=== PATIENT | female | born 1950 | race Hispanic/Latino ===

== ENCOUNTER 2017-08-13 15:57 | Inpatient (IN) | payer MEDICAID, SELFPAY ==
[2017-08-13] MEDS ORDERED: hydrALAZINE 20 MG/ML VIAL ONE (16:54)
[2017-08-13 17:54] LABS: #Eosinphils 0.2 thou/uL (0.0-0.7); #Lymphocytes 2.3 thou/uL (1.20-3.40); #Monocytes 0.4 thou/uL (0.11-0.59); #Neutrophils 2.7 thou/uL (1.40-6.50); %Basophils 0.9 % (0.0-1.0); %Eosinophils 2.8 % (0.0-10.0); %Lymphocytes 40.4 % (21.0-51.0); %Monocytes 6.9 % (0.0-10.0); Hemoglobin 10.2 g/dL (12.0-16.0); Mean Corpuscular HGB CONC 34.5 g/dL (32.0-36.0); Mean Corpuscular Hemoglobin 31.7 pg (27.0-31.0); Mean Corpuscular Volume 91.9 fl (81.0-99.0); Mean Platelet Volume 6.5 fL (7.4-10.4); Platelet Count 235 thou/uL (130-400); RBC Distribution Width 13.7 % (11.5-14.5); Red Blood Cell (RBC) Count 3.21 mill/uL (4.20-5.40); White Blood Cell (WBC) Count 5.6 thou/uL (4.8-10.8)
[2017-08-13] MEDS ORDERED: Ondansetron ODT 4 MG TAB ONE (18:15)
[2017-08-13 18:19] LABS: Troponin I 0.015 ng/mL (< 0.028)
[2017-08-13 18:20] LABS: ALT (SGPT) 7 U/L (8-55); AST (SGOT) 14 U/L (5-34); Albumin 3.6 g/dL (3.4-4.8); Alkaline Phosphatase 80 U/L (40-150); Anion Gap 16 mmol/L (10-20); BUN (Urea Nitrogen) 50 mg/dL (9.8-20.1); Bilirubin, Total 0.3 mg/dL (0.2-1.2); CK (CPK) 60 U/L (29-168); Calc. Creatinine Clearance 0 mL/min (70-130); Calcium 8.9 mg/dL (7.8-10.44); Carbon Dioxide 13 mmol/L (23-31); Chloride 115 mmol/L (98-107); Estimated GFR-MDRD 9; Globulin 3.1 g/dL (2.4-3.5); Glucose 119 mg/dL (80-115); Potassium 4.5 mmol/L (3.5-5.1); Protein, Total 6.7 g/dL (6.0-8.3); Sodium 139 mmol/L (136-145)
[2017-08-13] MEDS ORDERED: Ondansetron HCl/PF 4 MG/2 ML Vial IVP PRN ×2 (19:37→20:00)
[2017-08-13] MEDS ORDERED: Acetaminophen 325 MG TAB PO PRN ×2 (19:37→20:00)
[2017-08-13] MEDS ORDERED: Sodium Chloride 0.9% 1,000 ML IV SCH ×2 (19:37→20:00)
[2017-08-13] MEDS ORDERED: Ondansetron ODT 4 MG TAB SL PRN (19:37)
[2017-08-13] MEDS ORDERED: Dextrose 50% Abboject 50 ML SYRINGE SLOW IVP PRN (20:00)
[2017-08-13] MEDS ORDERED: Guaifenesin DM 100-10/5 ML UDCUP PO PRN (20:00)
[2017-08-13] MEDS ORDERED: Dextrose 5% in Water 1,000 ML IV PRN (20:00)
[2017-08-13] MEDS ORDERED: HumaLOG 300 UNITS/3 ML VIAL SC PRN (20:00)
[2017-08-13 21:40] LABS: Iron 68 ug/dL (50-170); Iron Binding Capacity, Total 194 mcg/dL (265-497)
[2017-08-13] MEDS: Labetalol 100 MG TAB PO SCH (21:51)
[2017-08-13] MEDS: hydrALAZINE 25 MG TAB PO SCH (21:53)
[2017-08-13] MEDS: Docusate 100 MG CAP PO SCH (21:53)
[2017-08-13] MEDS: Famotidine 20 MG TAB PO SCH (21:54)
[2017-08-13] MEDS: Heparin 5,000 UNITS/ML VIAL SC SCH (21:54)
[2017-08-13] MEDS: Sodium Bicarbonate 150 MEQ in Dextrose 5% in Water 1,000 ML IV SCH (21:56)
[2017-08-13 22:06] LABS: Troponin I 0.028 ng/mL (< 0.028)
[2017-08-13 22:14] VITALS: BMI 25.9
[2017-08-13 23:54] LABS: Troponin I 0.023 ng/mL (< 0.028)
--- NOTE | 2017-08-14 01:00 | HP ---
REASON FOR ADMISSION: Acute kidney injury, metabolic acidosis, nausea, vomiting , dizziness. HISTORY OF PRESENT ILLNESS: The patient gives history of feeling dizzy from . She started vomiting from Sunday. The patient has loss of appetite and has not been eating or drinking much since then. She has had mild epigastric pain due to retching episodes. No complaints of diarrhea. She had a normal bowel movement this morning. The patient has felt feverish and has had chills, but no urinary frequency or urgency. No complaints of cough or expectoration. No history of palpitations, PND or orthopnea. No prior history of kidney issues as far she knows. PAST MEDICAL AND SURGICAL HISTORY: Diabetes mellitus type 2, hypertension. No prior surgical history. CURRENT MEDICATIONS: Takes metformin 1000 mg once a day and unknown hypertension medication once a day. She has gotten both of these medications from [place]. ALLERGIES: ASPIRIN, PENICILLIN. PERSONAL HISTORY: Does not abuse alcohol or drugs. No history of smoking. FAMILY HISTORY: She does not know much about her biological mom. She was raised by her step mom. Father at the age of 64 years, was a heavy smoker and had COPD. REVIEW OF SYSTEMS: The following complete review of systems was negative, unless otherwise mentioned in the HPI or below: Constitutional: Weight loss or gain, ability to conduct usual activities. Skin: Rash, itching. Eyes: Double vision, pain. ENT/Mouth: Nose bleeding, neck stiffness, pain, tenderness. Cardiovascular: Palpitations, dyspnea on exertion, orthopnea. Respiratory: Shortness of breath, wheezing, cough, hemoptysis, fever or night sweats. Gastrointestinal: Poor appetite, abdominal pain, heartburn, nausea, vomiting, constipation, or diarrhea. Genitourinary: Urgency, frequency, dysuria, nocturia. Musculoskeletal: Pain, swelling. Neurologic/Psychiatric: Anxiety, depression. Allergy/Immunologic: Skin rash, bleeding tendency. PHYSICAL EXAMINATION: GENERAL: The patient is a 67-year-old female who is currently not in any acute distress. VITAL SIGNS: On arrival, blood pressure was 203/86, pulse 74 per minute, respiratory rate 18 per minute, temperature 98 degrees Fahrenheit, and saturating 99% on room air. NECK: Supple, no elevated JVD. HEENT: Eyes: Extraocular muscles intact. Pupils reacting to light. Oral cavity: Mucous membranes are dry. No exudates or congestion. CARDIOVASCULAR SYSTEM: S1, S2 heard. Regular rhythm. RESPIRATORY SYSTEM: Air entry 1+ bilateral. No rales or rhonchi. ABDOMEN: Soft, bowel sounds heard. No tenderness, rigidity, or guarding. EXTREMITIES: No peripheral edema or calf tenderness. VASCULAR SYSTEM: Peripheral pulses 2+ bilateral, no ischemic ulcerations or gangrene. CENTRAL NERVOUS SYSTEM: No gross focal deficits seen. The patient is alert, awake, and oriented well. PSYCHIATRIC SYSTEM: The patient's mood is euthymic. No hallucinations or delusions. LABORATORY AND X-RAY FINDINGS: White count of 5.6, H and H 10 and 29, platelet count 235, MCV is 91 with 49% neutrophils. Serum bicarbonate is 13, BUN 50, creatinine 4.7, glucose 119. Liver enzymes are within normal limits. First set of cardiac enzymes are negative. BNP is 271. Albumin is 3.8, lipase is 44. UA shows more than 300 mg per deciliter of proteins. There is small leukoesterase, 11-20 wbc's, and 2+ bacteria. CT of the abdomen and pelvis done shows no definite acute abnormalities seen on the CAT scan without IV contrast. There was no definite hydronephrosis with no renal or ureteral calculus noted. EKG done showed normal sinus rhythm at 72 beats per minute. There is poor R-wave progression. CLINICAL IMPRESSION AND PLAN: The patient will be admitted to telemetry for acute kidney injury, metabolic acidosis, and hypertensive urgency. She will be placed on labetalol 50 mg 3 times daily, hydralazine tid and normal saline at 100 mL per hour for gentle IV hydration. Ultrasound of the kidneys will be obtained. Echo with 2D Doppler for LV function. Iron studies for anemia, likely chronic versus due to kidney disease. I have consulted Dr. Rodriguez for Nephrology. She will be on Accu-Cheks with coverage for now. It is unclear what antihypertensive she is using. The patient's acute kidney injury appears to be likely due to prerenal issues with her nausea, vomiting, loss of appetite, plus the metformin and unknown hypertensive medication might have worsened her acute kidney injury. We will continue to closely monitor her on telemetry. CODE STATUS: FULL. MTDD
[2017-08-14 01:46] LABS: Creatinine, Urine 44.43 mg/dL (47-110)
--- NOTE | 2017-08-14 05:29 | CON ---
DATE OF CONSULTATION: 08/13/2017 CONSULTING PHYSICIAN: Michael Bernal M.D. REQUESTING PHYSICIAN: Dr. Grant. REASON FOR CONSULTATION: Advanced kidney disease. IMPRESSION: 1. Advanced chronic kidney disease stage 5 with possible uremic symptomatologies. 2. Metabolic acidosis in the context of problem #1. 3. Anemia, likely anemia of chronic kidney disease. 4. Hypertension. 5. Diabetes mellitus with possibility of diabetic nephropathy. PLAN: 1. Discontinue current normal saline and switch this patient over to bicarbonate based infusion to g ently rehydrate this patient, keeping an eye on the hemodynamics of this patient to avoid exacerbatin g hypertension. 2. Renally dose all medications per very low GFR. 3. Avoid potentially nephrotoxic agents. 4. Renal ultrasound to evaluate the echotexture of this patient's kidney. 5. Bone mineral metabolism by checking the parathyroid hormone. 6. Spot urine protein and creatinine to evaluate for any potential significant diabetic nephropathy. 7. Further management to be dependent on the clinical course. If this becomes clear that we are dahlia ling with advanced kidney disease with uremic symptomatology dialysis modality becomes the indicated mode of treatment. HISTORY OF PRESENT ILLNESS: A 67-year-old female patient visiting family from [place] who is here wit h persistent nausea and vomiting, poor appetite, presented to the ER from where she was transferred [place] to us here after being noted with advanced kidney disease with a creatinine of above 5. Patient noted to be significantly acidotic. Patient with a known history of diabetes on metformin as well as history of hypertension. As a result of the advanced kidney disease, decision has been taken to inv olve Renal in the management of this case. PAST MEDICAL HISTORY: 1. Significant for diabetes mellitus type 2 for many years. 2. Hypertension. 3. Possible chronic kidney disease. MEDICATIONS: As documented on [employer]. ALLERGIES: No known drug allergy. FAMILY HISTORY: Significant for kidney failure in the brother. REVIEW OF SYSTEMS: As documented in the body of the history. All the other systems reviewed were fo und not to be significantly related to the presenting illness. PHYSICAL EXAMINATION: GENERAL: The patient was found not to be in any obvious distress noted with the following vital sign s. VITAL SIGNS: Afebrile with temperature 96.7, pulse 82, respiratory rate of 16, O2 sat 100% on room a ir with a blood pressure 164/74. HEENT: Unremarkable. Moist oral mucosa. Neck is supple. No conjunctival injection or icterus. CARDIOVASCULAR SYSTEM: First and second heart sounds were heard. RESPIRATORY SYSTEM: Clear to auscultation. DIGESTIVE SYSTEM: Revealed a benign abdomen with positive bowel sounds. EXTREMITIES: No peripheral edema. SKIN: No new gross rash. LYMPHATICS: No peripheral lymphadenopathy. SUMMARY: A 67-year-old female patient with possible advanced chronic kidney disease stage 5 with pos sible uremic symptomatology who presented here with nausea, vomiting, and poor appetite. Thank you for this consultation. We will follow with you.
[2017-08-14 05:54] LABS: #Eosinphils 0.1 thou/uL (0.0-0.7); #Lymphocytes 1.8 thou/uL (1.20-3.40); #Monocytes 0.4 thou/uL (0.11-0.59); %Basophils 0.6 % (0.0-1.0); %Eosinophils 2.7 % (0.0-10.0); %Lymphocytes 33.9 % (21.0-51.0); %Monocytes 7.7 % (0.0-10.0); %Neutrophils 55.2 % (42.0-75.0); Hemoglobin 9.5 g/dL (12.0-16.0); Mean Corpuscular HGB CONC 33.9 g/dL (32.0-36.0); Mean Corpuscular Hemoglobin 31.1 pg (27.0-31.0); Mean Corpuscular Volume 91.8 fl (81.0-99.0); Mean Platelet Volume 6.9 fL (7.4-10.4); Platelet Count 219 thou/uL (130-400); Red Blood Cell (RBC) Count 3.05 mill/uL (4.20-5.40); White Blood Cell (WBC) Count 5.4 thou/uL (4.8-10.8)
[2017-08-14 06:27] LABS: Albumin 3.3 g/dL (3.4-4.8); Anion Gap 14 mmol/L (10-20); BUN (Urea Nitrogen) 51 mg/dL (9.8-20.1); BUN/Creatinine Ratio 10.49; Calc. Creatinine Clearance 10 mL/min (70-130); Calcium 8.7 mg/dL (7.8-10.44); Carbon Dioxide 17 mmol/L (23-31); Chloride 112 mmol/L (98-107); Estimated GFR-MDRD 9; Glucose 128 mg/dL (80-115); Phosphorus 4.4 mg/dL (2.3-4.7); Potassium 4.3 mmol/L (3.5-5.1); Sodium 139 mmol/L (136-145)
[2017-08-14] MEDS: Labetalol 100 MG TAB PO SCH ×2 (08:58→21:15)
[2017-08-14] MEDS: Docusate 100 MG CAP PO SCH ×2 (08:59→21:14)
[2017-08-14] MEDS: Heparin 5,000 UNITS/ML VIAL SC SCH ×2 (08:59→21:17)
[2017-08-14] MEDS: hydrALAZINE 25 MG TAB PO SCH ×3 (08:59→21:14)
[2017-08-14] MEDS ORDERED: Prevnar 13-Val Conj/PF 0.5 ML SYRINGE IM ONE (09:00)
--- NOTE | 2017-08-14 09:07 | ULT ---
BILATERAL RENAL ULTRASOUND: Date: 08/14/17 INDICATION: Acute renal injury. COMPARISON: None. FINDINGS: The right kidney measures 8.3 x 4.0 x 3.5 cm. The left kidney measures 8.4 x 4.6 x 4.7 cm. Right royce l cortical thickness was 1.4 cm. The left renal cortical thickness was 1.3 cm. No hydronephrosis evid ent. No focal renal lesion is evident. The pre-void bladder volume was 106 mL. IMPRESSION: No focal renal lesion or hydronephrosis. POS: ROBBI
--- NOTE | 2017-08-14 10:51 | PDOC.PN ---
- Subjective Encounter Start Date: 08/14/17 Encounter Start Time: 10:56 Subjective: No complaints. -: No acute events overnight. - Objective Resuscitation Status: Resuscitation Status FULL:Full Resuscitation Vital Signs & Weight: Vital Signs (12 hours) Temp Pulse Resp BP Pulse Ox 08/14/17 08:49 98.2 F 91 18 156/70 H 99 08/14/17 05:09 98.5 F 78 17 137/65 99 08/14/17 00:00 98.4 F 83 13 155/70 H 99 Weight Weight 119 lb 4.8 oz I&O: 08/13/17 08/14/17 08/15/17 06:59 06:59 06:59 Intake Total 1010 Output Total 550 Balance 460 Result Diagrams: 08/14/17 05:31 08/14/17 05:32 Phys Exam - Physical Examination Constitutional: NAD HEENT: PERRLA, moist MMs, sclera anicteric, oral pharynx no lesions Neck: no JVD, supple, full ROM Respiratory: no wheezing, no rales, no rhonchi, clear to auscultation bilateral Cardiovascular: RRR, no significant murmur, no rub Gastrointestinal: soft, non-tender, no distention, positive bowel sounds Musculoskeletal: no edema, pulses present Neurological: non-focal, normal sensation Psychiatric: normal affect, A&O x 3 Skin: no rash, normal turgor Dx/Plan (1) Acute on chronic renal failure Code(s): N17.9 - ACUTE KIDNEY FAILURE, UNSPECIFIED; N18.9 - CHRONIC KIDNEY DISEASE, UNSPECIFIED Status: Acute Qualifiers: Acute renal failure type: unspecified Chronic kidney disease stage: stage 4 (severe) Qualified Code(s): N17.9 - Acute kidney failure, unspecified; N18.4 - Chronic kidney disease, stage 4 (severe); N18.4 - Chronic kidney disease , stage 4 (severe); N18.4 - Chronic kidney disease, stage 4 (severe); N18.4 - Chronic kidney disease, stage 4 (severe) Comment: Improved. Nephrology on board. Continue parenteral hydration for now. Monitor creatinine and f/u nephrology recs. (2) Anemia Code(s): D64.9 - ANEMIA, UNSPECIFIED Status: Acute Qualifiers: Anemia type: unspecified type Qualified Code(s): D64.9 - Anemia, unspecified Comment: iron studies with low TIBC but normal ferritin. Will obtain folate and B12 to r/o megaloblastic anemia. (3) Metabolic acidosis Code(s): E87.2 - ACIDOSIS Status: Acute Comment: Improving. (4) DM2 (diabetes mellitus, type 2) Status: Acute Qualifiers: Diabetes mellitus complication status: with kidney complications Diabetes mellitus complication detail: with chronic kidney disease Chronic kidney disease stage: stage 4 (severe) Comment: Obtain HbA1c, continue sliding scale insulin and hold metformin. (5) HTN (hypertension) Code(s): I10 - ESSENTIAL (PRIMARY) HYPERTENSION Status: Acute Qualifiers: Hypertension type: essential hypertension Qualified Code(s): I10 - Essential (primary) hypertension Comment: On PO labetalol. Will start Amlodipine as first line drug and adjust regimen as required. (6) Hypertensive urgency Code(s): I16.0 - HYPERTENSIVE URGENCY Status: Resolved - Plan cont current plan of care, plan discussed w/ family, out of bed/ambulate, DVT proph w/heparin * . Review of Systems - Medications/Allergies Allergies/Adverse Reactions: Allergies Allergy/AdvReac Type Severity Reaction Status Date / Time aspirin Allergy Verified 08/13/17 22:20 Penicillins Allergy Verified 08/13/17 22:20 Medications: Current Medications Acetaminophen (Tylenol) 650 mg PO Q4H PRN PRN Reason: Headache/Fever or Pain Dextrose/Water (Dextrose 50%) 25 gm SLOW IVP PRN PRN PRN Reason: Hypoglycemia Docusate Sodium (Colace) 100 mg PO BID [facility] Last Admin: 08/14/17 08:59 Dose: 100 mg Famotidine (Pepcid) 20 mg PO Q24HR [facility] Last Admin: 08/13/17 21:54 Dose: 20 mg Glucagon (Glucagon) 1 mg IM PRN PRN PRN Reason: Hypoglycemia Guaifenesin/Dextromethorphan (Robitussin Dm) 15 ml PO Q4H PRN PRN Reason: Cough Heparin Sodium (Porcine) (Heparin) 5,000 units SC BID [facility] Last Admin: 08/14/17 08:59 Dose: 5,000 units Hydralazine HCl (Apresoline) 25 mg PO TID [facility] Last Admin: 08/14/17 08:59 Dose: 25 mg Dextrose/Water (D5w) 1,000 mls @ 0 mls/hr IV .Q0M PRN; As Directed PRN Reason: Hypoglycemia Sodium Bicarbonate 150 meq/ (Dextrose/Water) 1,150 mls @ 75 mls/hr IV .[id number] [facility] Last Admin: 08/13/17 21:56 Dose: 1,150 mls Insulin Human Lispro (Humalog) 0 units SC .MODERATE SLIDING SC PRN PRN Reason: Moderate Correctional Scale Labetalol HCl (Normodyne) 100 mg PO BID [facility] Last Admin: 08/14/17 08:58 Dose: 100 mg Ondansetron HCl (Zofran) 4 mg IVP Q6H PRN PRN Reason: Nausea/Vomiting
[2017-08-14] MEDS: Sodium Bicarbonate 150 MEQ in Dextrose 5% in Water 1,000 ML IV SCH (12:55)
--- NOTE | 2017-08-14 14:54 | PRG ---
DATE OF SERVICE: 08/14/2017 SUBJECTIVE: The patient seen and examined. Seems to be improving symptomatically, noted with the fo llowing. PHYSICAL EXAMINATION: VITAL SIGNS: Afebrile with temperature 98.2, pulse 91, respiratory rate of 18, O2 sat 99% with a blo od pressure 156/70. HEENT: Unremarkable with moist oral mucosa. NECK: Supple, no conjunctival injection or icterus. CARDIOVASCULAR SYSTEM: First and second heart sounds were heard. RESPIRATORY SYSTEM: Clear to auscultation. DIGESTIVE SYSTEM: Revealed a benign abdomen with positive bowel sounds. EXTREMITIES: No peripheral edema. SKIN: No new gross rash. LYMPHATICS: No peripheral lymphadenopathy. LABORATORY INVESTIGATIONS: Showed a creatinine of 4.86 with BUN of 51, bicarbonate of 17, PTH of 346 . IMPRESSION: 1. Advanced chronic kidney disease stage 5 with improved uremic symptoms. 2. Metabolic acidosis, improving. 3. Hyperparathyroidism secondary to advanced renal failure. 4. Nephrotic range proteinuria in the context of diabetic nephropathy. PLAN: 1. We will monitor this renal function up until tomorrow and then initiate a 24-hour urine collectio n for a better estimate of the residual renal function in this patient. 2. Discontinue IV fluid and start this patient on oral sodium bicarbonate supplementation. 3. Hemodynamics/blood pressure control. 4. If patient's renal function remains at this level, the patient is already at the point of requiri ng renal replacement therapy and will begin to make a plan and arrangement for dialysis access. 5. Further management will be dependent on the clinical course.
[2017-08-14] MEDS: Famotidine 20 MG TAB PO SCH (21:15)
[2017-08-14] MEDS: Sodium Bicarbonate Tab 325 MG TAB PO SCH (21:15)
[2017-08-15 05:15] LABS: #Eosinphils 0.2 thou/uL (0.0-0.7); #Lymphocytes 1.7 thou/uL (1.20-3.40); #Monocytes 0.4 thou/uL (0.11-0.59); #Neutrophils 3.1 thou/uL (1.40-6.50); %Basophils 0.7 % (0.0-1.0); %Eosinophils 3.3 % (0.0-10.0); %Lymphocytes 31.9 % (21.0-51.0); %Monocytes 7.5 % (0.0-10.0); %Neutrophils 56.6 % (42.0-75.0); Hemoglobin 8.8 g/dL (12.0-16.0); Mean Corpuscular HGB CONC 34.4 g/dL (32.0-36.0); Mean Corpuscular Hemoglobin 31.9 pg (27.0-31.0); Mean Corpuscular Volume 92.7 fl (81.0-99.0); Mean Platelet Volume 7.2 fL (7.4-10.4); Platelet Count 217 thou/uL (130-400); Red Blood Cell (RBC) Count 2.76 mill/uL (4.20-5.40); White Blood Cell (WBC) Count 5.4 thou/uL (4.8-10.8)
[2017-08-15 05:27] LABS: Hemoglobin A1c 5.3 % (4.0-6.0)
[2017-08-15 05:29] LABS: Anion Gap 14 mmol/L (10-20); BUN (Urea Nitrogen) 45 mg/dL (9.8-20.1); Calc. Creatinine Clearance 9 mL/min (70-130); Calcium 8.8 mg/dL (7.8-10.44); Carbon Dioxide 22 mmol/L (23-31); Chloride 108 mmol/L (98-107); Estimated GFR-MDRD 9; Glucose 118 mg/dL (80-115); Potassium 3.9 mmol/L (3.5-5.1); Sodium 140 mmol/L (136-145)
[2017-08-15 06:00] LABS: Folate (Folic Acid) 9.8 ng/mL (7.0-31.4)
[2017-08-15] MEDS: Sodium Bicarbonate Tab 325 MG TAB PO SCH ×2 (08:13→21:06)
[2017-08-15] MEDS: Amlodipine 5 MG TAB PO SCH (08:13)
[2017-08-15] MEDS: Docusate 100 MG CAP PO SCH ×2 (08:13→21:12)
[2017-08-15] MEDS: Heparin 5,000 UNITS/ML VIAL SC SCH ×2 (08:14→21:06)
[2017-08-15] MEDS: hydrALAZINE 25 MG TAB PO SCH ×3 (08:14→21:06)
[2017-08-15] MEDS: Labetalol 100 MG TAB PO SCH ×2 (08:14→21:06)
[2017-08-15] MEDS: Ondansetron ODT 4 MG TAB PO PRN ×2 (09:48→17:16)
--- NOTE | 2017-08-15 13:08 | PDOC.PN ---
- Subjective Encounter Start Date: 08/15/17 Encounter Start Time: 13:11 Subjective: No new complaints today. -: No acute events overnight. - Objective Resuscitation Status: Resuscitation Status FULL:Full Resuscitation MAR Reviewed: Yes Vital Signs & Weight: Vital Signs (12 hours) Temp Pulse Resp BP BP Pulse Ox 08/15/17 08:14 83 08/15/17 08:13 83 135/65 08/15/17 08:00 99 F 83 16 96 08/15/17 07:25 99 F 83 16 121/63 96 08/15/17 04:00 98.3 F 80 20 132/69 97 Weight Weight 119 lb 4.8 oz I&O: 08/14/17 08/15/17 08/16/17 06:59 06:59 06:59 Intake Total 1010 1791 Output Total 550 1020 Balance 460 771 Result Diagrams: 08/15/17 04:44 08/15/17 04:44 Additional Labs: Accuchecks 08/15/17 08/15/17 08/14/17 11:41 05:18 20:26 POC Glucose 210 H 114 H 187 H 08/14/17 08/14/17 08/14/17 17:50 16:18 11:42 POC Glucose 103 69 L 222 H 08/14/17 08/13/17 06:57 21:18 POC Glucose 135 H 248 H Phys Exam - Physical Examination Constitutional: NAD HEENT: PERRLA, moist MMs, sclera anicteric, oral pharynx no lesions Neck: no JVD, supple, full ROM Respiratory: no wheezing, no rales, no rhonchi, clear to auscultation bilateral Cardiovascular: RRR, no significant murmur, no rub Gastrointestinal: soft, non-tender, no distention, positive bowel sounds Musculoskeletal: no edema, pulses present Neurological: non-focal, moves all 4 limbs Psychiatric: normal affect, A&O x 3 Skin: no rash, normal turgor Dx/Plan (1) Acute on chronic renal failure Code(s): N17.9 - ACUTE KIDNEY FAILURE, UNSPECIFIED; N18.9 - CHRONIC KIDNEY DISEASE, UNSPECIFIED Status: Acute Qualifiers: Acute renal failure type: unspecified Chronic kidney disease stage: stage 4 (severe) Qualified Code(s): N17.9 - Acute kidney failure, unspecified; N18.4 - Chronic kidney disease, stage 4 (severe); N18.4 - Chronic kidney disease , stage 4 (severe); N18.4 - Chronic kidney disease, stage 4 (severe); N18.4 - Chronic kidney disease, stage 4 (severe) Comment: Creatinine has plateaued. 24HR urine collection in progress. Nephrology on board. (2) Anemia Code(s): D64.9 - ANEMIA, UNSPECIFIED Status: Acute Qualifiers: Anemia type: unspecified type Qualified Code(s): D64.9 - Anemia, unspecified Comment: B12 low normal. Started on B12 injections. FOBT ordered to r/o LGIB. (3) Metabolic acidosis Code(s): E87.2 - ACIDOSIS Status: Acute Comment: Improving. Started on PO sodium bicarbonate. 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 Will continue sliding scale insulin and hold metformin. (5) HTN (hypertension) Code(s): I10 - ESSENTIAL (PRIMARY) HYPERTENSION Status: Acute Qualifiers: Hypertension type: essential hypertension Qualified Code(s): I10 - Essential (primary) hypertension Comment: On PO labetalol and Amlodipine and adjust regimen as required. (6) Hypertensive urgency Code(s): I16.0 - HYPERTENSIVE URGENCY Status: Resolved - Plan cont current plan of care, plan discussed w/ family, out of bed/ambulate, DVT proph w/heparin * . Review of Systems - Medications/Allergies Allergies/Adverse Reactions: Allergies Allergy/AdvReac Type Severity Reaction Status Date / Time aspirin Allergy Verified 08/13/17 22:20 Penicillins Allergy Verified 08/13/17 22:20 Medications: Current Medications Acetaminophen (Tylenol) 650 mg PO Q4H PRN PRN Reason: Headache/Fever or Pain Amlodipine Besylate (Norvasc) 5 mg PO DAILY [facility] Last Admin: 08/15/17 08:13 Dose: 5 mg Dextrose/Water (Dextrose 50%) 25 gm SLOW IVP PRN PRN PRN Reason: Hypoglycemia Docusate Sodium (Colace) 100 mg PO BID [facility] Last Admin: 08/15/17 08:13 Dose: 100 mg Epoetin Shahbaz (Procrit) 7,500 units SC Q7D [facility] Famotidine (Pepcid) 20 mg PO Q24HR [facility] Last Admin: 08/14/17 21:15 Dose: 20 mg Glucagon (Glucagon) 1 mg IM PRN PRN PRN Reason: Hypoglycemia Guaifenesin/Dextromethorphan (Robitussin Dm) 15 ml PO Q4H PRN PRN Reason: Cough Heparin Sodium (Porcine) (Heparin) 5,000 units SC BID [facility] Last Admin: 08/15/17 08:14 Dose: 5,000 units Hydralazine HCl (Apresoline) 25 mg PO TID [facility] Last Admin: 08/15/17 08:14 Dose: 25 mg Dextrose/Water (D5w) 1,000 mls @ 0 mls/hr IV .Q0M PRN; As Directed PRN Reason: Hypoglycemia Insulin Human Lispro (Humalog) 0 units SC .MODERATE SLIDING SC PRN PRN Reason: Moderate Correctional Scale Last Admin: 08/14/17 13:25 Dose: 4 unit Labetalol HCl (Normodyne) 100 mg PO BID [facility] Last Admin: 08/15/17 08:14 Dose: 100 mg Ondansetron HCl (Zofran) 4 mg IVP Q6H PRN PRN Reason: Nausea/Vomiting Ondansetron HCl (Zofran Odt) 4 mg PO Q6H PRN PRN Reason: Nausea/Vomiting Last Admin: 08/15/17 09:48 Dose: 4 mg Sodium Bicarbonate (Bicarbonate, Sodium) 650 mg PO BID [facility] Last Admin: 08/15/17 08:13 Dose: 650 mg Sodium Chloride (Flush - Normal Saline) 10 ml IVF Q12HR [facility] Sodium Chloride (Flush - Normal Saline) 10 ml IVF PRN PRN PRN Reason: Saline Flush
[2017-08-15] MEDS ORDERED: Cyanocobalamin 1000 MCG/ML VIAL IM SCH (13:15)
[2017-08-15] MEDS: Epoetin (ESRD) 20,000 UNITS/ML SC SCH (14:14)
[2017-08-15] MEDS: Famotidine 20 MG TAB PO SCH (21:06)
--- NOTE | 2017-08-15 21:42 | PRG ---
DATE OF SERVICE: 08/15/2017 SUBJECTIVE: The patient was seen and examined today, noted to be nauseated with vomiting. Noted wit h the following vital signs. OBJECTIVE: VITAL SIGNS: Afebrile with temperature 99, pulse 83, blood pressure 135/65, respiratory rate of 16, O2 sat of 96%. HEENT: Unremarkable with moist oral mucosa. No conjunctival injection or icterus. NECK: Supple. CARDIOVASCULAR SYSTEM: First and heart sounds were heard. RESPIRATORY SYSTEM: Clear to auscultation. DIGESTIVE SYSTEM: Revealed a benign abdomen. EXTREMITIES: No peripheral edema. SKIN: No new gross rash. LYMPHATICS: No peripheral lymphadenopathy. LABORATORY INVESTIGATIONS: Showed a hemoglobin of 8.8. Chemistry showed a creatinine of 4.99, potas sium of 3.9. IMPRESSION: 1. Advanced chronic kidney disease, stage 5 in the context of problem #2 likely diabetic nephropathy with nephrotic range proteinuria. 2. Anemia of chronic kidney disease. 3. Metabolic acidosis, improving. PLAN: 1. The patient is currently undergoing 24-hour urine collection. We will use it to evaluate the deg ree of renal dysfunction in this patient. However, from all indication patient is becoming sym ptomatic in the way of nausea and vomiting. We will begin to seriously address renal replacement the rapy (hemodialysis). We will arrange for dialysis education and patient to make an informed choice i n terms of the modality of treatment to be pushed hemodialysis versus peritoneal dialysis. 2. Further management to be dependent on the clinical course. If the patient persists in this clini ambre condition, we will plan for dialysis within the next 24-48 hours.
[2017-08-16 04:36] LABS: #Eosinphils 0.1 thou/uL (0.0-0.7); #Lymphocytes 2.3 thou/uL (1.20-3.40); #Monocytes 0.5 thou/uL (0.11-0.59); #Neutrophils 2.6 thou/uL (1.40-6.50); %Basophils 0.8 % (0.0-1.0); %Eosinophils 2.5 % (0.0-10.0); %Lymphocytes 41.6 % (21.0-51.0); %Monocytes 8.5 % (0.0-10.0); %Neutrophils 46.6 % (42.0-75.0); Hemoglobin 8.3 g/dL (12.0-16.0); Mean Corpuscular Hemoglobin 31.8 pg (27.0-31.0); Mean Corpuscular Volume 93.3 fl (81.0-99.0); Mean Platelet Volume 6.9 fL (7.4-10.4); Platelet Count 220 thou/uL (130-400); RBC Distribution Width 13.7 % (11.5-14.5); Red Blood Cell (RBC) Count 2.63 mill/uL (4.20-5.40); White Blood Cell (WBC) Count 5.6 thou/uL (4.8-10.8)
[2017-08-16 04:44] LABS: Anion Gap 14 mmol/L (10-20); BUN (Urea Nitrogen) 44 mg/dL (9.8-20.1); Calc. Creatinine Clearance 8 mL/min (70-130); Calcium 8.8 mg/dL (7.8-10.44); Carbon Dioxide 23 mmol/L (23-31); Chloride 107 mmol/L (98-107); Estimated GFR-MDRD 8; Glucose 95 mg/dL (80-115); Potassium 3.9 mmol/L (3.5-5.1); Sodium 140 mmol/L (136-145)
[2017-08-16] MEDS: hydrALAZINE 25 MG TAB PO SCH ×3 (08:06→20:44)
[2017-08-16] MEDS: Sodium Bicarbonate Tab 325 MG TAB PO SCH ×2 (08:06→20:43)
[2017-08-16] MEDS: Docusate 100 MG CAP PO SCH ×2 (08:06→20:45)
[2017-08-16] MEDS: Heparin 5,000 UNITS/ML VIAL SC SCH ×2 (08:07→20:45)
[2017-08-16] MEDS: Labetalol 100 MG TAB PO SCH ×2 (08:07→20:44)
[2017-08-16] MEDS: Amlodipine 5 MG TAB PO SCH (08:07)
[2017-08-16] MEDS: Ondansetron ODT 4 MG TAB PO PRN (08:07)
[2017-08-16 09:50] LABS: Collection Duration 24 hrs
[2017-08-16 09:51] LABS: Urine Total Volume 900 mL (250-2400)
[2017-08-16 10:10] LABS: Body Surface Area 1.44
[2017-08-16 10:13] LABS: Creatinine, Urine 53.37 mg/dL (47-110)
[2017-08-16 10:25] LABS: Protein - 24 Hr 2187 mg/24 hr (Less than 300); Protein, Urine 243 mg/dL (1-14)
--- NOTE | 2017-08-16 16:17 | PDOC.PN ---
- Subjective Encounter Start Date: 08/16/17 Encounter Start Time: 16:21 Subjective: Seen and examined for SOSA on CKD, diabetes mellitus. -: Complains of nausea and occasional dizziness -: No acute events overnight. - Objective Resuscitation Status: Resuscitation Status FULL:Full Resuscitation MAR Reviewed: Yes Vital Signs & Weight: Vital Signs (12 hours) Temp Pulse Resp BP Pulse Ox 08/16/17 08:00 98.5 F 87 16 95 08/16/17 07:24 98.5 F 87 16 134/66 95 Weight Weight 119 lb 4.8 oz I&O: 08/15/17 08/16/17 08/17/17 06:59 06:59 06:59 Intake Total 1791 Output Total 1020 Balance 771 Result Diagrams: 08/16/17 03:53 08/16/17 03:53 Additional Labs: Accuchecks 08/16/17 08/15/17 08/15/17 04:18 21:20 16:32 POC Glucose 97 143 H 129 H Phys Exam - Physical Examination Constitutional: NAD HEENT: PERRLA, moist MMs, sclera anicteric, oral pharynx no lesions Neck: no JVD, supple, full ROM Respiratory: no wheezing, no rales, no rhonchi, clear to auscultation bilateral Cardiovascular: RRR, no significant murmur, no rub Gastrointestinal: soft, non-tender, no distention, positive bowel sounds Musculoskeletal: no edema, pulses present Neurological: non-focal, moves all 4 limbs Psychiatric: normal affect, A&O x 3 Skin: no rash, normal turgor Dx/Plan (1) Acute on chronic renal failure Code(s): N17.9 - ACUTE KIDNEY FAILURE, UNSPECIFIED; N18.9 - CHRONIC KIDNEY DISEASE, UNSPECIFIED Status: Acute Qualifiers: Acute renal failure type: unspecified Chronic kidney disease stage: stage 4 (severe) Qualified Code(s): N17.9 - Acute kidney failure, unspecified; N18.4 - Chronic kidney disease, stage 4 (severe); N18.4 - Chronic kidney disease , stage 4 (severe); N18.4 - Chronic kidney disease, stage 4 (severe); N18.4 - Chronic kidney disease, stage 4 (severe) Comment: Creatinine has plateaued. 24HR urine collection in progress and will be completed today. Nephrology on board. Will likely need to be initiated on HD. (2) Anemia Code(s): D64.9 - ANEMIA, UNSPECIFIED Status: Acute Qualifiers: Anemia type: unspecified type Qualified Code(s): D64.9 - Anemia, unspecified Comment: B12 low normal. Started on B12 supplementation. FOBT ordered to r/o LGIB. (3) DM2 (diabetes mellitus, type 2) Status: Acute Qualifiers: Diabetes mellitus dedicated intermodal truck driver insulin use: without fpc use Diabetes mellitus complication status: with kidney complications Diabetes mellitus complication detail: with chronic kidney disease Chronic kidney disease stage : stage 4 (severe) Qualified Code(s): E11.22 - Type 2 diabetes mellitus with diabetic chronic kidney disease; N18.4 - Chronic kidney disease, stage 4 (severe ); N18.4 - Chronic kidney disease, stage 4 (severe); N18.4 - Chronic kidney disease, stage 4 (severe); N18.4 - Chronic kidney disease, stage 4 (severe) Comment: HbA1c 5.3. Will continue sliding scale insulin and hold metformin. (4) HTN (hypertension) Code(s): I10 - ESSENTIAL (PRIMARY) HYPERTENSION Status: Acute Qualifiers: Hypertension type: essential hypertension Qualified Code(s): I10 - Essential (primary) hypertension Comment: On PO labetalol and Amlodipine and adjust regimen as required. (5) Hypertensive urgency Code(s): I16.0 - HYPERTENSIVE URGENCY Status: Resolved (6) Metabolic acidosis Code(s): E87.2 - ACIDOSIS Status: Resolved Comment: Improving. Started on PO sodium bicarbonate. - Plan cont current plan of care, plan discussed w/ family, out of bed/ambulate, DVT proph w/heparin 24 hour urine collection in progress. Nephrology to evaluate afterwards for possible HD. Review of Systems - Medications/Allergies Allergies/Adverse Reactions: Allergies Allergy/AdvReac Type Severity Reaction Status Date / Time aspirin Allergy Verified 08/13/17 22:20 Penicillins Allergy Verified 08/13/17 22:20 Medications: Current Medications Acetaminophen (Tylenol) 650 mg PO Q4H PRN PRN Reason: Headache/Fever or Pain Amlodipine Besylate (Norvasc) 5 mg PO DAILY [facility] Last Admin: 08/16/17 08:07 Dose: 5 mg Cyanocobalamin (Vitamin B-12) 1,000 mcg IM [id number] [facility] Last Admin: 08/15/17 14:15 Dose: 1,000 mcg Cyanocobalamin (Vitamin B-12) 1,000 mcg PO DAILY [facility] Dextrose/Water (Dextrose 50%) 25 gm SLOW IVP PRN PRN PRN Reason: Hypoglycemia Docusate Sodium (Colace) 100 mg PO BID [facility] Last Admin: 08/16/17 08:06 Dose: 100 mg Epoetin Shahbaz (Procrit) 7,500 units SC Q7D [facility] Last Admin: 08/15/17 14:14 Dose: 7,500 units Famotidine (Pepcid) 20 mg PO Q24HR [facility] Last Admin: 08/15/17 21:06 Dose: 20 mg Glucagon (Glucagon) 1 mg IM PRN PRN PRN Reason: Hypoglycemia Guaifenesin/Dextromethorphan (Robitussin Dm) 15 ml PO Q4H PRN PRN Reason: Cough Heparin Sodium (Porcine) (Heparin) 5,000 units SC BID [facility] Last Admin: 08/16/17 08:07 Dose: 5,000 units Hydralazine HCl (Apresoline) 25 mg PO TID [facility] Last Admin: 08/16/17 08:06 Dose: 25 mg Dextrose/Water (D5w) 1,000 mls @ 0 mls/hr IV .Q0M PRN; As Directed PRN Reason: Hypoglycemia Insulin Human Lispro (Humalog) 0 units SC .MODERATE SLIDING SC PRN PRN Reason: Moderate Correctional Scale Last Admin: 08/14/17 13:25 Dose: 4 unit Labetalol HCl (Normodyne) 100 mg PO BID [facility] Last Admin: 08/16/17 08:07 Dose: 100 mg Ondansetron HCl (Zofran) 4 mg IVP Q6H PRN PRN Reason: Nausea/Vomiting Ondansetron HCl (Zofran Odt) 4 mg PO Q6H PRN PRN Reason: Nausea/Vomiting Last Admin: 08/16/17 08:07 Dose: 4 mg Sodium Bicarbonate (Bicarbonate, Sodium) 650 mg PO BID [facility] Last Admin: 08/16/17 08:06 Dose: 650 mg Sodium Chloride (Flush - Normal Saline) 10 ml IVF Q12HR [facility] Last Admin: 08/16/17 08:07 Dose: 10 ml Sodium Chloride (Flush - Normal Saline) 10 ml IVF PRN PRN PRN Reason: Saline Flush
[2017-08-16] MEDS: Famotidine 20 MG TAB PO SCH (20:43)
[2017-08-17 05:34] LABS: #Basophils 0.1 thou/uL (0.0-0.2); #Eosinphils 0.2 thou/uL (0.0-0.7); #Lymphocytes 2.3 thou/uL (1.20-3.40); #Monocytes 0.6 thou/uL (0.11-0.59); #Neutrophils 2.9 thou/uL (1.40-6.50); %Eosinophils 3.6 % (0.0-10.0); %Lymphocytes 38.1 % (21.0-51.0); %Monocytes 9.3 % (0.0-10.0); %Neutrophils 48.1 % (42.0-75.0); Hemoglobin 8.4 g/dL (12.0-16.0); Mean Corpuscular HGB CONC 33.4 g/dL (32.0-36.0); Mean Corpuscular Hemoglobin 31.1 pg (27.0-31.0); Mean Corpuscular Volume 93.3 fl (81.0-99.0); Mean Platelet Volume 7.3 fL (7.4-10.4); Platelet Count 228 thou/uL (130-400); RBC Distribution Width 13.9 % (11.5-14.5); Red Blood Cell (RBC) Count 2.69 mill/uL (4.20-5.40)
[2017-08-17 05:45] LABS: Anion Gap 11 mmol/L (10-20); BUN (Urea Nitrogen) 44 mg/dL (9.8-20.1); Calc. Creatinine Clearance 8 mL/min (70-130); Calcium 8.7 mg/dL (7.8-10.44); Carbon Dioxide 25 mmol/L (23-31); Chloride 107 mmol/L (98-107); Estimated GFR-MDRD 7; Glucose 104 mg/dL (80-115); Potassium 3.9 mmol/L (3.5-5.1); Sodium 139 mmol/L (136-145)
--- NOTE | 2017-08-17 08:14 | PRG ---
DATE OF SERVICE: 08/13/2017 SUBJECTIVE: The patient was seen and examined and noted to have complaints of nausea and vomiting, o therwise not able to follow any vital signs. PHYSICAL EXAMINATION: VITAL SIGNS: Afebrile, temperature 98.5, pulse 87, respiratory rate 16, blood pressure 130/66. HEENT: Unremarkable. Moist oral mucosa. NECK: Supple. No conjunctival injection or icterus. CARDIOVASCULAR: First and second heart sounds were heard. EXTREMITIES: No peripheral edema. SKIN: No new gross rash. LYMPHATICS: No peripheral lymphadenopathy. LABORATORY INVESTIGATIONS: Significant for creatinine that has gone up to 5.5, otherwise rest unrema rkable. IMPRESSION: 1. Advanced chronic kidney disease stage 5 with possible uremic symptomatology. 2. Hypertension. 3. Anemia of chronic kidney disease. PLAN: 1. Continue erythropoiesis stimulating agent. 2. Renally dose all medications per low GFR. 3. We will be contacting access surgeons for evaluation of the patient's renal function to see if th ere is any possibility of initiating dialysis during this hospitalization.
[2017-08-17] MEDS: Amlodipine 5 MG TAB PO SCH (08:25)
[2017-08-17] MEDS: Sodium Bicarbonate Tab 325 MG TAB PO SCH ×2 (08:25→20:58)
[2017-08-17] MEDS: Docusate 100 MG CAP PO SCH ×2 (08:25→20:57)
[2017-08-17] MEDS: Labetalol 100 MG TAB PO SCH ×2 (08:25→20:58)
[2017-08-17] MEDS: Cyanocobalamin (Vitamin B-12) 1,000 MCG TAB PO SCH (08:25)
[2017-08-17] MEDS: Heparin 5,000 UNITS/ML VIAL SC SCH ×2 (08:26→21:00)
[2017-08-17] MEDS: Multivit, Chewable SF 1 TAB PO SCH (08:26)
[2017-08-17] MEDS: hydrALAZINE 25 MG TAB PO SCH ×3 (08:26→20:57)
--- NOTE | 2017-08-17 11:53 | PDOC.PN ---
- Subjective Encounter Start Date: 08/17/17 Encounter Start Time: 11:40 Subjective: f/u for CKD V with plans for dialysis but not started yet. No new complaint -: or SOB. Ambulated in halls with family. - Objective Resuscitation Status: Resuscitation Status FULL:Full Resuscitation MAR Reviewed: Yes Vital Signs & Weight: Vital Signs (12 hours) Temp Pulse Resp BP BP Pulse Ox 08/17/17 08:26 75 08/17/17 08:25 75 08/17/17 08:00 98.3 F 75 18 96 08/17/17 07:18 98.4 F 75 16 143/55 H 97 08/17/17 04:00 98.5 F 77 16 128/62 97 Weight Weight 119 lb 4.8 oz I&O: 08/16/17 08/17/17 08/18/17 06:59 06:59 06:59 Intake Total 450 240 Balance 450 240 Result Diagrams: 08/17/17 04:39 08/17/17 04:39 Additional Labs: Accuchecks 08/17/17 08/17/17 08/16/17 11:09 05:38 20:07 POC Glucose 167 H 108 142 H 08/16/17 16:57 POC Glucose 134 H Laboratory Tests 08/13/17 08/13/17 08/13/17 17:46 17:46 17:46 Hgb 10.2 L Creatinine 4.78 H Hemoglobin A1c Iron B-Natriuretic Peptide 271.5 H Urine Creatinine U Tot Protein 24h, Calc 08/13/17 08/14/17 08/14/17 21:08 00:47 05:31 Hgb 9.5 L Creatinine Hemoglobin A1c Iron 68 B-Natriuretic Peptide Urine Creatinine 44.43 L U Tot Protein 24h, Calc 08/14/17 08/15/17 08/15/17 05:32 02:40 04:44 Hgb Creatinine 4.86 H 4.99 H Hemoglobin A1c Iron B-Natriuretic Peptide Urine Creatinine U Tot Protein 24h, Calc 21808/15/17 08/15/17 08/15/17 04:44 04:44 04:44 Hgb 8.8 L Creatinine 4.99 H Hemoglobin A1c 5.3 Iron B-Natriuretic Peptide Urine Creatinine U Tot Protein 24h, Calc 08/16/17 08/16/17 03:53 03:53 Hgb 8.3 L Creatinine 5.51 H Hemoglobin A1c Iron B-Natriuretic Peptide Urine Creatinine U Tot Protein 24h, Calc Radiology Reviewed by me: Yes (Bilat Renal Sono - no focal lesion or hydronephrosis) Phys Exam - Physical Examination Constitutional: NAD HEENT: PERRLA, moist MMs, sclera anicteric, oral pharynx no lesions Neck: no nodes, no JVD, supple Respiratory: no wheezing, no rales, no rhonchi, clear to auscultation bilateral S1, S2 Cardiovascular: RRR, no significant murmur, no rub, gallop Gastrointestinal: soft, non-tender, no distention, positive bowel sounds Musculoskeletal: no edema, pulses present Neurological: non-focal, normal sensation Psychiatric: normal affect, A&O x 3 Skin: no rash, normal turgor, cap refill <2 seconds Dx/Plan (1) CKD (chronic kidney disease), stage V Code(s): N18.5 - CHRONIC KIDNEY DISEASE, STAGE 5 Status: Chronic Comment: Planning on PD but no current access placed, CM assisting with coordination for outpt services (2) Anemia in CKD (chronic kidney disease) Code(s): N18.9 - CHRONIC KIDNEY DISEASE, UNSPECIFIED; D63.1 - ANEMIA IN CHRONIC KIDNEY DISEASE Status: Chronic Comment: Continue B12 and Epogen, serial H/H monitoring (3) HTN (hypertension) Code(s): I10 - ESSENTIAL (PRIMARY) HYPERTENSION Status: Chronic Qualifiers: Hypertension type: essential hypertension Qualified Code(s): I10 - Essential (primary) hypertension Comment: On PO labetalol, Norvasc and Hydralazine, serial monitoring (4) Metabolic acidosis Code(s): E87.2 - ACIDOSIS Status: Resolved Comment: Improving. 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
[2017-08-17] MEDS: Famotidine 20 MG TAB PO SCH (20:57)
--- NOTE | 2017-08-17 21:12 | PRG ---
DATE OF SERVICE: 08/17/2017 SUBJECTIVE: The patient was seen and examined. Still feeling nauseous, otherwise noted with the fol lowing vital signs. OBJECTIVE: VITAL SIGNS: Afebrile with temperature 98.3, pulse 75, respiratory rate of 18, O2 sat of 96% with a blood pressure of 143/55. HEENT: Unremarkable. Moist oral mucosa. No conjunctival injection or icterus. NECK: Supple. CARDIOVASCULAR: First and second heart sounds were heard. RESPIRATORY: Clear to auscultation. DIGESTIVE: Revealed a benign abdomen with positive bowel sounds. EXTREMITIES: No peripheral edema. SKIN: No new gross rash. LYMPHATICS: No peripheral lymphadenopathy. LABORATORY DATA: Hemoglobin of 8.4. Chemistry showed a creatinine of 5.9 with BUN of 44 with estima semaj GFR of 7. IMPRESSION: 1. Advanced chronic kidney disease, stage 5/end-stage renal disease with possible uremic symptomatol ogies. 2. Anemia of chronic kidney disease, on erythropoiesis stimulating agent. 3. Diabetic nephropathy. 4. Hypertension. PLAN: 1. After extensive family discussion with this patient including with the outpatient dialysis luis chaudhry, the patient and the family will prefer peritoneal dialysis; however, given the financial statu s of this patient, this modality of treatment might not be possible at this point. The patient is al ready symptomatic with uremic symptoms. Therefore, we will initiate hemodialysis, then down the road , when the proper arrangements and logistics are put in place, the patient can transition to peritone al dialysis. I would therefore consult surgeon to secure access for eventual dialysis initiation. T he patient to start with a tunneled dialysis catheter as fistula also to be secured for long time acc ess. 2. We would continue erythropoiesis stimulating agent to address the anemia of chronic kidney diseas e. 3. Further management will be dependent on the clinical course.
[2017-08-18 05:42] LABS: #Basophils 0.1 thou/uL (0.0-0.2); #Eosinphils 0.2 thou/uL (0.0-0.7); #Lymphocytes 2.3 thou/uL (1.20-3.40); #Monocytes 0.5 thou/uL (0.11-0.59); #Neutrophils 2.8 thou/uL (1.40-6.50); %Basophils 1.4 % (0.0-1.0); %Eosinophils 3.5 % (0.0-10.0); %Lymphocytes 39.4 % (21.0-51.0); %Neutrophils 47.8 % (42.0-75.0); Hemoglobin 8.4 g/dL (12.0-16.0); Mean Corpuscular HGB CONC 33.4 g/dL (32.0-36.0); Mean Corpuscular Hemoglobin 31.4 pg (27.0-31.0); Mean Corpuscular Volume 94.1 fl (81.0-99.0); Mean Platelet Volume 7.1 fL (7.4-10.4); Platelet Count 229 thou/uL (130-400); RBC Distribution Width 13.8 % (11.5-14.5); Red Blood Cell (RBC) Count 2.67 mill/uL (4.20-5.40); White Blood Cell (WBC) Count 5.8 thou/uL (4.8-10.8)
[2017-08-18 05:57] LABS: Anion Gap 14 mmol/L (10-20); BUN (Urea Nitrogen) 39 mg/dL (9.8-20.1); Calc. Creatinine Clearance 8 mL/min (70-130); Calcium 8.7 mg/dL (7.8-10.44); Carbon Dioxide 22 mmol/L (23-31); Chloride 107 mmol/L (98-107); Estimated GFR-MDRD 7; Glucose 101 mg/dL (80-115); Potassium 4.1 mmol/L (3.5-5.1); Sodium 139 mmol/L (136-145)
[2017-08-18] MEDS: Cyanocobalamin (Vitamin B-12) 1,000 MCG TAB PO SCH (08:37)
[2017-08-18] MEDS: Labetalol 100 MG TAB PO SCH ×2 (08:37→20:48)
[2017-08-18] MEDS: Multivit, Chewable SF 1 TAB PO SCH (08:37)
[2017-08-18] MEDS: Sodium Bicarbonate Tab 325 MG TAB PO SCH ×2 (08:37→20:47)
[2017-08-18] MEDS: Docusate 100 MG CAP PO SCH ×2 (08:38→20:47)
[2017-08-18] MEDS: hydrALAZINE 25 MG TAB PO SCH ×3 (08:38→20:48)
[2017-08-18] MEDS: Heparin 5,000 UNITS/ML VIAL SC SCH ×2 (08:38→20:53)
[2017-08-18] MEDS: Amlodipine 5 MG TAB PO SCH (08:38)
--- NOTE | 2017-08-18 09:09 | ULT ---
VENOUS DUPLEX SONOGRAM WITH VEIN MAPPING BILATERAL UPPER EXTREMITY: Date: 08/18/17 HISTORY: Renal failure. Need for hemodialysis access. FINDINGS: Good color and spectral Doppler flow are present within the venous structures of each upper extremity . Subclavian and internal jugular veins, axillary veins, and brachial veins are patent. Measurements are as follows: RIGHT UPPER EXTREMITY BRACHIAL ARTERY: 5 mm RADIAL ARTERY: 3 mm ULNAR ARTERY: 2 mm CEPHALIC VEIN Proximal Humerus: 3 mm Mid Humerus: 3 mm Distal Humerus: 4 mm Antecubital Fossa: 3 mm Proximal Forearm: 3 mm Mid Forearm: 3 mm Distal Forearm: 3 mm BASILIC VEIN Proximal Humerus: 3 mm Mid Humerus: 3 mm Distal Humerus: 3 mm Antecubital Fossa: 3 mm Proximal Forearm: 2 mm Mid Forearm: 1 mm Distal Forearm: 2 mm LEFT UPPER EXTREMITY BRACHIAL ARTERY: 4 mm RADIAL ARTERY: 3 mm ULNAR ARTERY: 3 mm CEPHALIC VEIN Proximal Humerus: 1 mm Mid Humerus: 1 mm Distal Humerus: 1 mm Antecubital Fossa: 1 mm Proximal Forearm: 2 mm Mid Forearm: 1 mm Distal Forearm: 3 mm BASILIC VEIN Proximal Humerus: 5 mm Mid Humerus: 4 mm Distal Humerus: 4 mm Antecubital Fossa: 3 mm Proximal Forearm: 4 mm Mid Forearm: 3 mm Distal Forearm: 4 mm IMPRESSION: Patent vascular structures within each upper extremity, with measurements as detailed above. POS: [facility]
--- NOTE | 2017-08-18 14:07 | PDOC.PN ---
- Subjective Encounter Start Date: 08/18/17 Encounter Start Time: 14:04 Subjective: family and pt not sure if they want HD after it has been set to be started -: explained risks of not getting dialysis soon,option provided to discuss -: among family & w nephrology more they feel that pt is making urine and does not require HD or any other dialysis - Objective Resuscitation Status: Resuscitation Status FULL:Full Resuscitation MAR Reviewed: Yes Vital Signs & Weight: Vital Signs (12 hours) Temp Pulse Resp BP Pulse Ox 08/18/17 08:38 74 08/18/17 08:37 74 08/18/17 08:00 98.5 F 74 16 96 08/18/17 07:22 98.5 F 74 16 129/60 96 Weight Weight 119 lb 4.8 oz I&O: 08/17/17 08/18/17 08/19/17 06:59 06:59 06:59 Intake Total 450 640 240 Output Total 600 Balance 450 40 240 Result Diagrams: 08/18/17 04:24 08/18/17 04:24 Additional Labs: Accuchecks 08/18/17 08/18/17 08/17/17 12:04 04:57 19:40 POC Glucose 169 H 107 116 H 08/17/17 16:47 POC Glucose 150 H Laboratory Tests 08/13/17 08/13/17 08/14/17 13:35 17:46 05:32 Creatinine 5.50 H 4.78 H 4.86 H 08/15/17 08/15/17 08/16/17 04:44 04:44 03:53 Creatinine 4.99 H 4.99 H 5.51 H 08/17/17 08/18/17 04:39 04:24 Creatinine 5.90 H 6.01 H Phys Exam - Physical Examination Constitutional: NAD HEENT: PERRLA, moist MMs, sclera anicteric, oral pharynx no lesions Neck: no nodes, no JVD, supple, full ROM Respiratory: no wheezing, no rales, no rhonchi, clear to auscultation bilateral Cardiovascular: RRR, no significant murmur, no rub, gallop Gastrointestinal: soft, non-tender, no distention, positive bowel sounds Musculoskeletal: no edema, pulses present Neurological: non-focal, normal sensation, moves all 4 limbs Psychiatric: normal affect, A&O x 3 Skin: no rash Dx/Plan (1) Acute on chronic renal failure Code(s): N17.9 - ACUTE KIDNEY FAILURE, UNSPECIFIED; N18.9 - CHRONIC KIDNEY DISEASE, UNSPECIFIED Status: Acute Qualifiers: Acute renal failure type: unspecified Chronic kidney disease stage: stage 4 (severe) Qualified Code(s): N17.9 - Acute kidney failure, unspecified; N18.4 - Chronic kidney disease, stage 4 (severe); N18.4 - Chronic kidney disease , stage 4 (severe); N18.4 - Chronic kidney disease, stage 4 (severe); N18.4 - Chronic kidney disease, stage 4 (severe) Comment: Creatinine has plateaued. 24HR urine collection in progress and will be completed today. Nephrology on board. Will likely need to be initiated on HD. 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 Will continue sliding scale insulin and hold metformin. (3) Anemia in CKD (chronic kidney disease) Code(s): N18.9 - CHRONIC KIDNEY DISEASE, UNSPECIFIED; D63.1 - ANEMIA IN CHRONIC KIDNEY DISEASE Status: Chronic Comment: Continue B12 and Epogen, serial H/H monitoring (4) CKD (chronic kidney disease), stage V Code(s): N18.5 - CHRONIC KIDNEY DISEASE, STAGE 5 Status: Chronic Comment: Planning on PD but no current access placed, CM assisting with coordination for outpt services (5) HTN (hypertension) Code(s): I10 - ESSENTIAL (PRIMARY) HYPERTENSION Status: Chronic Qualifiers: Hypertension type: essential hypertension Qualified Code(s): I10 - Essential (primary) hypertension Comment: On PO labetalol, Norvasc and Hydralazine, serial monitoring - Plan plan discussed w/ family pt & family to decide if they want Dialysis or not -: explained that she is nearing ESRD but limited insight -: cont to monitor. -: am labs.home meds as below * . Review of Systems - Review of Systems Constitutional: negative: fever, chills, sweats, weakness, malaise, other Respiratory: negative: Cough, Dry, Shortness of Breath, Hemoptysis, SOB with Excertion, Pleuritic Pain, Sputum, Wheezing Cardiovascular: negative: chest pain, palpitations, orthopnea, paroxysmal nocturnal dyspnea, edema, light headedness, other Gastrointestinal: negative: Nausea, Vomiting, Abdominal Pain, Diarrhea, Constipation, Melena, Hematochezia, Other Genitourinary: negative: Dysuria, Frequency, Incontinence, Hematuria, Retention , Other Musculoskeletal: negative: Neck Pain, Shoulder Pain, Arm Pain, Back Pain, Hand Pain, Leg Pain, Foot Pain, Other Skin: negative: Rash, Lesions, Timo, Bruising, Other Neurological: negative: Weakness, Numbness, Incoordination, Change in Speech, Confusion, Seizures, Other - Medications/Allergies Allergies/Adverse Reactions: Allergies Allergy/AdvReac Type Severity Reaction Status Date / Time aspirin Allergy Verified 08/13/17 22:20 Penicillins Allergy Verified 08/13/17 22:20 Medications: Current Medications Acetaminophen (Tylenol) 650 mg PO Q4H PRN PRN Reason: Headache/Fever or Pain Amlodipine Besylate (Norvasc) 5 mg PO DAILY [facility] Last Admin: 08/18/17 08:38 Dose: 5 mg Cyanocobalamin (Vitamin B-12) 1,000 mcg IM [id number] [facility] Last Admin: 08/15/17 14:15 Dose: 1,000 mcg Cyanocobalamin (Vitamin B-12) 1,000 mcg PO DAILY [facility] Last Admin: 08/18/17 08:37 Dose: 1,000 mcg Dextrose/Water (Dextrose 50%) 25 gm SLOW IVP PRN PRN PRN Reason: Hypoglycemia Docusate Sodium (Colace) 100 mg PO BID [facility] Last Admin: 08/18/17 08:38 Dose: 100 mg Epoetin Shahbaz (Procrit) 7,500 units SC Q7D [facility] Last Admin: 08/15/17 14:14 Dose: 7,500 units Famotidine (Pepcid) 20 mg PO Q24HR [facility] Last Admin: 08/17/17 20:57 Dose: 20 mg Glucagon (Glucagon) 1 mg IM PRN PRN PRN Reason: Hypoglycemia Guaifenesin/Dextromethorphan (Robitussin Dm) 15 ml PO Q4H PRN PRN Reason: Cough Heparin Sodium (Porcine) (Heparin) 5,000 units SC BID [facility] Last Admin: 08/18/17 08:38 Dose: 5,000 units Hydralazine HCl (Apresoline) 25 mg PO TID [facility] Last Admin: 08/18/17 08:38 Dose: 25 mg Dextrose/Water (D5w) 1,000 mls @ 0 mls/hr IV .Q0M PRN; As Directed PRN Reason: Hypoglycemia Levofloxacin 500 mg/ Device 100 mls @ 100 mls/hr IVPB ONCALL-OR [facility] Insulin Human Lispro (Humalog) 0 units SC .MODERATE SLIDING SC PRN PRN Reason: Moderate Correctional Scale Last Admin: 08/14/17 13:25 Dose: 4 unit Labetalol HCl (Normodyne) 100 mg PO BID [facility] Last Admin: 08/18/17 08:37 Dose: 100 mg Multivitamins (Multivit, Chewable Sf) 1 tab PO DAILY [facility] Last Admin: 08/18/17 08:37 Dose: 1 tab Ondansetron HCl (Zofran) 4 mg IVP Q6H PRN PRN Reason: Nausea/Vomiting Ondansetron HCl (Zofran Odt) 4 mg PO Q6H PRN PRN Reason: Nausea/Vomiting Last Admin: 08/16/17 08:07 Dose: 4 mg Sodium Bicarbonate (Bicarbonate, Sodium) 650 mg PO BID [facility] Last Admin: 08/18/17 08:37 Dose: 650 mg Sodium Chloride (Flush - Normal Saline) 10 ml IVF Q12HR [facility] Last Admin: 08/18/17 08:43 Dose: 10 ml Sodium Chloride (Flush - Normal Saline) 10 ml IVF PRN PRN PRN Reason: Saline Flush
[2017-08-18] MEDS: Famotidine 20 MG TAB PO SCH (20:47)
--- NOTE | 2017-08-18 21:07 | HP ---
HISTORY OF PRESENT ILLNESS: A 67-year-old Ugandan speaking only female, whose relatives are present and one of which speaks Jamaican and translates for me. The patient has been admitted to the hospital Hospitalist on 08/13/2017. The patient has been seen by Dr. Rodriguez. I have been asked to see h er regarding establishment of dialysis access. She is right-handed. She has an IV in her right hand . She has had ultrasound vein mapping suggested superiority of veins right arm for dialysis access. The patient has diabetic and hypertensive nephropathy. As I am talking to her, the family has been unaware of the details of dialysis access. I have explained to them dialysis access both temporary h emodialysis catheter has a bridging access to primary fistula in her right arm and discussed with the m peritoneal dialysis. The patient is an illegal citizen and goes back and forth between [place] and the [place]. She does not have any financial coverage. They have many questions regarding the finances of dialysis. I have explained to them that there are no programs for non-[place] citizens for dialysis access and it would be a wyatt robbins. I have explained to them that their best financial op tion would be to return to [place] for long-term dialysis access. They have questions regarding cost of home peritoneal dialysis and outpatient hemodialysis. I have answered to them the best of my abil ity, but I have asked them to speak to the case fitter regarding the details. PAST MEDICAL HISTORY: Diabetes mellitus type 2 and hypertension. PAST SURGICAL HISTORY: Noncontributory. MEDICATIONS: Metformin 1000 mg once a day, unknown hypertension medication she get this from [place]. ALLERGIES: ASPIRIN causes a rash and PENICILLIN. The patient states that she does occasionally take ibuprofen and Tylenol without problems at home. TOBACCO: None. ALCOHOL: None. REVIEW OF SYSTEMS: Ten point noncontributory. PHYSICAL EXAMINATION: VITAL SIGNS: Height 4 feet 9 inches, 119 pounds, 25 BMI, temperature 98.5, pulse 74, respiratory rat e 16, oxygen saturation 96, and blood igsutsmc127/60. LUNGS: Clear to auscultation. CARDIAC: Regular rate and rhythm without murmur or gallop. ABDOMEN: Soft, nontender, no masses. EXTREMITIES: Unremarkable. Palpable radial pulses bilaterally. Good antecubital vein right. IV ri ght hand. LABORATORY DATA: White count 5.8, hemoglobin 8.4. Sodium 139, potassium 4.1, BUN 39, creatinine 6, GFR 7. Hemoglobin A1c is 5.3. ASSESSMENT AND PLAN: 1. End-stage renal disease, we would recommend dialysis access. We will plan placement of hemodialy sis catheter and a right arm primary fistula. She understands she will need to excise her right arm. She should avoid IV access or blood draws above her wrist. She should follow up in my office in 2- 3 weeks postoperatively. I have explained to her long-term dialysis access, but as she is not a [place] citizen, case fitter will need to talk to her about her options, which I think are probably few loca lly as I doubt they will be able to afford outpatient hemodialysis. They have asked about peritoneal dialysis and field handyman dialysis access can talk to the family about that. 2. Diabetes mellitus. 3. Hypertension.
--- NOTE | 2017-08-19 01:48 | PRG ---
DATE OF SERVICE: 08/18/2017 SUBJECTIVE: Patient was seen and examined with many family members. Extensive amount of time spent to clarify and explain to the patient hemodialysis and the need for renal replacement therapy. At th e end of our discussion, family and patient expressed understanding. Otherwise, patient noted with t he following vital signs. PHYSICAL EXAMINATION: VITAL SIGNS: Afebrile with temperature 98.5, pulse 74, respiratory rate of 16, O2 sat 96% with blood pressure 129/60. HEENT EXAMINATION: Unremarkable with moist oral mucosa. NECK: Supple, no conjunctival injection or icterus. CARDIOVASCULAR SYSTEM: First and second heart sounds were heard. RESPIRATORY SYSTEM: Clear to auscultation. DIGESTIVE SYSTEM: Revealed a benign abdomen with positive bowel sounds. EXTREMITIES: No peripheral edema. SKIN EXAMINATION: No new gross rash. LYMPHATICS: No peripheral lymphadenopathy. LABORATORY INVESTIGATION: Showed hemoglobin of 8.4. Chemistry showed a creatinine of 6.01 with BUN of 39, 24-hour urine collection revealed a creatinine clearance to be around 8. IMPRESSION: 1. End-stage renal disease with some uremic symptoms. 2. Anemia of chronic kidney disease. 3. Secondary hyperparathyroidism. After the above-mentioned discussion, patient now willing to proceed with securing hemodialysis acces s, in this case a tunneled dialysis catheter and fistula. PLAN: 1. The discussion around peritoneal dialysis will be placed on hold until around February. Thi s will require established insurance/financial plan for continuing renal replacement therapy. All qu estions were answered. Patient and family expressed understanding. 2. We will continue with erythropoiesis stimulating agent. Of note, this patient is a Jehovah's Wit ness and does not accept blood transfusion. Therefore, we will stay focused on maintaining the hemog lobin on this patient with erythropoiesis-stimulating agent.
[2017-08-19 05:38] LABS: #Eosinphils 0.2 thou/uL (0.0-0.7); #Lymphocytes 2.1 thou/uL (1.20-3.40); #Monocytes 0.5 thou/uL (0.11-0.59); %Basophils 0.8 % (0.0-1.0); %Eosinophils 3.6 % (0.0-10.0); %Lymphocytes 35.2 % (21.0-51.0); %Monocytes 8.3 % (0.0-10.0); Hemoglobin 8.4 g/dL (12.0-16.0); Mean Corpuscular HGB CONC 32.8 g/dL (32.0-36.0); Mean Corpuscular Volume 94.5 fl (81.0-99.0); Mean Platelet Volume 6.7 fL (7.4-10.4); Platelet Count 243 thou/uL (130-400); Red Blood Cell (RBC) Count 2.72 mill/uL (4.20-5.40); White Blood Cell (WBC) Count 5.8 thou/uL (4.8-10.8)
[2017-08-19 05:53] LABS: Anion Gap 12 mmol/L (10-20); BUN (Urea Nitrogen) 41 mg/dL (9.8-20.1); Calc. Creatinine Clearance 8 mL/min (70-130); Calcium 8.6 mg/dL (7.8-10.44); Carbon Dioxide 23 mmol/L (23-31); Chloride 107 mmol/L (98-107); Estimated GFR-MDRD 7; Glucose 109 mg/dL (80-115); Potassium 4.1 mmol/L (3.5-5.1); Sodium 138 mmol/L (136-145)
[2017-08-19] MEDS: Sodium Bicarbonate Tab 325 MG TAB PO SCH ×2 (09:05→20:29)
[2017-08-19] MEDS: Labetalol 100 MG TAB PO SCH ×2 (09:06→20:28)
[2017-08-19] MEDS: hydrALAZINE 25 MG TAB PO SCH ×3 (09:06→20:29)
[2017-08-19] MEDS: Docusate 100 MG CAP PO SCH ×2 (09:06→20:28)
[2017-08-19] MEDS: Amlodipine 5 MG TAB PO SCH (09:06)
[2017-08-19] MEDS: Cyanocobalamin (Vitamin B-12) 1,000 MCG TAB PO SCH (09:06)
[2017-08-19] MEDS: Multivit, Chewable SF 1 TAB PO SCH (09:06)
[2017-08-19] MEDS: Heparin 5,000 UNITS/ML VIAL SC SCH ×2 (09:07→20:29)
--- NOTE | 2017-08-19 15:00 | PDOC.PN ---
- Subjective Encounter Start Date: 08/19/17 Encounter Start Time: 14:59 Subjective: no new complaints. agreeable to HD -: discussed with pt and son at bedside -: no AP/nausea/vomiting/fever/SOB/CP - Objective Resuscitation Status: Resuscitation Status FULL:Full Resuscitation MAR Reviewed: Yes Vital Signs & Weight: Vital Signs (12 hours) Temp Pulse Resp BP Pulse Ox 08/19/17 14:56 74 08/19/17 09:06 74 08/19/17 08:00 98.0 F 74 16 97 08/19/17 07:16 98.4 F 74 16 135/64 96 Weight Weight 119 lb 4.8 oz I&O: 08/18/17 08/19/17 08/20/17 06:59 06:59 06:59 Intake Total 640 640 Output Total 600 Balance 40 640 Result Diagrams: 08/19/17 05:02 08/19/17 05:02 Additional Labs: Accuchecks 08/19/17 08/19/17 08/18/17 10:56 04:01 16:37 POC Glucose 205 H 110 182 H Phys Exam - Physical Examination Constitutional: NAD HEENT: PERRLA, moist MMs, sclera anicteric, oral pharynx no lesions Neck: no nodes, no JVD, supple, full ROM Respiratory: no wheezing, no rales, no rhonchi, clear to auscultation bilateral Cardiovascular: RRR, no significant murmur, no rub Gastrointestinal: soft, non-tender, no distention, positive bowel sounds Musculoskeletal: no edema, pulses present Neurological: non-focal, normal sensation, moves all 4 limbs Psychiatric: normal affect, A&O x 3 Skin: no rash Dx/Plan (1) Acute on chronic renal failure Code(s): N17.9 - ACUTE KIDNEY FAILURE, UNSPECIFIED; N18.9 - CHRONIC KIDNEY DISEASE, UNSPECIFIED Status: Acute Qualifiers: Acute renal failure type: unspecified Chronic kidney disease stage: stage 4 (severe) Qualified Code(s): N17.9 - Acute kidney failure, unspecified; N18.4 - Chronic kidney disease, stage 4 (severe); N18.4 - Chronic kidney disease , stage 4 (severe); N18.4 - Chronic kidney disease, stage 4 (severe); N18.4 - Chronic kidney disease, stage 4 (severe) Comment: Creatinine has plateaued. 24HR urine collection in progress and will be completed today. Nephrology on board. Will likely need to be initiated on HD. (2) DM2 (diabetes mellitus, type 2) Status: Acute Qualifiers: Diabetes mellitus custodial insulin use: without intermediate project manager use Diabetes mellitus complication status: with kidney complications Diabetes mellitus complication detail: with chronic kidney disease Chronic kidney disease stage : stage 4 (severe) Qualified Code(s): E11.22 - Type 2 diabetes mellitus with diabetic chronic kidney disease; N18.4 - Chronic kidney disease, stage 4 (severe ); N18.4 - Chronic kidney disease, stage 4 (severe); N18.4 - Chronic kidney disease, stage 4 (severe); N18.4 - Chronic kidney disease, stage 4 (severe) Comment: HbA1c 5.3. Will continue sliding scale insulin and hold metformin. (3) Anemia in CKD (chronic kidney disease) Code(s): N18.9 - CHRONIC KIDNEY DISEASE, UNSPECIFIED; D63.1 - ANEMIA IN CHRONIC KIDNEY DISEASE Status: Chronic Comment: Continue B12 and Epogen, serial H/H monitoring (4) CKD (chronic kidney disease), stage V Code(s): N18.5 - CHRONIC KIDNEY DISEASE, STAGE 5 Status: Chronic Comment: Planning on PD but no current access placed, CM assisting with coordination for outpt services (5) HTN (hypertension) Code(s): I10 - ESSENTIAL (PRIMARY) HYPERTENSION Status: Chronic Qualifiers: Hypertension type: essential hypertension Qualified Code(s): I10 - Essential (primary) hypertension Comment: On PO labetalol, Norvasc and Hydralazine, serial monitoring - Plan plan discussed w/ family, PT/OT, out of bed/ambulate HD catheter to be placed tomorrow w initiation of HD -: cont to monitor renal function.nephrology following -: Set up OP HD w help of CM -: HS stable. cont to monitor H/H as pt can't accept blood -: cont epocrit.am labs * . Review of Systems - Review of Systems Constitutional: negative: fever, chills, sweats, weakness, malaise, other Respiratory: negative: Cough, Dry, Shortness of Breath, Hemoptysis, SOB with Excertion, Pleuritic Pain, Sputum, Wheezing Cardiovascular: negative: chest pain, palpitations, orthopnea, paroxysmal nocturnal dyspnea, edema, light headedness, other Gastrointestinal: negative: Nausea, Vomiting, Abdominal Pain, Diarrhea, Constipation, Melena, Hematochezia, Other Genitourinary: negative: Dysuria, Frequency, Incontinence, Hematuria, Retention , Other Musculoskeletal: negative: Neck Pain, Shoulder Pain, Arm Pain, Back Pain, Hand Pain, Leg Pain, Foot Pain, Other Skin: negative: Rash, Lesions, Timo, Bruising, Other Neurological: negative: Weakness, Numbness, Incoordination, Change in Speech, Confusion, Seizures, Other - Medications/Allergies Allergies/Adverse Reactions: Allergies Allergy/AdvReac Type Severity Reaction Status Date / Time aspirin Allergy Verified 08/13/17 22:20 Penicillins Allergy Verified 08/13/17 22:20 Medications: Current Medications Acetaminophen (Tylenol) 650 mg PO Q4H PRN PRN Reason: Headache/Fever or Pain Amlodipine Besylate (Norvasc) 5 mg PO DAILY [facility] Last Admin: 08/19/17 09:06 Dose: 5 mg Cyanocobalamin (Vitamin B-12) 1,000 mcg IM [id number] [facility] Last Admin: 08/15/17 14:15 Dose: 1,000 mcg Cyanocobalamin (Vitamin B-12) 1,000 mcg PO DAILY [facility] Last Admin: 08/19/17 09:06 Dose: 1,000 mcg Dextrose/Water (Dextrose 50%) 25 gm SLOW IVP PRN PRN PRN Reason: Hypoglycemia Docusate Sodium (Colace) 100 mg PO BID [facility] Last Admin: 08/19/17 09:06 Dose: 100 mg Epoetin Shahbaz (Procrit) 7,500 units SC Q7D [facility] Last Admin: 08/15/17 14:14 Dose: 7,500 units Famotidine (Pepcid) 20 mg PO Q24HR [facility] Last Admin: 08/18/17 20:47 Dose: 20 mg Glucagon (Glucagon) 1 mg IM PRN PRN PRN Reason: Hypoglycemia Guaifenesin/Dextromethorphan (Robitussin Dm) 15 ml PO Q4H PRN PRN Reason: Cough Heparin Sodium (Porcine) (Heparin) 5,000 units SC BID [facility] Last Admin: 08/19/17 09:07 Dose: 5,000 units Hydralazine HCl (Apresoline) 25 mg PO TID [facility] Last Admin: 08/19/17 14:56 Dose: 25 mg Dextrose/Water (D5w) 1,000 mls @ 0 mls/hr IV .Q0M PRN; As Directed PRN Reason: Hypoglycemia Levofloxacin 500 mg/ Device 100 mls @ 100 mls/hr IVPB ONCALL-OR WES Insulin Human Lispro (Humalog) 0 units SC .MODERATE SLIDING SC PRN PRN Reason: Moderate Correctional Scale Last Admin: 08/14/17 13:25 Dose: 4 unit Labetalol HCl (Normodyne) 100 mg PO BID [facility] Last Admin: 08/19/17 09:06 Dose: 100 mg Multivitamins (Multivit, Chewable Sf) 1 tab PO DAILY [facility] Last Admin: 08/19/17 09:06 Dose: 1 tab Ondansetron HCl (Zofran) 4 mg IVP Q6H PRN PRN Reason: Nausea/Vomiting Ondansetron HCl (Zofran Odt) 4 mg PO Q6H PRN PRN Reason: Nausea/Vomiting Last Admin: 08/16/17 08:07 Dose: 4 mg Sodium Bicarbonate (Bicarbonate, Sodium) 650 mg PO BID [facility] Last Admin: 08/19/17 09:05 Dose: 650 mg Sodium Chloride (Flush - Normal Saline) 10 ml IVF Q12HR [facility] Last Admin: 08/19/17 09:06 Dose: 10 ml Sodium Chloride (Flush - Normal Saline) 10 ml IVF PRN PRN PRN Reason: Saline Flush
--- NOTE | 2017-08-19 19:31 | PRG ---
DATE OF SERVICE: 08/19/2017 SUBJECTIVE: The patient was seen and examined today with no new complaint noted with the following. PHYSICAL EXAMINATION: VITAL SIGNS: Afebrile with temperature 98, pulse 74, respiratory 16, O2 sat 97%. HEENT: Unremarkable with moist oral mucosa. NECK: Supple, no conjunctival injection or icterus. CARDIOVASCULAR SYSTEM: First and second heart sounds were heard. RESPIRATORY SYSTEM: Clear to auscultation. DIGESTIVE SYSTEM: Revealed a benign abdomen. EXTREMITIES: No peripheral edema. SKIN: No new gross rash. LYMPHATICS: No peripheral lymphadenopathy. IMPRESSION: 1. End-stage renal disease. 2. Hypertension. 3. Diabetic nephropathy. PLAN: 1. The patient likely to undergo a tunneled dialysis catheter placement with a fistula placement tiesha orrow. 2. Further management to be dependent on the clinical course. Status post hemodialysis catheter burke cement. The patient to be initiated on hemodialysis.
[2017-08-19] MEDS: Famotidine 20 MG TAB PO SCH (20:32)
[2017-08-20 05:43] LABS: Anion Gap 13 mmol/L (10-20); BUN (Urea Nitrogen) 47 mg/dL (9.8-20.1); Calc. Creatinine Clearance 7 mL/min (70-130); Calcium 8.5 mg/dL (7.8-10.44); Carbon Dioxide 22 mmol/L (23-31); Chloride 108 mmol/L (98-107); Estimated GFR-MDRD 6; Glucose 110 mg/dL (80-115); Potassium 4.2 mmol/L (3.5-5.1); Sodium 139 mmol/L (136-145)
[2017-08-20 05:54] LABS: Band 1 % (5-11); Eosinophils 1 % (0-10); Hemoglobin 8.5 g/dL (12.0-16.0); Lymphocytes 33 % (21-51); MDiff Complete? YES; Mean Corpuscular HGB CONC 32.4 g/dL (32.0-36.0); Mean Corpuscular Hemoglobin 30.8 pg (27.0-31.0); Mean Corpuscular Volume 95.2 fl (81.0-99.0); Mean Platelet Volume 6.9 fL (7.4-10.4); Monocytes 6 % (0-10); Neutrophil 57 % (42-75); PLT Morphology Comment Appears Adequate; Platelet Count 246 thou/uL (130-400); RBC Distribution Width 14.7 % (11.5-14.5); Red Blood Cell (RBC) Count 2.76 mill/uL (4.20-5.40); White Blood Cell (WBC) Count 6.1 thou/uL (4.8-10.8)
[2017-08-20] MEDS: Labetalol 100 MG TAB PO SCH ×2 (06:07→20:10)
[2017-08-20] MEDS: Amlodipine 5 MG TAB PO SCH (09:06)
[2017-08-20] MEDS: Cyanocobalamin (Vitamin B-12) 1,000 MCG TAB PO SCH (09:06)
[2017-08-20] MEDS: Docusate 100 MG CAP PO SCH ×2 (09:07→20:10)
[2017-08-20] MEDS: Heparin 5,000 UNITS/ML VIAL SC SCH ×2 (09:07→20:13)
[2017-08-20] MEDS: Multivit, Chewable SF 1 TAB PO SCH (09:16)
[2017-08-20] MEDS: hydrALAZINE 25 MG TAB PO SCH ×3 (09:16→20:10)
[2017-08-20] MEDS: Sodium Bicarbonate Tab 325 MG TAB PO SCH ×2 (09:16→20:10)
[2017-08-20] MEDS ORDERED: Levofloxacin 500 mg/D5W 100 ml Premix Bag ONE (10:42)
[2017-08-20] MEDS ORDERED: Lidocaine 2% 10 ML INJ ONE (11:52)
[2017-08-20] MEDS ORDERED: Heparin 5,000 UNITS/ML VIAL ONE (11:52)
[2017-08-20] MEDS ORDERED: Sodium Chloride 0.9% 30 ML ONE (11:52)
[2017-08-20] MEDS ORDERED: Bupivacaine HCl 0.5%/Epinephrine 1:200,000/PF 30 ml Vial ONE (11:52)
[2017-08-20] MEDS ORDERED: Protamine Sulfate 50 MG/5 ML VIAL ONE (11:52)
[2017-08-20] MEDS ORDERED: Heparin 10,000 UNITS/1 ML VIAL ONE (11:52)
[2017-08-20] MEDS ORDERED: Vecuronium 10 MG VIAL ONE (11:52)
[2017-08-20] MEDS ORDERED: Heparin 10,000 UNITS/ 10 ML VIAL ONE (11:54)
[2017-08-20] MEDS ORDERED: PROPOFOL 200 MG/20 ML VIAL ONE (11:54)
[2017-08-20] MEDS ORDERED: Lidocaine 1% PF 5 ML VIAL ONE (11:54)
[2017-08-20] MEDS ORDERED: Midazolam HCl 2 mg/2 ml Vial ONE (11:56)
[2017-08-20] MEDS ORDERED: Fentanyl 100 MCG/2 ML VIAL ONE ×2 (11:56→13:33)
[2017-08-20 12:05] LABS: HBSAB Concentration 0.75 mIU/mL; HBSAg Index 0.18 S/CO (0-0.99); Hep B Core Total Ab Non-Reactive (NonReactive); Hep B Core Total Index 0.09 S/CO (0-0.79); Hep B Surf AB Non-Reactive (NonReactive); Hep B Surf Ag Non-Reactive S/CO (NonReactive)
[2017-08-20 12:06] LABS: Hep C IgG Ab Non-Reactive (NonReactive)
[2017-08-20] MEDS ORDERED: Acetaminophen 500 MG TAB PO PRN (14:04)
[2017-08-20] MEDS ORDERED: traMADol HCl 50 MG TAB PO PRN ×2 (14:04)
--- NOTE | 2017-08-20 14:53 | OP ---
DATE OF PROCEDURE: 08/20/2017 PREOPERATIVE DIAGNOSES: End-stage renal disease, illegal resident unit, no financial backing. POSTOPERATIVE DIAGNOES: End-stage renal disease, illegal resident unit, no financial backing. PROCEDURES PERFORMED: Right IJ cuffed tunnel dialysis catheter, ultrasound fluoroscopy used. Right arm primary fistula, antecubital vein to the proximal radial artery, outflow primary cephalic vein up per arm for anatomic considerations with communication to basilic vein preserved. SURGEON: Dr. Az Diaz. ANESTHESIA: General LMA. Local 0.5% Marcaine with epinephrine 30 mL mixed with 2% Xylocaine, 10 mL. Note, exploration of the right wrist performed and the vein was too small for a primary Eugene fistul a. DESCRIPTION OF PROCEDURE: The patient was taken to the operating room where under general LMA anesth esia, chest, neck and right upper extremity was prepared with ChloraPrep, draped in routine fashion. Local anesthetic infiltrated into the skin and subcutaneous tissue about the operative site. Using ultrasound guidance, the right internal jugular vein was cannulated with trocar catheter. J-wire thr eaded. Trocar catheter removed. Skin incised and enlarged sharply. Stab incision made over the rig ht chest. Using the tunneling device, precurved angiodynamics cuffed tunnel hemodialysis catheter tu nneled between two incisions, placing the fabric cuff beneath the skin exit site and the catheter sec ured with 2 interrupted sutures of 3-0 nylon. Biopatch and sterile dressing applied. Smaller and me dium sized dilators placed over the J-wire and the internal jugular vein removed. Dilator and pull-a way sheath placed over the J-wire into the superior vena cava and dilator and J-wire removed. Cathet er placed with pull-away sheath and pull-away sheath removed. Fluoroscopically, catheter noted to be in good position as the platysma approximated with 4-0 Monocryl, skin with subdermal 4-0 Monocryl an d DermaGlue applied. Each port aspirated blood and flushed with heparinized saline solution 1000 uni ts heparin per mL indicated volume of the port. Attention was then turned to the right upper extremity where the incision was made at the right wrist longitudinally and the cephalic vein to the right wrist was too small for Eugene fistula and this wa s closed by approximately subcutaneous tissues with 3-0 Monocryl, skin with subdermal 4-0 Monocryl. Incision was made in the proximal volar forearm longitudinally, carried down skin and subcutaneous ti ssue and the perforating branch antecubital vein dissected free. Antecubital vein was of superior qu ality and it was dissected free. Stump ligated on the hand side with 3-0 silk and transected. Branc hes divided between 4-0 silk ties and clips. It was spatulated and cephalic vein forearm spatulated and interrogated with coronary dilators, passing coronary dilators from a 2 mm to a 3.5 mm coronary d ilator unobstructed out the cephalic vein outflow upper arm. It was flushed with heparinized saline solution and an atraumatic bulldog clamp applied. The patient was given 6000 units heparin intraveno usly by Anesthesia. Brachial, radial and ulnar artery dissected free, clamped with vascular clamp an d longitudinal arteriotomy made sharply in the proximal radial artery elongated with Jain scissors. Vein accordingly spatulated for an end vein to side proximal radial artery anastomosis created with continuous suture of 6-0 Prolene for 2 cm anastomosis. Vascular clamps were released and there was g ood flow in the fistula interrogated by Doppler outflow. Good hemostasis noted. The patient was giv en 25 mg of protamine intravenous by Anesthesia. Subcutaneous tissues approximated with 3-0 Monocryl , skin with subdermal 4-0 Monocryl and DermaGlue applied.
--- NOTE | 2017-08-20 15:05 | RAD ---
CHEST ONE VIEW: History: Central line placement. Comparison: None. FINDINGS: Right IJ central venous catheter is in place. The tip is at the mid inferior SVC. No focal airspace c onsolidation, pneumothorax, or effusion. Mild interstitial prominence in the lung bases. IMPRESSION: Uncomplicated placement right IJ central venous catheter. POS: [facility]PC
[2017-08-20] MEDS ORDERED: hydrALAZINE 20 MG/ML VIAL SLOW IVP PRN (15:25)
--- NOTE | 2017-08-20 15:29 | PDOC.PN ---
- Subjective Encounter Start Date: 08/20/17 Encounter Start Time: 15:27 Subjective: s/p HD catheter placement and R arm fistula - Objective Resuscitation Status: Resuscitation Status FULL:Full Resuscitation MAR Reviewed: Yes Vital Signs & Weight: Vital Signs (12 hours) Temp Pulse Resp BP BP Pulse Ox 08/20/17 09:20 98.1 F 71 18 170/68 H 94 L 08/20/17 09:16 75 08/20/17 09:06 75 08/20/17 08:00 98.6 F 75 16 98 08/20/17 07:27 98.6 F 75 16 149/66 H 98 08/20/17 06:07 74 147/67 H 08/20/17 04:31 98.4 F 74 20 147/67 H 96 Weight Weight 119 lb 4.8 oz I&O: 08/19/17 08/20/17 08/21/17 06:59 06:59 06:59 Intake Total 640 240 50 Balance 640 240 50 Result Diagrams: 08/20/17 04:33 08/20/17 04:33 Additional Labs: Accuchecks 08/20/17 08/19/17 08/19/17 04:34 21:03 15:37 POC Glucose 114 H 156 H 129 H 08/18/17 20:39 POC Glucose 182 H Phys Exam - Physical Examination Constitutional: NAD HEENT: PERRLA, moist MMs, sclera anicteric, oral pharynx no lesions Neck: no nodes, no JVD, supple, full ROM Respiratory: no wheezing, no rales, no rhonchi, clear to auscultation bilateral Cardiovascular: RRR, no significant murmur Gastrointestinal: soft, non-tender, no distention, positive bowel sounds Musculoskeletal: no edema, pulses present r arm fistula and R subclavian site clean Neurological: non-focal, normal sensation, moves all 4 limbs Psychiatric: normal affect, A&O x 3 Skin: no rash Dx/Plan (1) Acute on chronic renal failure Code(s): N17.9 - ACUTE KIDNEY FAILURE, UNSPECIFIED; N18.9 - CHRONIC KIDNEY DISEASE, UNSPECIFIED Status: Acute Qualifiers: Acute renal failure type: unspecified Chronic kidney disease stage: stage 4 (severe) Qualified Code(s): N17.9 - Acute kidney failure, unspecified; N18.4 - Chronic kidney disease, stage 4 (severe); N18.4 - Chronic kidney disease , stage 4 (severe); N18.4 - Chronic kidney disease, stage 4 (severe); N18.4 - Chronic kidney disease, stage 4 (severe) Comment: Creatinine has plateaued. 24HR urine collection in progress and will be completed today. Nephrology on board. Will likely need to be initiated on HD. (2) DM2 (diabetes mellitus, type 2) Status: Acute Qualifiers: Diabetes mellitus long term care pharmacist insulin use: without long term care pharmacist use Diabetes mellitus complication status: with kidney complications Diabetes mellitus complication detail: with chronic kidney disease Chronic kidney disease stage : stage 4 (severe) Qualified Code(s): E11.22 - Type 2 diabetes mellitus with diabetic chronic kidney disease; N18.4 - Chronic kidney disease, stage 4 (severe ); N18.4 - Chronic kidney disease, stage 4 (severe); N18.4 - Chronic kidney disease, stage 4 (severe); N18.4 - Chronic kidney disease, stage 4 (severe) Comment: HbA1c 5.3. Will continue sliding scale insulin and hold metformin. (3) Anemia in CKD (chronic kidney disease) Code(s): N18.9 - CHRONIC KIDNEY DISEASE, UNSPECIFIED; D63.1 - ANEMIA IN CHRONIC KIDNEY DISEASE Status: Chronic Comment: Continue B12 and Epogen, serial H/H monitoring (4) CKD (chronic kidney disease), stage V Code(s): N18.5 - CHRONIC KIDNEY DISEASE, STAGE 5 Status: Chronic Comment: Planning on PD but no current access placed, CM assisting with coordination for outpt services (5) HTN (hypertension) Code(s): I10 - ESSENTIAL (PRIMARY) HYPERTENSION Status: Chronic Qualifiers: Hypertension type: essential hypertension Qualified Code(s): I10 - Essential (primary) hypertension Comment: On PO labetalol, Norvasc and Hydralazine, serial monitoring - Plan DVT proph w/SCDs Bp very high. give prn hydralazine -: HD initiation per alejandra hartley today -: [facility] * . Review of Systems - Review of Systems Constitutional: chills, weakness, malaise Respiratory: negative: Cough, Dry, Shortness of Breath, Hemoptysis, SOB with Excertion, Pleuritic Pain, Sputum, Wheezing Cardiovascular: negative: chest pain, palpitations, orthopnea, paroxysmal nocturnal dyspnea, edema, light headedness, other Gastrointestinal: negative: Nausea, Vomiting, Abdominal Pain, Diarrhea, Constipation, Melena, Hematochezia, Other Genitourinary: negative: Dysuria, Frequency, Incontinence, Hematuria, Retention , Other Musculoskeletal: Arm Pain. negative: Neck Pain, Shoulder Pain, Back Pain, Hand Pain, Leg Pain, Foot Pain, Other Neurological: negative: Weakness, Numbness, Incoordination, Change in Speech, Confusion, Seizures, Other - Medications/Allergies Allergies/Adverse Reactions: Allergies Allergy/AdvReac Type Severity Reaction Status Date / Time aspirin Allergy Verified 08/13/17 22:20 Penicillins Allergy Verified 08/13/17 22:20 Medications: Current Medications Acetaminophen (Tylenol) 650 mg PO Q4H PRN PRN Reason: Headache/Fever or Pain Acetaminophen (Tylenol) 1,000 mg PO Q6H PRN PRN Reason: Mild Pain (1-3) Hydrocodone Bitart/Acetaminophen ([place] 5/325) 1 tab PO Q4H PRN PRN Reason: moderate pain Amlodipine Besylate (Norvasc) 5 mg PO DAILY REPLACED BY [facility] Last Admin: 08/20/17 09:06 Dose: Not Given Cyanocobalamin (Vitamin B-12) 1,000 mcg IM [id number] REPLACED BY [facility] Last Admin: 08/15/17 14:15 Dose: 1,000 mcg Cyanocobalamin (Vitamin B-12) 1,000 mcg PO DAILY REPLACED BY [facility] Last Admin: 08/20/17 09:06 Dose: Not Given Dextrose/Water (Dextrose 50%) 25 gm SLOW IVP PRN PRN PRN Reason: Hypoglycemia Docusate Sodium (Colace) 100 mg PO BID REPLACED BY [facility] Last Admin: 08/20/17 09:07 Dose: Not Given Epoetin Shahbaz (Procrit) 7,500 units SC Q7D REPLACED BY [facility] Last Admin: 08/15/17 14:14 Dose: 7,500 units Famotidine (Pepcid) 20 mg PO Q24HR REPLACED BY [facility] Last Admin: 08/19/17 20:32 Dose: 20 mg Glucagon (Glucagon) 1 mg IM PRN PRN PRN Reason: Hypoglycemia Guaifenesin/Dextromethorphan (Robitussin Dm) 15 ml PO Q4H PRN PRN Reason: Cough Heparin Sodium (Porcine) (Heparin) 5,000 units SC BID REPLACED BY [facility] Last Admin: 08/20/17 09:07 Dose: Not Given Hydralazine HCl (Apresoline) 25 mg PO TID REPLACED BY [facility] Last Admin: 08/20/17 09:16 Dose: Not Given Hydralazine HCl (Apresoline) 10 mg SLOW IVP Q4H PRN PRN Reason: SBP>170 Dextrose/Water (D5w) 1,000 mls @ 0 mls/hr IV .Q0M PRN; As Directed PRN Reason: Hypoglycemia Levofloxacin 500 mg/ Device 100 mls @ 100 mls/hr IVPB ONCALL-OR REPLACED BY [facility] Insulin Human Lispro (Humalog) 0 units SC .MODERATE SLIDING SC PRN PRN Reason: Moderate Correctional Scale Last Admin: 08/14/17 13:25 Dose: 4 unit Labetalol HCl (Normodyne) 100 mg PO BID REPLACED BY [facility] Last Admin: 08/20/17 06:07 Dose: 100 mg Multivitamins (Multivit, Chewable Sf) 1 tab PO DAILY REPLACED BY [facility] Last Admin: 08/20/17 09:16 Dose: Not Given Ondansetron HCl (Zofran) 4 mg IVP Q6H PRN PRN Reason: Nausea/Vomiting Ondansetron HCl (Zofran Odt) 4 mg PO Q6H PRN PRN Reason: Nausea/Vomiting Last Admin: 08/16/17 08:07 Dose: 4 mg Sodium Bicarbonate (Bicarbonate, Sodium) 650 mg PO BID REPLACED BY [facility] Last Admin: 08/20/17 09:16 Dose: Not Given Sodium Chloride (Flush - Normal Saline) 10 ml IVF Q12HR REPLACED BY [facility] Last Admin: 08/20/17 09:16 Dose: Not Given Sodium Chloride (Flush - Normal Saline) 10 ml IVF PRN PRN PRN Reason: Saline Flush Tramadol HCl (Ultram) 50 mg PO Q6H PRN PRN Reason: Moderate Pain (4-6) Tramadol HCl (Ultram) 100 mg PO Q6H PRN PRN Reason: Severe Pain (7-10)
[2017-08-20] MEDS: HYDROcodone/Acetaminophen 5/325 mg Tablet PO PRN (16:08)
[2017-08-20] MEDS: Famotidine 20 MG TAB PO SCH (20:10)
--- NOTE | 2017-08-20 23:47 | PRG ---
DATE OF SERVICE: 08/20/2017 SUBJECTIVE: Patient is seen and examined today, status post dialysis access placement noted with the following vital signs. PHYSICAL EXAMINATION: VITAL SIGNS: Afebrile, temperature 97.9, pulse 86, respiratory rate of 18, O2 sat 96%, blood pressur e 146/62. HEENT: Unremarkable except right tunneled dialysis catheter placed. CARDIOVASCULAR SYSTEM: First and second heart sounds were heard. RESPIRATORY SYSTEM: Clear to auscultation. DIGESTIVE SYSTEM: Revealed a benign abdomen with positive bowel sounds. EXTREMITIES: No peripheral edema. SKIN: No new gross rash. LYMPHATICS: No peripheral lymphadenopathy. IMPRESSION: 1. End-stage renal disease, hemodialysis dependent, who will be initiated on dialysis today. 2. Diabetes mellitus. 3. Hypertension. PLAN: 1. Patient to be started on the first session of dialysis today and will increase gradually by vivian aquino. 2. Further management to be dependent on the clinical course including the disposition planning. 3. Condition of patient at the time of dictation is stable.
[2017-08-21 05:20] LABS: #Eosinphils 0.1 thou/uL (0.0-0.7); #Lymphocytes 1.5 thou/uL (1.20-3.40); #Monocytes 0.5 thou/uL (0.11-0.59); #Neutrophils 4.4 thou/uL (1.40-6.50); %Basophils 0.7 % (0.0-1.0); %Lymphocytes 23.1 % (21.0-51.0); %Monocytes 7.1 % (0.0-10.0); %Neutrophils 67.1 % (42.0-75.0); Hemoglobin 8.7 g/dL (12.0-16.0); Mean Corpuscular Hemoglobin 31.8 pg (27.0-31.0); Mean Corpuscular Volume 96.2 fl (81.0-99.0); Mean Platelet Volume 7.3 fL (7.4-10.4); Platelet Count 235 thou/uL (130-400); RBC Distribution Width 14.6 % (11.5-14.5); Red Blood Cell (RBC) Count 2.74 mill/uL (4.20-5.40); White Blood Cell (WBC) Count 6.6 thou/uL (4.8-10.8)
[2017-08-21 05:30] LABS: Anion Gap 11 mmol/L (10-20); BUN (Urea Nitrogen) 29 mg/dL (9.8-20.1); Calc. Creatinine Clearance 10 mL/min (70-130); Calcium 8.6 mg/dL (7.8-10.44); Carbon Dioxide 25 mmol/L (23-31); Chloride 107 mmol/L (98-107); Estimated GFR-MDRD 10; Glucose 96 mg/dL (80-115); Potassium 4.5 mmol/L (3.5-5.1); Sodium 138 mmol/L (136-145)
[2017-08-21] MEDS: Heparin 5,000 UNITS/ML VIAL SC SCH ×2 (09:00→20:07)
--- NOTE | 2017-08-21 09:00 | PRG ---
DATE OF SERVICE: 08/21/2017 Ms. Carolina Salazar is doing well. She is undergoing hemodialysis this morning using her catheter. R ight arm was explored at the wrist and vein inadequate for a [place] fistula, but an excellent vein wa s noted in the proximal forearm to provide an excellent upper arm cephalic vein fistula. She should exercise her right arm on a daily basis, both excising her hand and arm. Activity as tolerated. No lifting restrictions right arm. Surgical wound is clean and dry, right forearm. She can shower and bathe, washing these wounds with soap and water in the right arm as indicated. She has a good thrill and bruit in her fistula. ASSESSMENT AND PLAN: A good AV fistula right arm, awaiting maturation. Continue dialysis using her dialysis catheter for now. Follow up in my office in 3-4 weeks. Exercise the right arm. I will see her as needed this hospitalization. Please call if necessary.
[2017-08-21] MEDS: Labetalol 100 MG TAB PO SCH ×2 (11:47→20:09)
[2017-08-21] MEDS: Amlodipine 5 MG TAB PO SCH (11:47)
[2017-08-21] MEDS: Sodium Bicarbonate Tab 325 MG TAB PO SCH ×2 (11:47→20:07)
[2017-08-21] MEDS: Docusate 100 MG CAP PO SCH ×2 (11:47→20:07)
[2017-08-21] MEDS: Multivit, Chewable SF 1 TAB PO SCH (11:47)
[2017-08-21] MEDS: Cyanocobalamin (Vitamin B-12) 1,000 MCG TAB PO SCH (11:47)
[2017-08-21] MEDS: hydrALAZINE 25 MG TAB PO SCH ×3 (11:47→20:07)
[2017-08-21] MEDS: HYDROcodone/Acetaminophen 5/325 mg Tablet PO PRN (13:59)
--- NOTE | 2017-08-21 15:07 | PDOC.PN ---
- Subjective Encounter Start Date: 08/21/17 Encounter Start Time: 15:07 Subjective: no new complaints.no overnight events -: care discussed w family -: labs reviewed - Objective Resuscitation Status: Resuscitation Status FULL:Full Resuscitation MAR Reviewed: Yes Vital Signs & Weight: Vital Signs (12 hours) Temp Pulse Resp BP Pulse Ox 08/21/17 11:15 98.3 F 81 20 115/61 95 08/21/17 10:50 98.3 F 81 20 113/64 96 08/21/17 06:48 98.6 F 81 18 143/64 H 97 08/21/17 04:00 98.6 F 81 18 143/64 H 97 Weight Weight 119 lb 4.8 oz I&O: 08/20/17 08/21/17 08/22/17 06:59 06:59 06:59 Intake Total 240 530 Balance 240 530 Result Diagrams: 08/21/17 04:20 08/21/17 04:20 Additional Labs: Accuchecks 08/21/17 08/21/17 08/20/17 11:19 04:13 19:35 POC Glucose 161 H 105 206 H 08/20/17 15:55 POC Glucose 125 H Phys Exam - Physical Examination Constitutional: NAD HEENT: PERRLA, moist MMs, sclera anicteric, oral pharynx no lesions Neck: no nodes, no JVD, supple, full ROM Respiratory: no wheezing, no rales, no rhonchi, clear to auscultation bilateral Cardiovascular: RRR, no significant murmur, no rub, gallop Gastrointestinal: soft, non-tender, no distention, positive bowel sounds Musculoskeletal: no edema, pulses present +R arm fistula w thrill Neurological: non-focal, normal sensation, moves all 4 limbs Psychiatric: normal affect, A&O x 3 Skin: no rash Dx/Plan (1) Acute on chronic renal failure Code(s): N17.9 - ACUTE KIDNEY FAILURE, UNSPECIFIED; N18.9 - CHRONIC KIDNEY DISEASE, UNSPECIFIED Status: Acute Qualifiers: Acute renal failure type: unspecified Chronic kidney disease stage: stage 4 (severe) Qualified Code(s): N17.9 - Acute kidney failure, unspecified; N18.4 - Chronic kidney disease, stage 4 (severe); N18.4 - Chronic kidney disease , stage 4 (severe); N18.4 - Chronic kidney disease, stage 4 (severe); N18.4 - Chronic kidney disease, stage 4 (severe) Comment: Creatinine has plateaued. 24HR urine collection in progress and will be completed today. Nephrology on board. Will likely need to be initiated on HD. (2) DM2 (diabetes mellitus, type 2) Status: Acute Qualifiers: Diabetes mellitus correction insulin use: without terminal carman use Diabetes mellitus complication status: with kidney complications Diabetes mellitus complication detail: with chronic kidney disease Chronic kidney disease stage : stage 4 (severe) Qualified Code(s): E11.22 - Type 2 diabetes mellitus with diabetic chronic kidney disease; N18.4 - Chronic kidney disease, stage 4 (severe ); N18.4 - Chronic kidney disease, stage 4 (severe); N18.4 - Chronic kidney disease, stage 4 (severe); N18.4 - Chronic kidney disease, stage 4 (severe) Comment: HbA1c 5.3. Will continue sliding scale insulin and hold metformin. (3) Anemia in CKD (chronic kidney disease) Code(s): N18.9 - CHRONIC KIDNEY DISEASE, UNSPECIFIED; D63.1 - ANEMIA IN CHRONIC KIDNEY DISEASE Status: Chronic Comment: Continue B12 and Epogen, serial H/H monitoring (4) CKD (chronic kidney disease), stage V Code(s): N18.5 - CHRONIC KIDNEY DISEASE, STAGE 5 Status: Chronic Comment: Planning on PD but no current access placed, CM assisting with coordination for outpt services (5) HTN (hypertension) Code(s): I10 - ESSENTIAL (PRIMARY) HYPERTENSION Status: Chronic Qualifiers: Hypertension type: essential hypertension Qualified Code(s): I10 - Essential (primary) hypertension Comment: On PO labetalol, Norvasc and Hydralazine, serial monitoring - Plan initiated HD.discussed w nephrology -: monitor daily labs. -: pt uninsured.OP HD can not be set up at this time -: alejandra PERAZA in am stable * . Review of Systems - Review of Systems Constitutional: weakness, malaise. negative: fever, chills, sweats, other Respiratory: negative: Cough, Dry, Shortness of Breath, Hemoptysis, SOB with Excertion, Pleuritic Pain, Sputum, Wheezing Cardiovascular: negative: chest pain, palpitations, orthopnea, paroxysmal nocturnal dyspnea, edema, light headedness, other Gastrointestinal: negative: Nausea, Vomiting, Abdominal Pain, Diarrhea, Constipation, Melena, Hematochezia, Other Genitourinary: negative: Dysuria, Frequency, Incontinence, Hematuria, Retention , Other Musculoskeletal: negative: Neck Pain, Shoulder Pain, Arm Pain, Back Pain, Hand Pain, Leg Pain, Foot Pain, Other Skin: negative: Rash, Lesions, Timo, Bruising, Other Neurological: negative: Weakness, Numbness, Incoordination, Change in Speech, Confusion, Seizures, Other - Medications/Allergies Allergies/Adverse Reactions: Allergies Allergy/AdvReac Type Severity Reaction Status Date / Time aspirin Allergy Verified 08/13/17 22:20 Penicillins Allergy Verified 08/13/17 22:20 Medications: Current Medications Acetaminophen (Tylenol) 1,000 mg PO Q6H PRN PRN Reason: Mild Pain (1-3) Hydrocodone Bitart/Acetaminophen ([place] 5/325) 1 tab PO Q4H PRN PRN Reason: Moderate Pain (4-6) Last Admin: 08/21/17 13:59 Dose: 1 tab Amlodipine Besylate (Norvasc) 5 mg PO DAILY [facility] Last Admin: 08/21/17 11:47 Dose: Not Given Cyanocobalamin (Vitamin B-12) 1,000 mcg IM [id number] [facility] Last Admin: 08/15/17 14:15 Dose: 1,000 mcg Cyanocobalamin (Vitamin B-12) 1,000 mcg PO DAILY [facility] Last Admin: 08/21/17 11:47 Dose: Not Given Dextrose/Water (Dextrose 50%) 25 gm SLOW IVP PRN PRN PRN Reason: Hypoglycemia Docusate Sodium (Colace) 100 mg PO BID [facility] Last Admin: 08/21/17 11:47 Dose: 100 mg Epoetin Shahbaz (Procrit) 7,500 units SC Q7D [facility] Last Admin: 08/15/17 14:14 Dose: 7,500 units Famotidine (Pepcid) 20 mg PO Q24HR [facility] Last Admin: 08/20/17 20:10 Dose: 20 mg Glucagon (Glucagon) 1 mg IM PRN PRN PRN Reason: Hypoglycemia Guaifenesin/Dextromethorphan (Robitussin Dm) 15 ml PO Q4H PRN PRN Reason: Cough Heparin Sodium (Porcine) (Heparin) 5,000 units SC BID [facility] Last Admin: 08/21/17 09:00 Dose: Not Given Hydralazine HCl (Apresoline) 25 mg PO TID [facility] Last Admin: 08/21/17 11:47 Dose: Not Given Hydralazine HCl (Apresoline) 10 mg SLOW IVP Q4H PRN PRN Reason: SBP>170 Dextrose/Water (D5w) 1,000 mls @ 0 mls/hr IV .Q0M PRN; As Directed PRN Reason: Hypoglycemia Insulin Human Lispro (Humalog) 0 units SC .MODERATE SLIDING SC PRN PRN Reason: Moderate Correctional Scale Last Admin: 08/14/17 13:25 Dose: 4 unit Labetalol HCl (Normodyne) 100 mg PO BID [facility] Last Admin: 08/21/17 11:47 Dose: Not Given Multivitamins (Multivit, Chewable Sf) 1 tab PO DAILY [facility] Last Admin: 08/21/17 11:47 Dose: 1 tab Ondansetron HCl (Zofran) 4 mg IVP Q6H PRN PRN Reason: Nausea/Vomiting Ondansetron HCl (Zofran Odt) 4 mg PO Q6H PRN PRN Reason: Nausea/Vomiting Last Admin: 08/16/17 08:07 Dose: 4 mg Sodium Bicarbonate (Bicarbonate, Sodium) 650 mg PO BID [facility] Last Admin: 08/21/17 11:47 Dose: 650 mg Sodium Chloride (Flush - Normal Saline) 10 ml IVF Q12HR [facility] Last Admin: 08/21/17 09:00 Dose: Not Given Sodium Chloride (Flush - Normal Saline) 10 ml IVF PRN PRN PRN Reason: Saline Flush Tramadol HCl (Ultram) 50 mg PO Q6H PRN PRN Reason: Moderate Pain (4-6) Tramadol HCl (Ultram) 100 mg PO Q6H PRN PRN Reason: Severe Pain (7-10)
--- NOTE | 2017-08-21 17:51 | PRG ---
DATE OF SERVICE: 08/21/2017 SUBJECTIVE: The patient seen and examined at dialysis. Seems to be doing much better. Noted with t he following: PHYSICAL EXAMINATION: VITAL SIGNS: Afebrile, temperature 97.9, pulse 81, respiratory rate of 18, O2 sat 95%, and blood pre ssure 128/66. HEENT: Unremarkable. Moist oral mucosa. NECK: Supple, no conjunctival injection or icterus. CARDIOVASCULAR SYSTEM: First and second heart sounds were heard. RESPIRATORY SYSTEM: Clear to auscultation. DIGESTIVE SYSTEM: Revealed a benign abdomen with positive bowel sounds. EXTREMITIES: No peripheral edema. SKIN: No new gross rash. LYMPHATICS: No peripheral lymphadenopathy. IMPRESSION: 1. End-stage renal disease, hemodialysis dependent. 2. Hypertension. 3. Diabetes mellitus. PLAN: 1. The patient is currently undergoing a day #2 of hemodialysis. We will plan on doing one more ses lara of dialysis tomorrow after which patient will be good for discharge. 2. Very close outpatient Nephrology followup with me. 3. Further management will be dependent on the clinical course.
[2017-08-21] MEDS: Famotidine 20 MG TAB PO SCH (20:07)
[2017-08-22] MEDS ORDERED: Amlodipine 5 MG TAB PO SCH ×2 (08:33→09:00)
[2017-08-22] MEDS ORDERED: Lisinopril 2.5 MG TAB PO SCH ×2 (09:00)
[2017-08-22] MEDS: Heparin 5,000 UNITS/ML VIAL SC SCH (10:51)
[2017-08-22] MEDS: Cyanocobalamin (Vitamin B-12) 1,000 MCG TAB PO SCH (12:58)
[2017-08-22] MEDS: hydrALAZINE 25 MG TAB PO SCH ×3 (12:59→18:31)
[2017-08-22] MEDS: Labetalol 100 MG TAB PO SCH (13:52)
[2017-08-22] MEDS: Sodium Bicarbonate Tab 325 MG TAB PO SCH (13:55)
[2017-08-22] MEDS: Multivit, Chewable SF 1 TAB PO SCH (13:55)
[2017-08-22] MEDS: Docusate 100 MG CAP PO SCH (13:56)
[2017-08-22] MEDS: Epoetin (ESRD) 20,000 UNITS/ML SC SCH (13:56)
[2017-08-22] MEDS: HYDROcodone/Acetaminophen 5/325 mg Tablet PO PRN (14:00)
--- NOTE | 2017-08-22 14:02 | PDOC.PN ---
- Subjective Encounter Start Date: 08/22/17 Encounter Start Time: 14:01 Subjective: seen in HD.reports that she feels well -: denies any chest pain/SOB/leg swelling/discomfort - Objective Resuscitation Status: Resuscitation Status FULL:Full Resuscitation MAR Reviewed: Yes Vital Signs & Weight: Vital Signs (12 hours) Temp Pulse Resp BP Pulse Ox 08/22/17 13:52 84 08/22/17 13:42 98.1 F 84 16 115/65 97 08/22/17 12:59 84 08/22/17 07:57 98.7 F 84 16 95 08/22/17 07:29 98.7 F 84 16 159/62 H 97 Weight Weight 119 lb 4.8 oz I&O: 08/21/17 08/22/17 08/23/17 06:59 06:59 06:59 Intake Total 530 720 Output Total 2100 Balance 530 -1380 Result Diagrams: 08/21/17 04:20 08/21/17 04:20 Additional Labs: Accuchecks 08/22/17 08/21/17 08/21/17 03:24 20:26 15:56 POC Glucose 117 H 176 H 155 H Phys Exam - Physical Examination Constitutional: NAD HEENT: PERRLA, moist MMs, sclera anicteric, oral pharynx no lesions Neck: no nodes, no JVD, supple, full ROM Respiratory: no wheezing, no rales, no rhonchi, clear to auscultation bilateral Cardiovascular: RRR, no significant murmur, no rub Gastrointestinal: soft, non-tender, no distention, positive bowel sounds Musculoskeletal: no edema, pulses present Neurological: non-focal, normal sensation, moves all 4 limbs Psychiatric: normal affect, A&O x 3 Skin: no rash Dx/Plan (1) Acute on chronic renal failure Code(s): N17.9 - ACUTE KIDNEY FAILURE, UNSPECIFIED; N18.9 - CHRONIC KIDNEY DISEASE, UNSPECIFIED Status: Acute Qualifiers: Acute renal failure type: unspecified Chronic kidney disease stage: stage 4 (severe) Qualified Code(s): N17.9 - Acute kidney failure, unspecified; N18.4 - Chronic kidney disease, stage 4 (severe); N18.4 - Chronic kidney disease , stage 4 (severe); N18.4 - Chronic kidney disease, stage 4 (severe); N18.4 - Chronic kidney disease, stage 4 (severe) Comment: Creatinine has plateaued. 24HR urine collection in progress and will be completed today. Nephrology on board. Will likely need to be initiated on HD. (2) DM2 (diabetes mellitus, type 2) Status: Acute Qualifiers: Diabetes mellitus mcfp insulin use: without intermediate project manager use Diabetes mellitus complication status: with kidney complications Diabetes mellitus complication detail: with chronic kidney disease Chronic kidney disease stage : stage 4 (severe) Qualified Code(s): E11.22 - Type 2 diabetes mellitus with diabetic chronic kidney disease; N18.4 - Chronic kidney disease, stage 4 (severe ); N18.4 - Chronic kidney disease, stage 4 (severe); N18.4 - Chronic kidney disease, stage 4 (severe); N18.4 - Chronic kidney disease, stage 4 (severe) Comment: HbA1c 5.3. Will continue sliding scale insulin and hold metformin. (3) Anemia in CKD (chronic kidney disease) Code(s): N18.9 - CHRONIC KIDNEY DISEASE, UNSPECIFIED; D63.1 - ANEMIA IN CHRONIC KIDNEY DISEASE Status: Chronic Comment: Continue B12 and Epogen, serial H/H monitoring (4) CKD (chronic kidney disease), stage V Code(s): N18.5 - CHRONIC KIDNEY DISEASE, STAGE 5 Status: Chronic Comment: Planning on PD but no current access placed, CM assisting with coordination for outpt services (5) HTN (hypertension) Code(s): I10 - ESSENTIAL (PRIMARY) HYPERTENSION Status: Chronic Qualifiers: Hypertension type: essential hypertension Qualified Code(s): I10 - Essential (primary) hypertension Comment: On PO labetalol, Norvasc and Hydralazine, serial monitoring - Plan plan discussed w/ family, DVT proph w/SCDs Hd once again today then as per nephrology outpt. -: pt uninsured & OP HD can not be set up for now. -: discussed w family that she should call Nephrology/or come to ER in few day -: if she does not feel well as it may be symptom of uremia -: HD stable and ready for Dc after HD today,if Ok w nephrology * .BP better but still a little high. * will add REFUGIO-I in light of CKD.will provide prescriptions Review of Systems - Review of Systems Constitutional: negative: fever, chills, sweats, weakness, malaise, other Respiratory: negative: Cough, Dry, Shortness of Breath, Hemoptysis, SOB with Excertion, Pleuritic Pain, Sputum, Wheezing Cardiovascular: negative: chest pain, palpitations, orthopnea, paroxysmal nocturnal dyspnea, edema, light headedness, other Gastrointestinal: negative: Nausea, Vomiting, Abdominal Pain, Diarrhea, Constipation, Melena, Hematochezia, Other Genitourinary: negative: Dysuria, Frequency, Incontinence, Hematuria, Retention , Other Musculoskeletal: negative: Neck Pain, Shoulder Pain, Arm Pain, Back Pain, Hand Pain, Leg Pain, Foot Pain, Other Skin: negative: Rash, Lesions, Timo, Bruising, Other Neurological: negative: Weakness, Numbness, Incoordination, Change in Speech, Confusion, Seizures, Other - Medications/Allergies Allergies/Adverse Reactions: Allergies Allergy/AdvReac Type Severity Reaction Status Date / Time aspirin Allergy Verified 08/13/17 22:20 Penicillins Allergy Verified 08/13/17 22:20 Medications: Current Medications Acetaminophen (Tylenol) 1,000 mg PO Q6H PRN PRN Reason: Mild Pain (1-3) Hydrocodone Bitart/Acetaminophen (Adams 5/325) 1 tab PO Q4H PRN PRN Reason: Moderate Pain (4-6) Last Admin: 08/21/17 13:59 Dose: 1 tab Amlodipine Besylate (Norvasc) 5 mg PO DAILY [facility] Last Admin: 08/22/17 13:52 Dose: Not Given Cyanocobalamin (Vitamin B-12) 1,000 mcg IM [id number] [facility] Last Admin: 08/15/17 14:15 Dose: 1,000 mcg Cyanocobalamin (Vitamin B-12) 1,000 mcg PO DAILY [facility] Last Admin: 08/22/17 12:58 Dose: Not Given Dextrose/Water (Dextrose 50%) 25 gm SLOW IVP PRN PRN PRN Reason: Hypoglycemia Docusate Sodium (Colace) 100 mg PO BID [facility] Last Admin: 08/22/17 13:56 Dose: 100 mg Epoetin Shahbaz (Procrit) 7,500 units SC Q7D [facility] Last Admin: 08/22/17 13:56 Dose: 7,500 units Famotidine (Pepcid) 20 mg PO Q24HR [facility] Last Admin: 08/21/17 20:07 Dose: 20 mg Glucagon (Glucagon) 1 mg IM PRN PRN PRN Reason: Hypoglycemia Guaifenesin/Dextromethorphan (Robitussin Dm) 15 ml PO Q4H PRN PRN Reason: Cough Heparin Sodium (Porcine) (Heparin) 5,000 units SC BID [facility] Last Admin: 08/22/17 10:51 Dose: Not Given Hydralazine HCl (Apresoline) 25 mg PO TID [facility] Last Admin: 08/22/17 12:59 Dose: Not Given Hydralazine HCl (Apresoline) 10 mg SLOW IVP Q4H PRN PRN Reason: SBP>170 Dextrose/Water (D5w) 1,000 mls @ 0 mls/hr IV .Q0M PRN; As Directed PRN Reason: Hypoglycemia Insulin Human Lispro (Humalog) 0 units SC .MODERATE SLIDING SC PRN PRN Reason: Moderate Correctional Scale Last Admin: 08/14/17 13:25 Dose: 4 unit Labetalol HCl (Normodyne) 100 mg PO BID [facility] Last Admin: 08/22/17 13:52 Dose: Not Given Lisinopril (Zestril) 5 mg PO DAILY [facility] Last Admin: 08/22/17 13:52 Dose: Not Given Multivitamins (Multivit, Chewable Sf) 1 tab PO DAILY [facility] Last Admin: 08/22/17 13:55 Dose: 1 tab Ondansetron HCl (Zofran) 4 mg IVP Q6H PRN PRN Reason: Nausea/Vomiting Ondansetron HCl (Zofran Odt) 4 mg PO Q6H PRN PRN Reason: Nausea/Vomiting Last Admin: 08/16/17 08:07 Dose: 4 mg Sodium Bicarbonate (Bicarbonate, Sodium) 650 mg PO BID [facility] Last Admin: 08/22/17 13:55 Dose: 650 mg Sodium Chloride (Flush - Normal Saline) 10 ml IVF Q12HR [facility] Last Admin: 08/22/17 13:57 Dose: 10 ml Sodium Chloride (Flush - Normal Saline) 10 ml IVF PRN PRN PRN Reason: Saline Flush Tramadol HCl (Ultram) 50 mg PO Q6H PRN PRN Reason: Moderate Pain (4-6) Tramadol HCl (Ultram) 100 mg PO Q6H PRN PRN Reason: Severe Pain (7-10)
[2017-08-22 16:25] VITALS: BP 115/58; TEMP 97.7
--- NOTE | 2017-08-22 19:46 | PRG ---
DATE OF SERVICE: 08/22/2017 SUBJECTIVE: The patient was seen and examined. Noted with the following vital signs. PHYSICAL EXAMINATION: VITAL SIGNS: Afebrile with temperature 97.7, pulse 80, respiratory rate of 16, O2 saturation of 97% with blood pressure 159/78. HEENT: Unremarkable with moist oral mucosa. No conjunctival injection or icterus. NECK: Supple CARDIOVASCULAR SYSTEM: First and second heart sounds were heard. RESPIRATORY SYSTEM: Clear to auscultation. DIGESTIVE SYSTEM: Revealed a benign abdomen with positive bowel sounds. EXTREMITIES: No peripheral edema. IMPRESSION: 1. End-stage renal disease, on hemodialysis. 2. Hypertension. 3. Diabetes mellitus. PLAN: 1. The patient did undergo dialysis today and to be able to be discharged home today status post markus lysis. 2. Outpatient Nephrology followup strongly recommended. I have already discussed extensively with t he family and plan on outpatient followup has been communicated with the patient and the family. 3. Further management to be dependent on the clinical course.
--- NOTE | 2017-08-23 12:48 | DIS ---
DATE OF ADMISSION: 08/13/2017 DATE OF DISCHARGE: 08/22/2017 CONDITION AT THE TIME OF DISCHARGE: Stable and improved. PRIMARY CARE PHYSICIAN: [facility]. The patient does not have any and is instructed to fol low up and make an appointment as a new patient. DISCHARGE DIAGNOSES: 1. Acute on chronic kidney disease. 2. Diabetes mellitus type 2. 3. Uncontrolled hypertension. 4. Hypertension. 5. Chronic kidney disease, anemia. The patient is a [employer] and cannot accept any transfu lara. INHOUSE CONSULTATIONS: 1. Nephrology, Dr. Bernal. 2. General Surgery, Dr. Diaz. PROCEDURES DONE IN THE HOSPITAL: 1. Renal ultrasound, which shows no focal lesions or hydronephrosis. 2. Fluoroscopy for placement of the right IJ central venous catheter. 3. Placement of the right IJ venous catheter for hemodialysis. 4. Initiation of hemodialysis. DISCHARGE MEDICATIONS: Glucophage 850 mg in the morning, hydralazine 25 mg t.i.d., lisinopril 5 mg d aily, amlodipine 5 mg daily. HISTORY OF PRESENTING ILLNESS: Ms. Salazar is a 67-year-old female with past medical histo ry of diabetes, hypertension, currently not on any specific medication, who presented to the emergenc y room with complaints of nausea, vomiting, dizziness, and mild epigastric pain. She was severely hy pertensive on presentation with a blood pressure of 203/86. Her blood work showed evidence of protei siobhan, bacteriuria. A CT scan of the abdomen and pelvis was done, which did not show any acute abnor malities without IV contrast. She was found to have elevated creatinine of 4.7 and BUN of 50. She w as admitted to telemetry unit for metabolic acidosis, acute kidney injury, and hypertensive urgency. She was started on labetalol IV, hydralazine as well as gentle IV hydration and Nephrology was consu lted. Renal ultrasound was ordered. Please see admission history and physical for further detail. HOSPITAL COURSE: Dr. Rodriguez saw the patient from Nephrology team and after a sort of workup incl uding a 24-hour urine collection, it was recommended that she starts hemodialysis as she seems to hav e developed end-stage renal disease. The patient and their family were quite unsure about this, but eventually they did make up their mind and gave consent for hemodialysis. She was uninsured, so this was a difficulty. The plan was to get the hemodialysis catheter inserted and start the dialysis in the hospital, which was done. She got a total of 3 sessions of hemodialysis with significant improve ment in her renal function. Dr. Rodriguez will follow this patient as an outpatient and if there is any possibility that her ins urance would become active later in the year: They will either consider starting her on peritoneal d ialysis versus continuation of hemodialysis. Otherwise, the patient remained hemodynamically stable throughout her hospitalization. Dr. Diaz sa w the patient for placement of the hemodialysis catheter and she tolerated the procedure very well. She was seen and examined prior to discharge. Please see hospitalist progress note from that date fo r further details. Total time spent in the discharge 31 minutes.
== END 2017-08-22 18:42 | disposition home or self-care (01) | DRG 683 ==
LOC: ERS 15:57 → 2NO 19:14 → T4-A 08-14 18:47
PROVIDERS: ADMIT Internal Medicine; ATTEND Internal Medicine
PROC: 5A1D70Z Performance of Urinary Filtration, Intermittent, Less than 6 Hours Per Day (ICD-10-PCS; principal; 2017-08-20)
PROC: 02H633Z Insertion of Infusion Device into Right Atrium, Percutaneous Approach (ICD-10-PCS; 2017-08-20)
DX: N17.9 Acute kidney failure, unspecified (principal); E87.2 Acidosis; I12.0 Hypertensive chronic kidney disease with stage 5 chronic kidney disease or end stage renal disease; Z88.6 Allergy status to analgesic agent; Z88.0 Allergy status to penicillin; I16.0 Hypertensive urgency; E11.22 Type 2 diabetes mellitus with diabetic chronic kidney disease; Z79.84 Long term (current) use of oral hypoglycemic drugs; D63.1 Anemia in chronic kidney disease; N25.81 Secondary hyperparathyroidism of renal origin; E11.21 Type 2 diabetes mellitus with diabetic nephropathy; N18.6 End stage renal disease
CPT/HCPCS: 36415; 36416; 71045; 76770; 80048; 80069; 82553; 82570; 82575; 82607; 82728; 82746; 83036; 83540; 83550; 83880; 83970; 84156; 84484; 85025; 86704; 86706; 86803; 87340; 90471; 90670; 90935; 93005; 93970; 96374; A4216; C1752; C1769; G0009; G0257; G0365; J0360; J0670; J1644; J1956; J2001; J2250; J2704; J2720; J3010; J3420; J7070; Q0162; Q4081

== ENCOUNTER 2017-08-30 12:33 | Inpatient (IN) | payer MEDICAID ==
[~2017-08-30 12:33] MED LIST: Heparin 1,000 UNITS/ML VIAL ONE
[2017-08-30] MEDS ORDERED: Dextrose 50% Abboject 50 ML SYRINGE SLOW IVP PRN (14:36)
[2017-08-30] MEDS ORDERED: Dextrose 5% in Water 1,000 ML IV PRN (14:36)
[2017-08-30] MEDS ORDERED: HumaLOG 300 UNITS/3 ML VIAL SC PRN (14:36)
[2017-08-30] MEDS ORDERED: Ondansetron ODT 4 MG TAB PO PRN (14:36)
[2017-08-30] MEDS ORDERED: Ondansetron HCl/PF 4 MG/2 ML Vial IVP PRN (14:36)
[2017-08-30] MEDS ORDERED: Prevnar 13-Val Conj/PF 0.5 ML SYRINGE IM ONE (15:00)
[2017-08-30] MEDS: hydrALAZINE 25 MG TAB PO SCH ×2 (15:01→20:52)
--- NOTE | 2017-08-30 23:03 | HP ---
CHIEF COMPLAINT: Nausea, vomiting, poor appetite. HISTORY OF PRESENT ILLNESS: A 67-year-old female patient recently initiated on hemodialysis, who unf ortunately cannot secure outpatient dialysis facility. The patient does have history of diabetes and hypertension, presented at the clinic with the above-mentioned complaint. Laboratory investigation revealed hyperkalemia, profound azotemia with metabolic acidosis. The patient clearly in uremic stat e. Therefore, decision was taken to admit this patient for renal replacement therapy. The patient h as not really been eating very well at all. PAST MEDICAL HISTORY: As documented in the body of the history above. MEDICATIONS: Reviewed and as documented on el?. ALLERGIES: ASPIRIN and PENICILLIN. FAMILY HISTORY: Not significantly related to the presenting illness. SOCIAL HISTORY: Denies alcohol, tobacco, or illicit drug use. REVIEW OF SYSTEMS: As documented in the body of the history. All the other systems were reviewed an d found not to be significantly related to the presenting complaint. PHYSICAL EXAMINATION: GENERAL: The patient was found to be ill-looking, noted with the following vital signs. VITAL SIGNS: Afebrile with temperature 97.8, pulse 86, respiratory rate of 18, blood pressure 174/73 . HEENT: Unremarkable. Moist oral mucosa. NECK: Supple. No conjunctival injection or icterus. CARDIOVASCULAR SYSTEM: First and second heart sounds were heard. RESPIRATORY SYSTEM: Clear to auscultation. DIGESTIVE SYSTEM: Revealed a benign abdomen with positive bowel sounds. EXTREMITIES: No peripheral edema. SKIN: No new gross rash. LYMPHATICS: No peripheral lymphadenopathy. IMPRESSION: 1. End-stage renal disease with uremic symptoms. 2. Hyperkalemia. 3. Metabolic acidosis. 4. Diabetes mellitus type 2. 5. Hypertension. PLAN: 1. Admit the patient. 2. Renal replacement therapy. We will start gradually today and wean off tomorrow. 3. Discontinue metformin in this patient and have this patient stay on glipizide. 4. Further management to be dependent on the clinical course. CODE STATUS: FULL.
[2017-08-31 06:28] LABS: Albumin 3.8 g/dL (3.4-4.8); Anion Gap 17 mmol/L (10-20); BUN (Urea Nitrogen) 44 mg/dL (9.8-20.1); BUN/Creatinine Ratio 6.33; Calc. Creatinine Clearance 6 mL/min (70-130); Calcium 8.9 mg/dL (7.8-10.44); Carbon Dioxide 23 mmol/L (23-31); Chloride 99 mmol/L (98-107); Estimated GFR-MDRD 6; Phosphorus 6.8 mg/dL (2.3-4.7); Potassium 4.8 mmol/L (3.5-5.1); Sodium 134 mmol/L (136-145)
[2017-08-31 06:42] LABS: Glucose 44 mg/dL (80-115)
[2017-08-31 07:55] VITALS: TEMP 98.2
[2017-08-31] MEDS ORDERED: Amlodipine 5 MG TAB PO SCH (09:00)
[2017-08-31] MEDS ORDERED: Enoxaparin Sodium 30 MG/0.3 ML SYRINGE SC SCH (09:00)
[2017-08-31] MEDS ORDERED: Lisinopril 5 MG TAB PO SCH (09:00)
[2017-08-31] MEDS: hydrALAZINE 25 MG TAB PO SCH ×2 (15:06→15:09)
[2017-08-31 17:06] VITALS: BP 107/51
[2017-08-31] MEDS ORDERED: Acetaminophen 325 MG TAB PO SCH (17:15)
--- NOTE | 2017-09-01 03:54 | DIS ---
The patient was seen and examined, feeling very well, very eager to go home. The patient is a 67-year-old female patient who was admitted with uremic symptoms. feeling wel l, very eager to go home. PHYSICAL EXAMINATION: Patient on examination today noted with the following vital signs: VITAL SIGNS: temperature 98.2, pulse 85, respiratory rate 20, blood pressure 107/51. HEENT: Unremarkable. The rest of the system examination unremarkable. DISCHARGE MEDICATIONS: The patient to be discharged home today on the following medications: Tyleno l 650 p.r.n., Norvasc 5 mg p.o. daily, glipizide 2.5 mg p.o. daily, hydralazine 25 mg p.o. t.i.d., li sinopril 2.5 mg p.o. daily. DISCHARGE INSTRUCTIONS: 1. Patient to stay compliant with medication. 2. Patient to represent here in case of any relapse or deterioration in clinical condition. Total time spent including jevl-by-mmoy encounter, totaled 31 minutes.
== END 2017-08-31 18:37 | disposition home or self-care (01) | DRG 682 ==
LOC: 3SE 12:33
PROVIDERS: ADMIT Internal Medicine Nephrology; ATTEND Internal Medicine Nephrology
DX: I12.0 Hypertensive chronic kidney disease with stage 5 chronic kidney disease or end stage renal disease (principal); N18.6 End stage renal disease; E87.2 Acidosis; E11.22 Type 2 diabetes mellitus with diabetic chronic kidney disease; E87.5 Hyperkalemia; Z99.2 Dependence on renal dialysis; Z79.84 Long term (current) use of oral hypoglycemic drugs
CPT/HCPCS: 36415; 36416; 80069; J1644

== ENCOUNTER 2017-09-14 14:03 | Inpatient (IN) | payer SELFPAY ==
[2017-09-14 14:33] VITALS: BMI 25.0
[2017-09-14 15:07] LABS: Hemoglobin 9.4 g/dL (12.0-16.0); White Blood Cell (WBC) Count 4.7 thou/uL (4.8-10.8)
[2017-09-14 15:08] LABS: #Eosinphils 0.2 thou/uL (0.0-0.7); #Lymphocytes 1.1 thou/uL (1.20-3.40); #Monocytes 0.3 thou/uL (0.11-0.59); %Eosinophils 3.9 % (0.0-10.0); %Lymphocytes 23.7 % (21.0-51.0); %Monocytes 6.9 % (0.0-10.0); %Neutrophils 64.5 % (42.0-75.0); Mean Corpuscular HGB CONC 32.9 g/dL (32.0-36.0); Mean Corpuscular Hemoglobin 31.4 pg (27.0-31.0); Mean Corpuscular Volume 95.4 fl (81.0-99.0); Mean Platelet Volume 6.3 fL (7.4-10.4); Platelet Count 201 thou/uL (130-400)
[2017-09-14 15:26] LABS: Albumin 3.6 g/dL (3.4-4.8); Anion Gap 16 mmol/L (10-20); BUN (Urea Nitrogen) 70 mg/dL (9.8-20.1); BUN/Creatinine Ratio 9.59; Calc. Creatinine Clearance 7 mL/min (70-130); Carbon Dioxide 16 mmol/L (23-31); Chloride 111 mmol/L (98-107); Estimated GFR-MDRD 6; Glucose 178 mg/dL (80-115); Phosphorus 4.7 mg/dL (2.3-4.7); Potassium 5.8 mmol/L (3.5-5.1); Sodium 137 mmol/L (136-145)
[2017-09-14] MEDS ORDERED: Insulin Regular 300 UNITS/3 ML VIAL SC PRN (15:32)
[2017-09-14] MEDS ORDERED: Acetaminophen 325 MG TAB PO PRN (15:32)
[2017-09-14] MEDS ORDERED: Dextrose 50% Abboject 50 ML SYRINGE SLOW IVP PRN (15:32)
[2017-09-14] MEDS ORDERED: Ondansetron HCl/PF 4 MG/2 ML Vial IVP PRN (15:32)
[2017-09-14] MEDS ORDERED: Ondansetron ODT 4 MG TAB PO PRN (15:32)
[2017-09-14] MEDS ORDERED: Dextrose 5% in Water 1,000 ML IV PRN (15:32)
[2017-09-14] MEDS ORDERED: Zolpidem Tartrate 5 MG TAB PO PRN (15:32)
--- NOTE | 2017-09-14 19:52 | HP ---
CHIEF COMPLAINT: Nausea, facial swelling and some shortness of breath. HISTORY OF PRESENT ILLNESS: History is that of a 67-year-old female patient with end-stage renal dis ease, unfortunately cannot secure any outpatient dialysis facility due to lack of funding, who presen semaj with shortness of breath, facial puffiness and some nausea, poor appetite. The patient evaluatio n did reveal obvious symptoms of uremia. The patient has not been dialyzed more than 10 days, probab ly up to 2 weeks now. As a result of this, decision has been taken to admit this patient for further evaluation and potential management. PAST MEDICAL HISTORY: Significant for; 1. Recent diagnosis of end-stage renal disease on hemodialysis. 2. Hypertension. 3. Diabetes mellitus. MEDICATIONS: Reviewed and as documented on [employer]. ALLERGIES: ASPIRIN AND PENICILLIN. FAMILY HISTORY: Not significantly related to the presenting illness. SOCIAL HISTORY: Denies alcohol, tobacco or illicit drug use. REVIEW OF SYSTEMS: As documented in the body of the history. All the other systems were reviewed an d were found not to be significantly related to the presenting illness. LABORATORY INVESTIGATION: Showed a hemoglobin of 9.4 with a white count of 4.7. Chemistry showed po tassium 5.8, bicarbonate of 16, BUN of 70 with a creatinine of 7.3, glucose of 178. IMPRESSION: 1. End-stage renal disease. 2. Hyperkalemia. 3. Metabolic acidosis. 4. Hypertension. PLAN: 1. The patient to be dialyzed today for a short period of time and then dialyze again tomorrow. 2. Renally dose all medications and avoid potentially nephrotoxic agents. 3. Further management to be dependent on the clinical course. 4. If patient does well status post dialysis tomorrow, the patient will be good for discharge.
[2017-09-14] MEDS ORDERED: Famotidine 20 MG TAB PO SCH (21:00)
[2017-09-15 00:45] LABS: HBSAB Concentration 0.49 mIU/mL; HBSAg Index 0.27 S/CO (0-0.99); Hep B Surf AB Non-Reactive (NonReactive); Hep B Surf Ag Non-Reactive S/CO (NonReactive)
[2017-09-15] MEDS: hydrALAZINE 25 MG TAB PO SCH ×3 (00:49→15:00)
[2017-09-15 00:53] VITALS: TEMP 98
[2017-09-15] MEDS ORDERED: Amlodipine 5 MG TAB PO SCH (09:00)
[2017-09-15] MEDS ORDERED: Lisinopril 2.5 MG TAB PO SCH (09:00)
[2017-09-15] MEDS ORDERED: Epoetin (ESRD) 10,000 UNITS/ML VIAL SC SCH (09:00)
[2017-09-15] MEDS ORDERED: Heparin 1,000 UNITS/ML VIAL ONE (11:11)
[2017-09-15 15:01] VITALS: BP 152/69
--- NOTE | 2017-09-15 19:52 | DIS ---
For details of the history and physical, refer to my notes yesterday. SUMMARY: A 67-year-old female patient who could not get dialysis as an outpatient, presented here wi th uremic symptoms and shortness of breath. The patient was admitted yesterday and did undergo initi al session of dialysis yesterday and subsequently continue with a full dialysis today. The patient i s status post dialysis, has maintained sustained clinical improvement and is very good for discharge. PHYSICAL EXAMINATION: GENERAL: On examination, the patient was found not to be in any obvious distress, hemodynamically st able with the following vital signs. VITAL SIGNS: Afebrile with temperature 98, pulse 80, respiratory rate of 16, blood pressure 152/69. HEENT: Unremarkable. Moist oral mucosa. No conjunctival injection or icterus. NECK: Supple. CARDIOVASCULAR SYSTEM: First and second heart sounds were heard. RESPIRATORY SYSTEM: Unremarkable. IMPRESSION: 1. End-stage renal disease, hemodialysis dependent. 2. Hypertension. 3. Type 2 diabetes. 4. Metabolic acidosis. DISCHARGE INSTRUCTIONS: 1. The patient to follow up with a technician anatomic pathology as an outpatient. 2. The patient to stay compliant with medications.
== END 2017-09-15 16:09 | disposition home or self-care (01) | DRG 699 ==
LOC: 2SW 14:03 → OBSVTOIN 14:03
PROVIDERS: ADMIT Internal Medicine Nephrology; ATTEND Internal Medicine Nephrology
PROC: 5A1D70Z Performance of Urinary Filtration, Intermittent, Less than 6 Hours Per Day (ICD-10-PCS; principal; 2017-09-14)
PROC: 5A1D70Z Performance of Urinary Filtration, Intermittent, Less than 6 Hours Per Day (ICD-10-PCS; 2017-09-15)
DX: E11.22 Type 2 diabetes mellitus with diabetic chronic kidney disease (principal); I12.0 Hypertensive chronic kidney disease with stage 5 chronic kidney disease or end stage renal disease; E87.2 Acidosis; N18.6 End stage renal disease; Z99.2 Dependence on renal dialysis; E87.5 Hyperkalemia; Z88.0 Allergy status to penicillin; Z88.6 Allergy status to analgesic agent; Z79.84 Long term (current) use of oral hypoglycemic drugs; Z79.899 Other long term (current) drug therapy; Z91.15 Patient's noncompliance with renal dialysis
CPT/HCPCS: 36415; 36416; 80069; 85025; 86706; 87340; 90935; G0257; J1644; Q4081

== ENCOUNTER 2017-09-28 17:21 | Emergency (ER) | payer SELFPAY ==
[2017-09-28 18:20] LABS: #Basophils 0.1 thou/uL (0.0-0.2); #Eosinphils 0.2 thou/uL (0.0-0.7); #Lymphocytes 1.2 thou/uL (1.20-3.40); #Monocytes 0.4 thou/uL (0.11-0.59); #Neutrophils 3.3 thou/uL (1.40-6.50); %Basophils 1.3 % (0.0-1.0); %Eosinophils 3.3 % (0.0-10.0); %Lymphocytes 24.5 % (21.0-51.0); %Monocytes 6.8 % (0.0-10.0); %Neutrophils 64.1 % (42.0-75.0); Hemoglobin 8.3 g/dL (12.0-16.0); Mean Corpuscular HGB CONC 33.9 g/dL (32.0-36.0); Mean Corpuscular Hemoglobin 31.7 pg (27.0-31.0); Mean Corpuscular Volume 93.6 fl (81.0-99.0); Mean Platelet Volume 6.2 fL (7.4-10.4); Platelet Count 243 thou/uL (130-400); Red Blood Cell (RBC) Count 2.61 mill/uL (4.20-5.40); White Blood Cell (WBC) Count 5.1 thou/uL (4.8-10.8)
[2017-09-28 18:25] LABS: ALT (SGPT) 9 U/L (8-55); AST (SGOT) 13 U/L (5-34); Alkaline Phosphatase 69 U/L (40-150); Anion Gap 16 mmol/L (10-20); BUN (Urea Nitrogen) 79 mg/dL (9.8-20.1); Bilirubin, Total 0.5 mg/dL (0.2-1.2); CK (CPK) 54 U/L (29-168); Calc. Creatinine Clearance 0 mL/min (70-130); Calcium 9.1 mg/dL (7.8-10.44); Carbon Dioxide 15 mmol/L (23-31); Chloride 111 mmol/L (98-107); Estimated GFR-MDRD 7; Globulin 3.5 g/dL (2.4-3.5); Glucose 145 mg/dL (80-115); Potassium 4.9 mmol/L (3.5-5.1); Protein, Total 7.5 g/dL (6.0-8.3); Sodium 137 mmol/L (136-145)
[2017-09-28 18:30] LABS: CKMB 0.9 ng/mL (0-6.6)
--- NOTE | 2017-09-28 18:39 | RAD ---
PORTABLE UPRIGHT FRONTAL CHEST RADIOGRAPH 09/28/17 COMPARISON: 08/20/17 HISTORY: Dyspnea. FINDINGS: A right sided dialysis catheter present, in stable position. No pneumothorax, pleural fluid, focal co nsolidation or alveolar edema. Heart and mediastinal contours are unremarkable. IMPRESSION: No acute findings. POS: [facility]
[2017-09-28 22:46] LABS: HBSAg Index 0.21 S/CO (0-0.99); Hep B Surf Ag Non-Reactive S/CO (NonReactive)
[2017-09-28] MEDS ORDERED: Norepinephrine 8 MG/0.9% NS 0 ML ONE (23:55)
--- NOTE | 2017-09-29 08:10 | HP ---
HISTORY OF PRESENT ILLNESS: This is a 67-year-old female patient with end-stage renal disease who un fortunately cannot get outpatient dialysis placement, was sent in by the primary care physician era lopez presented to her office with uremic symptoms of nausea and vomiting and unable to eat very well. P atient on presentation to the ER was noted with a BUN of 79 and a creatinine above 6. Decision was t aken to have the patient dialyze and will be sent out status post hemodialysis with ultrafiltration a s tolerated by hemodynamics, otherwise the patient denies any other complaints. Past medical history still remains the same. For the details of this past medical history, family history and social history, please refer to my r ecent history and physical on this patient about 2 weeks ago. REVIEW OF SYSTEMS: As documented in the body of the history. All the other systems were reviewed an d found not to be significantly related to presenting illness. PHYSICAL EXAMINATION: GENERAL: The patient was found not to be in any obvious respiratory distress, but ill-looking, other chavez hemodynamically stable, afebrile. HEENT: Unremarkable. CARDIOVASCULAR SYSTEM: First and second heart sounds were heard. RESPIRATORY SYSTEM: Clear to auscultation. DIGESTIVE SYSTEM: Revealed a benign abdomen. EXTREMITIES: Showed very minimal peripheral edema. IMPRESSION: 1. End-stage renal disease on hemodialysis, last dialyzed about 2 weeks ago. 2. Diabetes mellitus. 3. Hypertension. PLAN: 1. The patient to be dialyzed from the emergency room and then be discharged. 2. Ultrafiltration will be as tolerated by hemodynamics. 3. Further management to be dependent on the clinical course.
== END 2017-09-29 00:40 | disposition home or self-care (01) ==
LOC: ERS 17:21
DX: I12.0 Hypertensive chronic kidney disease with stage 5 chronic kidney disease or end stage renal disease (principal); E11.22 Type 2 diabetes mellitus with diabetic chronic kidney disease; N18.6 End stage renal disease; Z99.2 Dependence on renal dialysis
CPT/HCPCS: 71045; 80053; 82550; 82553; 83880; 84484; 85025; 87340; 90935; 93005; G0257

== ENCOUNTER 2017-10-12 12:19 | Emergency (ER) | payer SELFPAY ==
[2017-10-12 13:51] LABS: #Eosinphils 0.2 thou/uL (0.0-0.7); #Lymphocytes 1.3 thou/uL (1.20-3.40); #Monocytes 0.4 thou/uL (0.11-0.59); #Neutrophils 2.8 thou/uL (1.40-6.50); %Basophils 0.4 % (0.0-1.0); %Eosinophils 3.5 % (0.0-10.0); %Lymphocytes 28.3 % (21.0-51.0); %Monocytes 7.6 % (0.0-10.0); %Neutrophils 60.1 % (42.0-75.0); Hemoglobin 8.2 g/dL (12.0-16.0); Mean Corpuscular HGB CONC 32.7 g/dL (32.0-36.0); Mean Corpuscular Hemoglobin 30.2 pg (27.0-31.0); Mean Corpuscular Volume 92.6 fL (78.0-98.0); Mean Platelet Volume 6.3 fL (7.4-10.4); Platelet Count 214 thou/uL (130-400); RBC Distribution Width 13.1 % (11.5-14.5); Red Blood Cell (RBC) Count 2.71 mill/uL (4.20-5.40); White Blood Cell (WBC) Count 4.7 thou/uL (4.8-10.8)
[2017-10-12 14:04] LABS: ALT (SGPT) Less than 7 U/L (8-55); AST (SGOT) 12 U/L (5-34); Albumin 3.7 g/dL (3.4-4.8); Alkaline Phosphatase 75 U/L (40-150); Anion Gap 15 mmol/L (10-20); BUN (Urea Nitrogen) 72 mg/dL (9.8-20.1); Bilirubin, Total 0.4 mg/dL (0.2-1.2); Calc. Creatinine Clearance 0 mL/min (70-130); Calcium 9.1 mg/dL (7.8-10.44); Carbon Dioxide 12 mmol/L (23-31); Chloride 115 mmol/L (98-107); Estimated GFR-MDRD 6; Globulin 3.3 g/dL (2.4-3.5); Glucose 98 mg/dL (80-115); Potassium 5.1 mmol/L (3.5-5.1); Sodium 137 mmol/L (136-145)
[2017-10-12] MEDS ORDERED: Epoetin (ESRD) 10,000 UNITS/ML VIAL IVP SCH (15:45)
--- NOTE | 2017-10-14 01:16 | CON ---
DATE OF CONSULTATION: 10/13/2017 CONSULTING PHYSICIAN: Michael Bernal MD REQUESTING PHYSICIAN: ER physician. REASON FOR CONSULTATION: Need for maintenance hemodialysis. IMPRESSION: 1. End-stage renal disease, hemodialysis dependent, unfortunately patient does not have any will hav ing a consistent hemodialysis as an outpatient. 2. Uremia in the context of problem #1 above. PLAN: The patient to be dialyzed and subsequently the patient is feeling good. She will be able to be discharged, status post hemodialysis with ultrafiltration as tolerated by hemodynamics. HISTORY OF PRESENT ILLNESS: A 67-year-old female patient with end-stage renal disease, hemodialysis dependent, who unfortunately cannot secure any outpatient dialysis treatment because of insurance iss ues was earlier on by the primary care physician of this patient with a complaint of nausea, vomiting , and not eating very well with facial puffiness. The patient presented to the ER and was noted with the above complaints and clinical evaluation did reveal worsening metabolic acidosis. As a result o f this, decision has been taken to involve Renal in the management of this case. PAST MEDICAL HISTORY: Significant for; 1. End-stage renal disease, hemodialysis dependent. 2. Diabetes mellitus. 3. Hypertension. MEDICATIONS: Reviewed as documented on [employer]. ALLERGIES: ASPIRIN and PENICILLIN. FAMILY HISTORY: Not significantly related to the presenting illness. SOCIAL HISTORY: Denies alcohol, tobacco, or illicit drug use. PHYSICAL EXAMINATION: GENERAL: The patient was found to be ill looking, but hemodynamically stable. HEENT: Unremarkable. CARDIOVASCULAR SYSTEM: First and second heart sounds were heard. RESPIRATORY SYSTEM: Clear to auscultation. DIGESTIVE SYSTEM: Revealed a benign abdomen. EXTREMITIES: Showed some peripheral edema. SKIN: No new gross rash. LYMPHATICS: No peripheral lymphadenopathy. SUMMARY: A 67-year-old female patient with end-stage renal disease, hemodialysis dependent, who pres ented here with uremic symptoms. Thank you for this consultation. We will follow with you.
== END 2017-10-12 21:41 | disposition home or self-care (01) ==
LOC: ERS 12:19
DX: I12.0 Hypertensive chronic kidney disease with stage 5 chronic kidney disease or end stage renal disease (principal); E11.22 Type 2 diabetes mellitus with diabetic chronic kidney disease; N18.6 End stage renal disease; Z79.899 Other long term (current) drug therapy
CPT/HCPCS: 36415; 80053; 85025; 99283; Q4081

== ENCOUNTER 2017-11-07 14:43 | Emergency (ER) | payer SELFPAY ==
[2017-11-07 15:44] LABS: #Basophils 0.1 thou/uL (0.0-0.2); #Eosinphils 0.2 thou/uL (0.0-0.7); #Lymphocytes 1.5 thou/uL (1.20-3.40); #Monocytes 0.5 thou/uL (0.11-0.59); #Neutrophils 2.9 thou/uL (1.40-6.50); %Basophils 1.4 % (0.0-1.0); %Eosinophils 3.2 % (0.0-10.0); %Lymphocytes 29.6 % (21.0-51.0); %Monocytes 9.1 % (0.0-10.0); %Neutrophils 56.7 % (42.0-75.0); Hemoglobin 8.8 g/dL (12.0-16.0); Mean Corpuscular HGB CONC 33.5 g/dL (32.0-36.0); Mean Corpuscular Hemoglobin 29.8 pg (27.0-31.0); Mean Corpuscular Volume 89.1 fL (78.0-98.0); Mean Platelet Volume 6.5 fL (7.4-10.4); Platelet Count 216 thou/uL (130-400); RBC Distribution Width 14.2 % (11.5-14.5); Red Blood Cell (RBC) Count 2.93 mill/uL (4.20-5.40); White Blood Cell (WBC) Count 5.1 thou/uL (4.8-10.8)
[2017-11-07 16:05] LABS: ALT (SGPT) 7 U/L (8-55); AST (SGOT) 14 U/L (5-34); Alkaline Phosphatase 75 U/L (40-150); Anion Gap 16 mmol/L (10-20); BUN (Urea Nitrogen) 71 mg/dL (9.8-20.1); Bilirubin, Total 0.5 mg/dL (0.2-1.2); Calc. Creatinine Clearance 0 mL/min (70-130); Calcium 9.1 mg/dL (7.8-10.44); Carbon Dioxide 13 mmol/L (23-31); Chloride 111 mmol/L (98-107); Estimated GFR-MDRD 7; Globulin 3.3 g/dL (2.4-3.5); Glucose 91 mg/dL (80-115); Potassium 4.9 mmol/L (3.5-5.1); Protein, Total 7.3 g/dL (6.0-8.3); Sodium 135 mmol/L (136-145)
== END 2017-11-07 20:33 | disposition home or self-care (01) ==
LOC: ERS 14:43
DX: I12.0 Hypertensive chronic kidney disease with stage 5 chronic kidney disease or end stage renal disease (principal); E11.22 Type 2 diabetes mellitus with diabetic chronic kidney disease; N18.6 End stage renal disease; Z77.22 Contact with and (suspected) exposure to environmental tobacco smoke (acute) (chronic); Z79.899 Other long term (current) drug therapy
CPT/HCPCS: 36415; 80053; 85025; 99284

== ENCOUNTER 2017-11-21 14:40 | Observation (INO) | payer MEDICAID, SELFPAY ==
[2017-11-21] MEDS ORDERED: Ondansetron ODT 4 MG TAB ONE (16:11)
[2017-11-21 16:17] LABS: #Eosinphils 0.1 thou/uL (0.0-0.7); #Lymphocytes 1.4 thou/uL (1.20-3.40); #Monocytes 0.3 thou/uL (0.11-0.59); #Neutrophils 2.9 thou/uL (1.40-6.50); %Lymphocytes 28.7 % (21.0-51.0); %Monocytes 6.2 % (0.0-10.0); Hemoglobin 8.4 g/dL (12.0-16.0); Mean Corpuscular HGB CONC 33.1 g/dL (32.0-36.0); Mean Corpuscular Hemoglobin 29.5 pg (27.0-31.0); Mean Corpuscular Volume 89.2 fL (78.0-98.0); Mean Platelet Volume 7.1 fL (7.4-10.4); Platelet Count 175 thou/uL (130-400); RBC Distribution Width 15.5 % (11.5-14.5); Red Blood Cell (RBC) Count 2.84 mill/uL (4.20-5.40); White Blood Cell (WBC) Count 4.7 thou/uL (4.8-10.8)
[2017-11-21 16:44] LABS: ALT (SGPT) 9 U/L (8-55); AST (SGOT) 14 U/L (5-34); Albumin 3.9 g/dL (3.4-4.8); Alkaline Phosphatase 61 U/L (40-150); Anion Gap 15 mmol/L (10-20); BUN (Urea Nitrogen) 62 mg/dL (9.8-20.1); Bilirubin, Total 0.6 mg/dL (0.2-1.2); Calc. Creatinine Clearance 0 mL/min (70-130); Carbon Dioxide 13 mmol/L (23-31); Chloride 115 mmol/L (98-107); Estimated GFR-MDRD 6; Glucose 88 mg/dL (80-115); Potassium 5.2 mmol/L (3.5-5.1); Protein, Total 6.9 g/dL (6.0-8.3); Sodium 138 mmol/L (136-145)
[2017-11-21] MEDS ORDERED: Calcium Carbonate 500 MG ChewTAB PO PRN (19:05)
[2017-11-21] MEDS ORDERED: Ondansetron ODT 4 MG TAB PO PRN (19:05)
[2017-11-21] MEDS ORDERED: Ondansetron HCl/PF 4 MG/2 ML Vial IVP PRN (19:05)
[2017-11-21] MEDS ORDERED: Famotidine 20 MG TAB PO SCH (21:00)
[2017-11-21 22:24] LABS: HBSAg Index 0.24 S/CO (0-0.99); Hep B Surf AB Non-Reactive (NonReactive); Hep B Surf Ag Non-Reactive S/CO (NonReactive)
[2017-11-21] MEDS ORDERED: Epoetin (ESRD) 20,000 UNITS/ML IVP SCH (23:00)
--- NOTE | 2017-11-22 00:09 | HP ---
CHIEF COMPLAINT: Nausea, vomiting, and abdominal discomfort. HISTORY OF PRESENT ILLNESS: This is a 67-year-old female patient with end-stage renal disease, who h ad dialysis about 2 weeks ago. The patient has not been able to keep anything down; having persisten t nausea, vomiting, and abdominal discomfort for which the patient contacted her primary care chiquis isaacs and was directed to come to the ER. The patient noted to be azotemic on presentation to the ER wi th mildly elevated potassium. Having not dialyzed for the past 2 weeks, this raised the possibility of uremic symptomatology including uremic gastritis. As a result, decision has been taken to admit t his patient to be able to effect clearance. PAST MEDICAL HISTORY: Significant for end-stage renal disease, hemodialysis dependent; diabetes milton itus; hypertension; anemia of chronic kidney disease. MEDICATIONS: Reviewed and as documented on [facility]. ALLERGIES: ASPIRIN and PENICILLIN. FAMILY HISTORY: Not significantly related to presenting illness. SOCIAL HISTORY: Denies alcohol, tobacco, or illicit drug use. REVIEW OF SYSTEMS: As documented in the body of the history. All the other systems were reviewed an d found not to be significantly related to the presenting illness. PHYSICAL EXAMINATION: GENERAL: The patient was found to be ill-looking, hemodynamically stable. HEENT: Unremarkable. CARDIOVASCULAR SYSTEM: First and second heart sounds were heard. RESPIRATORY SYSTEM: Clear to auscultation. DIGESTIVE SYSTEM: Revealed a benign abdomen with positive bowel sounds. EXTREMITIES: No peripheral edema. SKIN: No new gross rash. LYMPHATICS: No peripheral lymphadenopathy. IMPRESSION: 1. End-stage renal disease, hemodialysis dependent. 2. Uremia with uremic gastritis. 3. Diabetes mellitus. PLAN: 1. Admit the patient to medical. 2. We will start hemodialysis, but we will start with a lower prescription today to avoid dysequilib rium syndrome. 3. Further management will be dependent on the clinical course. If the patient's symptoms improve, will likely be discharged within the next 24 hours. CODE STATUS: FULL.
[2017-11-22] MEDS: hydrALAZINE 25 MG TAB PO SCH ×3 (00:38→16:11)
[2017-11-22] MEDS: Sodium Bicarbonate Tab 325 MG TAB PO SCH ×2 (00:39→10:15)
[2017-11-22 01:13] VITALS: BMI 25.7
[2017-11-22] MEDS ORDERED: Lisinopril 5 MG TAB PO SCH (09:00)
[2017-11-22] MEDS ORDERED: Amlodipine 5 MG TAB PO SCH (09:00)
[2017-11-22 16:33] VITALS: BP 144/61; TEMP 98.2
--- NOTE | 2017-11-23 08:41 | DIS ---
For details of the history and physical, please refer to dictations on record. In summary, a 67-year-old female patient with end-stage renal disease who unfortunately could not get dialysis because of lack of insurance on a regular basis and as outpatient presented here with nause a, vomiting with abdominal discomfort, all in keeping with uremic symptomatologies. Patient was admi tted, did undergo hemodialysis. Patient having maintained sustained clinical improvement, is very ea jacquelyn to go home and noted with the stable vital signs today. PHYSICAL EXAMINATION: On examination, patient was noted with the following vital signs afebrile, tem perature 98.2, pulse 86, respiratory rate of 15, O2 sat 94% with a blood pressure 144/61. The rest o f the physical examination are pretty much unremarkable. Patient to be discharged home today on the following medications: Lisinopril 2.5 mg p.o. daily, amlo dipine 5 mg p.o. daily, hydralazine 25 mg p.o. b.i.d. DISCHARGE INSTRUCTIONS: 1. Patient to continue to follow up with the primary care physician. 2. .
== END 2017-11-22 17:08 | disposition home or self-care (01) ==
LOC: ERS 14:40 → 2SW 23:27
PROVIDERS: ADMIT Internal Medicine Nephrology; ATTEND Internal Medicine Nephrology
DX: I12.0 Hypertensive chronic kidney disease with stage 5 chronic kidney disease or end stage renal disease (principal); E11.22 Type 2 diabetes mellitus with diabetic chronic kidney disease; N18.6 End stage renal disease; D63.1 Anemia in chronic kidney disease; K29.60 Other gastritis without bleeding; Z88.0 Allergy status to penicillin; Z88.8 Allergy status to other drugs, medicaments and biological substances; Z99.2 Dependence on renal dialysis; Z79.899 Other long term (current) drug therapy
CPT/HCPCS: 36415; 80053; 83970; 85025; 86706; 87340; 90935; 93005; G0257; G0378; Q0162; Q4081

== ENCOUNTER 2017-12-10 18:07 | Inpatient (IN) | payer MEDICAID, SELFPAY ==
[2017-12-10 19:36] LABS: #Eosinphils 0.2 thou/uL (0.0-0.7); #Lymphocytes 1.4 thou/uL (1.20-3.40); #Monocytes 0.3 thou/uL (0.11-0.59); %Lymphocytes 35.6 % (21.0-51.0); %Monocytes 7.8 % (0.0-10.0); %Neutrophils 51.6 % (42.0-75.0); Hemoglobin 7.1 g/dL (12.0-16.0); Mean Corpuscular HGB CONC 33.8 g/dL (32.0-36.0); Mean Corpuscular Hemoglobin 29.6 pg (27.0-31.0); Mean Corpuscular Volume 87.4 fL (78.0-98.0); Mean Platelet Volume 6.8 fL (7.4-10.4); Platelet Count 177 thou/uL (130-400); RBC Distribution Width 16.2 % (11.5-14.5); Red Blood Cell (RBC) Count 2.42 mill/uL (4.20-5.40); White Blood Cell (WBC) Count 3.8 thou/uL (4.8-10.8)
[2017-12-10] MEDS ORDERED: Epoetin (ESRD) 20,000 UNITS/ML IVP SCH (20:00)
[2017-12-10 20:47] LABS: Albumin 3.7 g/dL (3.4-4.8); Anion Gap 14 mmol/L (10-20); BUN (Urea Nitrogen) 48 mg/dL (9.8-20.1); BUN/Creatinine Ratio 10.13; Calc. Creatinine Clearance 0 mL/min (70-130); Calcium 8.7 mg/dL (7.8-10.44); Carbon Dioxide 19 mmol/L (23-31); Chloride 111 mmol/L (98-107); Estimated GFR-MDRD 9; Glucose 102 mg/dL (80-115); Phosphorus 3.3 mg/dL (2.3-4.7); Potassium 4.6 mmol/L (3.5-5.1); Sodium 139 mmol/L (136-145)
[2017-12-10] MEDS ORDERED: hydrALAZINE 25 MG TAB PO SCH (22:30)
--- NOTE | 2017-12-11 04:52 | HP ---
CHIEF COMPLAINT: Nausea, vomiting, and body swelling. HISTORY OF PRESENT ILLNESS: This is a 67-year-old female patient with end-stage renal disease who un fortunately cannot get dialysis on a frequent basis as an outpatient because of financial status [facility]. The patient was last dialyzed about 2 weeks or so ago and has been experiencing nausea, vomiting , poor appetite, and generalized swelling, raising the possibility of uremia. The patient was then s ent to an outpatient lab to undergo laboratory investigation and results revealed severe hyperkalemia , potassium greater than 6 and very acidotic with a bicarbonate of 12. Decision was then taken to ad zelalem this patient for uremia and hyperkalemia. PAST MEDICAL HISTORY: Significant for end-stage renal disease, hemodialysis dependent, hypertension, diabetes mellitus. MEDICATIONS: Reviewed and as documented on [employer]. ALLERGIES: ASPIRIN and PENICILLIN. FAMILY HISTORY: None significantly related to presenting illness. SOCIAL HISTORY: Denies alcohol, tobacco or illicit drug use. PHYSICAL EXAMINATION: GENERAL: The patient was found not to be in any obvious distress, noted with following vital signs. VITAL SIGNS: Afebrile with temperature 98.9, pulse 84, respiratory rate 16, O2 sat 98% with a blood pressure 146/61. HEENT: Unremarkable except for facial puffiness. CARDIOVASCULAR SYSTEM: First and second heart sounds were heard. RESPIRATORY SYSTEM: Clear to auscultation. DIGESTIVE SYSTEM: Revealed a benign abdomen with positive bowel sounds. EXTREMITIES: Shows some peripheral edema. NEUROLOGIC: Alert, oriented. No lateralizing signs. LYMPHATICS: No peripheral lymphadenopathy. IMPRESSION: 1. End-stage renal disease. 2. Uremia. 3. Severe hyperkalemia. 4. Metabolic acidosis. PLAN: 1. The patient to be dialyzed regularly in the fact this patient has not dialyzed for some time. We will do a short dialysis today with a low blood flow and then tomorrow undergo full-blown dial ysis. 2. Low potassium diet with diabetic diet. 3. Due to the fact that this patient is experiencing hyperkalemia, we will go ahead and discontinue lisinopril. 4. Renally dose all medications. 5. Further management to be dependent on the clinical course being able to be discharged after dialysis tomorrow. CODE STATUS: FULL.
[2017-12-11 05:30] LABS: Albumin 3.6 g/dL (3.4-4.8); Anion Gap 16 mmol/L (10-20); BUN (Urea Nitrogen) 36 mg/dL (9.8-20.1); BUN/Creatinine Ratio 8.22; Calc. Creatinine Clearance 0 mL/min (70-130); Calcium 8.7 mg/dL (7.8-10.44); Carbon Dioxide 21 mmol/L (23-31); Chloride 108 mmol/L (98-107); Estimated GFR-MDRD 10; Glucose 83 mg/dL (80-115); Phosphorus 3.9 mg/dL (2.3-4.7); Potassium 4.7 mmol/L (3.5-5.1); Sodium 140 mmol/L (136-145)
[2017-12-11] MEDS ORDERED: Ondansetron ODT 4 MG TAB PO PRN (07:08)
[2017-12-11] MEDS: hydrALAZINE 25 MG TAB PO SCH ×2 (07:33→17:01)
[2017-12-11] MEDS ORDERED: Heparin 10,000 UNITS/ 10 ML VIAL ONE (08:00)
[2017-12-11] MEDS ORDERED: Amlodipine 5 MG TAB PO SCH (09:00)
[2017-12-11] MEDS ORDERED: Lisinopril 2.5 MG TAB PO SCH (09:00)
[2017-12-11] MEDS ORDERED: Epoetin (ESRD) 20,000 UNITS/ML SC SCH (15:45)
[2017-12-11 17:00] VITALS: BP 153/60
[2017-12-11 18:14] VITALS: TEMP 98.3
--- NOTE | 2017-12-12 04:12 | DIS ---
For details of the history and physical, please refer to dictations on record. SUMMARY: A 67-year-old female patient with end-stage renal disease who presented with uremic symptom s, hyperkalemia, did undergo 2 sessions of dialysis and is due for discharge today. The patient flako harmon maintained sustained clinical improvement with resolution of symptoms, is deemed fit for discharge with the plan to have the patient receive erythropoiesis stimulating agent prior to being discharged because of anemia. DIAGNOSES DURING THIS HOSPITALIZATION: Include; 1. End-stage renal disease. 2. Uremia. 3. Hyperkalemia. 4. Metabolic acidosis. 5. Diabetes mellitus type 2. DISCHARGE INSTRUCTIONS: 1. Patient is to follow up with the primary care physician. 2. Patient is to discontinue lisinopril. 3. The patient is to represent with deterioration of similar symptoms. DISCHARGE MEDICATIONS: Include the following, Zofran 4 mg p.r.n., amlodipine 5 mg p.o. daily, hydral azine 25 mg p.o. t.i.d. The total time spent including [id number] encounter was 31 minutes.
== END 2017-12-11 17:45 | disposition home or self-care (01) | DRG 682 ==
LOC: T4-A 18:07
PROVIDERS: ADMIT Internal Medicine Nephrology; ATTEND Internal Medicine Nephrology
PROC: 5A1D70Z Performance of Urinary Filtration, Intermittent, Less than 6 Hours Per Day (ICD-10-PCS; principal; 2017-12-10)
PROC: 5A1D70Z Performance of Urinary Filtration, Intermittent, Less than 6 Hours Per Day (ICD-10-PCS; 2017-12-11)
DX: I12.0 Hypertensive chronic kidney disease with stage 5 chronic kidney disease or end stage renal disease (principal); N18.6 End stage renal disease; E87.2 Acidosis; Z91.15 Patient's noncompliance with renal dialysis; E87.5 Hyperkalemia; E11.22 Type 2 diabetes mellitus with diabetic chronic kidney disease; Z99.2 Dependence on renal dialysis; Z88.0 Allergy status to penicillin
CPT/HCPCS: 36415; 36416; 80069; 85025; 90935; G0257; J1644; Q0162; Q4081

== ENCOUNTER 2018-01-04 16:23 | Inpatient (IN) | payer SELFPAY ==
[2018-01-04 17:53] LABS: HBSAg Index 0.36 S/CO (0-0.99); Hep B Surf Ag Non-Reactive S/CO (NonReactive)
[2018-01-04] MEDS ORDERED: Dextrose 5% in Water 1,000 ML IV PRN (18:33)
[2018-01-04] MEDS ORDERED: Dextrose 50% Abboject 50 ML SYRINGE SLOW IVP PRN (18:33)
[2018-01-04] MEDS ORDERED: Acetaminophen 325 MG TAB PO PRN (18:33)
[2018-01-04] MEDS ORDERED: HumaLOG 300 UNITS/3 ML VIAL SC PRN (18:33)
[2018-01-04] MEDS ORDERED: Ondansetron ODT 4 MG TAB PO PRN (18:35)
[2018-01-04 18:42] VITALS: BMI 22.6
[2018-01-04] MEDS: Sodium Bicarbonate Tab 325 MG TAB PO SCH (19:40)
[2018-01-04] MEDS ORDERED: Famotidine 20 MG TAB PO SCH ×2 (21:00)
[2018-01-05 04:31] LABS: #Eosinphils 0.1 thou/uL (0.0-0.7); #Lymphocytes 1.2 thou/uL (1.20-3.40); #Monocytes 0.4 thou/uL (0.11-0.59); #Neutrophils 2.6 thou/uL (1.40-6.50); %Basophils 0.6 % (0.0-1.0); %Eosinophils 2.8 % (0.0-10.0); %Monocytes 8.9 % (0.0-10.0); %Neutrophils 59.7 % (42.0-75.0); Hemoglobin 7.4 g/dL (12.0-16.0); Mean Corpuscular HGB CONC 32.8 g/dL (32.0-36.0); Mean Corpuscular Hemoglobin 28.3 pg (27.0-31.0); Mean Corpuscular Volume 86.2 fL (78.0-98.0); Mean Platelet Volume 7.9 fL (7.4-10.4); Platelet Count 173 thou/uL (130-400); RBC Distribution Width 16.6 % (11.5-14.5); Red Blood Cell (RBC) Count 2.61 mill/uL (4.20-5.40); White Blood Cell (WBC) Count 4.4 thou/uL (4.8-10.8)
[2018-01-05] MEDS: Sodium Bicarbonate Tab 325 MG TAB PO SCH (08:43)
[2018-01-05] MEDS ORDERED: Prevnar 13-Val Conj/PF 0.5 ML SYRINGE IM ONE (09:00)
[2018-01-05] MEDS ORDERED: Amlodipine 5 MG TAB PO SCH (09:00)
[2018-01-05] MEDS ORDERED: Epoetin (ESRD) 10,000 UNITS/ML VIAL IVP SCH (10:30)
[2018-01-05] MEDS ORDERED: Sodium Ferric Gluconate 250 MG in Sodium Chloride 0.9% 250 ML 250 ML IVPB SCH (11:00)
[2018-01-05 11:43] VITALS: BP 137/58; TEMP 98.9
== END 2018-01-05 14:51 | disposition home or self-care (01) | DRG 682 ==
LOC: 2SW 16:23 → OBSVTOIN 16:23
PROVIDERS: ADMIT Internal Medicine Nephrology; ATTEND Internal Medicine Nephrology
PROC: 5A1D70Z Performance of Urinary Filtration, Intermittent, Less than 6 Hours Per Day (ICD-10-PCS; principal; 2018-01-04)
PROC: 5A1D70Z Performance of Urinary Filtration, Intermittent, Less than 6 Hours Per Day (ICD-10-PCS; 2018-01-05)
DX: I12.0 Hypertensive chronic kidney disease with stage 5 chronic kidney disease or end stage renal disease (principal); N18.6 End stage renal disease; E11.22 Type 2 diabetes mellitus with diabetic chronic kidney disease; Z99.2 Dependence on renal dialysis; Z91.15 Patient's noncompliance with renal dialysis; Z59.9 Problem related to housing and economic circumstances, unspecified; Z88.6 Allergy status to analgesic agent; Z88.0 Allergy status to penicillin; E11.65 Type 2 diabetes mellitus with hyperglycemia; E87.70 Fluid overload, unspecified
CPT/HCPCS: 36415; 36416; 85025; 87340; 90935; A4216; G0257; J2916; J7050; Q4081

== ENCOUNTER 2018-01-20 19:49 | Emergency (ER) | payer MEDICAID, SELFPAY ==
[2018-01-20 20:32] LABS: #Eosinphils 0.1 thou/uL (0.0-0.7); #Lymphocytes 1.2 thou/uL (1.20-3.40); #Monocytes 0.3 thou/uL (0.11-0.59); %Basophils 0.9 % (0.0-1.0); %Eosinophils 1.4 % (0.0-10.0); %Lymphocytes 20.9 % (21.0-51.0); %Monocytes 5.8 % (0.0-10.0); Hemoglobin 8.5 g/dL (12.0-16.0); Mean Corpuscular HGB CONC 32.5 g/dL (32.0-36.0); Mean Corpuscular Hemoglobin 28.4 pg (27.0-31.0); Mean Corpuscular Volume 87.5 fL (78.0-98.0); Mean Platelet Volume 8.4 fL (7.4-10.4); Platelet Count 194 thou/uL (130-400); RBC Distribution Width 17.4 % (11.5-14.5); Red Blood Cell (RBC) Count 2.99 mill/uL (4.20-5.40); White Blood Cell (WBC) Count 5.6 thou/uL (4.8-10.8)
[2018-01-20 20:51] LABS: ALT (SGPT) 11 U/L (8-55); AST (SGOT) 16 U/L (5-34); Albumin 3.9 g/dL (3.4-4.8); Alkaline Phosphatase 72 U/L (40-150); Anion Gap 18 mmol/L (10-20); BUN (Urea Nitrogen) 79 mg/dL (9.8-20.1); Bilirubin, Total 0.7 mg/dL (0.2-1.2); CK (CPK) 126 U/L (29-168); Calc. Creatinine Clearance 0 mL/min (70-130); Calcium 8.6 mg/dL (7.8-10.44); Carbon Dioxide 15 mmol/L (23-31); Chloride 108 mmol/L (98-107); Estimated GFR-MDRD 4; Globulin 3.6 g/dL (2.4-3.5); Glucose 159 mg/dL (80-115); Potassium 4.3 mmol/L (3.5-5.1); Protein, Total 7.5 g/dL (6.0-8.3); Sodium 137 mmol/L (136-145)
[2018-01-20 20:55] LABS: CKMB 4.4 ng/mL (0-6.6); Troponin I 0.022 ng/mL (< 0.028)
--- NOTE | 2018-01-20 20:57 | RAD ---
FRONTAL RADIOGRAPH CHEST: 01/20/2018 HISTORY: Short of breath. COMPARISON: 09/28/2017 FINDINGS: The cardiac silhouette is prominent, a stable finding. There is pulmonary vascular congestion. Ther e is atherosclerotic calcification of the aortic arch. No pneumothorax is seen. There is a new focal opacity in the right lung base with partial obscuration of the right hemidiaphra gm, laterally, and blunting of the right costophrenic angle. There is also new, mild, hazy density i n the left base. IMPRESSION: New bibasilar opacity, right greater than left. Findings are most consistent with pulmonary edema. Infectious pneumonitis cannot be excluded. Recommend follow-up imaging following treatment to docume nt resolution. POS: [facility]
== END 2018-01-21 04:22 | disposition home or self-care (01) ==
LOC: ERS 19:49
DX: I12.0 Hypertensive chronic kidney disease with stage 5 chronic kidney disease or end stage renal disease (principal); N18.6 End stage renal disease; E11.22 Type 2 diabetes mellitus with diabetic chronic kidney disease; Z99.2 Dependence on renal dialysis; Z79.899 Other long term (current) drug therapy
CPT/HCPCS: 71045; 80053; 82553; 83880; 84484; 85025; 90935; 93005; G0257

== ENCOUNTER 2018-01-28 23:38 | Observation (INO) | payer MEDICAID, SELFPAY ==
[2018-01-29 00:14] LABS: #Basophils 0.1 thou/uL (0.0-0.2); #Eosinphils 0.2 thou/uL (0.0-0.7); #Lymphocytes 1.4 thou/uL (1.20-3.40); #Monocytes 0.4 thou/uL (0.11-0.59); #Neutrophils 5.3 thou/uL (1.40-6.50); %Basophils 0.8 % (0.0-1.0); %Eosinophils 2.2 % (0.0-10.0); %Lymphocytes 19.4 % (21.0-51.0); %Monocytes 5.3 % (0.0-10.0); %Neutrophils 72.4 % (42.0-75.0); Hemoglobin 8.2 g/dL (12.0-16.0); Mean Corpuscular HGB CONC 32.7 g/dL (32.0-36.0); Mean Corpuscular Volume 88.5 fL (78.0-98.0); Mean Platelet Volume 8.1 fL (7.4-10.4); Platelet Count 223 thou/uL (130-400); RBC Distribution Width 18.3 % (11.5-14.5); Red Blood Cell (RBC) Count 2.81 mill/uL (4.20-5.40); White Blood Cell (WBC) Count 7.3 thou/uL (4.8-10.8)
[2018-01-29] MEDS ORDERED: Nitroglycerin 2% Ointment 1 INCH/1 GM Packet ONE (00:18)
[2018-01-29 00:33] LABS: ALT (SGPT) 10 U/L (8-55); AST (SGOT) 20 U/L (5-34); Albumin 3.7 g/dL (3.4-4.8); Alkaline Phosphatase 73 U/L (40-150); Anion Gap 20 mmol/L (10-20); BUN (Urea Nitrogen) 76 mg/dL (9.8-20.1); Bilirubin, Total 0.7 mg/dL (0.2-1.2); Calc. Creatinine Clearance 0 mL/min (70-130); Calcium 8.6 mg/dL (7.8-10.44); Carbon Dioxide 15 mmol/L (23-31); Chloride 107 mmol/L (98-107); Estimated GFR-MDRD 4; Globulin 3.4 g/dL (2.4-3.5); Glucose 158 mg/dL (80-115); Potassium 5.2 mmol/L (3.5-5.1); Protein, Total 7.1 g/dL (6.0-8.3); Sodium 137 mmol/L (136-145)
[2018-01-29 00:38] LABS: CKMB 2.4 ng/mL (0-6.6); Troponin I 0.022 ng/mL (< 0.028)
[2018-01-29] MEDS ORDERED: Ondansetron HCl/PF 4 MG/2 ML Vial ONE (01:19)
[2018-01-29] MEDS ORDERED: Ondansetron HCl/PF 4 MG/2 ML Vial IVP PRN (02:41)
[2018-01-29] MEDS ORDERED: Ondansetron ODT 4 MG TAB SL PRN (02:41)
[2018-01-29] MEDS ORDERED: Acetaminophen 325 MG TAB PO PRN (02:41)
[2018-01-29 02:43] VITALS: BMI 25.2
[2018-01-29] MEDS ORDERED: Ondansetron ODT 4 MG TAB PO PRN ×2 (03:11→03:14)
[2018-01-29 04:03] LABS: #Eosinphils 0.1 thou/uL (0.0-0.7); #Lymphocytes 0.9 thou/uL (1.20-3.40); #Monocytes 0.4 thou/uL (0.11-0.59); #Neutrophils 5.7 thou/uL (1.40-6.50); %Basophils 0.7 % (0.0-1.0); %Eosinophils 1.2 % (0.0-10.0); %Lymphocytes 12.8 % (21.0-51.0); %Monocytes 5.3 % (0.0-10.0); Hemoglobin 7.7 g/dL (12.0-16.0); Mean Corpuscular HGB CONC 32.4 g/dL (32.0-36.0); Mean Corpuscular Hemoglobin 28.8 pg (27.0-31.0); Mean Corpuscular Volume 88.8 fL (78.0-98.0); Mean Platelet Volume 8.2 fL (7.4-10.4); Platelet Count 201 thou/uL (130-400); Red Blood Cell (RBC) Count 2.67 mill/uL (4.20-5.40); White Blood Cell (WBC) Count 7.1 thou/uL (4.8-10.8)
[2018-01-29 04:16] LABS: Anion Gap 19 mmol/L (10-20); BUN (Urea Nitrogen) 77 mg/dL (9.8-20.1); Calc. Creatinine Clearance 6 mL/min (70-130); Calcium 8.5 mg/dL (7.8-10.44); Carbon Dioxide 15 mmol/L (23-31); Chloride 110 mmol/L (98-107); Estimated GFR-MDRD 4; Glucose 130 mg/dL (80-115); Potassium 5.1 mmol/L (3.5-5.1); Sodium 139 mmol/L (136-145)
[2018-01-29 04:21] LABS: Troponin I 0.023 ng/mL (< 0.028)
--- NOTE | 2018-01-29 06:36 | HP ---
PRIMARY CARE PHYSICIAN: Dr. Georgina Chambers TIME OF EVALUATION: 1:00 a.m. CODE STATUS: FULL CODE. CHIEF COMPLAINT: Chest pain. HISTORY OF PRESENT ILLNESS: This is a 67-year-old female patient with past medical history of end-st age renal disease with occasional hemodialysis, diabetes type 2, hypertension, hyperlipidemia, who ca me to the hospital after having chest pain that was in the middle of her chest, reported as 5/6, desc ribed as pressure-like, with no clear triggers, no alleviating factors, no specific radiation. REVIEW OF SYSTEMS: CONSTITUTIONAL: No fever or chills or generalized weakness. RESPIRATORY: No cough, sputum production or shortness of breath. CARDIOVASCULAR: The patient reported chest pain and palpitation. GASTROINTESTINAL: No nausea, no vomiting, diarrhea or abdominal pain. ELECTRICIAN FRONT: No dizziness, headaches. GENITOURINARY: No burning with urination. EXTREMITIES: No leg swelling. All other systems were reviewed and negative except for the findings mentioned above in the past medi amber history. PAST MEDICAL HISTORY: As mentioned in the HPI. PAST SURGICAL HISTORY: Dialysis shunt in the right arm. PSYCHIATRIC HISTORY: No previous psych history. SOCIAL HISTORY: No alcohol use, no drug use. No smoking history. FAMILY HISTORY: Father had an GA. ALLERGIES: ASPIRIN and PENICILLIN reported. MEDICATIONS: Hydralazine, amlodipine, sodium bicarbonate, ____, ferrous sulfate. PHYSICAL EXAMINATION: VITAL SIGNS: Blood pressure 185/73 with a heart rate 91, respiratory rate was 19, temperature 98.1, pain was 5/10, oxygen saturation is 95 on room air. GENERAL APPEARANCE: The patient is alert, oriented, in no acute distress. HEENT: Eyes; normal conjunctivae. Moist oral mucosa. Anicteric. NECK: No JVD. RESPIRATORY: Bilateral air entry. No rales, no wheezing. Symmetric expansion. CARDIOVASCULAR: Normal rate, regular rhythm. No murmurs, no gallop. Bilateral leg edema. ABDOMEN: Soft, normal bowel sounds. MUSCULOSKELETAL: Baseline range of motion and strength. No tenderness. SKIN: Warm and intact. No pallor, no rash, no redness. Peripheral pulses are present. ____ seems to be intact. NEUROLOGIC: No evidence of any new focal weakness. Baseline speech. Cranial nerves seem to be inta ct. PSYCHIATRIC: The patient is in good mood, no anxiety, oriented. Optimal judgment. EKG was reviewed. The patient has a normal sinus rhythm with a rate of 98 with no ectopics. No isch emic changes and this EKG was discussed with performing physician from ER. Chest x-ray was reviewed by myself. The patient has cardiomegaly, increased bilateral pulmonary wilton ings. Costophrenic angles have some haziness. Osteoporosis, also, no specific bone fracture was see n. LABORATORY DATA: Reviewed. The patient has white count 7.1, hemoglobin 7.7 and previous admission h emoglobin was 8.2, MCV 88, platelet count 201. Chemistry: Sodium 139, potassium 5.1, chloride 110, carbon dioxide was 15, anion gap 19, BUN 77, creatinine 8.8, GFR 4, glucose 130, calcium 9.5, total b ilirubin 0.7. LFTs were negative. Troponin was negative. Beta natriuretic peptide 2383. ASSESSMENT AND PLAN: The patient will be placed in the hospital with following medical problems: 1. Chest pain, rule out acute coronary syndrome. Patient will need to go for a stress test, EKG was normal. Troponin was normal. The patient has a high risk for coronary artery disease. 2. End-stage renal disease on hemodialysis. The patient will need Nephrology consult as inpatient f or hemodialysis. She follows with Dr. Rodriguez. 3. Uncontrolled hypertension. Systolic blood pressure 185 on presentation, reconcile home meds, pat ient will need hemodialysis for fluid removal. 4. Reportedly, the patient has diabetes type 2. The patient was not on any medication. We will mon itor her blood sugar, will adjust treatment as needed. 5. Hyperlipidemia. We will reconcile home medications, low cholesterol diet is advised.
[2018-01-29 07:27] LABS: Troponin I 0.026 ng/mL (< 0.028)
[2018-01-29] MEDS ORDERED: Ferrous Sulfate 325 MG TAB PO SCH (08:00)
--- NOTE | 2018-01-29 08:18 | RAD ---
CHEST 1 VIEW: HISTORY: Shortness of breath. COMPARISON: Radiograph 01/30/2018. FINDINGS: Heart size is enlarged. Mild pulmonary edema. Small effusions. No pneumothorax. No acute osseous abnormality. IMPRESSION: Cardiomegaly, effusions, and moderate pulmonary edema, worse from the 02/09/2018 exam. POS: ALEJANDRA
[2018-01-29] MEDS ORDERED: Sodium Bicarbonate Tab 325 MG TAB PO SCH (09:00)
[2018-01-29] MEDS ORDERED: Amlodipine 5 MG TAB PO SCH (09:00)
[2018-01-29] MEDS ORDERED: Enoxaparin Sodium 30 MG/0.3 ML SYRINGE SC SCH (09:00)
[2018-01-29] MEDS ORDERED: ADENOSINE 60 MG/20 ML VIAL ONE (11:25)
[2018-01-29] MEDS: hydrALAZINE 25 MG TAB PO SCH ×2 (12:27→15:08)
--- NOTE | 2018-01-29 13:15 | NM ---
NUCLEAR MEDICINE CARDIAC STRESS WITH EF AND WALL MOTION: HISTORY: Chest pain. TECHNIQUE: The patient was administered 9.8 mCi of Technetium 99m sestamibi for rest imaging and 32.50 mCi of Te chnetium 99m sestamibi for stress imaging. Cardiac gating is performed. FINDINGS: Essentially homogeneous distribution of the radiotracer in the left ventricle. No reversibility. No fixed defect. TID is 0.94. End-diastolic volume is 99 mL. End-systolic volume is 31 mL. CARDIAC GATING: Normal wall motion and normal wall thickening. 68% ejection fraction. IMPRESSION: 1. No reversibility or fixed defect. 2. 68% ejection fraction. POS: [facility]
[2018-01-29 13:48] LABS: HBSAB Concentration 1.28 mIU/mL; HBSAg Index 0.21 S/CO (0-0.99); Hep B Surf AB Non-Reactive (NonReactive); Hep B Surf Ag Non-Reactive S/CO (NonReactive)
[2018-01-29] MEDS ORDERED: Epoetin (ESRD) 20,000 UNITS/ML IVP SCH (15:00)
[2018-01-29 17:36] VITALS: BP 147/67; TEMP 98.1
--- NOTE | 2018-01-30 00:36 | DIS ---
DATE OF ADMISSION: 01/29/2018 DATE OF DISCHARGE: 01/29/2018 DISCHARGE DIAGNOSES: 1. Chest pain likely musculoskeletal. 2. End-stage renal disease with hemodialysis. 3. Hypertension, labile. CONSULTATIONS: Dr. Michael Bernal with nephrology service. PERTINENT LABORATORY DATA AND X-RAY FINDINGS: Potassium ranged between 5.1 to 5.2, creatinine ranged between 8.87 to 8.89, estimated GFR 4. LFTs within normal limits. Troponin I negative x3. BNP 238 3 previously noted 2407 on 01/20/2018. Hemoglobin ranged between 7.7 to 8.2. Hepatitis B panel nega tive on 01/29/2018. Portable chest x-ray dated 01/28/2018 showed moderate pulmonary edema. Cardioli te stress test dated 01/29/2018 showed no evidence for reversible or fixed ischemia with calculated e jection fraction of 68%. HOSPITAL COURSE: Patient was initially placed in observation status after presenting with chest pain in the context of known end-stage renal disease with hemodialysis and likely volume overload. Patie nt underwent serial troponin I, which was negative x3 proceeding to Cardiolite stress testing showing no evidence for reversible or fixed ischemia with calculated ejection fraction of 68%. Patient rece ived hemodialysis during her hospital course with overall excellent clinical effect and stabilization of blood pressure and respiratory status. Patient overall remained clinically stable with telemetry monitoring showing sinus mechanism without evidence of acute arrhythmia or dysrhythmia. I have disc ussed followup instruction with the patient and disposition after discharge. Patient overall clinic ally stable and ready for discharge on 01/29/2018. DISCHARGE MEDICATIONS: 1. Ferrous sulfate 325 mg p.o. daily. 2. Zofran 4 mg p.o. q.4 to 6 hours p.r.n. 3. Sodium bicarbonate 650 mg p.o. b.i.d. 4. Norvasc 5 mg 1 tablet p.o. daily. 5. Hydralazine 25 mg p.o. t.i.d. FOLLOWUP: Patient to follow up with Dr. Georgina Chambers within 7 days of discharge. The patient jessica l follow up with Dr. Michael Bernal with hemodialysis 3 times per week. CONDITION ON DISCHARGE: Stable. ACTIVITY: Ad-tai. DIET: Renal. CODE STATUS: FULL. DISPOSITION: Home on 01/29/2018.
--- NOTE | 2018-01-30 02:15 | CON ---
DATE OF CONSULTATION: 01/29/2018 CONSULTING PHYSICIAN: Michael Bernal M.D. REQUESTING PHYSICIAN: Lloyd Tamez D.O. REASON FOR CONSULTATION: Need for hemodialysis. IMPRESSION: 1. End-stage renal disease, hemodialysis dependent, unfortunately cannot get any outpatient dialysis treatment schedule. 2. Chest pain, query cause. 3. Hypertension. PLAN: The patient to be dialyzed today and the patient still remains here by tomorrow. We will dial yze her further. HISTORY OF PRESENT ILLNESS: History is that of 67-year-old female patient with end-stage renal disea se, hemodialysis dependent, who unfortunately does not get scheduled regular with outpatient hemodial ysis, who presented with chest pain, shortness of breath and the need for necessitating consult ation. PAST MEDICAL HISTORY: Significant for end-stage renal disease, hemodialysis dependent; hypertension; secondary hyperparathyroidism; anemia; chronic kidney disease. MEDICATIONS: Reviewed and as documented on [employer]. SOCIAL HISTORY: No alcohol, no tobacco, no illicit drug use. FAMILY HISTORY: None significantly related to presenting illness. ALLERGIES: ASPIRIN AND PENICILLIN. REVIEW OF SYSTEMS: As documented in the body of the history. All other systems were reviewed and fo und not to be significantly related to the presenting illness. PHYSICAL EXAMINATION: GENERAL: The patient was found not to be in some physical or respiratory distress and noted with the following vital signs. VITAL SIGNS: Afebrile with temperature 98, pulse 94, respiratory rate 16, O2 sat of 93%, and blood p ressure 193/84. HEENT: Unremarkable with moist oral mucosa. Neck was supple. No conjunctival injection or icterus. CARDIOVASCULAR SYSTEM: First and second heart sounds were heard. RESPIRATORY SYSTEM: Clear to auscultation. DIGESTIVE SYSTEM: Revealed a benign abdomen with positive bowel sounds. EXTREMITIES: No peripheral edema. SKIN: No new gross rash. LYMPHATICS: No peripheral lymphadenopathy. SUMMARY: A 67-year-old female patient with end-stage renal disease, hemodialysis dependent, who pres ented here with chest pain. Thank you for this consultation. We will follow with you.
== END 2018-01-29 18:06 | disposition home or self-care (01) ==
LOC: ERS 23:38 → 2SW 01-29 01:30
PROVIDERS: ADMIT Hospitalist; ATTEND Hospitalist
DX: R07.89 Other chest pain (principal); I12.0 Hypertensive chronic kidney disease with stage 5 chronic kidney disease or end stage renal disease; E11.22 Type 2 diabetes mellitus with diabetic chronic kidney disease; N18.6 End stage renal disease; D63.1 Anemia in chronic kidney disease; N25.81 Secondary hyperparathyroidism of renal origin; E78.5 Hyperlipidemia, unspecified; Z79.899 Other long term (current) drug therapy; Z88.0 Allergy status to penicillin; Z88.8 Allergy status to other drugs, medicaments and biological substances; Z99.2 Dependence on renal dialysis
CPT/HCPCS: 36415; 71045; 78452; 80053; 82553; 83880; 84484; 85025; 86706; 87340; 90935; 93005; 93017; 96372; 96374; 96375; A9500; G0257; G0378; J0153; J1650; J2270; J2405; Q4081

== ENCOUNTER 2018-02-10 17:09 | Inpatient (IN) | payer MEDICAID, SELFPAY ==
[2018-02-10 18:05] LABS: #Eosinphils 0.2 thou/uL (0.0-0.7); #Lymphocytes 1.1 thou/uL (1.20-3.40); #Monocytes 0.4 thou/uL (0.11-0.59); #Neutrophils 3.8 thou/uL (1.40-6.50); %Basophils 0.9 % (0.0-1.0); %Eosinophils 2.9 % (0.0-10.0); %Lymphocytes 20.2 % (21.0-51.0); %Neutrophils 68.1 % (42.0-75.0); Hemoglobin 7.6 g/dL (12.0-16.0); Mean Corpuscular HGB CONC 32.8 g/dL (32.0-36.0); Mean Corpuscular Hemoglobin 29.4 pg (27.0-31.0); Mean Corpuscular Volume 89.5 fL (78.0-98.0); Mean Platelet Volume 8.1 fL (7.4-10.4); Platelet Count 187 thou/uL (130-400); RBC Distribution Width 17.7 % (11.5-14.5); Red Blood Cell (RBC) Count 2.59 mill/uL (4.20-5.40); White Blood Cell (WBC) Count 5.6 thou/uL (4.8-10.8)
--- NOTE | 2018-02-10 18:22 | RAD ---
CHEST ONE VIEW: History: Dyspnea. Comparison: 01-29-18 FINDINGS: Cardiac silhouette is magnified and enlarged. Pulmonary vasculature remains engorged. Mediastinum is midline with aortic calcification. Blunting of each costophrenic angle. No lobar consolidation or sancho dence of pneumothorax. IMPRESSION: Cardiomegaly with mild pulmonary vascular congestion and small amount of bilateral pleural fluid. POS: [facility]
[2018-02-10 18:29] LABS: CKMB 2.6 ng/mL (0-6.6); Troponin I 0.021 ng/mL (< 0.028)
[2018-02-10 18:34] LABS: ALT (SGPT) 10 U/L (8-55); Albumin 3.6 g/dL (3.4-4.8); Alkaline Phosphatase 78 U/L (40-150); BUN (Urea Nitrogen) 88 mg/dL (9.8-20.1); Bilirubin, Total 0.5 mg/dL (0.2-1.2); Calc. Creatinine Clearance 0 mL/min (70-130); Carbon Dioxide 14 mmol/L (23-31); Chloride 105 mmol/L (98-107); Estimated GFR-MDRD 3; Glucose 165 mg/dL (80-115); Sodium 134 mmol/L (136-145)
[2018-02-10 18:43] LABS: AST (SGOT) 16 U/L (5-34); Globulin 3.3 g/dL (2.4-3.5); Potassium 4.9 mmol/L (3.5-5.1); Protein, Total 6.9 g/dL (6.0-8.3)
[2018-02-10 18:44] LABS: Anion Gap 20 mmol/L (10-20)
[2018-02-10] MEDS ORDERED: Acetaminophen 325 MG TAB PO PRN (21:37)
[2018-02-10] MEDS ORDERED: Ondansetron PF 4 MG/2 ML Vial IVP PRN (21:37)
[2018-02-10] MEDS ORDERED: Ondansetron ODT 4 MG TAB SL PRN (21:37)
[2018-02-10 22:26] VITALS: BMI 25.7
--- NOTE | 2018-02-11 06:01 | HP ---
CHIEF COMPLAINT: Shortness of breath, chest pain. HISTORY OF PRESENT ILLNESS: The patient is a 67-year-old female who has a history of end-stage renal disease requiring intermittent hemodialysis. The patient is followed by Dr. Bernal and patient pr esented via the emergency department reporting lower extremity edema, shortness of breath, and orthop mony. The patient seemed to be better when upright, but has some chest discomfort and shortness of br eath when she is supine. Her last dialysis was a couple of weeks ago and her symptoms have been grad ually coming on since that time. Chest pain is typically around the 3/10 and feels more pressure-lik e and is completely positional with the supine position. REVIEW OF SYSTEMS: Ten system review negative except for those things mentioned in the history of pr esent illness. PAST MEDICAL HISTORY: Notable for end-stage renal disease requiring hemodialysis. She has a history of diabetes mellitus type 2, hypertension, and hyperlipidemia. Of note, the patient had a stress te st done on 01/29/2018 which revealed no reversible ischemia or fixed defect with an EF of 68%. PAST SURGICAL HISTORY: Dialysis shunt right upper extremity. SOCIAL HISTORY: Nonsmoker, nondrinker, nondrug user. The patient is Protestant and does not want any blood products. She is FULL CODE and her surrogate decision maker would be her daughter, Mikki webb or her granddaughter. FAMILY HISTORY: Notable for coronary artery disease and then OR in her father. ALLERGIES: PENICILLIN AND ASPIRIN. CURRENT MEDICATIONS: Norvasc 5 mg p.o. q. day, ferrous sulfate 325 p.o. q. day, sodium bicarbonate 6 50 mg p.o. b.i.d., Zofran 8 mg p.o. q.8 hours p.r.n., hydralazine 25 mg p.o. t.i.d. PHYSICAL EXAMINATION: VITAL SIGNS: Temperature 98.3, pulse 86, respirations 18, O2 saturation 98% on room air, blood press ure 150/68. GENERAL APPEARANCE: Age appropriate female. She is in no distress. She is awake, alert, oriented, pleasant, and cooperative. HEENT: PERRL. No OP lesions. NECK: Supple and symmetric without lymphadenopathy, JVD, or carotid bruits. HEART: There is a 2/6 murmur at the left upper and lower sternal borders with a regular rhythm. LUNGS: Have bibasilar rales, left greater than right with fair air exchange. ABDOMEN: Soft, nondistended. There is minimal tenderness to palpation in the right abdomen with no masses, no organomegaly, no guarding, no rebound. EXTREMITIES: Reveal 2+ pitting edema in the lower extremities to the mid calf. IMAGING: EKG shows sinus rhythm with no significant ST changes. Chest x-ray shows cardiomegaly with pulmonary vascular congestion and a small amount of bilateral pleural effusion. IMPRESSION AND PLAN: 1. End-stage renal disease with volume overload. We will consult Nephrology and have the patient se t up for dialysis. 2. Chest pain appears to be secondary to volume overload. It does not appear to be necessary to con tinue to work her up, but she just had the negative stress test 2 weeks ago and she is only experienc ing positional pain with the volume overload. EKG was unremarkable. 3. Hypertension. Continue with the patient's usual home medication regimen.
[2018-02-11] MEDS: Sodium Bicarbonate Tab 325 MG TAB PO SCH ×2 (09:00→21:10)
[2018-02-11] MEDS: Furosemide 40 MG TAB PO SCH ×2 (09:00→13:01)
[2018-02-11] MEDS ORDERED: Epoetin (ESRD) 10,000 UNITS/ML VIAL IVP SCH (09:00)
[2018-02-11] MEDS: hydrALAZINE 25 MG TAB PO SCH ×3 (09:00→21:10)
[2018-02-11] MEDS: Ferrous Sulfate 325 MG TAB PO SCH (13:00)
[2018-02-11] MEDS: Amlodipine 5 MG TAB PO SCH (13:01)
[2018-02-11] MEDS ORDERED: Dextrose 5% in Water 1,000 ML IV PRN (16:11)
[2018-02-11] MEDS ORDERED: Insulin Regular 300 UNITS/3 ML VIAL SC PRN ×2 (16:11→16:12)
[2018-02-11] MEDS ORDERED: HumaLOG 300 UNITS/3 ML VIAL SC PRN ×2 (16:11→16:12)
[2018-02-11] MEDS ORDERED: Dextrose 50% Abboject 50 ML SYRINGE IVP PRN (16:11)
[2018-02-11] MEDS: Acetaminophen 325 MG TAB PO PRN ×2 (16:15→20:07)
[2018-02-12 09:19] VITALS: BP 173/99; TEMP 98.6
[2018-02-12] MEDS: Ferrous Sulfate 325 MG TAB PO SCH (14:56)
[2018-02-12] MEDS: Sodium Bicarbonate Tab 325 MG TAB PO SCH (14:56)
[2018-02-12] MEDS: Amlodipine 5 MG TAB PO SCH (14:57)
[2018-02-12] MEDS: Furosemide 40 MG TAB PO SCH ×2 (14:57)
[2018-02-12] MEDS: hydrALAZINE 25 MG TAB PO SCH ×2 (14:57)
--- NOTE | 2018-02-13 04:44 | CON ---
DATE OF CONSULTATION: 02/12/2018 CONSULTING PHYSICIAN: Dr. Michael Bernal. REQUESTING PHYSICIAN: Dr. Molina Arreola. REASON FOR CONSULTATION: The need for maintenance hemodialysis. IMPRESSION: 1. End-stage renal disease on hemodialysis unfortunately, does not have any outpatient dialysis faci lity. 2. Hypervolemia in the context of problem #1. PLAN: Patient to be dialyzed with ultrafiltration as tolerated by hemodynamics if patient stays more than 24 hours was to be dialyzed prior to being discharged. HISTORY OF PRESENT ILLNESS: A 67-year-old female patient with end-stage renal disease, hemodialysis dependent, who unfortunately does getting a regular outpatient schedule dialysis due to shortne ss status. Patient presented here with shortness of breath or chest pain, for which patient was note d to be pulmonary congested. As a result of these findings, decision has been taken to involve Renal in the management of this case. PAST MEDICAL HISTORY: 1. Significant for end-stage renal disease, hemodialysis dependent. 2. Diabetes mellitus, type 2. 3. Hypertension. 4. Hyperparathyroidism. MEDICATIONS: Reviewed and as documented on [employer]. ALLERGIES: ASPIRIN and PENICILLIN. FAMILY HISTORY: Not significantly related to presenting illness. SOCIAL HISTORY: Denies alcohol, tobacco, or illicit drug use. REVIEW OF SYSTEMS: As documented in the body of the history. All the other systems were reviewed an d found not to be significantly related to presenting illness. PHYSICAL EXAMINATION: GENERAL: Patient is found to be in some physical distress noted with the following vital signs. VITAL SIGNS: Afebrile. Temperature 97.8, pulse 84, respiration rate of 20, O2 saturation 97%, blood pressure 167/71. HEENT: Unremarkable. Moist oral mucosa. NECK: Supple, No conjunctival injection or icterus. CARDIOVASCULAR SYSTEM: First and second heart sounds were heard. RESPIRATORY SYSTEM: Clear to auscultation. DIGESTIVE SYSTEM: Revealed a benign abdomen with positive bowel sounds. EXTREMITIES: Shows some peripheral edema. SKIN: No new gross rash. LYMPHATICS: No peripheral lymphadenopathy. SUMMARY: In summary, this 67-year-old female patient who presented here with chest discomfort and sh ortness of breath who was noted to be congested pulmonary chavez. Thank you for this consultation. We will follow with you.
--- NOTE | 2018-02-16 23:07 | EKG ---
Test Reason : Blood Pressure : / mmHG Vent. Rate : 086 BPM Atrial Rate : 086 BPM P-R Int : 172 ms QRS Dur : 076 ms QT Int : 380 ms P-R-T Axes : 062 010 058 degrees QTc Int : 454 ms Normal sinus rhythm Normal ECG Confirmed by KIMBERLEY CHARLES ([id number]), newspaper copy editor ZACH PAINTING ([id number]) on 02/16/2018 11:06:58 PM Referred By: Confirmed By:KIMBERLEY CHARLES
== END 2018-02-12 15:55 | disposition home or self-care (01) | DRG 640 ==
LOC: ERS 17:09 → ONC 19:40
PROVIDERS: ADMIT Internal Medicine; ATTEND Internal Medicine
PROC: 5A1D70Z Performance of Urinary Filtration, Intermittent, Less than 6 Hours Per Day (ICD-10-PCS; principal; 2018-02-11)
PROC: 5A1D70Z Performance of Urinary Filtration, Intermittent, Less than 6 Hours Per Day (ICD-10-PCS; 2018-02-12)
DX: E87.70 Fluid overload, unspecified (principal); N18.6 End stage renal disease; I12.0 Hypertensive chronic kidney disease with stage 5 chronic kidney disease or end stage renal disease; E11.22 Type 2 diabetes mellitus with diabetic chronic kidney disease; Z99.2 Dependence on renal dialysis; Z79.4 Long term (current) use of insulin; E78.5 Hyperlipidemia, unspecified; E21.3 Hyperparathyroidism, unspecified; D63.1 Anemia in chronic kidney disease
CPT/HCPCS: 36416; 71045; 80053; 82553; 83880; 84484; 85025; 90935; 93005; G0257; Q4081

== ENCOUNTER 2018-02-27 16:39 | Inpatient (IN) | payer MEDICAID, SELFPAY ==
[~2018-02-27 16:39] MED LIST changes: -Heparin 1,000 UNITS/ML VIAL ONE; +Heparin 10,000 UNITS/ 10 ML VIAL ONE
[2018-02-27] MEDS ORDERED: Ondansetron PF 4 MG/2 ML Vial IVP PRN (17:03)
[2018-02-27] MEDS ORDERED: Dextrose 5% in Water 1,000 ML IV PRN (17:03)
[2018-02-27] MEDS ORDERED: Acetaminophen 325 MG TAB PO PRN (17:03)
[2018-02-27] MEDS ORDERED: Insulin Regular 300 UNITS/3 ML VIAL SC PRN (17:03)
[2018-02-27] MEDS ORDERED: HumaLOG 300 UNITS/3 ML VIAL SC PRN (17:03)
[2018-02-27] MEDS ORDERED: Dextrose 50% Abboject 50 ML SYRINGE SLOW IVP PRN (17:03)
[2018-02-27] MEDS ORDERED: Ondansetron ODT 4 MG TAB PO PRN ×2 (17:03→17:39)
[2018-02-27 17:53] LABS: #Eosinphils 0.2 thou/uL (0.0-0.7); #Monocytes 0.3 thou/uL (0.11-0.59); %Basophils 0.1 % (0.0-1.0); %Eosinophils 2.9 % (0.0-10.0); %Lymphocytes 18.5 % (21.0-51.0); %Monocytes 4.8 % (0.0-10.0); %Neutrophils 73.7 % (42.0-75.0); Hemoglobin 7.5 g/dL (12.0-16.0); Mean Corpuscular HGB CONC 32.6 g/dL (32.0-36.0); Mean Corpuscular Volume 91.8 fL (78.0-98.0); Mean Platelet Volume 8.9 fL (7.4-10.4); Platelet Count 187 thou/uL (130-400); RBC Distribution Width 16.9 % (11.5-14.5); Red Blood Cell (RBC) Count 2.52 mill/uL (4.20-5.40); White Blood Cell (WBC) Count 5.4 thou/uL (4.8-10.8)
[2018-02-27 18:19] LABS: Albumin 3.4 g/dL (3.4-4.8); Anion Gap 24 mmol/L (10-20); BUN (Urea Nitrogen) 90 mg/dL (9.8-20.1); BUN/Creatinine Ratio 7.09; Calc. Creatinine Clearance 4 mL/min (70-130); Calcium 7.7 mg/dL (7.8-10.44); Carbon Dioxide 15 mmol/L (23-31); Chloride 103 mmol/L (98-107); Estimated GFR-MDRD 3; Glucose 152 mg/dL (80-115); Phosphorus 8.1 mg/dL (2.3-4.7); Potassium 6.2 mmol/L (3.5-5.1); Sodium 136 mmol/L (136-145)
[2018-02-27] MEDS ORDERED: Epoetin (NON-ESRD) 10,000 UNITS/ML VIAL IVP SCH (19:15)
--- NOTE | 2018-02-27 23:44 | HP ---
CHIEF COMPLAINT: Shortness of breath and fluid overload. HISTORY OF PRESENT ILLNESS: This is a 67-year-old female patient with end-stage renal disease who un fortunately does not have any outpatient dialysis facility for regular dialysis. The patient present ed today with shortness of breath and obvious fluid overload. The patient also described some chest congestion and chest tightness. As a result of this, the patient is now being admitted and patient h as a last dialyzed about 2 weeks ago raising the specter of possible uremia and fluid overload. PAST MEDICAL HISTORY: Significant for end-stage renal disease, hemodialysis dependent, hypertension, diabetes mellitus, secondary hyperparathyroidism. MEDICATIONS: Reviewed and as documented on [employer]. ALLERGIES: ASPIRIN and PENICILLIN. FAMILY HISTORY: None significantly related to presenting illness. SOCIAL HISTORY: Denies alcohol, tobacco or illicit drug use. REVIEW OF SYSTEMS: As documented in the body of the history. All the other systems were reviewed an d found not to be significantly related to presenting illness. PHYSICAL EXAMINATION: GENERAL: The patient was found to be in some respiratory distress, obviously fluid overloaded. VITAL SIGNS: Blood pressure of , O2 sat of 94%, respiratory rate 18, pulse 70, afebrile. HEENT: Remarkable for periorbital edema. CARDIOVASCULAR SYSTEM: First and second heart sounds were heard. RESPIRATORY SYSTEM: Clear to auscultation. DIGESTIVE SYSTEM: Revealed a benign abdomen, positive bowel sounds. EXTREMITIES: Showed 2-3+ bilateral lower extremity edema. SKIN: No new gross rash. LYMPHATICS: No peripheral lymphadenopathy. IMPRESSION: 1. End-stage renal disease, hemodialysis dependent. 2. Hypervolemia. 3. Uremia. 4. Diabetes mellitus type 2. PLAN: 1. The patient to be dialyzed today with ultrafiltration as tolerated by hemodynamics. 2. Resume home medications. 3. Renally dose all medications. 4. Further management to be dependent on the clinical course. CODE STATUS: FULL.
[2018-02-27] MEDS: Sodium Bicarbonate Tab 325 MG TAB PO SCH (23:49)
[2018-02-27] MEDS: Famotidine 20 MG TAB PO SCH (23:50)
[2018-02-27] MEDS: hydrALAZINE 25 MG TAB PO SCH (23:50)
[2018-02-28 06:34] LABS: Anion Gap 13 mmol/L (10-20); BUN (Urea Nitrogen) 33 mg/dL (9.8-20.1); Calc. Creatinine Clearance 8 mL/min (70-130); Calcium 8.1 mg/dL (7.8-10.44); Carbon Dioxide 29 mmol/L (23-31); Chloride 102 mmol/L (98-107); Estimated GFR-MDRD 7; Glucose 81 mg/dL (80-115); Sodium 140 mmol/L (136-145)
[2018-02-28 06:58] LABS: Hep B Core Total Ab Non-Reactive (NonReactive); Hep B Core Total Index 0.21 S/CO (0-0.79)
[2018-02-28 07:14] LABS: Hep B Surf Ag Non-Reactive S/CO (NonReactive)
[2018-02-28 07:15] LABS: Hep B Surf AB Non-Reactive (NonReactive)
[2018-02-28 07:16] LABS: Hep C IgG Ab Non-Reactive (NonReactive); Hep C Index 0.28 S/CO (0-0.79)
[2018-02-28] MEDS ORDERED: Ferrous Sulfate 325 MG TAB PO SCH (08:00)
[2018-02-28] MEDS: hydrALAZINE 25 MG TAB PO SCH ×2 (08:10→15:32)
[2018-02-28] MEDS: Furosemide 40 MG TAB PO SCH ×2 (08:10→15:32)
[2018-02-28] MEDS: Famotidine 20 MG TAB PO SCH (08:10)
[2018-02-28] MEDS: Sodium Bicarbonate Tab 325 MG TAB PO SCH (08:10)
[2018-02-28] MEDS ORDERED: Amlodipine 5 MG TAB PO SCH (09:00)
[2018-02-28 14:55] VITALS: BMI 25.6
[2018-02-28 15:02] VITALS: BP 125/55; TEMP 98.6
[2018-02-28] MEDS ORDERED: Epoetin (NON-ESRD) 10,000 UNITS/ML VIAL IVP SCH (18:00)
== END 2018-02-28 18:17 | disposition home or self-care (01) | DRG 640 ==
LOC: ONC 16:39
PROVIDERS: ADMIT Internal Medicine Nephrology; ATTEND Internal Medicine Nephrology
PROC: 5A1D70Z Performance of Urinary Filtration, Intermittent, Less than 6 Hours Per Day (ICD-10-PCS; principal; 2018-02-27)
PROC: 5A1D70Z Performance of Urinary Filtration, Intermittent, Less than 6 Hours Per Day (ICD-10-PCS; 2018-02-28)
DX: E87.70 Fluid overload, unspecified (principal); N18.6 End stage renal disease; I12.0 Hypertensive chronic kidney disease with stage 5 chronic kidney disease or end stage renal disease; N25.81 Secondary hyperparathyroidism of renal origin; E11.22 Type 2 diabetes mellitus with diabetic chronic kidney disease; Z99.2 Dependence on renal dialysis
CPT/HCPCS: 36415; 36416; 80048; 80069; 83970; 85025; 86704; 86706; 86803; 87340; 90935; G0257; J0885; J1644

== ENCOUNTER 2018-03-13 09:19 | Inpatient (IN) | payer MEDICAID, SELFPAY ==
[2018-03-13 10:29] VITALS: BMI 25.6
[2018-03-13 11:59] LABS: #Eosinphils 0.1 thou/uL (0.0-0.7); #Lymphocytes 0.8 thou/uL (1.20-3.40); #Monocytes 0.4 thou/uL (0.11-0.59); #Neutrophils 3.2 thou/uL (1.40-6.50); %Basophils 0.6 % (0.0-1.0); %Eosinophils 2.5 % (0.0-10.0); %Lymphocytes 18.1 % (21.0-51.0); %Monocytes 8.3 % (0.0-10.0); %Neutrophils 70.5 % (42.0-75.0); Hemoglobin 8.2 g/dL (12.0-16.0); Mean Corpuscular HGB CONC 33.4 g/dL (32.0-36.0); Mean Corpuscular Volume 89.9 fL (78.0-98.0); Mean Platelet Volume 8.1 fL (7.4-10.4); Platelet Count 203 thou/uL (130-400); RBC Distribution Width 16.7 % (11.5-14.5); Red Blood Cell (RBC) Count 2.72 mill/uL (4.20-5.40); White Blood Cell (WBC) Count 4.5 thou/uL (4.8-10.8)
[2018-03-13] MEDS ORDERED: Calcium Carbonate 500 MG ChewTAB PO PRN (12:19)
[2018-03-13] MEDS ORDERED: Dextrose 5% in Water 1,000 ML IV PRN (12:19)
[2018-03-13] MEDS ORDERED: Zolpidem Tartrate 5 MG TAB PO PRN (12:19)
[2018-03-13] MEDS ORDERED: HumaLOG 300 UNITS/3 ML VIAL SC PRN (12:19)
[2018-03-13] MEDS ORDERED: Dextrose 50% Abboject 50 ML SYRINGE SLOW IVP PRN (12:19)
[2018-03-13] MEDS ORDERED: Ondansetron ODT 4 MG TAB PO PRN (12:19)
[2018-03-13] MEDS ORDERED: Ondansetron PF 4 MG/2 ML Vial IVP PRN (12:19)
[2018-03-13] MEDS ORDERED: Acetaminophen 325 MG TAB PO PRN (12:19)
[2018-03-13 12:27] LABS: Albumin 3.4 g/dL (3.4-4.8); Anion Gap 24 mmol/L (10-20); BUN (Urea Nitrogen) 112 mg/dL (9.8-20.1); BUN/Creatinine Ratio 8.33; Calc. Creatinine Clearance 4 mL/min (70-130); Calcium 6.7 mg/dL (7.8-10.44); Carbon Dioxide 15 mmol/L (23-31); Chloride 100 mmol/L (98-107); Estimated GFR-MDRD 3; Glucose 113 mg/dL (80-115); Phosphorus 8.9 mg/dL (2.3-4.7); Potassium 4.6 mmol/L (3.5-5.1); Sodium 134 mmol/L (136-145)
[2018-03-13] MEDS ORDERED: Iron Sucrose Complex 200 MG in Sodium Chloride 0.9% 250 ML 250 ML IVPB SCH (12:30)
[2018-03-13] MEDS ORDERED: Iron, Sodium Ferric Gluconate 250 MG in Sodium Chloride 0.9% 100 ML IVPB SCH (13:15)
[2018-03-13] MEDS ORDERED: Epoetin (ESRD) 20,000 UNITS/ML SC SCH ×2 (14:00→18:30)
[2018-03-13 14:23] LABS: Bilirubin Negative (Negative); Blood, Urine Small (Negative); Clarity CLEAR (Clear); Glucose, Urine (Dipstick) 250 mg/dL (Negative); Leukocyte Negative (Negative); Nitrite Negative (Negative); Protein, Urine (Dipstick) > or equal to 300 mg/dL (Neg-Trace); Specific Gravity, Urine 1.019 (1.002-1.036); Urobilinogen 0.2 mg/dL (0.2-1.0)
[2018-03-13 14:25] LABS: Bacteria/HPF None Seen HPF (None Seen); Hyaline Casts/LPF 0-3 HYALINE CAST LPF (0-3 Hyaline); Pathc Cast-AUWi Flag 0.14 (0-2.49)
[2018-03-13 14:57] LABS: Transitional Epithelial 0-3 HPF (0-3)
[2018-03-13] MEDS: Calcium Acetate 667 MG CAP PO SCH (18:04)
[2018-03-13] MEDS: Furosemide 40 MG TAB PO SCH (18:04)
--- NOTE | 2018-03-14 04:18 | HP ---
CHIEF COMPLAINT: Nausea, vomiting, and need for dialysis. HISTORY OF PRESENT ILLNESS: A 67-year-old female patient with end-stage renal disease, hemodialysis-dependent, who unfortunately could not get dialysis as an outpatient, presented with nausea, vomiting, has not dialyzed for the past 2 weeks. The patient also complained of shortness of breath and some chest tightness. Laboratory at admission revealed evidence of profound azotemia. Decision was made again to admit this patient for renal replacement therapy. PAST MEDICAL HISTORY: Significant for end-stage renal disease, hypertension, diabetes, secondary hyperparathyroidism, hypocalcemia. MEDICATIONS: Reviewed and as documented on Medicaid. ALLERGIES: TO ASPIRIN AND PENICILLIN. FAMILY HISTORY: Not significant related to present illness. SOCIAL HISTORY: Denies alcohol, tobacco, or illicit drug use. REVIEW OF SYSTEMS: As documented in the body of the history. All the other systems were reviewed and found not to be significantly related to present illness. PHYSICAL EXAMINATION: GENERAL: The patient was found to be in some respiratory distress, not able to be following. VITAL SIGNS: Afebrile, temperature 97.4; pulse 85; respiratory rate of 20; O2 saturation of 95% with blood pressure of 162/67. HEENT: Unremarkable. CARDIOVASCULAR SYSTEM: First and second sounds were heard. RESPIRATORY SYSTEM: Lungs are clear to auscultation. DIGESTIVE SYSTEM: Benign abdomen. EXTREMITIES: Showed bilateral lower extremity edema. SKIN: No new bruise or rash. LYMPHATICS: No peripheral lymphadenopathy. LABORATORY INVESTIGATIONS: Show significant proteinuria. Chemistry shows BUN of 112, creatinine 13.44, calcium 6.7, phosphorous of 8.9. CBC showed hemoglobin of 8.2. IMPRESSION: 1. End-stage renal disease with profound azotemia. 2. Uremia. 3. Hypocalcemia and hyperphosphatemia. 4. Anemia of chronic kidney disease. 5. Diabetes mellitus. PLAN: 1. Discontinue Sensipar given hypocalcemia. 2. Continue phosphorus binders and vitamin D. 3. Renal replacement therapy. 4. Shock treatments to avoid disequilibrium syndrome. 5. Further management will be dependent on the clinical course. 6. Code status is full. Job ID: [id number]
[2018-03-14 07:23] VITALS: BP 172/65; TEMP 97.9
[2018-03-14] MEDS ORDERED: Amlodipine 5 MG TAB PO SCH (09:00)
[2018-03-14] MEDS ORDERED: Calcitriol 0.25 MCG CAP PO SCH (09:00)
[2018-03-14] MEDS: Calcium Acetate 667 MG CAP PO SCH ×3 (09:43→17:22)
[2018-03-14] MEDS: Furosemide 40 MG TAB PO SCH ×2 (13:06→16:28)
[2018-03-14] MEDS ORDERED: hydrALAZINE 25 MG TAB PO SCH (21:00)
[2018-03-14] MEDS ORDERED: Sodium Bicarbonate Tab 325 MG TAB PO SCH (21:00)
--- NOTE | 2018-03-18 15:23 | DIS ---
DATE OF ADMISSION: 03/13/2018 DATE OF DISCHARGE: 03/14/2018 Please review past records. In summary, this is a 67-year-old female patient with end-stage renal disease, who presented with uremia and did undergo 2 sessions of dialysis and now is feeling much better before discharge and noted with the following vital signs. PHYSICAL EXAMINATION: VITAL SIGNS: Afebrile. Blood pressure 160/69, respiratory rate 16, O2 saturation 93%, pulse 72. HEENT: Unremarkable. Moist oral mucosa. NECK: Supple. No conjunctival injection or icterus. CARDIOVASCULAR: First and second heart sounds. Rest of the examination unremarkable. The patient will be discharged home today and to continue with current medications except the patient's Sensipar has to be discontinued given the patient is hypocalcemia, otherwise the patient to continue on current medications. Total time spent including face to face encounter 31 minutes. Job ID: [id number]
== END 2018-03-14 20:03 | disposition home or self-care (01) | DRG 682 ==
LOC: T4-B 10:04
PROVIDERS: ADMIT Internal Medicine Nephrology; ATTEND Internal Medicine Nephrology
PROC: 5A1D70Z Performance of Urinary Filtration, Intermittent, Less than 6 Hours Per Day (ICD-10-PCS; principal; 2018-03-13)
PROC: 5A1D70Z Performance of Urinary Filtration, Intermittent, Less than 6 Hours Per Day (ICD-10-PCS; 2018-03-13)
DX: I12.0 Hypertensive chronic kidney disease with stage 5 chronic kidney disease or end stage renal disease (principal); N18.6 End stage renal disease; N25.81 Secondary hyperparathyroidism of renal origin; E11.22 Type 2 diabetes mellitus with diabetic chronic kidney disease; Z99.2 Dependence on renal dialysis; Z91.15 Patient's noncompliance with renal dialysis; R79.89 Other specified abnormal findings of blood chemistry; Z88.6 Allergy status to analgesic agent; Z88.0 Allergy status to penicillin; D63.1 Anemia in chronic kidney disease; E83.39 Other disorders of phosphorus metabolism; T50.3X6A Underdosing of electrolytic, caloric and water-balance agents, initial encounter
CPT/HCPCS: 36415; 36416; 80069; 81001; 85025; 87086; 90471; 90662; 90935; G0008; G0257; J2916; J7050; Q4081

== ENCOUNTER 2018-03-26 09:41 | Inpatient (IN) | payer MEDICAID, SELFPAY ==
[2018-03-26 13:10] VITALS: BMI 24.1
[2018-03-26 14:26] LABS: #Basophils 0.1 thou/uL (0.0-0.2); #Eosinphils 0.1 thou/uL (0.0-0.7); #Lymphocytes 1.1 thou/uL (1.20-3.40); #Monocytes 0.4 thou/uL (0.11-0.59); #Neutrophils 3.2 thou/uL (1.40-6.50); %Basophils 1.4 % (0.0-1.0); %Eosinophils 2.5 % (0.0-10.0); %Lymphocytes 22.2 % (21.0-51.0); %Monocytes 7.4 % (0.0-10.0); %Neutrophils 66.5 % (42.0-75.0); Hemoglobin 8.9 g/dL (12.0-16.0); Mean Corpuscular HGB CONC 34.1 g/dL (32.0-36.0); Mean Corpuscular Hemoglobin 30.3 pg (27.0-31.0); Mean Platelet Volume 8.1 fL (7.4-10.4); Platelet Count 155 thou/uL (130-400); Red Blood Cell (RBC) Count 2.92 mill/uL (4.20-5.40); White Blood Cell (WBC) Count 4.8 thou/uL (4.8-10.8)
[2018-03-26] MEDS ORDERED: Ondansetron ODT 4 MG TAB PO PRN (14:35)
[2018-03-26] MEDS ORDERED: Calcium Acetate 667 MG CAP PO SCH (15:00)
[2018-03-26 15:08] LABS: Albumin 3.5 g/dL (3.4-4.8); Anion Gap 25 mmol/L (10-20); Calc. Creatinine Clearance 3 mL/min (70-130); Calcium 8.5 mg/dL (7.8-10.44); Carbon Dioxide 17 mmol/L (23-31); Chloride 98 mmol/L (98-107); Estimated GFR-MDRD 3; Glucose 101 mg/dL (80-115); Phosphorus 7.7 mg/dL (2.3-4.7); Potassium 4.8 mmol/L (3.5-5.1); Sodium 135 mmol/L (136-145)
[2018-03-26 15:20] LABS: BUN (Urea Nitrogen) 119 mg/dL (9.8-20.1); BUN/Creatinine Ratio 8.31
[2018-03-26 15:30] LABS: Hep B Core Total Ab Non-Reactive (NonReactive); Hep B Core Total Index 0.08 S/CO (0-0.79)
[2018-03-26 15:32] LABS: HBSAB Concentration 0.39 mIU/mL; HBSAg Index 0.17 S/CO (0-0.99); Hep B Surf AB Non-Reactive (NonReactive); Hep B Surf Ag Non-Reactive S/CO (NonReactive)
[2018-03-26 15:33] LABS: Hep C IgG Ab Non-Reactive (NonReactive); Hep C Index 0.29 S/CO (0-0.79)
[2018-03-26] MEDS: hydrALAZINE 25 MG TAB PO SCH ×2 (17:37→20:17)
[2018-03-26] MEDS: Calcium Acetate 667 MG CAP PO SCH (18:15)
[2018-03-26] MEDS: Sodium Bicarbonate Tab 325 MG TAB PO SCH (20:17)
[2018-03-26] MEDS ORDERED: Acetaminophen 325 MG TAB PO PRN (22:34)
--- NOTE | 2018-03-27 02:41 | HP ---
CHIEF COMPLAINT: Shortness of breath and weakness. HISTORY OF PRESENT ILLNESS: This is a 67-year-old female patient with end-stage renal disease, who unfortunately could not get dialysis on a regular basis as an outpatient. The patient presented with shortness of breath, leg swelling, and poor appetite. The patient was evaluated and noted to have profound azotemia. Decision has now been taken to admit this patient for renal replacement therapy. PAST MEDICAL HISTORY: Significant for end-stage renal disease, hemodialysis dependent; diabetes type 2, hypertension, secondary hyperparathyroidism. MEDICATION: Reviewed and as documented on [employer]. ALLERGIES: ASPIRIN AND PENICILLIN. FAMILY HISTORY: Nonsignificant related to present illness. SOCIAL HISTORY: No alcohol, no tobacco, or no illicit drug use. REVIEW OF SYSTEMS: As documented in the body of the history. All other systems were reviewed and found not to be significantly related to present illness. PHYSICAL EXAMINATION: GENERAL: On examination, the patient was found to be ill looking. VITAL SIGNS: Noted with the following vital signs; afebrile, temperature 97.8, pulse 80, respiratory rate of 18, O2 saturation of 96% with blood pressure of 177/73. HEENT EXAMINATION: Unremarkable. Moist oral mucosa. No conjunctival injection or icterus. NECK: Supple. CARDIOVASCULAR SYSTEM: First and second sounds were heard. RESPIRATORY SYSTEM: Clear to auscultation. DIGESTIVE SYSTEM: Revealed a benign abdomen with positive bowel sounds. EXTREMITIES: No peripheral edema. SKIN EXAMINATION: No new gross rash. LYMPHATICS: No peripheral lymphadenopathy. IMPRESSION: 1. End-stage renal disease, on hemodialysis. 2. Profound azotemia/uremia. 3. Diabetes mellitus. 4. Hypertension. PLAN: 1. The patient to be dialyzed today with low blood flow and to avoid disequilibrium syndrome. Tomorrow, the patient is to receive a full dialysis and afterwards if the patient is feeling good, likely to be discharged, status post dialysis tomorrow. 2. Continue the patient's home medication. 3. Further management to be dependent on the clinical course. 4. Code status is full. Job ID: [id number]
[2018-03-27] MEDS ORDERED: Ferrous Sulfate 325 MG TAB PO SCH (08:00)
[2018-03-27] MEDS: Calcium Acetate 667 MG CAP PO SCH ×3 (08:11→17:21)
[2018-03-27] MEDS: hydrALAZINE 25 MG TAB PO SCH ×2 (08:12→15:02)
[2018-03-27] MEDS: Sodium Bicarbonate Tab 325 MG TAB PO SCH (08:12)
[2018-03-27] MEDS ORDERED: Calcitriol 0.25 MCG CAP PO SCH (09:00)
[2018-03-27] MEDS ORDERED: Amlodipine 5 MG TAB PO SCH (09:00)
[2018-03-27] MEDS ORDERED: Furosemide 40 MG TAB PO SCH (14:00)
[2018-03-27 14:51] VITALS: BP 144/61; TEMP 98.1
--- NOTE | 2018-03-28 04:58 | DIS ---
DATE OF ADMISSION: 03/26/2018 DATE OF DISCHARGE: 03/27/2018 For details of history and physical, refer to my note. SUMMARY: A 67-year-old female patient with end-stage renal disease, who presented with uremic symptoms of fluid overload. The patient did undergo 2 sessions of dialysis and found to be stable for discharge today with the following vital signs. PHYSICAL EXAMINATION: VITAL SIGNS: Afebrile. Temperature 98.1, pulse 83, blood pressure 144/61, respiratory rate of 18, and O2 saturation 98%. HEENT EXAMINATION: Unremarkable. CARDIOVASCULAR SYSTEM: First and second heart sounds were heard. RESPIRATORY SYSTEM: Unremarkable. PLAN: The patient to be discharged home today to continue with current home medications. TIME SPENT: Total time spent including [id number] encounter 31 minutes. Job ID: [id number]
[2018-03-28] MEDS ORDERED: Heparin 10,000 UNITS/ 10 ML VIAL ONE (14:35)
== END 2018-03-27 18:49 | disposition home or self-care (01) | DRG 640 ==
LOC: T4-B 11:57
PROVIDERS: ADMIT Internal Medicine Nephrology; ATTEND Internal Medicine Nephrology
PROC: 5A1D70Z Performance of Urinary Filtration, Intermittent, Less than 6 Hours Per Day (ICD-10-PCS; principal; 2018-03-26)
PROC: 5A1D70Z Performance of Urinary Filtration, Intermittent, Less than 6 Hours Per Day (ICD-10-PCS; 2018-03-27)
DX: E87.70 Fluid overload, unspecified (principal); N18.6 End stage renal disease; I12.0 Hypertensive chronic kidney disease with stage 5 chronic kidney disease or end stage renal disease; N25.81 Secondary hyperparathyroidism of renal origin; E11.22 Type 2 diabetes mellitus with diabetic chronic kidney disease; Z99.2 Dependence on renal dialysis; Z79.899 Other long term (current) drug therapy
CPT/HCPCS: 36415; 36416; 86704; 86706; 86803; 87040; 87340; J1644

== ENCOUNTER 2018-04-10 12:18 | Observation (INO) | payer MEDICAID, SELFPAY ==
[2018-04-10 13:34] LABS: #Basophils 0.1 thou/uL (0.0-0.2); #Lymphocytes 0.9 thou/uL (1.20-3.40); #Monocytes 0.3 thou/uL (0.11-0.59); #Neutrophils 4.9 thou/uL (1.40-6.50); %Basophils 1.2 % (0.0-1.0); %Eosinophils 0.8 % (0.0-10.0); %Lymphocytes 14.7 % (21.0-51.0); %Neutrophils 78.3 % (42.0-75.0); Mean Corpuscular HGB CONC 34.2 g/dL (32.0-36.0); Mean Corpuscular Hemoglobin 30.4 pg (27.0-31.0); Mean Corpuscular Volume 88.8 fL (78.0-98.0); Mean Platelet Volume 8.1 fL (7.4-10.4); Platelet Count 173 thou/uL (130-400); RBC Distribution Width 14.9 % (11.5-14.5); Red Blood Cell (RBC) Count 2.96 mill/uL (4.20-5.40); White Blood Cell (WBC) Count 6.3 thou/uL (4.8-10.8)
[2018-04-10 13:56] LABS: ALT (SGPT) Less than 7 U/L (8-55); AST (SGOT) 13 U/L (5-34); Albumin 3.8 g/dL (3.4-4.8); Alkaline Phosphatase 69 U/L (40-150); Anion Gap 28 mmol/L (10-20); Bilirubin, Total 0.6 mg/dL (0.2-1.2); CK (CPK) 125 U/L (29-168); Calc. Creatinine Clearance 0 mL/min (70-130); Calcium 8.5 mg/dL (7.8-10.44); Carbon Dioxide 14 mmol/L (23-31); Chloride 98 mmol/L (98-107); Estimated GFR-MDRD 2; Globulin 3.9 g/dL (2.4-3.5); Glucose 95 mg/dL (80-115); Potassium 5.4 mmol/L (3.5-5.1); Protein, Total 7.7 g/dL (6.0-8.3); Sodium 135 mmol/L (136-145)
[2018-04-10 14:00] LABS: CKMB 2.6 ng/mL (0-6.6)
[2018-04-10 14:06] LABS: BUN (Urea Nitrogen) 124 mg/dL (9.8-20.1)
--- NOTE | 2018-04-10 14:18 | RAD ---
CHEST ONE VIEW: HISTORY: Pain. COMPARISON: 02/10/2018 FINDINGS: Atherosclerosis of the aorta. Upper normal cardiac silhouette. Pulmonary vessels and hilum are norm al. Costophrenic angles are clear. Chronic changes in the lung parenchyma without consolidation or mass. No pneumothorax or osseous abnormalities. IMPRESSION: Cardiomegaly. POS: [facility]
[2018-04-10 18:29] LABS: CKMB 2.7 ng/mL (0-6.6)
[2018-04-10] MEDS ORDERED: Ondansetron ODT 4 MG TAB PO PRN (19:58)
[2018-04-10] MEDS ORDERED: Ondansetron PF 4 MG/2 ML Vial IVP PRN (19:58)
[2018-04-10] MEDS ORDERED: Acetaminophen 325 MG TAB PO PRN (19:58)
[2018-04-10] MEDS ORDERED: Zolpidem Tartrate 5 MG TAB PO PRN (19:58)
[2018-04-10] MEDS ORDERED: Epoetin (ESRD) 10,000 UNITS/ML VIAL SC SCH (21:00)
[2018-04-10 21:18] VITALS: BMI 22.6
--- NOTE | 2018-04-11 01:41 | HP ---
CHIEF COMPLAINT: Chest pain and shortness of breath. HISTORY OF PRESENT ILLNESS: This is a 67-year-old female patient with end-stage renal disease, who unfortunately does not have any scheduled outpatient dialysis treatment. The patient was last dialyzed about 2 weeks ago. Presented to the ER with shortness of breath, chest discomfort, nausea, and the clinical evaluation revealed some potassium elevation and profound azotemia. Decision was taken to admit this patient for renal replacement therapy. PAST MEDICAL HISTORY: Significant for, 1. End-stage renal disease, hemodialysis dependent. 2. Diabetes. 3. Hypertension. 4. Secondary hyperparathyroidism. 5. Anemia of chronic kidney disease. MEDICATIONS: Reviewed and as documented on [employer]. ALLERGIES: 1. ASPIRIN. 2. PENICILLIN. FAMILY HISTORY: Not significant related to present illness. SOCIAL HISTORY: No alcohol. No tobacco. No illicit drug use. REVIEW OF SYSTEMS: As documented in the body of the history. All other systems were reviewed and found not to be significantly related to the presenting illness. PHYSICAL EXAMINATION: GENERAL: On examination, the patient was found to be ill-looking. VITAL SIGNS: Noted with the following vital signs; afebrile, respiratory rate of 18, O2 saturation of 96% with a blood pressure of 185/72, respiratory rate 18. HEENT EXAMINATION: Unremarkable. CARDIOVASCULAR SYSTEM: First and second heart sounds were heard. RESPIRATORY SYSTEM: Clear to auscultation. DIGESTIVE SYSTEM: Revealed a benign abdomen. Positive bowel sounds. EXTREMITIES: Show some peripheral edema. SKIN EXAMINATION: No new gross rash. LYMPHATICS: No peripheral lymphadenopathy. IMPRESSION: 1. End-stage renal disease, hemodialysis dependent. 2. Hypervolemia. 3. Hypertension. 4. Chest discomfort, likely in the context of pulmonary congestion. PLAN: 1. The patient to undergo 2 hours of dialysis tonight and eventually get a full dialysis tomorrow. 2. Resume home medications. 3. Erythropoiesis-stimulating agent to be ordered. 4. If the patient continues to maintain sustained clinical improvement, maybe able to discharge status post dialysis tomorrow. 5. The code status is full. Job ID: [id number]
[2018-04-11 15:42] VITALS: BP 142/79; TEMP 98.9
[2018-04-11] MEDS ORDERED: Lidocaine 2% Viscous Solution 20 ML, Aluminum & Magnesium Hydroxide 30 ML, Donnatal Eli... SSW SCH (18:15)
--- NOTE | 2018-04-12 05:14 | DIS ---
DATE OF ADMISSION: 04/10/2018 DATE OF DISCHARGE: 04/11/2018 For details of the history and physical, refer to dictations and records. SUMMARY: A 67-year-old female patient with end-stage renal disease, who presented due to chest discomfort and shortness of breath. The patient was dialyzed 2 weeks in a row and is now feeling much better. PLAN: The patient to be discharged home to continue with current medications. In addition, also the patient to be on Lasix. TIME SPENT: Total time spent including [id number] encounter 30 minutes. Job ID: [id number]
== END 2018-04-11 19:52 | disposition home or self-care (01) ==
LOC: ERS 12:18 → 2SW 17:03 → ERS 18:32
PROVIDERS: ADMIT Internal Medicine Nephrology; ATTEND Internal Medicine Nephrology
DX: I12.0 Hypertensive chronic kidney disease with stage 5 chronic kidney disease or end stage renal disease (principal); E11.22 Type 2 diabetes mellitus with diabetic chronic kidney disease; N18.6 End stage renal disease; R07.89 Other chest pain; D63.1 Anemia in chronic kidney disease; N25.81 Secondary hyperparathyroidism of renal origin; E87.70 Fluid overload, unspecified; Z79.899 Other long term (current) drug therapy; Z88.0 Allergy status to penicillin; Z88.8 Allergy status to other drugs, medicaments and biological substances; Z99.2 Dependence on renal dialysis
CPT/HCPCS: 36415; 71045; 80053; 82550; 82553; 83880; 84484; 85025; 90935; 93005; 96372; G0257; G0378; Q4081

== ENCOUNTER 2018-04-23 15:22 | Observation (INO) | payer MEDICAID, SELFPAY ==
[2018-04-23 16:16] LABS: #Basophils 0.1 thou/uL (0.0-0.2); #Lymphocytes 0.8 thou/uL (1.20-3.40); #Monocytes 0.3 thou/uL (0.11-0.59); #Neutrophils 4.7 thou/uL (1.40-6.50); %Basophils 0.9 % (0.0-1.0); %Eosinophils 0.8 % (0.0-10.0); %Lymphocytes 14.2 % (21.0-51.0); %Monocytes 5.1 % (0.0-10.0); %Neutrophils 79.1 % (42.0-75.0); Hemoglobin 9.4 g/dL (12.0-16.0); Mean Corpuscular Hemoglobin 30.2 pg (27.0-31.0); Mean Corpuscular Volume 88.8 fL (78.0-98.0); Mean Platelet Volume 7.9 fL (7.4-10.4); Platelet Count 192 thou/uL (130-400); RBC Distribution Width 15.1 % (11.5-14.5); White Blood Cell (WBC) Count 5.9 thou/uL (4.8-10.8)
[2018-04-23 16:43] LABS: ALT (SGPT) 9 U/L (8-55); AST (SGOT) 15 U/L (5-34); Albumin 4.1 g/dL (3.4-4.8); Alkaline Phosphatase 87 U/L (40-150); Anion Gap 31 mmol/L (10-20); Bilirubin, Total 0.8 mg/dL (0.2-1.2); CK (CPK) 154 U/L (29-168); Calc. Creatinine Clearance 0 mL/min (70-130); Calcium 8.3 mg/dL (7.8-10.44); Carbon Dioxide 12 mmol/L (23-31); Chloride 93 mmol/L (98-107); Estimated GFR-MDRD 2; Globulin 3.9 g/dL (2.4-3.5); Glucose 96 mg/dL (80-115); Lipase 202 U/L (8-78); Potassium 5.5 mmol/L (3.5-5.1); Sodium 130 mmol/L (136-145)
[2018-04-23 16:56] LABS: BUN (Urea Nitrogen) 143 mg/dL (9.8-20.1)
[2018-04-23 16:57] LABS: CKMB 3.8 ng/mL (0-6.6)
--- NOTE | 2018-04-23 17:16 | RAD ---
SINGLE VIEW OF THE CHEST: COMPARISON: 04/10/2018. HISTORY: Fall at home with hematoma in the right head. Chest pain. FINDINGS: A single view of the chest shows an enlarged but stable cardiomediastinal silhouette with atheroscler otic calcifications in the aorta. There is no evidence of consolidation, mass, or pleural effusion. Degenerative changes are seen in the spine. IMPRESSION: No evidence of acute cardiopulmonary disease. POS: [facility]
--- NOTE | 2018-04-23 17:18 | CT ---
CT OF HEAD NONCONTRAST: INDICATION: Syncope. FINDINGS: There is no evidence of acute intracranial hemorrhage, mass effect, midline shift, or ventriculomegal y. The imaged paranasal sinuses are clear. There is evidence of mild chronic ischemic disease withi n the cerebral white matter. IMPRESSION: No acute intracranial hemorrhage or mass effect. POS: [facility]
[2018-04-23] MEDS ORDERED: Insulin Regular 300 UNITS/3 ML VIAL ONE (18:05)
[2018-04-23] MEDS ORDERED: Dextrose 50% Abboject 50 ML SYRINGE ONE (18:05)
[2018-04-23] MEDS ORDERED: Albuterol Sulfate 2.5 mg/3 ml Neb ONE (18:11)
--- NOTE | 2018-04-23 19:30 | RAD ---
RIGHT FOREARM RADIOGRAPHS TWO VIEWS 04/23/18 PROVIDED CLINICAL HISTORY: Right forearm pain status post injury. FINDINGS: Vascular calcifications are seen. Metallic densities are seen in the region of the antecubital fossa which are presumable postoperative in nature. There is no evidence for fracture or other acute osseou s abnormality. If there is persistent clinical concern, conservative management and followup imaging are advised. IMPRESSION: As above. POS: [facility]
[2018-04-23 19:32] LABS: Troponin I 0.057 ng/mL (< 0.028)
[2018-04-23] MEDS: Famotidine 20 MG TAB PO SCH (22:15)
[2018-04-23 22:28] LABS: Anion Gap 26 mmol/L (10-20); Calc. Creatinine Clearance 3 mL/min (70-130); Calcium 8.2 mg/dL (7.8-10.44); Carbon Dioxide 13 mmol/L (23-31); Chloride 97 mmol/L (98-107); Estimated GFR-MDRD 2; Glucose 129 mg/dL (80-115); Potassium 4.8 mmol/L (3.5-5.1); Sodium 131 mmol/L (136-145)
[2018-04-23 22:32] LABS: Troponin I 0.053 ng/mL (< 0.028)
[2018-04-23 22:39] LABS: BUN (Urea Nitrogen) 146 mg/dL (9.8-20.1)
[2018-04-24] MEDS ORDERED: Epoetin (NON-ESRD) 10,000 UNITS/ML VIAL IVP SCH (00:30)
--- NOTE | 2018-04-24 01:18 | HP ---
HISTORY OF PRESENT ILLNESS: The patient reported to the emergency room today for chest pain and falling into the bathtub while attempting to sit down and urinate. Reports that she has had chest pain for the last 3 days. Reports some nausea. Reports subjective fever at night. Upon further questioning, daughter reports that the patient has felt hot, taking off covers. Any time they take her temperature; however, it has always been within normal limits. The patient has end-stage renal disease, does not have any insurance and gets dialysis about every 2 weeks. Currently, database management system specialist is Dr. Rodriguez. Reports that she hit her forehead in the shower when she fell. CT of the head performed in the ER is negative for any acute process, also has some swelling and ecchymosis. X-ray of right forearm is also negative for any acute findings. Does have an AV fistula in the right upper extremity with a bruit and thrill. Labs in the ER show lipase of 202, CK 154. Sodium 130, potassium 5.5, gap is 31, BUN is 143, creatinine 16.73. Troponins in the indeterminate range of 0.065. ER physician spoke to Dr. Rodriguez and said to admit her and he would order dialysis for the patient. Dr. Joseph, ER physician, ordered albuterol neb treatment, D50, and some insulin for the hyperkalemia. The patient will be admitted to the observation unit for dialysis and further management. The patient was admitted for similar complaints in March; was admitted on 02/08/2018 and date of discharge was 04/11/2017. At that point, she needed dialysis and Dr. Rodriguez ordered that for her. The patient also had a [employer] nuclear stress test in January, which was negative with an EF of 68%. PAST MEDICAL HISTORY: Significant for end-stage renal disease, hemodialysis dependent, diabetes, hypertension, secondary hyperparathyroidism, anemia of chronic kidney disease. ALLERGIES: 1. ASPIRIN. 2. PENICILLIN. FAMILY HISTORY: Not significant related to present illness. SOCIAL HISTORY: No alcohol. No tobacco. No illicit drug use. Lives at home with her family. REVIEW OF SYSTEMS: Positive for chest discomfort and nausea. Otherwise, all systems are reviewed and thought to be significant relating to present illness and was present in the HPI. PHYSICAL EXAMINATION: VITAL SIGNS: Blood pressure 167/67, pulse is 80, respirations 16, temp 97.8, pO2 is 100% on room air. CONSTITUTIONAL: Hypertensive, in no pain distress. Oriented to person, place, and time. HEENT: Head is atraumatic and normocephalic. Eyes; eyelids are normal to inspection. Pupils are equally round and reactive to light. ENT; mouth exam is normal. Mucous membranes are moist. NECK: Normal range of motion. Trachea is midline. RESPIRATORY: Chest expansion is equal. Breath sounds are clear. CARDIOVASCULAR: Heart rate is normal rate and rhythm. Heart sounds are normal. ABDOMEN: Nontender. Bowel sounds are present. BACK: Normal inspection. Normal range of motion. No CVA tenderness. EXTREMITIES: Upper extremity; swelling and ecchymosis to right forearm. No bony tenderness. Normal range of motion. Radial pulses are equal bilaterally. AV fistula to the right upper extremity with bruit and thrill. Lower extremities, findings on inspection range of motion is normal. No edema is noted. NEUROLOGIC: Speech is normal. No focal motor or sensory deficits. SKIN: There is a small hematoma to right forehead, otherwise normal dry and normal in color. PERTINENT LABS: Lipase 202, CK 154. Sodium 130, potassium 5.5, chloride 93, carbon dioxide 12, gap is 31, BUN is 143, creatinine is 16.73, estimated GFR is 2, glucose 96. Liver enzymes are unremarkable. Troponin 0.065 in the indeterminate range. CK-MB is 3.8. White blood cell count is 5.9, hemoglobin 9.4, hematocrit is 27.6, platelet count is 192. ASSESSMENT AND PLAN: 1. End-stage renal disease. We will consult with Dr. Rodriguez about hemodialysis. 2. Chest pain. We will trend troponins. The patient had a stress test earlier this year, which showed a normal stress test with an EF of 68%. 3. Diabetes. We will trend and cover with sliding scale. 4. Hypertension. We will continue home medication and add p.r.n. medication as needed. 5. Anemia. We will trend laboratory results. Hospital course will be dependent on clinical findings. Job ID: [id number]
--- NOTE | 2018-04-24 02:32 | CON ---
DATE OF CONSULTATION: 04/23/2018 CONSULTING PHYSICIAN: Michael Bernal MD REQUESTING PHYSICIAN: ER physician. REASON FOR CONSULTATION: Need for maintenance dialysis. IMPRESSION: 1. End-stage renal disease, hemodialysis dependent. 2. Uremia with profound azotemia. 3. Syncope. 4. Myoclonic jerks related to problem #2. 5. Hyperkalemia. PLAN: 1. The patient is to undergo a short hemodialysis tonight and continue with a full dialysis tomorrow. 2. Physical therapy to evaluate the patient's gait with history of falls. 3. Further management to be dependent on the clinical course. HISTORY OF PRESENT ILLNESS: A 68-year-old female patient with end-stage renal disease, who unfortunately does not get regular dialysis as an outpatient, who presented here status post fall with some chest discomfort. The patient noted with profound azotemia with BUN of 143. The patient according to the granddaughter seems to be having some jerks, which clinical examination is that of myoclonic jerks. The patient has now been admitted and the need for maintenance hemodialysis necessitated this Renal consultation. PAST MEDICAL HISTORY: Significant for: 1. End-stage renal disease. 2. Diabetes mellitus. 3. Hypertension. 4. Secondary hyperparathyroidism. MEDICATIONS: Reviewed and as documented on [employer]. ALLERGIES: TO ASPIRIN AND PENICILLIN. FAMILY HISTORY: No family history of kidney disease. SOCIAL HISTORY: Denies alcohol, tobacco, or illicit drug use. REVIEW OF SYSTEMS: As documented in the body of the history. All the other systems were reviewed and found not to be significantly related to present illness. PHYSICAL EXAMINATION: GENERAL: The patient was found not to be in any respiratory distress. VITAL SIGNS: Afebrile with blood pressure of 160/60. HEENT: Unremarkable. CARDIOVASCULAR: First and second heart sounds were heard. RESPIRATORY: Clear to auscultation anteriorly. DIGESTIVE: Revealed a benign abdomen. Positive bowel sounds. EXTREMITIES: No peripheral edema. SKIN: No new gross rash. LYMPHATICS: No peripheral lymphadenopathy. LABORATORY INVESTIGATION: Significant for potassium of 5.5, bicarbonate of 12, BUN of 143 with creatinine of 16.73, sodium 130. CBC showed hemoglobin of 9.4. SUMMARY: A 68-year-old female patient with end-stage renal disease, who presented here with status post syncope noted to be profoundly azotemic. Thank you for this consultation. We will follow with you. Job ID: [id number]
[2018-04-24] MEDS: Acetaminophen 325 MG TAB PO PRN ×2 (03:31→12:48)
[2018-04-24 10:35] LABS: #Eosinphils 0.1 thou/uL (0.0-0.7); #Lymphocytes 0.9 thou/uL (1.20-3.40); #Monocytes 0.3 thou/uL (0.11-0.59); #Neutrophils 2.2 thou/uL (1.40-6.50); %Basophils 1.2 % (0.0-1.0); %Eosinophils 1.7 % (0.0-10.0); %Monocytes 8.8 % (0.0-10.0); %Neutrophils 63.3 % (42.0-75.0); Hemoglobin 7.8 g/dL (12.0-16.0); Mean Corpuscular HGB CONC 33.8 g/dL (32.0-36.0); Mean Corpuscular Hemoglobin 29.8 pg (27.0-31.0); Mean Corpuscular Volume 88.2 fL (78.0-98.0); Mean Platelet Volume 7.8 fL (7.4-10.4); Platelet Count 157 thou/uL (130-400); RBC Distribution Width 15.1 % (11.5-14.5); White Blood Cell (WBC) Count 3.5 thou/uL (4.8-10.8)
[2018-04-24 10:55] LABS: Anion Gap 15 mmol/L (10-20); BUN (Urea Nitrogen) 59 mg/dL (9.8-20.1); Calc. Creatinine Clearance 5 mL/min (70-130); Calcium 8.2 mg/dL (7.8-10.44); Carbon Dioxide 25 mmol/L (23-31); Chloride 98 mmol/L (98-107); Estimated GFR-MDRD 4; Glucose 122 mg/dL (80-115); Potassium 4.2 mmol/L (3.5-5.1); Sodium 134 mmol/L (136-145)
[2018-04-24 15:20] VITALS: BMI 22.7
--- NOTE | 2018-04-24 15:26 | PDOC.EVN ---
Event Note - Event Note Event Note: discussed with Bianca MCCORMACK.
--- NOTE | 2018-04-24 17:50 | PDOC.PN ---
- Subjective Encounter Start Date: 04/24/18 Encounter Start Time: 17:49 Patient lying in bed, reports feeling better today, she tolerated dialysis last night and will plan to go again today. She denies chest pain, shortness of breath. - Objective MAR Reviewed: Yes Vital Signs & Weight: Vital Signs (12 hours) Temp Pulse Pulse Pulse Resp BP BP 04/24/18 11:31 98.5 F 71 16 04/24/18 10:55 75 77 171/72 H 170/68 H 04/24/18 07:38 98.1 F 72 20 BP Pulse Ox 04/24/18 11:31 167/70 H 98 04/24/18 10:55 04/24/18 07:38 171/72 H 98 Weight Admit Weight 112 lb 9.6 oz Weight 112 lb 9.6 oz I&O: 04/23/18 04/24/18 04/25/18 06:59 06:59 06:59 Intake Total 280 Output Total 100 Balance 180 Result Diagrams: 04/24/18 10:12 04/24/18 10:12 Additional Labs: Accuchecks 04/24/18 04/24/18 04/24/18 11:35 07:42 06:31 POC Glucose 127 H 98 126 H 04/24/18 04/23/18 04/23/18 05:27 21:48 19:12 POC Glucose 66 L 138 H 126 H Radiology Reviewed by me: Yes Phys Exam - Physical Examination Constitutional: NAD HEENT: PERRLA, moist MMs, oral pharynx no lesions Neck: no nodes, no JVD, supple Respiratory: no wheezing, no rhonchi, clear to auscultation bilateral Cardiovascular: RRR, no significant murmur, no rub Gastrointestinal: soft, non-tender, positive bowel sounds Musculoskeletal: pulses present Edema in upper extremity, fistula noted in right upper extremity with bruit and thrill noted Neurological: non-focal, normal sensation, moves all 4 limbs Lymphatic: no nodes Psychiatric: normal affect, A&O x 3 Skin: no rash, normal turgor, cap refill <2 seconds Dx/Plan (1) ESRD (end stage renal disease) on dialysis Code(s): N18.6 - END STAGE RENAL DISEASE; Z99.2 - DEPENDENCE ON RENAL DIALYSIS Status: Acute (2) DM2 (diabetes mellitus, type 2) Status: Acute Qualifiers: Diabetes mellitus retirement insulin use: without retirement use Diabetes mellitus complication status: with kidney complications Diabetes mellitus complication detail: with chronic kidney disease Chronic kidney disease stage : stage 4 (severe) Qualified Code(s): E11.22 - Type 2 diabetes mellitus with diabetic chronic kidney disease; N18.4 - Chronic kidney disease, stage 4 (severe ); N18.4 - Chronic kidney disease, stage 4 (severe); N18.4 - Chronic kidney disease, stage 4 (severe); N18.4 - Chronic kidney disease, stage 4 (severe) (3) Anemia in CKD (chronic kidney disease) Code(s): N18.9 - CHRONIC KIDNEY DISEASE, UNSPECIFIED; D63.1 - ANEMIA IN CHRONIC KIDNEY DISEASE Status: Chronic (4) HTN (hypertension) Code(s): I10 - ESSENTIAL (PRIMARY) HYPERTENSION Status: Chronic Qualifiers: Hypertension type: essential hypertension Qualified Code(s): I10 - Essential (primary) hypertension - Plan cont current plan of care * Continue dialysis per nephrology * Continue other medical management * Patient likely discharged once stable from nephrology standpoint. * She receives dialysis every 2 weeks, will benefit from more frequent runs * Monitor BP, vitals closely, monitor H&H and transfuse as needed for hgb <7.0
--- NOTE | 2018-04-24 19:56 | PRG ---
DATE OF SERVICE: 04/24/2018 SUBJECTIVE: The patient is seen and examined with complaint of headache on dialysis. Noted with the following vital signs. OBJECTIVE: VITAL SIGNS: Afebrile, temperature 98.5, pulse 71, respiratory rate of 16, O2 saturation 98% with blood pressure 167/70. HEENT: Unremarkable. CARDIOVASCULAR SYSTEM: First and second heart sounds were heard. RESPIRATORY SYSTEM: Clear to auscultation. DIGESTIVE SYSTEM: Revealed a benign abdomen. EXTREMITIES: No peripheral edema. SKIN: No new gross rash. LYMPHATICS: No peripheral lymphadenopathy. IMPRESSION: 1. End-stage renal disease, on hemodialysis. 2. Headache, query cause. 3. Type 2 diabetes. 4. Hypertension. 5. Uremia, responding to dialysis. PLAN: 1. If the patient does not get discharged today, we will likely dialyze this patient almost tomorrow given the presenting complaint of uremia in this patient. 2. Further management to be dependent on the clinical course. Job ID: [id number]
[2018-04-24] MEDS: Famotidine 20 MG TAB PO SCH (20:54)
[2018-04-24] MEDS ORDERED: Furosemide 40 MG TAB PO SCH (21:00)
[2018-04-25 06:06] LABS: #Basophils 0.1 thou/uL (0.0-0.2); #Eosinphils 0.1 thou/uL (0.0-0.7); #Lymphocytes 1.1 thou/uL (1.20-3.40); #Monocytes 0.4 thou/uL (0.11-0.59); #Neutrophils 2.1 thou/uL (1.40-6.50); %Basophils 1.8 % (0.0-1.0); %Eosinophils 1.6 % (0.0-10.0); %Lymphocytes 30.1 % (21.0-51.0); %Monocytes 10.6 % (0.0-10.0); %Neutrophils 55.9 % (42.0-75.0); Hemoglobin 9.3 g/dL (12.0-16.0); Mean Corpuscular HGB CONC 31.2 g/dL (32.0-36.0); Mean Corpuscular Hemoglobin 29.1 pg (27.0-31.0); Mean Corpuscular Volume 93.2 fL (78.0-98.0); Platelet Count 172 thou/uL (130-400); White Blood Cell (WBC) Count 3.7 thou/uL (4.8-10.8)
[2018-04-25 07:10] LABS: Anion Gap 17 mmol/L (10-20); BUN (Urea Nitrogen) 16 mg/dL (9.8-20.1); Calc. Creatinine Clearance 10 mL/min (70-130); Calcium 8.5 mg/dL (7.8-10.44); Carbon Dioxide 23 mmol/L (23-31); Chloride 99 mmol/L (98-107); Estimated GFR-MDRD 11; Glucose 82 mg/dL (80-115); Potassium 3.8 mmol/L (3.5-5.1); Sodium 135 mmol/L (136-145)
[2018-04-25] MEDS ORDERED: Calcitriol 0.25 MCG CAP PO SCH (09:00)
[2018-04-25] MEDS ORDERED: Amlodipine 5 MG TAB PO SCH ×2 (09:00→15:45)
[2018-04-25] MEDS: Furosemide 40 MG TAB PO SCH ×2 (11:50→15:18)
[2018-04-25 15:57] VITALS: TEMP 97.9
[2018-04-25 16:30] VITALS: BP 134/81
[2018-04-26] MEDS ORDERED: Amlodipine 10 MG TAB PO SCH (09:00)
--- NOTE | 2018-04-27 18:47 | EKG ---
Test Reason : Blood Pressure : / mmHG Vent. Rate : 080 BPM Atrial Rate : 080 BPM P-R Int : 180 ms QRS Dur : 078 ms QT Int : 392 ms P-R-T Axes : 055 001 068 degrees QTc Int : 452 ms Normal sinus rhythm Normal ECG Confirmed by NITZA HERRERA DO ([id number]), book or script editor ZACH PAINTING ([id number]) on 04/27/2018 6:47:07 PM Referred By: Confirmed By:NITZA HERRERA DO
== END 2018-04-25 18:27 | disposition home or self-care (01) ==
LOC: ERS 15:22 → ERHOLD 17:03 → 2SW 21:25
PROVIDERS: ADMIT Emergency Medicine; ATTEND Emergency Medicine
DX: R07.89 Other chest pain (principal); R55 Syncope and collapse; I12.0 Hypertensive chronic kidney disease with stage 5 chronic kidney disease or end stage renal disease; E11.22 Type 2 diabetes mellitus with diabetic chronic kidney disease; N18.6 End stage renal disease; D63.1 Anemia in chronic kidney disease; N25.81 Secondary hyperparathyroidism of renal origin; E87.5 Hyperkalemia; Z88.0 Allergy status to penicillin; Z88.8 Allergy status to other drugs, medicaments and biological substances; Z99.2 Dependence on renal dialysis; W18.2XXA Fall in (into) shower or empty bathtub, initial encounter
CPT/HCPCS: 36415; 36416; 70450; 71045; 80048; 80053; 82550; 82553; 83690; 84484; 85025; 90935; 93005; 94640; 96374; 96375; G0257; G0378; J0885; J1815; J7611

== ENCOUNTER 2018-05-08 13:20 | Observation (INO) | payer MEDICAID, SELFPAY ==
[2018-05-08 15:13] LABS: #Eosinphils 0.1 thou/uL (0.0-0.7); #Monocytes 0.4 thou/uL (0.11-0.59); #Neutrophils 3.4 thou/uL (1.40-6.50); %Basophils 0.9 % (0.0-1.0); %Lymphocytes 20.7 % (21.0-51.0); %Monocytes 8.5 % (0.0-10.0); %Neutrophils 68.9 % (42.0-75.0); Hemoglobin 8.5 g/dL (12.0-16.0); Mean Corpuscular HGB CONC 33.4 g/dL (32.0-36.0); Mean Corpuscular Volume 89.8 fL (78.0-98.0); Mean Platelet Volume 8.4 fL (7.4-10.4); Platelet Count 169 thou/uL (130-400); RBC Distribution Width 15.1 % (11.5-14.5); Red Blood Cell (RBC) Count 2.85 mill/uL (4.20-5.40); White Blood Cell (WBC) Count 4.9 thou/uL (4.8-10.8)
[2018-05-08 15:31] LABS: Albumin 3.9 g/dL (3.4-4.8); Anion Gap 27 mmol/L (10-20); Calc. Creatinine Clearance 0 mL/min (70-130); Calcium 8.9 mg/dL (7.8-10.44); Carbon Dioxide 15 mmol/L (23-31); Chloride 96 mmol/L (98-107); Estimated GFR-MDRD 2; Glucose 87 mg/dL (80-115); Phosphorus 7.5 mg/dL (2.3-4.7); Sodium 131 mmol/L (136-145)
[2018-05-08 15:42] LABS: BUN (Urea Nitrogen) 151 mg/dL (9.8-20.1); BUN/Creatinine Ratio 8.89
[2018-05-08 15:43] LABS: Potassium 6.8 mmol/L (3.5-5.1)
[2018-05-08 15:54] LABS: HBSAB Concentration 2.37 mIU/mL; HBSAg Index 0.35 S/CO (0-0.99); Hep B Core Total Ab Non-Reactive (NonReactive); Hep B Core Total Index 0.26 S/CO (0-0.79); Hep B Surf AB Non-Reactive (NonReactive); Hep B Surf Ag Non-Reactive S/CO (NonReactive); Hep C IgG Ab Non-Reactive (NonReactive); Hep C Index 0.25 S/CO (0-0.79)
[2018-05-08] MEDS ORDERED: Acetaminophen 325 MG TAB PO PRN (16:01)
[2018-05-08] MEDS ORDERED: Calcium Carbonate 500 MG ChewTAB PO PRN (16:01)
[2018-05-08] MEDS ORDERED: Ondansetron ODT 4 MG TAB PO PRN (16:01)
[2018-05-08] MEDS ORDERED: Ondansetron PF 4 MG/2 ML Vial IVP PRN (16:01)
[2018-05-08] MEDS ORDERED: Zolpidem Tartrate 5 MG TAB PO PRN (16:01)
[2018-05-08] MEDS ORDERED: Iron Sucrose Complex 200 MG in Sodium Chloride 0.9% 250 ML 250 ML IVPB SCH (16:15)
[2018-05-08] MEDS ORDERED: Calcium Acetate 667 MG CAP PO SCH (17:00)
[2018-05-08] MEDS ORDERED: Iron, Sodium Ferric Gluconate 250 MG in Sodium Chloride 0.9% 100 ML IVPB SCH (21:30)
[2018-05-08] MEDS: Famotidine 20 MG TAB PO SCH ×2 (21:41→21:48)
--- NOTE | 2018-05-09 01:37 | HP ---
CHIEF COMPLAINT: Nausea, vomiting, back pain, and some subjective feeling of shortness of breath. HISTORY OF PRESENT ILLNESS: A 68-year-old female patient who is in the process of being transitioned to outpatient dialysis facility, but unfortunately has not secured that yet. The patient was last dialyzed about 2 weeks ago, presented complaining of nausea, vomiting, and not feeling well at all. Laboratory investigations revealed severe hyperkalemia and profound azotemia. The patient clinically is uremic, probably need for admission and for renal replacement therapy. PAST MEDICAL HISTORY: Significant for end-stage renal disease, diabetes, hypertension, secondary hyperparathyroidism. MEDICATIONS: Reviewed and as documented on [employer]. ALLERGIES: ASPIRIN AND PENICILLINS. FAMILY HISTORY: No family history of kidney disease. SOCIAL HISTORY: Denies alcohol, tobacco, or illicit drug use. The patient is a Jehovah Witness and does not receive blood transfusion. REVIEW OF SYSTEMS: As documented in the body of history. All other systems were reviewed and found not to be significantly related to presenting illness. PHYSICAL EXAMINATION: GENERAL: The patient was found not to be in any physical distress, ill-looking, hemodynamically stable. VITAL SIGNS: Blood pressure 178/72, respiratory rate of 18, O2 saturation of 92%. HEENT: Unremarkable except facial puffiness. CARDIOVASCULAR SYSTEM: First and second heart sounds were heard. RESPIRATORY SYSTEM: Clear to auscultation. DIGESTIVE SYSTEM: Revealed a benign abdomen with positive bowel sounds. EXTREMITIES: No peripheral edema. SKIN: No new gross rash. LYMPHATICS: No peripheral lymphadenopathy. SUMMARY: A 68-year-old female patient with end-stage renal disease hemodialysis dependent, who presented here uremic. IMPRESSION: 1. End-stage renal disease with uremic symptoms. 2. Severe hyperkalemia. 3. Secondary hyperparathyroidism. 4. Anemia of chronic kidney disease. PLAN: 1. The patient to be dialyzed today, but will receive a short dialysis to avoid precipitating disequilibrium syndrome. Tomorrow, the patient will receive a full dialysis and afterwards, the patient likely to be discharged if feeling okay. 2. Erythropoiesis stimulating agent to be administered. 3. Iron infusion. 4. Further management to be dependent on the clinical course. Code status is full. Job ID: [id number]
[2018-05-09 07:49] LABS: Albumin 3.5 g/dL (3.4-4.8); Anion Gap 20 mmol/L (10-20); BUN (Urea Nitrogen) 75 mg/dL (9.8-20.1); BUN/Creatinine Ratio 7.27; Calc. Creatinine Clearance 0 mL/min (70-130); Calcium 8.7 mg/dL (7.8-10.44); Carbon Dioxide 21 mmol/L (23-31); Chloride 99 mmol/L (98-107); Estimated GFR-MDRD 4; Glucose 80 mg/dL (80-115); Phosphorus 5.4 mg/dL (2.3-4.7); Potassium 5.2 mmol/L (3.5-5.1); Sodium 135 mmol/L (136-145)
[2018-05-09] MEDS ORDERED: Amlodipine 10 MG TAB PO SCH (09:00)
[2018-05-09] MEDS ORDERED: Calcitriol 0.25 MCG CAP PO SCH (09:00)
[2018-05-09] MEDS ORDERED: Epoetin (ESRD) 20,000 UNITS/ML IVP SCH (09:00)
[2018-05-09] MEDS ORDERED: Heparin 10,000 UNITS/ 10 ML VIAL ONE (12:00)
[2018-05-09 16:11] VITALS: BP 160/72; TEMP 98.2
--- NOTE | 2018-05-10 01:02 | DIS ---
DATE OF ADMISSION: 05/08/2018 DATE OF DISCHARGE: 05/09/2018 For details of the history and physical, please refer to dictations and records. SUMMARY: This is a 68-year-old female patient, who unfortunately does not have any outpatient dialysis facility due to insurance status. The patient presented here uremic and did undergo 2 sessions of dialysis with marked improvement in the clinical condition of this patient. The patient is now due for discharge and will discharge to continue with home medications. TIME SPENT: Total time spent including [id number] encounter with this patient is 31 minutes. Job ID: [id number]
== END 2018-05-09 18:00 | disposition home or self-care (01) ==
LOC: ERS 13:20 → 3SE 20:28
PROVIDERS: ADMIT Internal Medicine Nephrology; ATTEND Internal Medicine Nephrology
DX: I12.0 Hypertensive chronic kidney disease with stage 5 chronic kidney disease or end stage renal disease (principal); E11.22 Type 2 diabetes mellitus with diabetic chronic kidney disease; N18.6 End stage renal disease; N25.81 Secondary hyperparathyroidism of renal origin; D63.1 Anemia in chronic kidney disease; E87.5 Hyperkalemia; Z88.0 Allergy status to penicillin; Z88.8 Allergy status to other drugs, medicaments and biological substances; Z79.899 Other long term (current) drug therapy; Z99.2 Dependence on renal dialysis
CPT/HCPCS: 36415; 80069; 85025; 86704; 86706; 86803; 87340; 90935; 96365; 96366; G0257; G0378; J1644; J2916; J7050; Q4081

== ENCOUNTER 2018-05-22 16:39 | Inpatient (IN) | payer MEDICAID, SELFPAY ==
[2018-05-22] MEDS ORDERED: Epoetin (NON-ESRD) 10,000 UNITS/ML VIAL IVP SCH (17:30)
[2018-05-22 17:35] LABS: #Eosinphils 0.1 thou/uL (0.0-0.7); #Monocytes 0.5 thou/uL (0.11-0.59); %Basophils 0.8 % (0.0-1.0); %Eosinophils 1.7 % (0.0-10.0); %Lymphocytes 18.2 % (21.0-51.0); %Monocytes 9.1 % (0.0-10.0); %Neutrophils 70.2 % (42.0-75.0); Hemoglobin 8.5 g/dL (12.0-16.0); Mean Corpuscular HGB CONC 33.4 g/dL (32.0-36.0); Mean Corpuscular Hemoglobin 29.4 pg (27.0-31.0); Mean Corpuscular Volume 87.9 fL (78.0-98.0); Mean Platelet Volume 8.2 fL (7.4-10.4); Platelet Count 190 thou/uL (130-400); RBC Distribution Width 14.8 % (11.5-14.5); White Blood Cell (WBC) Count 5.7 thou/uL (4.8-10.8)
[2018-05-22 17:55] LABS: Albumin 3.9 g/dL (3.4-4.8); Anion Gap 27 mmol/L (10-20); Calc. Creatinine Clearance 0 mL/min (70-130); Calcium 8.9 mg/dL (7.8-10.44); Carbon Dioxide 16 mmol/L (23-31); Chloride 89 mmol/L (98-107); Estimated GFR-MDRD 2; Glucose 104 mg/dL (80-115); Phosphorus 7.4 mg/dL (2.3-4.7); Potassium 5.3 mmol/L (3.5-5.1); Sodium 127 mmol/L (136-145)
[2018-05-22 18:06] LABS: BUN (Urea Nitrogen) 117 mg/dL (9.8-20.1); BUN/Creatinine Ratio 6.91
[2018-05-22] MEDS ORDERED: Acetaminophen 325 MG TAB PO PRN (18:37)
[2018-05-22] MEDS ORDERED: Ondansetron PF 4 MG/2 ML Vial IVP PRN (18:37)
[2018-05-22] MEDS ORDERED: Guaifenesin DM 100-10/5 ML UDCUP PO PRN (18:37)
[2018-05-22] MEDS ORDERED: Ondansetron ODT 4 MG TAB PO PRN (18:37)
[2018-05-22] MEDS ORDERED: Zolpidem Tartrate 5 MG TAB PO PRN (18:37)
[2018-05-22] MEDS ORDERED: Famotidine 20 MG TAB PO SCH (21:00)
--- NOTE | 2018-05-22 21:07 | HP ---
CHIEF COMPLAINT: Nausea, vomiting, and not feeling very well. HISTORY OF PRESENT ILLNESS: This is a 68-year-old female patient with end-stage renal disease, who unfortunately could not secure outpatient dialysis facility for a scheduled hemodialysis. The patient started complaining of nausea, vomiting, poor appetite, unable to do anything, generalized malaise, and laboratory investigation revealed elevated potassium, metabolic acidosis, and profound azotemia. Decision has been taken to admit this patient to undergo hemodialysis. PAST MEDICAL HISTORY: Significant for end-stage renal disease, hemodialysis dependent; hypertension, diabetes with diabetic nephropathy, secondary hyperparathyroidism with hyperphosphatemia. MEDICATIONS: Reviewed and as documented on [employer]. ALLERGIES: TO ASPIRIN AND PENICILLIN. FAMILY HISTORY: Not significantly related to presenting illness. SOCIAL HISTORY: No alcohol, no tobacco, no illicit drug use. The patient is a Jehovah Witness, so does not accept blood. REVIEW OF SYSTEMS: As documented in the body of the history. All other systems were reviewed and found not to be significantly related to presenting illness. PHYSICAL EXAMINATION: GENERAL: The patient was found to be ill looking, but hemodynamically stable. HEENT: Unremarkable. CARDIOVASCULAR SYSTEM: First and second sounds were heard. RESPIRATORY SYSTEM: Clear to auscultation. DIGESTIVE SYSTEM: Revealed a benign abdomen with positive bowel sounds. EXTREMITIES: Showed some peripheral edema. SKIN: No new gross rash. LYMPHATICS: No peripheral lymphadenopathy. SUMMARY: A 68-year-old female patient who presented here with profound azotemia. PLAN: 1. Plan will be to dialyze this patient for 2-1/2 hours tonight to avoid disequilibrium syndrome and tomorrow, do a regular full dialysis. After dialysis, if the patient is feeling good, the patient likely to be able to be discharge. 2. Erythropoiesis stimulating agent to be administered. 3. Iron infusion. 4. Further management to be dependent on the clinical course. The code status is full. Job ID: [id number]
[2018-05-22 21:26] VITALS: BMI 22.0
[2018-05-23] MEDS ORDERED: Epoetin (ESRD) 10,000 UNITS/ML VIAL IVP SCH (07:30)
[2018-05-23] MEDS ORDERED: Iron, Sodium Ferric Gluconate 250 MG in Sodium Chloride 0.9% 100 ML IVPB SCH (08:00)
[2018-05-23] MEDS ORDERED: Iron Sucrose Complex 200 MG in Sodium Chloride 0.9% 250 ML 250 ML IVPB SCH (08:00)
[2018-05-23] MEDS: Calcium Acetate 667 MG CAP PO SCH ×3 (08:13→17:05)
[2018-05-23] MEDS ORDERED: Calcitriol 0.25 MCG CAP PO SCH (09:00)
[2018-05-23] MEDS ORDERED: Amlodipine 10 MG TAB PO SCH (09:00)
[2018-05-23 11:55] VITALS: TEMP 98.1
[2018-05-23 19:47] VITALS: BP 151/54
--- NOTE | 2018-05-24 04:16 | DIS ---
DATE OF ADMISSION: 05/22/2018 DATE OF DISCHARGE: 05/23/2018 For details of the history and physical, please refer to the patient's record. SUMMARY: This is a 68-year-old female patient with end-stage renal disease, hemodialysis dependent, who unfortunately cannot get dialysis as an outpatient, who presented here uremic, hypokalemic, necessitating the need for hemodialysis. The patient seems to have tolerated dialysis well and ready for discharge. PHYSICAL EXAMINATION: On examination today, the patient was found not to be in any obvious distress, noted with the following vital signs; afebrile at temperature 98.1 pulse 83, respiratory rate of 16, O2 saturation of 97% with a blood pressure 144/57. The rest of the physical examination unremarkable. The patient to be discharged today to continue with home medications. TIME SPENT: Total time spent including [id number]-cy-[id number] encounter 31 minutes. Job ID: [id number]
--- NOTE | 2018-05-27 13:36 | PQF ---
RAJ VICENTE, [facility] [id number] CLINICAL DOCUMENTATION CLARIFICATION FORM: POST DISCHARGE Addendum to original discharge summary date: ____ Late entry note date: __ DATE: 05/27/18 ATTN: Dr. Frazier, Please exercise your independent, professional judgment in responding to the clarification form. Clinical indicators are provided on the bottom of this form for your review Please check appropriate box(s): [ ] Acute Renal Failure (ARF) / Acute Kidney Injury (SOSA) [ ] Acute on Chronic Renal Failure please specify Stage of CKD (see below) [ x ] ESRD [ x ] Other diagnosis ___diabetes type 2 [ ] Unable to determine In addition, please specify: Present on Admission (POA): [ x] Yes [ ] No [ ] Unable to determine National Kidney Foundation Guidelines for CKD Staging Stage I Kidney damage with normal or increased GFR GFR > 90 Stage II Kidney damage with mildly decreased GFR GFR 60-89 Stage III Kidney damage with moderately decreased GFR GFR 30-59 Stage IV Kidney damage with severely decreased GFR GFR 16-29 Stage V Kidney failure GFR<15 ESRD End Stage Renal Disease On dialysis Acute Renal Failure/Acute Kidney Failure defined as: Increases in SCr by (>) 0.3 mg/dl within 48 hours OR- Increases in SCr by (>) 1.5 times baseline, known or presumed to have occurred within the prior 7 days OR- Urine volume < 0.5 ml/kg/hour for 6 hours (KDIGO supplement 2012 for RIFLE/JAIRO criteria) For continuity of documentation, please document condition throughout progress notes and discharge summary. Thank You. CLINICAL INDICATORS - SIGNS / SYMPTOMS / LABS Renal Failure/hyperkalemia--2 written admit order Profound Azotemia--H&P Renal Failure-2/5 written admit order Profound azotemia--H&P Uremic--Discharge Summary Metabolic acidosis--H&P Nausea / Vomiting--H&P BUN-117, Creatinine-16.94--2 Labs RISK FACTORS Could not secure outpatient dialysis facility for scheduled hemodialysis--H&P TREATMENTS: Dialysis---Performed 05/23 Thank you, Kylah Rocha, KRYSTEN 05/27/18 1:34 PM (This form is maintained as a part of the permanent medical record) 2015 [employer] All Rights Reserved Kylah [email or web address] [phone] MTDD
== END 2018-05-23 19:56 | disposition home or self-care (01) | DRG 682 ==
LOC: T4-B 16:39
PROVIDERS: ADMIT Internal Medicine Nephrology; ATTEND Internal Medicine Nephrology
PROC: 5A1D70Z Performance of Urinary Filtration, Intermittent, Less than 6 Hours Per Day (ICD-10-PCS; principal; 2018-05-23)
DX: I12.0 Hypertensive chronic kidney disease with stage 5 chronic kidney disease or end stage renal disease (principal); N18.6 End stage renal disease; E87.2 Acidosis; N25.81 Secondary hyperparathyroidism of renal origin; E11.21 Type 2 diabetes mellitus with diabetic nephropathy; E87.5 Hyperkalemia; E11.22 Type 2 diabetes mellitus with diabetic chronic kidney disease; Z99.2 Dependence on renal dialysis; E83.39 Other disorders of phosphorus metabolism; Z88.6 Allergy status to analgesic agent; Z88.0 Allergy status to penicillin
CPT/HCPCS: 36416; 80069; 83970; 85025; 90935; G0257; J0885; J1756; J2916; J7050

== ENCOUNTER 2018-06-07 10:01 | Observation (INO) | payer MEDICAID ==
[2018-06-07 11:27] VITALS: BMI 22.2
[2018-06-07 12:22] LABS: #Eosinphils 0.1 thou/uL (0.0-0.7); #Lymphocytes 1.1 thou/uL (1.20-3.40); #Monocytes 0.4 thou/uL (0.11-0.59); #Neutrophils 3.2 thou/uL (1.40-6.50); %Basophils 0.9 % (0.0-1.0); %Eosinophils 1.8 % (0.0-10.0); %Lymphocytes 23.4 % (21.0-51.0); %Monocytes 7.9 % (0.0-10.0); %Neutrophils 65.9 % (42.0-75.0); Hemoglobin 9.2 g/dL (12.0-16.0); Mean Corpuscular HGB CONC 32.9 g/dL (32.0-36.0); Mean Corpuscular Hemoglobin 29.8 pg (27.0-31.0); Mean Corpuscular Volume 90.5 fL (78.0-98.0); Mean Platelet Volume 8.2 fL (7.4-10.4); Platelet Count 192 thou/uL (130-400); RBC Distribution Width 15.6 % (11.5-14.5); Red Blood Cell (RBC) Count 3.07 mill/uL (4.20-5.40); White Blood Cell (WBC) Count 4.9 thou/uL (4.8-10.8)
[2018-06-07 12:56] LABS: Albumin 4.1 g/dL (3.4-4.8); Anion Gap 31 mmol/L (10-20); Calc. Creatinine Clearance 2 mL/min (70-130); Calcium 9.5 mg/dL (7.8-10.44); Carbon Dioxide 12 mmol/L (23-31); Chloride 98 mmol/L (98-107); Estimated GFR-MDRD 2; Glucose 78 mg/dL (80-115); Phosphorus 7.7 mg/dL (2.3-4.7); Potassium 5.1 mmol/L (3.5-5.1); Sodium 136 mmol/L (136-145)
[2018-06-07 13:16] LABS: BUN (Urea Nitrogen) 138 mg/dL (9.8-20.1); BUN/Creatinine Ratio 7.15
[2018-06-07 14:51] LABS: HBSAg Index 0.24 S/CO (0-0.99); Hep B Surf Ag Non-Reactive S/CO (NonReactive)
[2018-06-07] MEDS ORDERED: Ondansetron ODT 8 MG TAB PO PRN (15:46)
[2018-06-07] MEDS ORDERED: Dextrose 5% in Water 1,000 ML IV PRN (16:11)
[2018-06-07] MEDS ORDERED: Dextrose 50% Abboject 50 ML SYRINGE IVP PRN (16:11)
[2018-06-07] MEDS ORDERED: Insulin Regular 300 UNITS/3 ML VIAL SC PRN (16:11)
[2018-06-07] MEDS: Calcium Acetate 667 MG CAP PO SCH (17:39)
[2018-06-08] MEDS: Calcium Acetate 667 MG CAP PO SCH ×3 (08:29→16:39)
[2018-06-08] MEDS ORDERED: Calcitriol 0.25 MCG CAP PO SCH (09:00)
[2018-06-08] MEDS ORDERED: Amlodipine 10 MG TAB PO SCH (09:00)
[2018-06-08] MEDS ORDERED: Heparin 1,000 UNITS/ML VIAL ONE (11:11)
[2018-06-08 14:36] VITALS: BP 155/67; TEMP 98.7
[2018-06-08] MEDS ORDERED: Epoetin (ESRD) 10,000 UNITS/ML VIAL SC SCH (16:00)
--- NOTE | 2018-06-09 00:39 | DIS ---
DATE OF ADMISSION: 06/07/2018 DATE OF DISCHARGE: 06/08/2018 For details of the history and physical, refer to dictations and records. SUMMARY: This 68-year-old female patient, with end-stage renal disease, who unfortunately does not have outpatient dialysis facility and presents here with uremic symptoms. The patient did undergo 2 sessions of dialysis, one yesterday dialysis and the patient's the patient discharged home today to continue with current home regimen. Job ID: [id number]
== END 2018-06-08 16:50 | disposition home or self-care (01) ==
LOC: 2SW 11:00
PROVIDERS: ADMIT Internal Medicine Nephrology; ATTEND Internal Medicine Nephrology
DX: I12.0 Hypertensive chronic kidney disease with stage 5 chronic kidney disease or end stage renal disease (principal); E11.22 Type 2 diabetes mellitus with diabetic chronic kidney disease; N18.6 End stage renal disease; E11.21 Type 2 diabetes mellitus with diabetic nephropathy; Z99.2 Dependence on renal dialysis; Z88.0 Allergy status to penicillin; Z88.8 Allergy status to other drugs, medicaments and biological substances; Z79.899 Other long term (current) drug therapy
CPT/HCPCS: 36415; 36416; 80069; 85025; 87340; 90935; 96372; G0257; G0378; J1644; Q4081

== ENCOUNTER 2018-06-25 10:38 | Inpatient (IN) | payer MEDICAID, SELFPAY ==
[2018-06-25 12:51] LABS: #Basophils 0.1 thou/uL (0.0-0.2); #Eosinphils 0.1 thou/uL (0.0-0.7); #Lymphocytes 1.5 thou/uL (1.20-3.40); #Monocytes 0.3 thou/uL (0.11-0.59); #Neutrophils 3.2 thou/uL (1.40-6.50); %Basophils 1.1 % (0.0-1.0); %Eosinophils 1.5 % (0.0-10.0); %Lymphocytes 28.7 % (21.0-51.0); %Monocytes 6.7 % (0.0-10.0); %Neutrophils 62.1 % (42.0-75.0); Hemoglobin 9.4 g/dL (12.0-16.0); Mean Corpuscular HGB CONC 32.1 g/dL (32.0-36.0); Mean Corpuscular Hemoglobin 28.1 pg (27.0-31.0); Mean Corpuscular Volume 87.4 fL (78.0-98.0); Mean Platelet Volume 8.8 fL (7.4-10.4); Platelet Count 158 thou/uL (130-400); RBC Distribution Width 15.8 % (11.5-14.5); Red Blood Cell (RBC) Count 3.33 mill/uL (4.20-5.40); White Blood Cell (WBC) Count 5.1 thou/uL (4.8-10.8)
[2018-06-25 13:17] LABS: ALT (SGPT) 9 U/L (8-55); AST (SGOT) 15 U/L (5-34); Albumin 3.7 g/dL (3.4-4.8); Alkaline Phosphatase 63 U/L (40-150); Anion Gap 30 mmol/L (10-20); Bilirubin, Total 0.9 mg/dL (0.2-1.2); Calc. Creatinine Clearance 0 mL/min (70-130); Carbon Dioxide 11 mmol/L (23-31); Chloride 98 mmol/L (98-107); Estimated GFR-MDRD 2; Globulin 3.2 g/dL (2.4-3.5); Glucose 84 mg/dL (80-115); Lipase 353 U/L (8-78); Potassium 4.9 mmol/L (3.5-5.1); Protein, Total 6.9 g/dL (6.0-8.3); Sodium 134 mmol/L (136-145)
[2018-06-25 13:29] LABS: BUN (Urea Nitrogen) 161 mg/dL (9.8-20.1)
[2018-06-25 13:44] LABS: CKMB 2.5 ng/mL (0-6.6)
[2018-06-25 14:00] LABS: Bilirubin Negative (Negative); Blood, Urine Moderate (Negative); Clarity CLOUDY (Clear); Glucose, Urine (Dipstick) 100 mg/dL (Negative); Leukocyte Negative (Negative); Nitrite Negative (Negative); Protein, Urine (Dipstick) > or equal to 300 mg/dL (Neg-Trace); Urobilinogen 0.2 mg/dL (0.2-1.0)
[2018-06-25 14:02] LABS: Hyaline Casts/LPF 4-6 HYALINE CAST LPF (0-3 Hyaline)
[2018-06-25 14:04] LABS: Yeast-AUWi Flag 49.2 (0-25.0)
[2018-06-25 14:15] LABS: Bacteria/HPF 1+ HPF (None Seen); Renal Epithelial None Seen HPF (0-3); Squamous Epithelial 0-3 HPF (0-3); Transitional Epithelial NONE SEEN HPF (0-3); Yeast-All Forms None Seen HPF (None Seen)
[2018-06-25 14:16] LABS: WBC/HPF 0-3 HPF (0-3)
--- NOTE | 2018-06-25 14:22 | CT ---
ABDOMEN AND PELVIS CT SCAN WITHOUT IV CONTRAST: Date: 06/25/18 HISTORY: Abdominal pain, most severe in the left lower quadrant. FINDINGS: Mild linear stranding in the medial aspect of the right lower lobe, primarily pleural based, having m ore the appearance of chronic change. Scattered subcutaneous fat stranding, evidence for anasarca. No significant pleural effusion. Minimal free intraperitoneal fluid adjacent to the right lobe of the l iver and in the pelvis. Old granuloma calcification within the liver. Otherwise, the liver, gallbladd er, pancreas, spleen, and adrenal glands are unremarkable. Small kidneys bilaterally with some bilate ral renal vascular calcifications without evidence for an overt renal calculus or acute obstructio n. No evidence for large or small bowel obstruction. Chronic changes within the uterus. No convincing CT evidence for acute appendicitis. Minimal anterolisthesis of L5 on S1. IMPRESSION: Evidence for anasarca with minimal free intraperitoneal fluid adjacent to the right lobe of the liver and in the pelvis. Small kidneys bilaterally with prominent renal vascular calcifications. Very mild linear and parenchymal changes in the medial aspect of the right lower lobe, having more of a chroni c appearance. No CT evidence for acute appendicitis. No abscess, adenopathy, significant other fluid collection, or other acute process. POS: [facility]
[2018-06-25] MEDS ORDERED: Acetaminophen 325 MG TAB PO PRN (18:42)
[2018-06-25] MEDS ORDERED: Ondansetron PF 4 MG/2 ML Vial IVP PRN (18:42)
[2018-06-25] MEDS ORDERED: Ondansetron ODT 4 MG TAB PO PRN (18:42)
[2018-06-25] MEDS ORDERED: Sodium Chloride 0.9% 1,000 ML IV SCH (18:45)
[2018-06-25] MEDS: Famotidine 20 MG TAB PO SCH (21:18)
[2018-06-25] MEDS: Heparin 5,000 UNITS/ML VIAL SC SCH (21:19)
--- NOTE | 2018-06-26 02:09 | HP ---
CHIEF COMPLAINT: Nausea, vomiting, and abdominal pain. HISTORY OF PRESENT ILLNESS: This is a 68-year-old female patient who unfortunately could not get any scheduled outpatient dialysis unit because of funding, who presented to the ER today with abdominal discomfort, nausea, vomiting, and generally not feeling very well, and also seems to be twitching. The patient denies any fever. Denies any dysuria. Clinical evaluation significant for profound azotemia. The patient has not been admitted for renal replacement therapy and further management. PAST MEDICAL HISTORY: Significant for end-stage renal disease, diabetes type 2, hypertension, secondary hyperparathyroidism, anemia of chronic kidney disease. MEDICATIONS: Reviewed and as documented on [employer]. ALLERGIES: 1. ASPIRIN. 2. PENICILLINS. FAMILY HISTORY: Not significantly related to presenting illness. SOCIAL HISTORY: No alcohol. No tobacco. No illicit drug use. REVIEW OF SYSTEMS: Highly limited given the clinical condition of this patient, who seems to be having persistent myoclonic jerks. PHYSICAL EXAMINATION: GENERAL: The patient is noted to be having persistent myoclonic jerks with the following vital signs. VITAL SIGNS: Blood pressure 136/78, afebrile, heart rate of 72, respiratory rate of 18, O2 saturation of 96%. HEENT: Unremarkable. Moist oral mucosa. Neck was supple. No conjunctival injection or icterus. CARDIOVASCULAR SYSTEM: First and second heart sounds were heard. RESPIRATORY SYSTEM: Clear to auscultation. DIGESTIVE SYSTEM: Revealed benign abdomen with positive bowel sounds. EXTREMITIES: Minimal peripheral edema. SKIN: No new gross rash. LYMPHATICS: No peripheral lymphadenopathy. LABORATORY INVESTIGATION: Also significant for lipase of creatinine of 21.51, BUN of 161. Hematology showed hemoglobin of 9.4. Urinalysis significant for 1+ bacteria and presence of significant protein. IMPRESSION: 1. End-stage renal disease with profound azotemia. 2. Uremia with uremic myoclonic jerks. 3. Pancreatitis. 4. Severe metabolic acidosis. 5. Anemia of chronic kidney disease. 6. Query urinary tract infection. PLAN: 1. The patient has been admitted to hemodialysis to be started in a very gentle fashion to avoid precipitating disequilibrium syndrome. The patient for now will be on daily dialysis until the patient is much improved clinically. 2. N.p.o. for now because of significant pancreatitis. 3. Further management will be dependent on the clinical course. 4. The code status is full. Job ID: [id number]
[2018-06-26 05:23] LABS: #Eosinphils 0.1 thou/uL (0.0-0.7); #Lymphocytes 1.2 thou/uL (1.20-3.40); #Monocytes 0.3 thou/uL (0.11-0.59); #Neutrophils 2.9 thou/uL (1.40-6.50); %Basophils 0.8 % (0.0-1.0); %Eosinophils 1.5 % (0.0-10.0); %Lymphocytes 26.6 % (21.0-51.0); %Monocytes 7.3 % (0.0-10.0); %Neutrophils 63.8 % (42.0-75.0); Hemoglobin 8.8 g/dL (12.0-16.0); Mean Corpuscular HGB CONC 33.4 g/dL (32.0-36.0); Mean Corpuscular Hemoglobin 29.1 pg (27.0-31.0); Mean Corpuscular Volume 87.3 fL (78.0-98.0); Mean Platelet Volume 8.9 fL (7.4-10.4); Platelet Count 134 thou/uL (130-400); RBC Distribution Width 15.4 % (11.5-14.5); Red Blood Cell (RBC) Count 3.04 mill/uL (4.20-5.40); White Blood Cell (WBC) Count 4.6 thou/uL (4.8-10.8)
[2018-06-26 05:48] LABS: Albumin 3.3 g/dL (3.4-4.8); Anion Gap 21 mmol/L (10-20); BUN (Urea Nitrogen) 79 mg/dL (9.8-20.1); BUN/Creatinine Ratio 6.15; Calc. Creatinine Clearance 3 mL/min (70-130); Carbon Dioxide 19 mmol/L (23-31); Chloride 101 mmol/L (98-107); Estimated GFR-MDRD 3; Glucose 75 mg/dL (80-115); Lipase 266 U/L (8-78); Phosphorus 5.1 mg/dL (2.3-4.7); Potassium 3.8 mmol/L (3.5-5.1); Sodium 137 mmol/L (136-145)
[2018-06-26] MEDS: Calcitriol 0.25 MCG CAP PO SCH (08:31)
[2018-06-26] MEDS: Heparin 5,000 UNITS/ML VIAL SC SCH ×2 (08:31→22:08)
[2018-06-26] MEDS: Amlodipine 10 MG TAB PO SCH ×2 (08:31→13:09)
[2018-06-26] MEDS ORDERED: Epoetin (ESRD) 20,000 UNITS/ML IVP SCH (09:00)
[2018-06-26] MEDS ORDERED: Cipro 250 MG TAB PO SCH (09:00)
[2018-06-26] MEDS ORDERED: Epoetin (ESRD) 20,000 UNITS/ML SC SCH (13:00)
[2018-06-26] MEDS: Cipro 250 MG TAB PO SCH (22:07)
[2018-06-26] MEDS: Famotidine 20 MG TAB PO SCH (22:07)
[2018-06-27] MEDS: Cipro 250 MG TAB PO SCH (05:56)
[2018-06-27 05:57] LABS: Albumin 3.7 g/dL (3.4-4.8); Anion Gap 17 mmol/L (10-20); BUN (Urea Nitrogen) 28 mg/dL (9.8-20.1); Calc. Creatinine Clearance 7 mL/min (70-130); Carbon Dioxide 27 mmol/L (23-31); Chloride 96 mmol/L (98-107); Estimated GFR-MDRD 6; Glucose 83 mg/dL (80-115); Lipase 221 U/L (8-78); Phosphorus 4.1 mg/dL (2.3-4.7); Potassium 3.7 mmol/L (3.5-5.1); Sodium 136 mmol/L (136-145)
[2018-06-27] MEDS: Heparin 5,000 UNITS/ML VIAL SC SCH (11:04)
[2018-06-27] MEDS: Calcitriol 0.25 MCG CAP PO SCH (11:04)
--- NOTE | 2018-06-27 11:37 | PRG ---
DATE OF SERVICE: 06/26/2018 SUBJECTIVE: The patient is seen and examined, seems to be doing much better today on dialysis, noted with the following vital signs. OBJECTIVE: VITAL SIGNS: Afebrile, temperature 98.8, pulse 78, respiratory rate of 20, O2 saturation 98% with a blood pressure 164/74. HEENT: Unremarkable. CARDIOVASCULAR SYSTEM: First and second heart sounds were heard. RESPIRATORY SYSTEM: Clear to auscultation. DIGESTIVE SYSTEM: Revealed a benign abdomen with positive bowel sounds. EXTREMITIES: No peripheral edema. SKIN: No new gross rash. LYMPHATICS: No peripheral lymphadenopathy. IMPRESSION: 1. End-stage renal disease. 2. Severe uremia. 3. Pancreatitis. 4. Diabetes mellitus. PLAN: 1. The patient now to be on clear liquid diet to be advanced gradually. 2. Discontinue IV fluid. 3. One more session of hemodialysis in the next 24 hours. The patient likely to be discharged after that. Job ID: [id number]
[2018-06-27] MEDS: Amlodipine 10 MG TAB PO SCH (14:57)
[2018-06-27 15:45] VITALS: BP 127/60; TEMP 98.3
[2018-06-28] MEDS ORDERED: Epoetin (ESRD) 20,000 UNITS/ML IVP SCH
--- NOTE | 2018-06-28 05:21 | DIS ---
DATE OF ADMISSION: 06/25/2018 DATE OF DISCHARGE: 06/27/2018 Patient was seen and examined, seems to be doing much better. Patient is already having dialysis. From the Renal standpoint, patient seems to be doing much better and will be able to be discharged home today after dialysis. Patient is to continue with current home medications. In addition, patient to be continued on treatment for urinary tract infection. Patient is already on ciprofloxacin and will be discharged home on this medication as patient has significant E. coli urinary tract infection. Total time spent including [id number] encounter with this patient totaled 31 minutes. Job ID: [id number]
--- NOTE | 2018-06-29 12:02 | EKG ---
Test Reason : Blood Pressure : / mmHG Vent. Rate : 078 BPM Atrial Rate : 078 BPM P-R Int : 182 ms QRS Dur : 078 ms QT Int : 402 ms P-R-T Axes : 066 008 045 degrees QTc Int : 458 ms Normal sinus rhythm Normal ECG Confirmed by CRISTIN FOLEY DO ([id number]), technical writer and editor KATARINA MOY ([id number]) on 06/29/2018 12:02:11 PM Referred By: Confirmed By:CRISTIN FOLEY DO
== END 2018-06-27 19:55 | disposition home or self-care (01) | DRG 682 ==
LOC: ERS 10:38 → OBSVTOIN 19:16 → 3SE 19:16 → 2SE 21:34
PROVIDERS: ADMIT Internal Medicine Nephrology; ATTEND Internal Medicine Nephrology
DX: I12.0 Hypertensive chronic kidney disease with stage 5 chronic kidney disease or end stage renal disease (principal); N18.6 End stage renal disease; K85.90 Acute pancreatitis without necrosis or infection, unspecified; N25.81 Secondary hyperparathyroidism of renal origin; E87.2 Acidosis; E11.22 Type 2 diabetes mellitus with diabetic chronic kidney disease; D63.1 Anemia in chronic kidney disease; Z88.0 Allergy status to penicillin; Z88.8 Allergy status to other drugs, medicaments and biological substances
CPT/HCPCS: 36415; 36416; 51701; 74176; 80053; 80069; 81003; 81015; 82553; 83605; 83690; 84484; 85025; 87077; 87086; 87186; 93005; J1644; Q4081

== ENCOUNTER 2018-07-11 10:51 | Inpatient (IN) | payer MEDICAID, SELFPAY ==
[2018-07-11 12:32] VITALS: BMI 21.2
[2018-07-11 15:11] LABS: #Lymphocytes 0.6 thou/uL (1.20-3.40); #Monocytes 0.1 thou/uL (0.11-0.59); #Neutrophils 3.5 thou/uL (1.40-6.50); %Basophils 0.7 % (0.0-1.0); %Eosinophils 0.2 % (0.0-10.0); %Lymphocytes 14.3 % (21.0-51.0); %Monocytes 2.6 % (0.0-10.0); %Neutrophils 82.2 % (42.0-75.0); Hemoglobin 9.1 g/dL (12.0-16.0); Mean Corpuscular HGB CONC 34.6 g/dL (32.0-36.0); Mean Corpuscular Hemoglobin 29.2 pg (27.0-31.0); Mean Corpuscular Volume 84.5 fL (78.0-98.0); Mean Platelet Volume 7.5 fL (7.4-10.4); Platelet Count 207 thou/uL (130-400); RBC Distribution Width 14.8 % (11.5-14.5); Red Blood Cell (RBC) Count 3.09 mill/uL (4.20-5.40); White Blood Cell (WBC) Count 4.2 thou/uL (4.8-10.8)
[2018-07-11 15:23] LABS: Carbon Dioxide 16 mmol/L (23-31); Glucose 68 mg/dL (80-115)
[2018-07-11 15:37] LABS: Albumin 4.1 g/dL (3.4-4.8)
[2018-07-11 15:38] LABS: Chloride 92 mmol/L (98-107); Potassium 3.9 mmol/L (3.5-5.1); Sodium 133 mmol/L (136-145)
[2018-07-11 15:39] LABS: Calcium 9.3 mg/dL (7.8-10.44)
[2018-07-11 15:41] LABS: Anion Gap 26 mmol/L (10-20)
[2018-07-11 15:42] LABS: Phosphorus 4.1 mg/dL (2.3-4.7)
[2018-07-11 15:43] LABS: BUN (Urea Nitrogen) 110 mg/dL (9.8-20.1); BUN/Creatinine Ratio 9.45; Calc. Creatinine Clearance 3 mL/min (70-130); Estimated GFR-MDRD 3
[2018-07-11 15:45] LABS: Iron 117 ug/dL (50-170); Iron Binding Capacity, Total 170 mcg/dL (265-497)
[2018-07-11 15:54] LABS: HBSAg Index 0.29 S/CO (0-0.99); Hep B Surf Ag Non-Reactive S/CO (NonReactive)
[2018-07-11] MEDS ORDERED: Dextrose 5% in Water 1,000 ML IV PRN (18:53)
[2018-07-11] MEDS ORDERED: Acetaminophen 325 MG TAB PO PRN (18:53)
[2018-07-11] MEDS ORDERED: Ondansetron PF 4 MG/2 ML Vial IVP PRN (18:53)
[2018-07-11] MEDS ORDERED: HumaLOG 300 UNITS/3 ML VIAL SC PRN (18:53)
[2018-07-11] MEDS ORDERED: Insulin Regular 300 UNITS/3 ML VIAL SC PRN (18:53)
[2018-07-11] MEDS ORDERED: Dextrose 50% Abboject 50 ML SYRINGE SLOW IVP PRN (18:53)
[2018-07-11] MEDS ORDERED: Ondansetron ODT 4 MG TAB PO PRN (18:53)
[2018-07-11] MEDS ORDERED: Epoetin (ESRD) 10,000 UNITS/ML VIAL SC SCH (20:00)
--- NOTE | 2018-07-12 00:37 | HP ---
CHIEF COMPLAINT: Nausea, vomiting, and twitching. HISTORY OF PRESENT ILLNESS: A 68-year-old unfortunate female patient with end-stage renal disease, who could not secure any outpatient dialysis facility, presented here with twitching, nausea, vomiting. Clinical evaluation reveals profound azotemia and severe metabolic acidosis. The patient is now being admitted for further management in terms of renal replacement therapy. PAST MEDICAL HISTORY: Significant for end-stage renal disease, hypertension, diabetes type 2, hyperparathyroidism. MEDICATIONS: Reviewed and as documented on [email or web address]. FAMILY HISTORY: Not significantly related to presenting illness. SOCIAL HISTORY: Denies alcohol, tobacco, or illicit drug use. The patient is [place] and does not accept any blood products. ALLERGIES: TO PENICILLIN AND ASPIRIN. PHYSICAL EXAMINATION: GENERAL: The patient was found not to be in any obvious respiratory distress, on dialysis noted with the following vital signs. VITAL SIGNS: Afebrile, temperature 97.4 pulse 79, respiratory rate of 18, O2 saturation 100% with blood pressure 155/61. HEENT: Unremarkable. CARDIOVASCULAR: First and second heard sounds were heard. RESPIRATORY: Clear to auscultation. DIGESTIVE: Revealed a benign abdomen with positive bowel sounds. EXTREMITIES: No peripheral edema. IMPRESSION: 1. End-stage renal disease, on hemodialysis. 2. Uremia. 3. Severe metabolic acidosis. 4. Anemia of chronic kidney disease. PLAN: 1. Admit the patient for gentle dialysis and full dialysis tomorrow. 2. Erythropoiesis-stimulating agent. 3. Further management will be dependent on the clinical course. Hopefully, the patient will be able to be discharged status post dialysis tomorrow. The code status is full. Job ID: [id number]
[2018-07-12 06:26] LABS: Anion Gap 20 mmol/L (10-20); BUN (Urea Nitrogen) 85 mg/dL (9.8-20.1); Calc. Creatinine Clearance 3 mL/min (70-130); Calcium 8.6 mg/dL (7.8-10.44); Carbon Dioxide 24 mmol/L (23-31); Chloride 96 mmol/L (98-107); Estimated GFR-MDRD 3; Glucose 95 mg/dL (80-115); Sodium 136 mmol/L (136-145)
[2018-07-12] MEDS ORDERED: Amlodipine 5 MG TAB PO SCH (09:00)
[2018-07-12] MEDS ORDERED: Famotidine 20 MG TAB PO SCH (09:00)
[2018-07-12] MEDS ORDERED: Calcitriol 0.25 MCG CAP PO SCH (09:00)
[2018-07-12] MEDS: Calcium Acetate 667 MG CAP PO SCH ×2 (09:47→12:55)
[2018-07-12 12:50] VITALS: BP 142/54; TEMP 97.9
== END 2018-07-12 16:27 | disposition home or self-care (01) | DRG 640 ==
LOC: T4-B 11:50
PROVIDERS: ADMIT Internal Medicine Nephrology; ATTEND Internal Medicine Nephrology
DX: E87.2 Acidosis (principal); N18.6 End stage renal disease; I12.0 Hypertensive chronic kidney disease with stage 5 chronic kidney disease or end stage renal disease; E11.22 Type 2 diabetes mellitus with diabetic chronic kidney disease; E21.3 Hyperparathyroidism, unspecified; D63.1 Anemia in chronic kidney disease; Z88.0 Allergy status to penicillin; Z88.8 Allergy status to other drugs, medicaments and biological substances; Z99.2 Dependence on renal dialysis
CPT/HCPCS: 36415; 36416; 80048; 80069; 82728; 83540; 83550; 85025; 87340; Q4081

== ENCOUNTER 2018-07-26 12:30 | Observation (INO) | payer MEDICAID, SELFPAY ==
[2018-07-26] MEDS ORDERED: Acetaminophen 325 MG TAB PO PRN (12:46)
[2018-07-26] MEDS ORDERED: Ondansetron ODT 4 MG TAB PO PRN (12:46)
[2018-07-26] MEDS ORDERED: Ondansetron PF 4 MG/2 ML Vial IVP PRN (12:46)
[2018-07-26 13:33] VITALS: BMI 21.9
--- NOTE | 2018-07-26 17:54 | HP ---
CHIEF COMPLAINT: Shortness of breath, fluid overload, nausea, and vomiting. HISTORY OF PRESENT ILLNESS: A 68-year-old female patient with end-stage renal disease, who unfortunately cannot secure an outpatient dialysis facility for continued scheduled treatment, presented here with nausea, vomiting, shortness of breath, and overtly fluid overload. The patient's clinical evaluation reveals significant evidence of azotemia. As a result of these findings, decision was taken to be admit this patient for management. PAST MEDICAL HISTORY: Significant for end-stage renal disease on hemodialysis, hypertension, and secondary hyperparathyroidism. MEDICATIONS: Reviewed as documented on [employer]. ALLERGIES: TO ASPIRIN AND PENICILLIN. FAMILY HISTORY: Not significant related to present illness. PHYSICAL EXAMINATION: GENERAL: The patient was found to be ill looking noted with the following vital signs. VITAL SIGNS: Afebrile, temperature 97.5, pulse 90, respiratory rate of 16, and O2 saturations of 98% with blood pressure 180/78. HEENT: Unremarkable. CARDIOVASCULAR SYSTEM: First and second heart sounds were heard. RESPIRATORY SYSTEM: Clear to auscultation. DIGESTIVE SYSTEM: Revealed a benign abdomen. EXTREMITIES: Show some peripheral edema. SKIN: No new gross rash. IMPRESSION: 1. End-stage renal disease, on hemodialysis. 2. Hypervolemia in the context of not been able to dialyze on regular basis. 3. Severe metabolic acidosis. 4. Diabetes mellitus type 2. PLAN: 1. The patient to undergo dialysis. We will adjust her dialysis today to avoid disequilibrium syndrome, the patient to run only for 2 to 2-1/2 hours with very low blood flow. Tomorrow, the patient to undergo full-blown dialysis and after that, the patient is clinically stable likely to be discharge. 2. Further management will be dependent on the clinical course. Job ID: [id number]
[2018-07-26] MEDS ORDERED: Ondansetron ODT 8 MG TAB PO PRN (18:17)
[2018-07-26 18:40] LABS: #Basophils 0.1 thou/uL (0.0-0.2); #Lymphocytes 0.6 thou/uL (1.20-3.40); #Monocytes 0.3 thou/uL (0.11-0.59); #Neutrophils 2.5 thou/uL (1.40-6.50); %Basophils 1.4 % (0.0-1.0); %Eosinophils 1.1 % (0.0-10.0); %Lymphocytes 17.8 % (21.0-51.0); %Monocytes 7.5 % (0.0-10.0); %Neutrophils 72.2 % (42.0-75.0); Hemoglobin 9.8 g/dL (12.0-16.0); Mean Corpuscular HGB CONC 33.6 g/dL (32.0-36.0); Mean Corpuscular Hemoglobin 29.7 pg (27.0-31.0); Mean Corpuscular Volume 88.4 fL (78.0-98.0); Platelet Count 169 thou/uL (130-400); RBC Distribution Width 15.7 % (11.5-14.5); Red Blood Cell (RBC) Count 3.29 mill/uL (4.20-5.40); White Blood Cell (WBC) Count 3.4 thou/uL (4.8-10.8)
[2018-07-26 19:01] LABS: Albumin 3.9 g/dL (3.4-4.8); Anion Gap 22 mmol/L (10-20); BUN (Urea Nitrogen) 78 mg/dL (9.8-20.1); BUN/Creatinine Ratio 7.22; Calc. Creatinine Clearance 4 mL/min (70-130); Calcium 9.2 mg/dL (7.8-10.44); Carbon Dioxide 23 mmol/L (23-31); Chloride 97 mmol/L (98-107); Estimated GFR-MDRD 4; Glucose 105 mg/dL (80-115); Phosphorus 3.8 mg/dL (2.3-4.7); Potassium 3.7 mmol/L (3.5-5.1); Sodium 138 mmol/L (136-145)
[2018-07-26] MEDS ORDERED: Famotidine 20 MG TAB PO SCH (21:00)
[2018-07-27] MEDS ORDERED: Amlodipine 5 MG TAB PO SCH (09:00)
[2018-07-27] MEDS ORDERED: Calcitriol 0.25 MCG CAP PO SCH (09:00)
[2018-07-27] MEDS: Calcium Acetate 667 MG CAP PO SCH ×3 (15:08→19:17)
[2018-07-27 16:41] VITALS: BP 154/71; TEMP 98.4
--- NOTE | 2018-07-28 02:25 | DIS ---
DATE OF ADMISSION: 07/26/2018 DATE OF DISCHARGE: 07/27/2018 The patient was seen and examined, feeling good, very eager to go home. For details of the history and physical, refer to dictations and records. SUMMARY: A 68-year-old female patient, who unfortunately could not get the scheduled hemodialysis as an outpatient, presented here with uremia, , now feeling much better, very eager to go home. On examination, hemodynamically stable. The patient to be discharged home today, to continue with current home medications. Condition of the patient at this time of dictation was good. Job ID: [id number]
== END 2018-07-27 19:31 | disposition home or self-care (01) ==
LOC: ERS 12:30 → EDSTATUS 12:47 → 2SW 13:01
PROVIDERS: ADMIT Internal Medicine Nephrology
DX: I12.0 Hypertensive chronic kidney disease with stage 5 chronic kidney disease or end stage renal disease (principal); E11.22 Type 2 diabetes mellitus with diabetic chronic kidney disease; N18.6 End stage renal disease; N25.81 Secondary hyperparathyroidism of renal origin; E87.70 Fluid overload, unspecified; E87.2 Acidosis; Z99.2 Dependence on renal dialysis; Z88.0 Allergy status to penicillin; Z88.8 Allergy status to other drugs, medicaments and biological substances; Z79.899 Other long term (current) drug therapy
CPT/HCPCS: 36415; 80069; 85025; 90935; G0257; G0378

== ENCOUNTER 2018-08-07 16:39 | Observation (INO) | payer MEDICAID, SELFPAY ==
[2018-08-07] MEDS ORDERED: Ondansetron ODT 4 MG TAB PO PRN (23:13)
[2018-08-07] MEDS ORDERED: Acetaminophen 325 MG TAB PO PRN (23:13)
[2018-08-08 03:16] VITALS: BMI 22.4
[2018-08-08] MEDS ORDERED: Calcium Acetate 667 MG CAP PO SCH (08:00)
[2018-08-08] MEDS ORDERED: Calcitriol 0.25 MCG CAP PO SCH (09:00)
[2018-08-08] MEDS ORDERED: Amlodipine 5 MG TAB PO SCH (09:00)
[2018-08-08] MEDS ORDERED: Prevnar 13-Val Conj/PF 0.5 ML SYRINGE IM ONE (09:00)
[2018-08-08] MEDS ORDERED: Furosemide 40 MG TAB PO SCH (09:00)
[2018-08-08] MEDS ORDERED: Sodium Bicarbonate Tab 325 MG TAB PO SCH (09:00)
[2018-08-08 09:11] VITALS: BP 170/76; TEMP 98.2
[2018-08-08] MEDS ORDERED: Loperamide HCl 2 MG CAP PO PRN (09:24)
[2018-08-08] MEDS ORDERED: Loperamide HCl 2 MG CAP PO SCH (09:30)
[2018-08-08 09:38] LABS: Hemoglobin 8.3 g/dL (12.0-16.0); Mean Corpuscular HGB CONC 33.2 g/dL (32.0-36.0); Mean Corpuscular Volume 87.3 fL (78.0-98.0); Mean Platelet Volume 7.6 fL (7.4-10.4); Platelet Count 172 thou/uL (130-400); RBC Distribution Width 15.3 % (11.5-14.5); Red Blood Cell (RBC) Count 2.86 mill/uL (4.20-5.40); White Blood Cell (WBC) Count 4.2 thou/uL (4.8-10.8)
[2018-08-08 09:51] LABS: Anion Gap 20 mmol/L (10-20); BUN (Urea Nitrogen) 67 mg/dL (9.8-20.1); Calc. Creatinine Clearance 4 mL/min (70-130); Calcium 8.6 mg/dL (7.8-10.44); Carbon Dioxide 23 mmol/L (23-31); Chloride 97 mmol/L (98-107); Estimated GFR-MDRD 4; Glucose 93 mg/dL (80-115); Potassium 3.9 mmol/L (3.5-5.1); Sodium 136 mmol/L (136-145)
[2018-08-08] MEDS ORDERED: EPOETIN ALFA-EPBX (ESRD) 10,000 UNIT/ML VIAL IVP SCH (10:30)
[2018-08-08 11:58] LABS: Eosinophils 3 % (0-10); Lymphocytes 27 % (21-51); MDiff Complete? YES; Monocytes 4 % (0-10); Neutrophil 65 % (42-75); RBC Morphology Normal
--- NOTE | 2018-08-08 12:04 | HP ---
CHIEF COMPLAINT: Nausea, vomiting, shortness of breath, and chest pain. HISTORY OF PRESENT ILLNESS: A 68-year-old female patient, who unfortunately does not have any scheduled outpatient dialysis because of her financial status, who presented with the above-mentioned complaint with features of uremia noted for renal replacement therapy. PAST MEDICAL HISTORY: Significant for; 1. End-stage renal disease. 2. Hypertension. 3. Diabetes mellitus. 4. Secondary hyperparathyroidism. 5. Anemia of chronic kidney disease. MEDICATIONS: Reviewed as documented on [employer]. ALLERGIES: ASPIRIN AND PENICILLIN. FAMILY HISTORY: Not significantly related to present illness. SOCIAL HISTORY: No alcohol. No tobacco. No illicit drug use. REVIEW OF SYSTEMS: As documented in the body of the history. The other part of the review of system is that of diarrhea. LABORATORY DATA: Laboratory investigation revealed a potassium of 5.5, bicarb of 17, BUN of 132, and creatinine of . PHYSICAL EXAMINATION: HEENT: Unremarkable except facial puffiness. VITAL SIGNS: Revealed a temperature of 98.2, pulse 73, respiratory rate of 16, O2 saturation of 100% with blood pressure of 170/76. CARDIOVASCULAR SYSTEM: First and second heart sounds were heard. RESPIRATORY SYSTEM: Clear to auscultation. DIGESTIVE SYSTEM: Revealed a benign abdomen. EXTREMITIES: No peripheral edema. SKIN: No new gross rash. LYMPHATICS: No peripheral lymphadenopathy. IMPRESSION: 1. End-stage renal disease with uremic symptoms. 2. Metabolic acidosis. 3. Hyperkalemia. 4. Anemia of chronic kidney disease. 5. Secondary hyperparathyroidism. PLAN: 1. Initial dialysis will be short duration to avoid disequilibrium syndrome. The patient to receive a full dialysis and subsequently be discharged if the patient remains clinically stable. 2. Further management will be dependent on the clinical course. Job ID: [id number]
--- NOTE | 2018-08-09 01:38 | DIS ---
DATE OF ADMISSION: 08/07/2018 DATE OF DISCHARGE: 08/08/2018 For details of the history and physical, please refer to dictation and records. SUMMARY: A 68-year-old female patient, who unfortunately could not get a scheduled outpatient dialysis, presented here with uremic symptoms and metabolically acidotic and hyperkalemic. The patient receiving second session of dialysis and will also receive Imodium because of the complaint of diarrhea treatment session and everything, the patient remains clinically stable. We will consider discharging this patient today this patient likely to be discharged home today to continue with current home medications. CONDITION: Condition of the patient at this time of dictation is good. Job ID: [id number]
== END 2018-08-08 15:11 | disposition home or self-care (01) ==
LOC: ONC 16:45
PROVIDERS: ADMIT Internal Medicine Nephrology; ATTEND Internal Medicine Nephrology
DX: I12.0 Hypertensive chronic kidney disease with stage 5 chronic kidney disease or end stage renal disease (principal); E11.22 Type 2 diabetes mellitus with diabetic chronic kidney disease; N18.6 End stage renal disease; D63.1 Anemia in chronic kidney disease; N25.81 Secondary hyperparathyroidism of renal origin; E87.2 Acidosis; E87.5 Hyperkalemia; R19.7 Diarrhea, unspecified; Z79.899 Other long term (current) drug therapy; Z88.0 Allergy status to penicillin; Z88.8 Allergy status to other drugs, medicaments and biological substances; Z99.2 Dependence on renal dialysis
CPT/HCPCS: 36416; 80048; 85007; 85027; 90471; 90670; 90935; 96372; G0009; G0257; G0378; Q0162; Q5105

== ENCOUNTER 2018-08-21 07:38 | Inpatient (IN) | payer SELFPAY ==
[2018-08-21] MEDS ORDERED: EPOETIN ALFA-EPBX (ESRD) 10,000 UNIT/ML VIAL SC SCH (11:00)
[2018-08-21 11:19] LABS: #Lymphocytes 0.5 thou/uL (1.20-3.40); #Monocytes 0.3 thou/uL (0.11-0.59); %Basophils 0.4 % (0.0-1.0); %Eosinophils 0.2 % (0.0-10.0); %Lymphocytes 5.4 % (21.0-51.0); %Monocytes 3.6 % (0.0-10.0); %Neutrophils 90.4 % (42.0-75.0); Hemoglobin 8.3 g/dL (12.0-16.0); Mean Corpuscular HGB CONC 34.2 g/dL (32.0-36.0); Mean Corpuscular Hemoglobin 29.8 pg (27.0-31.0); Mean Corpuscular Volume 87.1 fL (78.0-98.0); Mean Platelet Volume 8.5 fL (7.4-10.4); Platelet Count 156 thou/uL (130-400); Red Blood Cell (RBC) Count 2.77 mill/uL (4.20-5.40); White Blood Cell (WBC) Count 8.9 thou/uL (4.8-10.8)
[2018-08-21 12:45] LABS: Albumin 4.4 g/dL (3.4-4.8); Anion Gap 13 mmol/L (10-20); BUN (Urea Nitrogen) 15 mg/dL (9.8-20.1); BUN/Creatinine Ratio 10.27; Calc. Creatinine Clearance 27 mL/min (70-130); Calcium 9.4 mg/dL (7.8-10.44); Carbon Dioxide 25 mmol/L (23-31); Chloride 105 mmol/L (98-107); Estimated GFR-MDRD 36; Glucose 94 mg/dL (80-115); Potassium 4.5 mmol/L (3.5-5.1); Sodium 138 mmol/L (136-145)
[2018-08-21 13:03] LABS: HBSAg Index 0.29 S/CO (0-0.99); Hep B Surf Ag Non-Reactive S/CO (NonReactive)
[2018-08-21] MEDS ORDERED: Dextrose 50% Abboject 50 ML SYRINGE SLOW IVP PRN (18:13)
[2018-08-21] MEDS ORDERED: Dextrose 5% in Water 1,000 ML IV PRN (18:13)
[2018-08-21] MEDS ORDERED: HumaLOG 300 UNITS/3 ML VIAL SC PRN (18:13)
[2018-08-21 18:24] LABS: ALT (SGPT) Less than 7 U/L (8-55); AST (SGOT) 11 U/L (5-34); Albumin 3.9 g/dL (3.4-4.8); Alkaline Phosphatase 67 U/L (40-150); Anion Gap 23 mmol/L (10-20); BUN (Urea Nitrogen) 78 mg/dL (9.8-20.1); Calc. Creatinine Clearance 4 mL/min (70-130); Calcium 9.2 mg/dL (7.8-10.44); Carbon Dioxide 22 mmol/L (23-31); Chloride 95 mmol/L (98-107); Estimated GFR-MDRD 4; Globulin 3.8 g/dL (2.4-3.5); Glucose 93 mg/dL (80-115); Potassium 3.9 mmol/L (3.5-5.1); Protein, Total 7.7 g/dL (6.0-8.3); Sodium 136 mmol/L (136-145)
[2018-08-21] MEDS ORDERED: Mannitol 12.5 GM/50 ML SLOW IVP SCH (18:30)
--- NOTE | 2018-08-22 00:40 | HP ---
CHIEF COMPLAINT: Nausea, poor appetite, not feeling well all with some chest discomfort. HISTORY OF PRESENT ILLNESS: This is a 68-year-old, unfortunate female patient who does not get regular hemodialysis because of lack of insurance, who presented to my office and seemed uremic and got admitted into the hospital for emergent hemodialysis. The patient did undergo about 2 hours of dialysis today and subsequently transferred to the room. In the room, the patient was noted to be having some myoclonic jerks with some hallucinations, raising the possibility of disequilibrium syndrome. Decision is now being taken to transfer the patient from the room to [facility] for closer monitoring. PAST MEDICAL HISTORY: Significant for end-stage renal disease, diabetes mellitus, hypertension, anemia of chronic kidney disease. MEDICATIONS: Reviewed and as documented on [employer]. ALLERGIES: TO PENICILLIN, ASPIRIN. FAMILY HISTORY: Not significantly related to presenting illness. SOCIAL HISTORY: No alcohol, no tobacco, no illicit drug use. The patient is a Evangelical. Does not accept blood products. REVIEW OF SYSTEMS: As documented in the body of history. All the other systems are not significantly related to presenting illness. PHYSICAL EXAMINATION: GENERAL: The patient is found to be having constant myoclonic jerks noted with following vital signs. The patient seems to be alert and able to answer questions and recognize people around her. VITAL SIGNS: Blood pressure 182/74 with pulse of 98, respiratory rate of 23. HEENT: Unremarkable. CARDIOVASCULAR: First and second heart sounds are heard. RESPIRATORY: Clear to auscultation. DIGESTIVE: Reveals a benign abdomen. EXTREMITIES: No peripheral edema. SKIN: No new gross rash. NEURO: Reveals generalized myoclonic jerks with no lateralizing sign. IMPRESSION: 1. End-stage renal disease with uremic symptoms. 2. Disequilibrium syndrome, likely in the context of severe azotemia status post hemodialysis. 3. Anemia of chronic kidney disease. 4. Diabetes mellitus, type 2. 5. Hyperkalemia. PLAN: 1. The blood work that was drawn on presentation today is obviously non-accurate. The patient is now being transferred to [facility] to closer monitoring. 2. We will give a one-time dose of mannitol to see if it will help with possible potential cerebral edema from disequilibrium syndrome. 3. We will readdress dialysis of tomorrow or likely do a short run of dialysis with a lower blood flow tomorrow to avoid the above mentioned condition. 4. Erythropoiesis stimulating agents, Epogen. 5. Further management will be dependent on the clinical course. Job ID: [id number]
[2018-08-22 05:03] LABS: #Lymphocytes 0.8 thou/uL (1.20-3.40); #Monocytes 0.4 thou/uL (0.11-0.59); #Neutrophils 6.1 thou/uL (1.40-6.50); %Basophils 0.1 % (0.0-1.0); %Eosinophils 0.2 % (0.0-10.0); %Lymphocytes 10.9 % (21.0-51.0); %Monocytes 5.7 % (0.0-10.0); %Neutrophils 83.2 % (42.0-75.0); Hemoglobin 7.7 g/dL (12.0-16.0); Mean Corpuscular HGB CONC 34.1 g/dL (32.0-36.0); Mean Corpuscular Hemoglobin 29.8 pg (27.0-31.0); Mean Corpuscular Volume 87.5 fL (78.0-98.0); Mean Platelet Volume 8.3 fL (7.4-10.4); Platelet Count 155 thou/uL (130-400); RBC Distribution Width 15.7 % (11.5-14.5); Red Blood Cell (RBC) Count 2.58 mill/uL (4.20-5.40); White Blood Cell (WBC) Count 7.3 thou/uL (4.8-10.8)
[2018-08-22 05:25] LABS: Albumin 3.5 g/dL (3.4-4.8); Anion Gap 23 mmol/L (10-20); BUN (Urea Nitrogen) 85 mg/dL (9.8-20.1); BUN/Creatinine Ratio 7.73; Calc. Creatinine Clearance 4 mL/min (70-130); Calcium 8.9 mg/dL (7.8-10.44); Carbon Dioxide 22 mmol/L (23-31); Chloride 95 mmol/L (98-107); Estimated GFR-MDRD 3; Glucose 76 mg/dL (80-115); Phosphorus 6.2 mg/dL (2.3-4.7); Potassium 4.5 mmol/L (3.5-5.1); Sodium 135 mmol/L (136-145)
[2018-08-22 06:46] VITALS: BMI 19.5
[2018-08-22] MEDS ORDERED: Calcitriol 0.25 MCG CAP PO SCH (09:00)
[2018-08-22] MEDS ORDERED: Amlodipine 5 MG TAB PO SCH (09:00)
--- NOTE | 2018-08-22 09:02 | CON ---
DATE OF CONSULTATION: HISTORY OF PRESENT ILLNESS: Yunior Salazar is a 68-year-old _latin _ female from [place], [place], who apparently was admitted after she had a code blue incident about 0750 hours, became confused, agitated. Brought to the MICU, reason for consultation. This morning, her granddaughter is at the bedside. The patient speaks no East Timorese. Crop Or Grain Farmer states she does not smoke. Does not drink. End-stage renal disease. Apparently, has no primary care physician, but became quite confused and agitated. No pain. No shortness of breath. No coughing. PAST MEDICAL HISTORY: Diabetes, hypertension, renal failure. ALLERGIES: PENICILLIN. SURGERIES: axcess_. ALCOHOL: None. TOBACCO: None. REVIEW OF SYSTEMS: Otherwise 10-point negative. HOME MEDICATIONS: Included, 1. Protonix. 2. Lasix 40 b.i.d. 3. Amlodipine 5. 4. Tylenol. PHYSICAL EXAMINATION: GENERAL: Awake, alert, responsive. VITAL SIGNS: Saturations are 96% on room air, pulse 80, blood pressure 130/80. CHEST: No wheezing or crackles. CARDIAC: Normal S1, S2. No gallops. ABDOMEN: No masses. LABORATORY DATA: Creatinine is 10. White count is 7000, H and H 7 and 21. ASSESSMENT: Chronic renal failure, diabetes, anemia, encephalopathy resolved, chronic anemia. PLAN: Disposition as per primary care physician. We will follow while in the MICU. Job ID: [id number] MTDD
[2018-08-22] MEDS: Calcium Acetate 667 MG CAP PO SCH ×3 (09:21→17:47)
[2018-08-22] MEDS ORDERED: Mannitol 12.5 GM/50 ML IV SCH (10:00)
[2018-08-22 14:55] VITALS: BP 151/70
[2018-08-22 19:26] VITALS: TEMP 99
== END 2018-08-22 20:10 | disposition home or self-care (01) | DRG 640 ==
LOC: UNDOADMIN 10:34 → T4-A 10:34 → OBSVTOIN 10:39 → IMCU/EMU 18:24
PROVIDERS: ADMIT Internal Medicine Nephrology; ATTEND Internal Medicine Nephrology
DX: E87.8 Other disorders of electrolyte and fluid balance, not elsewhere classified (principal); N18.6 End stage renal disease; I12.0 Hypertensive chronic kidney disease with stage 5 chronic kidney disease or end stage renal disease; G93.40 Encephalopathy, unspecified; D63.1 Anemia in chronic kidney disease; E11.22 Type 2 diabetes mellitus with diabetic chronic kidney disease; E87.5 Hyperkalemia; Z88.0 Allergy status to penicillin; Z88.8 Allergy status to other drugs, medicaments and biological substances
CPT/HCPCS: 36415; 36416; 80069; 83970; 85025; 87040; 87340; J2150

== ENCOUNTER 2018-09-03 14:49 | Observation (INO) | payer SELFPAY ==
[2018-09-03 16:27] VITALS: BMI 22.8
[2018-09-03] MEDS: Mannitol 12.5 GM/50 ML IV SCH ×2 (18:00→19:36)
[2018-09-03 18:10] LABS: #Lymphocytes 0.8 thou/uL (1.20-3.40); #Monocytes 0.4 thou/uL (0.11-0.59); #Neutrophils 5.4 thou/uL (1.40-6.50); %Basophils 0.4 % (0.0-1.0); %Eosinophils 0.2 % (0.0-10.0); %Lymphocytes 11.7 % (21.0-51.0); %Monocytes 5.3 % (0.0-10.0); %Neutrophils 82.4 % (42.0-75.0); Hemoglobin 6.1 g/dL (12.0-16.0); Mean Corpuscular HGB CONC 34.1 g/dL (32.0-36.0); Mean Corpuscular Hemoglobin 29.3 pg (27.0-31.0); Mean Corpuscular Volume 85.9 fL (78.0-98.0); Mean Platelet Volume 7.6 fL (7.4-10.4); Platelet Count 190 thou/uL (130-400); RBC Distribution Width 15.6 % (11.5-14.5); Red Blood Cell (RBC) Count 2.07 mill/uL (4.20-5.40); White Blood Cell (WBC) Count 6.6 thou/uL (4.8-10.8)
[2018-09-03 18:38] LABS: Albumin 3.7 g/dL (3.4-4.8); Anion Gap 30 mmol/L (10-20); Calc. Creatinine Clearance 2 mL/min (70-130); Calcium 8.4 mg/dL (7.8-10.44); Carbon Dioxide 14 mmol/L (23-31); Chloride 92 mmol/L (98-107); Estimated GFR-MDRD 2; Glucose 134 mg/dL (80-115); Potassium 5.6 mmol/L (3.5-5.1); Sodium 130 mmol/L (136-145)
[2018-09-03 18:56] LABS: BUN (Urea Nitrogen) 170 mg/dL (9.8-20.1); BUN/Creatinine Ratio 8.26
[2018-09-03 19:02] LABS: Phosphorus 9.6 mg/dL (2.3-4.7)
[2018-09-03] MEDS ORDERED: Epoetin (ESRD) 20,000 UNITS/ML IVP SCH (20:00)
[2018-09-03] MEDS ORDERED: IRON SUCROSE COMPLEX 100 MG/5 ML SLOW IVP SCH (20:00)
[2018-09-03] MEDS: Acetaminophen 325 MG TAB PO PRN (21:17)
[2018-09-03] MEDS: EPOETIN ALFA-EPBX (ESRD) 4,000 UNIT/ML VIAL IVP SCH (21:21)
[2018-09-03] MEDS: Iron, Sodium Ferric Gluconate 125 MG in Sodium Chloride 0.9% 100 ML IVPB SCH (21:25)
--- NOTE | 2018-09-04 02:17 | HP ---
CHIEF COMPLAINT: Nausea, vomiting, shortness of breath, and body shaking. HISTORY OF PRESENT ILLNESS: A 68-year-old unfortunate female patient who could not get any secure outpatient dialysis facility due to financial status, who presented with what is obviously myoclonic jerks with evidence of uremia. LABORATORY INVESTIGATION: Did reveal hemoglobin of 6.1. Chemistry showed a potassium of 5.6, sodium of 130, bicarb of 14, and BUN of 107 with a creatinine 20.57, phosphorus of 9.6. PAST MEDICAL HISTORY: Unchanged from the recent hospitalization. For details, please refer to dictation. FAMILY HISTORY: Unchanged from the recent hospitalization. For details, please refer to dictation. SOCIAL HISTORY: Unchanged from the recent hospitalization. For details, please refer to dictation. MEDICATIONS: Reviewed as documented on FP Complete. ALLERGIES: ASPIRIN AND PENICILLIN. REVIEW OF SYSTEMS: As documented in the body of the history. PHYSICAL EXAMINATION: GENERAL: The patient was found to be ill looking. VITAL SIGNS: Noted with the following vital signs; afebrile, temperature 97.8, pulse 80, blood pressure 149/61, respiratory rate of 18, O2 sat 98%. HEENT: Unremarkable. CARDIOVASCULAR SYSTEM: First and second heart sounds were heard. RESPIRATORY SYSTEM: Clear to auscultation. DIGESTIVE: Revealed a benign abdomen. EXTREMITIES: Show some ankle and pedal edema. NEURO: Revealed the patient is having generalized myoclonic jerks. IMPRESSION: 1. End-stage renal disease. 2. Uremia. 3. Anemia of chronic kidney disease. 4. Diabetes mellitus. 5. Metabolic acidosis. 6. Hyperkalemia. PLAN: 1. The patient to be dialyzed today. We will run a very gentle dialysis for only 1-1/2 hours to avoid disequilibrium syndrome. The patient to receive mannitol on-call to dialysis. 2. Iron infusion with erythropoiesis stimulating agents. 3. Further management will be dependent on the clinical course. 4. Code status is full. Job ID: [id number]
--- NOTE | 2018-09-04 07:45 | RAD ---
LEFT SHOULDER THREE VIEWS: HISTORY: Left shoulder pain following a fall. FINDINGS: Arthrosis and degenerative changes, particularly of the left AC joint. No fracture or dislocation. IMPRESSION: Degenerative changes without fracture or dislocation. POS: OFF
[2018-09-04] MEDS: Folic Acid/Vit B Comp W-C PO SCH (07:51)
[2018-09-04] MEDS: Calcitriol 0.25 MCG CAP PO SCH (07:51)
[2018-09-04] MEDS: Amlodipine 5 MG TAB PO SCH (07:51)
[2018-09-04] MEDS: Calcium Carbonate 500 MG ChewTAB PO SCH ×2 (07:51→17:37)
[2018-09-04] MEDS: Acetaminophen 325 MG TAB PO PRN (07:51)
--- NOTE | 2018-09-04 07:57 | RAD ---
RIGHT SHOULDER THREE VIEWS: HISTORY: Right shoulder pain following injury from a fall at home. FINDINGS: Degenerative changes, right AC joint. No acute fracture or dislocation. IMPRESSION: No acute process. No fracture or dislocation. POS: OFF
[2018-09-04] MEDS: Iron, Sodium Ferric Gluconate 125 MG in Sodium Chloride 0.9% 100 ML IVPB SCH (20:20)
--- NOTE | 2018-09-04 20:49 | PRG ---
DATE OF SERVICE: 09/04/2018 SUBJECTIVE: The patient was seen and examined on dialysis, seems to be tolerating dialysis very well, noted with following vital signs. OBJECTIVE: VITAL SIGNS: Afebrile, temperature 99.2, pulse 84, respiratory rate of 16, O2 saturations of 97%, and blood pressure of 160/61. HEENT: Unremarkable. CARDIOVASCULAR SYSTEM: First and second heart sounds were heard. RESPIRATORY SYSTEM: Clear to auscultation. DIGESTIVE SYSTEM: Revealed a benign abdomen. Positive bowel sounds. EXTREMITIES: No peripheral edema. SKIN: No new gross rash. LYMPHATICS: No peripheral lymphadenopathy. IMPRESSION: 1. End-stage renal disease with uremic symptoms. 2. Metabolic acidosis. 3. Hyperkalemia. 4. Anemia, anemia of chronic kidney disease. PLAN: 1. The patient to receive the third session of dialysis tomorrow. After her dialysis, if the patient is feeling okay, likely to be discharged. 2. Continue with iron infusion and erythropoiesis stimulating agent. 3. Further management to be dependent on the clinical course. Job ID: [id number]
[2018-09-05] MEDS: Acetaminophen 325 MG TAB PO PRN (00:12)
[2018-09-05 06:06] LABS: #Basophils 0.1 thou/uL (0.0-0.2); #Monocytes 0.5 thou/uL (0.11-0.59); #Neutrophils 4.8 thou/uL (1.40-6.50); %Eosinophils 0.6 % (0.0-10.0); %Neutrophils 75.4 % (42.0-75.0); Hemoglobin 6.9 g/dL (12.0-16.0); Mean Corpuscular HGB CONC 33.4 g/dL (32.0-36.0); Mean Corpuscular Hemoglobin 29.3 pg (27.0-31.0); Mean Corpuscular Volume 87.9 fL (78.0-98.0); Mean Platelet Volume 7.3 fL (7.4-10.4); Platelet Count 203 thou/uL (130-400); RBC Distribution Width 15.2 % (11.5-14.5); Red Blood Cell (RBC) Count 2.35 mill/uL (4.20-5.40); White Blood Cell (WBC) Count 6.4 thou/uL (4.8-10.8)
[2018-09-05 06:28] LABS: Albumin 3.1 g/dL (3.4-4.8); Anion Gap 17 mmol/L (10-20); BUN (Urea Nitrogen) 58 mg/dL (9.8-20.1); Calc. Creatinine Clearance 5 mL/min (70-130); Calcium 8.8 mg/dL (7.8-10.44); Carbon Dioxide 25 mmol/L (23-31); Chloride 96 mmol/L (98-107); Estimated GFR-MDRD 4; Glucose 81 mg/dL (80-115); Phosphorus 5.1 mg/dL (2.3-4.7); Potassium 3.7 mmol/L (3.5-5.1); Sodium 134 mmol/L (136-145)
[2018-09-05] MEDS: Folic Acid/Vit B Comp W-C PO SCH (09:45)
[2018-09-05] MEDS: Amlodipine 5 MG TAB PO SCH (09:45)
[2018-09-05] MEDS: Calcium Carbonate 500 MG ChewTAB PO SCH ×2 (09:45→18:17)
[2018-09-05] MEDS: Calcitriol 0.25 MCG CAP PO SCH (09:45)
[2018-09-05] MEDS: EPOETIN ALFA-EPBX (ESRD) 4,000 UNIT/ML VIAL IVP SCH (13:22)
--- NOTE | 2018-09-05 19:28 | PRG ---
DATE OF SERVICE: 09/05/2018 SUBJECTIVE: The patient is seen and examined, not feeling very well. OBJECTIVE: VITAL SIGNS: Noted with the following vital signs: Afebrile, temperature 98.6, pulse 79, respiratory rate of 18, O2 saturation of 97%, and blood pressure 158/61. HEENT: Unremarkable. CARDIOVASCULAR SYSTEM: First and second heart sounds were heard. RESPIRATORY SYSTEM: Clear to auscultation. DIGESTIVE SYSTEM: Revealed a benign abdomen with positive bowel sounds. EXTREMITIES: No peripheral edema. SKIN: No new gross rash. LYMPHATICS: No peripheral lymphadenopathy. LABORATORY INVESTIGATIONS: Showed a hemoglobin of 6.9. Chemistry showed BUN of 58 with a creatinine of 9.2 and phosphorus 5.1. IMPRESSION: 1. End-stage renal disease with profound uremic symptoms on presentation. 2. Severe anemia in the context of anemia of chronic kidney disease. PLAN: 1. The patient is Jehovah Witness. She is not a candidate for blood transfusion. We will continue with iron infusion and erythropoiesis stimulating agent. 2. Likely dialyze the patient tomorrow prior to discharge. 3. Further management to be dependent on the clinical course. Job ID: [id number]
[2018-09-05] MEDS: Iron, Sodium Ferric Gluconate 125 MG in Sodium Chloride 0.9% 100 ML IVPB SCH (20:54)
[2018-09-06 07:27] VITALS: BP 152/55; TEMP 98.9
[2018-09-06] MEDS: Calcitriol 0.25 MCG CAP PO SCH (08:27)
[2018-09-06] MEDS: Calcium Carbonate 500 MG ChewTAB PO SCH ×2 (08:27→17:41)
[2018-09-06] MEDS: Amlodipine 5 MG TAB PO SCH (08:27)
[2018-09-06] MEDS: Folic Acid/Vit B Comp W-C PO SCH (08:27)
--- NOTE | 2018-09-07 05:22 | DIS ---
DATE OF ADMISSION: 09/03/2018 DATE OF DISCHARGE: 09/06/2018 For details of the history and physical, refer to my dictation on admission. SUMMARY: A 68-year-old female patient with end-stage renal disease, who presented here as severely uremic. The patient had to stay a little bit longer during this hospitalization in order to spread out the renal replacement therapy and avoid precipitating disequilibrium syndrome. The patient tolerated dialysis protocol during this hospitalization and the patient is now stable to the point of discharge. The patient to be discharged on the current medication with the exception of discontinuation of Renvela as the patient could not tolerate this medication as it makes the patient nauseated. In place of this, the patient has been started on Tums to be taken three times a day with meals. The patient to follow up with me in the clinic status post discharge. Job ID: [id number]
== END 2018-09-06 20:15 | disposition home or self-care (01) ==
LOC: T4-A 15:58
PROVIDERS: ADMIT Internal Medicine Nephrology; ATTEND Internal Medicine Nephrology
DX: I12.0 Hypertensive chronic kidney disease with stage 5 chronic kidney disease or end stage renal disease (principal); E11.22 Type 2 diabetes mellitus with diabetic chronic kidney disease; N18.6 End stage renal disease; D63.1 Anemia in chronic kidney disease; E87.5 Hyperkalemia; E11.10 Type 2 diabetes mellitus with ketoacidosis without coma; M25.512 Pain in left shoulder; M25.511 Pain in right shoulder; Z79.899 Other long term (current) drug therapy; Z88.0 Allergy status to penicillin; Z88.8 Allergy status to other drugs, medicaments and biological substances; Z99.2 Dependence on renal dialysis; W19.XXXA Unspecified fall, initial encounter; Y92.019 Unspecified place in single-family (private) house as the place of occurrence of the external cause
CPT/HCPCS: 36415; 36416; 80069; 85025; 90935; 96365; 96366; 96375; 96376; G0257; G0378; J2150; J2916; J3490; Q5105

== ENCOUNTER 2018-09-16 18:20 | Inpatient (IN) | payer MEDICAID, SELFPAY ==
[2018-09-16] MEDS ORDERED: Acetaminophen 325 MG TAB PO PRN (20:15)
[2018-09-16] MEDS ORDERED: Dextrose 5% in Water 1,000 ML IV PRN (20:15)
[2018-09-16] MEDS ORDERED: Dextrose 50% Abboject 50 ML SYRINGE SLOW IVP PRN (20:15)
[2018-09-16] MEDS ORDERED: Loperamide HCl 2 MG CAP PO PRN ×2 (20:15)
[2018-09-16] MEDS ORDERED: Ondansetron ODT 4 MG TAB PO PRN (20:15)
[2018-09-16] MEDS ORDERED: HYDROcodone/Acetaminophen 5/325 mg Tablet PO PRN (20:15)
[2018-09-16] MEDS ORDERED: Insulin Regular 300 UNITS/3 ML VIAL SC PRN (20:15)
[2018-09-16] MEDS ORDERED: Ondansetron PF 4 MG/2 ML Vial IVP PRN (20:15)
[2018-09-16] MEDS ORDERED: Famotidine 20 MG TAB PO SCH (21:00)
[2018-09-16 22:35] VITALS: BMI 23.7
[2018-09-16 23:42] LABS: HBSAg Index 0.29 S/CO (0-0.99); Hep B Surf Ag Non-Reactive S/CO (NonReactive)
[2018-09-17 05:47] LABS: Bilirubin Negative (Negative); Blood, Urine Small (Negative); Clarity TURBID (Clear); Glucose, Urine (Dipstick) 250 mg/dL (Negative); Leukocyte Moderate (Negative); Nitrite Negative (Negative); Protein, Urine (Dipstick) > or equal to 300 mg/dL (Neg-Trace); Specific Gravity, Urine 1.017 (1.002-1.036); Urobilinogen 0.2 mg/dL (0.2-1.0); pH, Urine 7.5 (5.0-9.0)
[2018-09-17 05:50] LABS: Bacteria/HPF 2+ HPF (None Seen); Hyaline Casts/LPF 4-6 HYALINE CAST LPF (0-3 Hyaline); Pathc Cast-AUWi Flag 1.49 (0-2.49)
[2018-09-17 05:51] LABS: Yeast-AUWi Flag 356.1 (0-25.0)
[2018-09-17 06:02] LABS: Yeast-All Forms None Seen HPF (None Seen)
[2018-09-17 08:22] LABS: Hemoglobin 6.5 g/dL (12.0-16.0); Mean Corpuscular HGB CONC 34.5 g/dL (32.0-36.0); Mean Corpuscular Hemoglobin 30.2 pg (27.0-31.0); Mean Corpuscular Volume 87.4 fL (78.0-98.0); Mean Platelet Volume 7.5 fL (7.4-10.4); Platelet Count 230 thou/uL (130-400); Red Blood Cell (RBC) Count 2.17 mill/uL (4.20-5.40); White Blood Cell (WBC) Count 5.4 thou/uL (4.8-10.8)
[2018-09-17] MEDS: Calcium Acetate 667 MG CAP PO SCH ×3 (08:48→17:55)
[2018-09-17] MEDS ORDERED: Amlodipine 5 MG TAB PO SCH (09:00)
[2018-09-17] MEDS: Furosemide 40 MG TAB PO SCH ×2 (09:00→14:00)
[2018-09-17] MEDS ORDERED: Folic Acid/Vit B Comp W-C PO SCH (09:00)
[2018-09-17] MEDS ORDERED: Sodium Bicarbonate Tab 325 MG TAB PO SCH (09:00)
[2018-09-17] MEDS ORDERED: Calcitriol 0.25 MCG CAP PO SCH (09:00)
[2018-09-17 09:17] LABS: Band 1 % (5-11); Eosinophils 1 % (0-10); Lymphocytes 20 % (21-51); MDiff Complete? YES; Monocytes 10 % (0-10); Neutrophil 67 % (42-75); Platelet Morphology Comment Appears Adequate; Polychromasia SLIGHT = 2-3 cells (100X) (0-2/hpf)
[2018-09-17] MEDS ORDERED: EPOETIN ALFA-EPBX (ESRD) 10,000 UNIT/ML VIAL SC SCH (16:30)
[2018-09-17 18:18] VITALS: BP 164/63; TEMP 98
--- NOTE | 2018-09-22 22:43 | HP ---
CHIEF COMPLAINT: Shortness of breath, nausea, vomiting, and chest discomfort. HISTORY: A 68-year-old female patient who unfortunately does not have anyone get her scheduled outpatient dialysis, who presented with nausea, vomiting, poor appetite, and generally not feeling well with laboratory investigations highly significant of uremia with profound azotemia and severe hyperkalemic and metabolically acidotic. Decision was taken to admit this patient for further treatment, especially renal replacement therapy. PAST MEDICAL HISTORY: Remains unchanged from the previous history documented in the recent note of this patient. FAMILY HISTORY: Remains the same. SOCIAL HISTORY: Remains the same. REVIEW OF SYSTEMS: As documented in the body of the history. All other systems were reviewed and found not to be significantly related to present illness. PHYSICAL EXAMINATION: GENERAL: The patient was found to be ill looking with the following vital signs. VITAL SIGNS: Afebrile, temperature 98.4, pulse 86, respiratory rate of 18, O2 saturation of 96%, blood pressure 155/61. HEENT: Unremarkable. CARDIOVASCULAR: First and second heart sounds were heard. RESPIRATORY: Clear to auscultation. DIGESTIVE: Revealed a benign abdomen. EXTREMITIES: Showed mild peripheral edema. SKIN: No new gross rash. NEUROLOGIC: Revealed the patient is alert. No lateralizing sign with some myoclonic jerks. IMPRESSION: 1. End-stage renal disease, poorly dialyzed. 2. Uremia. 3. Severe hyperkalemia. 4. Metabolic acidosis related to problem #1. PLAN: 1. The patient to be dialyzed gently today and again tomorrow, after which the patient can be discharged if medically stable. 2. Erythropoiesis stimulating agent, on iron infusion. 3. Further management will be dependent on the clinical course. In any case, the patient to be discharged within the next 24 hours if everything remains stable. Job ID: [id number]
== END 2018-09-17 18:14 | disposition home or self-care (01) | DRG 683 ==
LOC: T4-B 20:46
PROVIDERS: ADMIT Internal Medicine Nephrology; ATTEND Internal Medicine Nephrology
PROC: 5A1D70Z Performance of Urinary Filtration, Intermittent, Less than 6 Hours Per Day (ICD-10-PCS; principal; 2018-09-16)
PROC: 5A1D70Z Performance of Urinary Filtration, Intermittent, Less than 6 Hours Per Day (ICD-10-PCS; 2018-09-17)
DX: N18.6 End stage renal disease (principal); E87.2 Acidosis; E87.5 Hyperkalemia
CPT/HCPCS: 36415; 36416; 81001; 85007; 85027; 87340; 90935; G0257; Q5105

== ENCOUNTER 2018-09-23 10:31 | Observation (INO) | payer MEDICAID, SELFPAY ==
--- NOTE | 2018-09-23 11:15 | RAD ---
XR Chest 1 View Portable History: Shortness of breath Comparison: None. Findings: Small effusions. Heart size is enlarged. Mild chronic venous congestion and mild edema. No acute osseous abnormality. Mild vascular calcifications of the aorta. Impression: Cardiomegaly, small effusions, and pulmonary edema.
[2018-09-23 11:45] LABS: #Basophils 0.1 thou/uL (0.0-0.2); #Eosinphils 0.1 thou/uL (0.0-0.7); #Lymphocytes 1.4 thou/uL (1.20-3.40); #Monocytes 0.5 thou/uL (0.11-0.59); #Neutrophils 4.8 thou/uL (1.40-6.50); %Basophils 0.8 % (0.0-1.0); %Eosinophils 1.5 % (0.0-10.0); %Lymphocytes 20.6 % (21.0-51.0); %Monocytes 7.6 % (0.0-10.0); %Neutrophils 69.6 % (42.0-75.0); Hemoglobin 7.1 g/dL (12.0-16.0); Mean Corpuscular Hemoglobin 30.2 pg (27.0-31.0); Mean Platelet Volume 6.6 fL (7.4-10.4); Platelet Count 345 thou/uL (130-400); RBC Distribution Width 18.5 % (11.5-14.5); Red Blood Cell (RBC) Count 2.35 mill/uL (4.20-5.40); White Blood Cell (WBC) Count 6.9 thou/uL (4.8-10.8)
[2018-09-23 12:07] LABS: ALT (SGPT) 8 U/L (8-55); AST (SGOT) 19 U/L (5-34); Albumin 3.8 g/dL (3.4-4.8); Alkaline Phosphatase 69 U/L (40-150); Anion Gap 24 mmol/L (10-20); BUN (Urea Nitrogen) 90 mg/dL (9.8-20.1); Bilirubin, Total 0.7 mg/dL (0.2-1.2); Calc. Creatinine Clearance 0 mL/min (70-130); Calcium 8.5 mg/dL (7.8-10.44); Carbon Dioxide 20 mmol/L (23-31); Chloride 96 mmol/L (98-107); Estimated GFR-MDRD 3; Globulin 3.3 g/dL (2.4-3.5); Glucose 128 mg/dL (80-115); Lipase 161 U/L (8-78); Protein, Total 7.1 g/dL (6.0-8.3); Sodium 135 mmol/L (136-145)
[2018-09-23 12:27] LABS: CKMB 1.4 ng/mL (0-6.6)
[2018-09-23] MEDS ORDERED: Ondansetron ODT 4 MG TAB PO PRN (18:08)
[2018-09-23] MEDS ORDERED: Loperamide HCl 2 MG CAP PO PRN (18:08)
[2018-09-23] MEDS ORDERED: Acetaminophen 325 MG TAB PO PRN (18:08)
[2018-09-23] MEDS ORDERED: Ondansetron PF 4 MG/2 ML Vial IVP PRN (18:08)
[2018-09-23] MEDS: EPOETIN ALFA-EPBX (ESRD) 3,000 UNIT/ML VIAL SC SCH (18:25)
[2018-09-23] MEDS: EPOETIN ALFA-EPBX (ESRD) 2,000 UNIT/ML VIAL SC SCH (18:25)
[2018-09-23] MEDS: Famotidine 20 MG TAB PO SCH (20:29)
[2018-09-23] MEDS: Iron, Sodium Ferric Gluconate 250 MG in Sodium Chloride 0.9% 100 ML IVPB SCH (20:39)
--- NOTE | 2018-09-24 04:13 | HP ---
CHIEF COMPLAINT: Shortness of breath and leg swelling. HISTORY OF PRESENT ILLNESS: The patient is a 68-year-old with end-stage renal disease, who unfortunately does not have any scheduled outpatient dialysis treatment. The patient recently here hospitalized with uremia and now re-presenting again with some shortness of breath and leg swelling. Past medical history, family history, social history remains the same from the previous history. REVIEW OF SYSTEMS: As documented in the body of history. All the other systems were reviewed and found not to be significantly related to presenting illness. EXTREMITIES: Ankle edema. IMPRESSION: 1. End-stage renal disease, on hemodialysis. 2. Anemia. 3. Hypertension. 4. Diabetes mellitus. PLAN: The patient will be admitted for observation overnight. After dialysis tomorrow, the patient likely to be able to be discharged. In any case, we will continue to monitor all other renal supportive measures. Job ID: [id number]
[2018-09-24 08:22] VITALS: TEMP 98.9
[2018-09-24] MEDS ORDERED: Amlodipine 5 MG TAB PO SCH (09:00)
[2018-09-24] MEDS ORDERED: Calcitriol 0.25 MCG CAP PO SCH (09:00)
[2018-09-24] MEDS: Famotidine 20 MG TAB PO SCH (09:34)
[2018-09-24 11:53] VITALS: BMI 21.8
[2018-09-24] MEDS: EPOETIN ALFA-EPBX (ESRD) 3,000 UNIT/ML VIAL SC SCH (13:27)
[2018-09-24] MEDS: EPOETIN ALFA-EPBX (ESRD) 2,000 UNIT/ML VIAL SC SCH (14:11)
[2018-09-24] MEDS: Iron, Sodium Ferric Gluconate 250 MG in Sodium Chloride 0.9% 100 ML IVPB SCH (16:43)
[2018-09-24 16:51] VITALS: BP 183/78
--- NOTE | 2018-09-25 04:19 | DIS ---
DATE OF ADMISSION: 09/23/2018 DATE OF DISCHARGE: 09/24/2018 The patient is seen and examined, status post dialysis, seems to be doing okay, hemodynamically stable. Rest of the physical findings are unremarkable. The patient to be discharged home today after receiving iron infusion to address the anemia of chronic kidney disease and iron deficiency in this patient. From the renal standpoint, the patient is due for discharge. We will discharge this patient to continue with current home medications. Job ID: [id number]
[2018-09-25] MEDS ORDERED: Famotidine 20 MG TAB PO SCH (09:00)
--- NOTE | 2018-09-28 17:02 | EKG ---
Test Reason : Blood Pressure : / mmHG Vent. Rate : 083 BPM Atrial Rate : 083 BPM P-R Int : 174 ms QRS Dur : 072 ms QT Int : 380 ms P-R-T Axes : 065 008 076 degrees QTc Int : 446 ms Normal sinus rhythm Nonspecific ST and T wave abnormality Abnormal ECG Confirmed by MEREDITH CALLAWAY, WALTER ([id number]), commercial production editor KATARINA MOY ([id number]) on 09/28/2018 5:02:40 PM Referred By: Confirmed By:WALTER HARPER MD
== END 2018-09-24 19:33 | disposition home or self-care (01) ==
LOC: ERS 10:31 → 2SW 12:55
PROVIDERS: ADMIT Internal Medicine Nephrology; ATTEND Internal Medicine Nephrology
DX: R06.02 Shortness of breath (principal); M79.89 Other specified soft tissue disorders; I12.0 Hypertensive chronic kidney disease with stage 5 chronic kidney disease or end stage renal disease; E11.22 Type 2 diabetes mellitus with diabetic chronic kidney disease; N18.6 End stage renal disease; D63.1 Anemia in chronic kidney disease; Z99.2 Dependence on renal dialysis; Z79.899 Other long term (current) drug therapy; Z88.0 Allergy status to penicillin; Z88.8 Allergy status to other drugs, medicaments and biological substances
CPT/HCPCS: 36415; 36416; 71045; 80053; 82553; 83690; 83880; 84484; 85025; 90935; 93005; 96365; 96366; 96372; G0257; G0378; J2916; J3490; Q5105

== ENCOUNTER 2018-10-04 14:45 | Observation (INO) | payer MEDICAID, SELFPAY ==
[~2018-10-04 14:45] MED LIST changes: +Heparin 1,000 UNITS/ML VIAL ONE; -Heparin 10,000 UNITS/ 10 ML VIAL ONE
[2018-10-04 15:31] LABS: #Basophils 0.1 thou/uL (0.0-0.2); #Eosinphils 0.3 thou/uL (0.0-0.7); #Lymphocytes 1.2 thou/uL (1.20-3.40); #Monocytes 0.4 thou/uL (0.11-0.59); #Neutrophils 3.3 thou/uL (1.40-6.50); %Basophils 1.1 % (0.0-1.0); %Eosinophils 5.1 % (0.0-10.0); %Lymphocytes 23.4 % (21.0-51.0); %Monocytes 7.8 % (0.0-10.0); %Neutrophils 62.6 % (42.0-75.0); Hemoglobin 7.2 g/dL (12.0-16.0); Mean Corpuscular HGB CONC 32.7 g/dL (32.0-36.0); Mean Corpuscular Hemoglobin 30.4 pg (27.0-31.0); Mean Corpuscular Volume 92.9 fL (78.0-98.0); Mean Platelet Volume 8.5 fL (7.4-10.4); Platelet Count 155 thou/uL (130-400); RBC Distribution Width 20.1 % (11.5-14.5); Red Blood Cell (RBC) Count 2.38 mill/uL (4.20-5.40); White Blood Cell (WBC) Count 5.2 thou/uL (4.8-10.8)
[2018-10-04 15:58] LABS: ALT (SGPT) 10 U/L (8-55); AST (SGOT) 18 U/L (5-34); Albumin 3.9 g/dL (3.4-4.8); Alkaline Phosphatase 61 U/L (40-150); Anion Gap 29 mmol/L (10-20); BUN (Urea Nitrogen) 116 mg/dL (9.8-20.1); Bilirubin, Total 0.9 mg/dL (0.2-1.2); CK (CPK) 99 U/L (29-168); Calc. Creatinine Clearance 0 mL/min (70-130); Calcium 8.3 mg/dL (7.8-10.44); Carbon Dioxide 15 mmol/L (23-31); Chloride 98 mmol/L (98-107); Estimated GFR-MDRD 2; Globulin 3.4 g/dL (2.4-3.5); Glucose 98 mg/dL (80-115); Potassium 5.3 mmol/L (3.5-5.1); Protein, Total 7.3 g/dL (6.0-8.3); Sodium 137 mmol/L (136-145)
[2018-10-04 16:13] LABS: CKMB 2.2 ng/mL (0-6.6)
[2018-10-04] MEDS ORDERED: Ondansetron PF 4 MG/2 ML Vial ONE (17:43)
--- NOTE | 2018-10-04 18:00 | RAD ---
XR Chest 1 View Portable History: Shortness of breath Comparison: Radiograph September 23, 2018 Findings: Moderate pulmonary edema. Large effusions. No pneumothorax. Heart size is enlarged. No acut e osseous abnormality. Impression: Changes of volume overload.
[2018-10-04 19:11] LABS: Troponin I 0.101 ng/mL (< 0.028)
[2018-10-04 20:07] VITALS: BMI 21.8
[2018-10-04 22:00] LABS: Anion Gap 27 mmol/L (10-20); BUN (Urea Nitrogen) 114 mg/dL (9.8-20.1); Calc. Creatinine Clearance 3 mL/min (70-130); Calcium 8.2 mg/dL (7.8-10.44); Carbon Dioxide 17 mmol/L (23-31); Chloride 98 mmol/L (98-107); Estimated GFR-MDRD 2; Glucose 114 mg/dL (80-115); Potassium 5.3 mmol/L (3.5-5.1); Sodium 137 mmol/L (136-145)
[2018-10-04 22:06] LABS: Troponin I 0.066 ng/mL (< 0.028)
[2018-10-04] MEDS ORDERED: EPOETIN ALFA-EPBX (ESRD) 4,000 UNIT/ML VIAL SC SCH (23:00)
[2018-10-04] MEDS ORDERED: Iron Sucrose Complex 200 MG in Sodium Chloride 0.9% 250 ML 250 ML IVPB SCH (23:00)
[2018-10-05] MEDS ORDERED: Acetaminophen 325 MG TAB PO PRN (00:16)
--- NOTE | 2018-10-05 01:41 | HP ---
CHIEF COMPLAINT: Chest pain and shortness of breath. HISTORY OF PRESENT ILLNESS: The patient is a 68-year-old Latvian-speaking only female with past medical history significant for end-stage renal disease with no access to regularly scheduled dialysis, type 2 diabetes mellitus, hypertension, and chronic anemia, who presented to the hospital today with a 2-day history of worsening shortness of breath and some associated chest discomfort. Her granddaughter is at bedside and provides history as well as serves as american sign language interpreter. The patient's last dialysis session was 9 days ago. The patient states that several days ago, she began to feel short of breath. She describes some associated chest pain that she states is sharp and is exacerbated with deep breathing. The patient has no exertional chest discomfort at this time. Workup on arrival in the ER included chemistry which showed a BUN of 116 and potassium of 5.3. Her troponin was 0.084, and her hemoglobin was 7.2. EKG showed sinus rhythm, no dynamic ST or T-wave changes. At the time of my interview, the patient is chest pain free. Dr. Rodriguez has been consulted, and the patient will receive dialysis this evening. REVIEW OF SYSTEMS: Twelve-point review of systems performed and is largely negative. She does report poor appetite over the past day and a half. Otherwise, negative. No nausea or vomiting. No recent sick contacts. No cough, fever, or chills. No blood in her urine or stool. ALLERGIES: ASPIRIN, PENICILLIN G, AND PENICILLINS. HOME MEDICATIONS: 1. Acetaminophen 650 mg p.o. p.r.n. 2. Amlodipine 5 mg p.o. daily. 3. Calcium acetate p.o. t.i.d. 4. Folic acid-vitamin B complex one tablet tablet daily. 5. Sodium bicarb 325 mg tablet one tablet p.o. b.i.d. 6. Calcitriol 0.25 mcg p.o. daily. 7. Lasix 40 mg tablet one tablet p.o. b.i.d. 8. Pantoprazole 40 mg tablet one tablet daily. PAST MEDICAL HISTORY: End-stage renal disease, on dialysis, the patient still produces some urine; type 2 diabetes; hypertension; secondary hyperparathyroidism; anemia of chronic disease. SOCIAL HISTORY: No alcohol, tobacco, or illicit drug use. She lives at home with family. She refuses blood products. FAMILY HISTORY: Noncontributory. PHYSICAL EXAMINATION: VITAL SIGNS: Blood pressure 161/68, pulse 79, respirations 16, O2 saturation is 98% on room air, patient afebrile, 98 degrees. GENERAL: This is a petite woman, resting comfortably in bed, in no acute distress. HEENT: Head is atraumatic and normocephalic. Mucous membranes are moist. NECK: No lymphadenopathy. Trachea is midline. CV: S1 and S2. Regular rate and rhythm. No appreciable murmurs, rubs, or gallops. LUNGS: Regular respiratory rate and pattern. The patient does have decreased breath sounds and bibasilar crackles. ABDOMEN: Positive bowel sounds. Soft, nontender. EXTREMITIES: +2 DP edema bilaterally. NEUROLOGIC: The patient is alert and oriented x3. Nonfocal, cranial nerves 2 through 12 are intact. LABORATORY DATA: RBC 2.38, hemoglobin 7.2, hematocrit 22.1, white blood cell count 5.2, platelets are 155. Sodium 137, potassium 5.3, carbon dioxide 15, anion gap 29, BUN is 116, creatinine 16, glucose 98. Troponin 0.084. ASSESSMENT: 1. Shortness of breath and chest pain secondary to volume overload in the setting of no access to regularly scheduled dialysis sessions. 2. End-stage renal disease, on dialysis, last dialysis session 9 days ago 3. Chronic indeterminate troponin in the setting of end-stage renal disease and volume overload. 4. Anemia of chronic disease, hemoglobin 7.2, which is stable from previous visits. Patient refuses blood products. 5. Hypertension. 6. Type 2 diabetes mellitus. PLAN: The patient's chest pain is atypical, and likely a result of her volume overload as it is plueritic in nature. The plan is for dialysis this evening and another session tomorrow. Per conversation with Dr. Rodriguez, she will likely be able to be discharged home tomorrow after her dialysis session. We will continue her antihypertensive regimen. As mentioned, the patient's hemoglobin is 7.2, and she does refuse any blood products and this has been discussed with the patient at length. She is a full code at this time. Anticipate discharge tomorrow after dialysis. Job ID: [id number] [facility]
[2018-10-05 07:15] LABS: Anion Gap 20 mmol/L (10-20); BUN (Urea Nitrogen) 69 mg/dL (9.8-20.1); Calc. Creatinine Clearance 4 mL/min (70-130); Calcium 7.9 mg/dL (7.8-10.44); Carbon Dioxide 22 mmol/L (23-31); Chloride 100 mmol/L (98-107); Estimated GFR-MDRD 4; Glucose 70 mg/dL (80-115); Potassium 4.5 mmol/L (3.5-5.1); Sodium 137 mmol/L (136-145)
[2018-10-05] MEDS ORDERED: NIFEdipine XL 30 MG TAB PO SCH (09:00)
[2018-10-05] MEDS ORDERED: Amlodipine 5 MG TAB PO SCH (09:00)
[2018-10-05] MEDS ORDERED: Calcitriol 0.25 MCG CAP PO SCH (09:00)
[2018-10-05] MEDS ORDERED: Folic Acid/Vit B Comp W-C PO SCH (09:00)
[2018-10-05] MEDS ORDERED: Sodium Bicarbonate Tab 325 MG TAB PO SCH (09:00)
[2018-10-05] MEDS: Calcium Acetate 667 MG CAP PO SCH ×2 (12:22→16:55)
--- NOTE | 2018-10-05 12:27 | EKG ---
Test Reason : Blood Pressure : / mmHG Vent. Rate : 082 BPM Atrial Rate : 082 BPM P-R Int : 162 ms QRS Dur : 078 ms QT Int : 404 ms P-R-T Axes : 000 -21 162 degrees QTc Int : 472 ms Normal sinus rhythm Nonspecific T wave abnormality Prolonged QT Abnormal ECG Confirmed by ROSA ROSE ([id number]), editorial specialist KATARINA MOY ([id number]) on 10/05/2018 12:26:58 PM Referred By: Confirmed By:ROSA ROSE
[2018-10-05 13:58] LABS: Anion Gap 15 mmol/L (10-20); BUN (Urea Nitrogen) 18 mg/dL (9.8-20.1); Calc. Creatinine Clearance 10 mL/min (70-130); Calcium 8.7 mg/dL (7.8-10.44); Carbon Dioxide 28 mmol/L (23-31); Chloride 97 mmol/L (98-107); Estimated GFR-MDRD 11; Glucose 108 mg/dL (80-115); Potassium 3.6 mmol/L (3.5-5.1); Sodium 136 mmol/L (136-145)
--- NOTE | 2018-10-05 15:20 | PDOC.PN ---
- Subjective Encounter Start Date: 10/05/18 Encounter Start Time: 13:00 Subjective: Patient examined once she returned from dialysis -: Patient has had 2 dialysis treatments in the last 24 hours -: Reports she feels much better, denies c/o - Objective Vital Signs & Weight: Vital Signs (12 hours) Temp Pulse Resp BP BP Pulse Ox 10/05/18 12:25 98.3 F 10/05/18 12:23 73 167/72 H 10/05/18 12:20 98.3 F 75 12 167/72 H 97 10/05/18 07:12 98.6 F 73 12 172/70 H 93 L 10/05/18 04:08 98.9 F 72 16 153/67 H 96 Weight Weight 47.945 kg I&O: 10/04/18 10/05/18 10/06/18 06:59 06:59 06:59 Intake Total 510 Balance 510 Result Diagrams: 10/04/18 15:22 10/05/18 13:23 Phys Exam - Physical Examination HEENT: PERRLA, moist MMs Neck: no nodes Respiratory: clear to auscultation bilateral Cardiovascular: RRR Gastrointestinal: soft, non-tender Musculoskeletal: pulses present Neurological: non-focal, normal sensation Lymphatic: no nodes Skin: normal turgor Dx/Plan (1) Acute on chronic renal failure Code(s): N17.9 - ACUTE KIDNEY FAILURE, UNSPECIFIED; N18.9 - CHRONIC KIDNEY DISEASE, UNSPECIFIED Status: Acute Qualifiers: Comment: Creatinine has plateaued. 24HR urine collection in progress and will be completed today. Nephrology on board. Will likely need to be initiated on HD. (2) Anemia Code(s): D64.9 - ANEMIA, UNSPECIFIED Status: Chronic Qualifiers: Comment: B12 low normal. Started on B12 supplementation. FOBT ordered to r/o LGIB. (3) DM2 (diabetes mellitus, type 2) Status: Chronic Qualifiers: (4) ESRD (end stage renal disease) on dialysis Code(s): N18.6 - END STAGE RENAL DISEASE; Z99.2 - DEPENDENCE ON RENAL DIALYSIS Status: Acute (5) HTN (hypertension) Code(s): I10 - ESSENTIAL (PRIMARY) HYPERTENSION Status: Chronic Qualifiers: - Plan Patient is feeling much better after dialysis -: Labs have improved, kidney function improved -: Patient may go home once Dr. Rodriguez agrees. * .
[2018-10-05 15:36] VITALS: TEMP 99.1
[2018-10-05 17:52] VITALS: BP 149/67
== END 2018-10-05 18:28 | disposition home or self-care (01) ==
LOC: ERS 14:45 → 2SW 18:12
PROVIDERS: ADMIT Internal Medicine; ATTEND Internal Medicine
DX: E87.70 Fluid overload, unspecified (principal); I12.0 Hypertensive chronic kidney disease with stage 5 chronic kidney disease or end stage renal disease; E11.22 Type 2 diabetes mellitus with diabetic chronic kidney disease; N18.6 End stage renal disease; N17.9 Acute kidney failure, unspecified; D63.1 Anemia in chronic kidney disease; Z99.2 Dependence on renal dialysis; Z88.6 Allergy status to analgesic agent; Z88.0 Allergy status to penicillin; Z79.899 Other long term (current) drug therapy
CPT/HCPCS: 36415; 36416; 71045; 80048; 80053; 82550; 82553; 84484; 85025; 86850; 86900; 86901; 93005; 94760; 96365; 96372; 96374; 96376; G0378; J1644; J1756; J2405; J7050; Q5105

== ENCOUNTER 2018-10-13 17:55 | Observation (INO) | payer MEDICAID, SELFPAY ==
[2018-10-13 18:18] LABS: #Basophils 0.1 thou/uL (0.0-0.2); #Eosinphils 0.1 thou/uL (0.0-0.7); #Lymphocytes 0.9 thou/uL (1.20-3.40); #Monocytes 0.3 thou/uL (0.11-0.59); #Neutrophils 5.1 thou/uL (1.40-6.50); %Basophils 0.8 % (0.0-1.0); %Eosinophils 1.6 % (0.0-10.0); %Lymphocytes 13.4 % (21.0-51.0); %Neutrophils 79.2 % (42.0-75.0); Mean Corpuscular HGB CONC 33.3 g/dL (32.0-36.0); Mean Corpuscular Hemoglobin 31.2 pg (27.0-31.0); Mean Corpuscular Volume 93.9 fL (78.0-98.0); Platelet Count 185 thou/uL (130-400); RBC Distribution Width 19.2 % (11.5-14.5); Red Blood Cell (RBC) Count 2.25 mill/uL (4.20-5.40); White Blood Cell (WBC) Count 6.4 thou/uL (4.8-10.8)
--- NOTE | 2018-10-13 18:32 | RAD ---
Exam: Chest one view: HISTORY: Chest pain COMPARISON: 10/04/2018 FINDINGS: Again noted is marked cardiomegaly with bilateral vascular congestion and pleural effusions with an a ppearance certainly worrisome for congestive heart failure. No significant new process. IMPRESSION: Stable findings evidence for congestive heart failure. Atherosclerosis of the aorta.
[2018-10-13 18:49] LABS: ALT (SGPT) 9 U/L (8-55); AST (SGOT) 16 U/L (5-34); Albumin 3.8 g/dL (3.4-4.8); Alkaline Phosphatase 78 U/L (40-150); Anion Gap 28 mmol/L (10-20); BUN (Urea Nitrogen) 91 mg/dL (9.8-20.1); Bilirubin, Total 0.7 mg/dL (0.2-1.2); CK (CPK) 118 U/L (29-168); Calc. Creatinine Clearance 0 mL/min (70-130); Calcium 7.9 mg/dL (7.8-10.44); Carbon Dioxide 17 mmol/L (23-31); Chloride 92 mmol/L (98-107); Estimated GFR-MDRD 3; Globulin 3.4 g/dL (2.4-3.5); Glucose 158 mg/dL (80-115); Potassium 5.9 mmol/L (3.5-5.1); Protein, Total 7.2 g/dL (6.0-8.3); Sodium 131 mmol/L (136-145)
[2018-10-13 19:02] LABS: CKMB 2.2 ng/mL (0-6.6)
[2018-10-13] MEDS ORDERED: Calcium Chloride 1 GM/10 ML Abboject SYRINGE ONE (19:37)
[2018-10-13] MEDS ORDERED: Sodium Bicarb 50 MEQ/50 ML VIAL ONE (19:52)
[2018-10-13] MEDS ORDERED: Iron, Sodium Ferric Gluconate 250 MG in Sodium Chloride 0.9% 100 ML IVPB SCH (22:15)
[2018-10-13 22:24] LABS: Troponin I 0.059 ng/mL (< 0.028)
[2018-10-13] MEDS: EPOETIN ALFA-EPBX (ESRD) 3,000 UNIT/ML VIAL IVP SCH (22:30)
[2018-10-13] MEDS: EPOETIN ALFA-EPBX (ESRD) 2,000 UNIT/ML VIAL IVP SCH (22:30)
[2018-10-14 00:29] VITALS: BMI 21.2
[2018-10-14 01:08] LABS: Troponin I 0.055 ng/mL (< 0.028)
[2018-10-14 06:57] LABS: Anion Gap 21 mmol/L (10-20); BUN (Urea Nitrogen) 52 mg/dL (9.8-20.1); Calc. Creatinine Clearance 5 mL/min (70-130); Calcium 8.4 mg/dL (7.8-10.44); Carbon Dioxide 24 mmol/L (23-31); Chloride 96 mmol/L (98-107); Estimated GFR-MDRD 4; Glucose 68 mg/dL (80-115); Potassium 4.7 mmol/L (3.5-5.1); Sodium 136 mmol/L (136-145)
[2018-10-14] MEDS: EPOETIN ALFA-EPBX (ESRD) 3,000 UNIT/ML VIAL IVP SCH (11:37)
[2018-10-14] MEDS: EPOETIN ALFA-EPBX (ESRD) 2,000 UNIT/ML VIAL IVP SCH (11:37)
--- NOTE | 2018-10-14 11:39 | CON ---
DATE OF CONSULTATION: CONSULTING PHYSICIAN: Michael Bernal MD REQUESTING PHYSICIAN: Hospitalist program. REASON FOR CONSULTATION: Need for maintenance hemodialysis. IMPRESSION: 1. End-stage renal disease, on hemodialysis. 2. Hypertension. 3. Chest discomfort, likely in the context of pulmonary congestion. PLAN: The patient to be dialyzed and the initial dialysis will be for a short period of time to avoid disequilibrium syndrome. Subsequently, the patient can be dialyzed in the next day, and afterwards if the patient is feeling okay, she will be able to be discharged. HISTORY OF PRESENT ILLNESS: History is that of 68-year-old female patient, who unfortunately does not have any scheduled outpatient dialysis treatment due to insurance issues, who presented here with chest discomfort, likely in the context of pulmonary congestion with other symptoms highly suggestive of uremia. As a result of this, decision was taken to involve Renal in the management of this case. PAST MEDICAL HISTORY: Significant for end-stage renal disease, hypertension, diabetes mellitus, secondary hyperparathyroidism, anemia of chronic kidney disease. MEDICATIONS: Reviewed and as documented on Riboxx. ALLERGIES: TO ASPIRIN AND PENICILLIN. FAMILY HISTORY: Not significantly related to present illness. REVIEW OF SYSTEMS: As documented in the body of the history. All other systems were reviewed and found not to be significantly related to present illness. PHYSICAL EXAMINATION: VITAL SIGNS: The patient was found with a blood pressure of 161/68, pulse of 79, respiratory rate of 16, O2 saturations of 98%. HEENT: Unremarkable. CARDIOVASCULAR: First and second sounds were heard. RESPIRATORY: Clear to auscultation. DIGESTIVE: Revealed a benign abdomen with positive bowel sounds. EXTREMITIES: No peripheral edema. SKIN: No new gross rash. LYMPHATICS: No peripheral lymphadenopathy. SUMMARY: This is a 68-year-old female patient with end-stage renal disease, who presented with some chest discomfort. Thank you for this consultation. We will follow with you. Job ID: [id number]
[2018-10-14] MEDS ORDERED: Calcium Acetate 667 MG CAP PO SCH (12:00)
--- NOTE | 2018-10-14 12:24 | CON ---
DATE OF CONSULTATION: REQUESTING PHYSICIAN: Dr. Gilmore. REASON FOR CONSULTATION: The need for maintenance hemodialysis. IMPRESSION: 1. End-stage renal disease, uremic symptoms. 2. Hyperkalemia. 3. Metabolic acidosis related to #1. PLAN: 1. Patient to be dialyzed today, but we will do a very short dialysis to avoid disequilibrium syndrome with a plan to do longer dialysis tomorrow. 2. the patient is feeling better, we can recommend discharge. HISTORY: An 80-year-old unfortunate female patient who cannot secure an outpatient dialysis unit due to unavailability of insurance. Patient disease, presents with uremic symptoms. PAST MEDICAL HISTORY: Significant for end-stage renal disease, on hemodialysis; diabetes mellitus; hypertension. PHYSICAL EXAMINATION: GENERAL: Patient was found to be slightly ill looking. VITAL SIGNS: Pulse 91, respirations 20, O2 saturation 92%, with blood pressure of 162/77. HEENT EXAMINATION: Unremarkable. CARDIOVASCULAR SYSTEM: Positive sounds were heard. RESPIRATORY SYSTEM: Clear to auscultation. DIGESTIVE SYSTEM: Revealed a benign abdomen. EXTREMITIES: No peripheral edema. SKIN EXAMINATION: No new gross rash. LYMPHATICS: No peripheral lymphadenopathy. SUMMARY: This is an 80-year-old female patient with end-stage renal disease, hemodialysis dependent who presented here uremic and hyperkalemic. Thank you for this consultation. We will follow with you. Job ID: [id number]
[2018-10-14] MEDS ORDERED: Amlodipine 5 MG TAB PO SCH (13:45)
[2018-10-14 15:33] VITALS: BP 169/76; TEMP 98.8
--- NOTE | 2018-10-14 15:35 | PRG ---
DATE OF SERVICE: 10/11/2018 SUBJECTIVE: The patient was seen and examined, seems to be doing okay, very eager to go home. Hemodynamically stable. OBJECTIVE: HEENT: Unremarkable. CARDIOVASCULAR SYSTEM: Positive first and second heart sounds were heard. RESPIRATORY SYSTEM: Clear to auscultation. DIGESTIVE SYSTEM: Revealed a benign abdomen with positive bowel sounds. EXTREMITIES: No peripheral edema. SKIN: No new gross rash. LYMPHATICS: No peripheral lymphadenopathy. IMPRESSION: 1. End-stage renal disease, on hemodialysis, this is a second session of dialysis today. 2. Anemia of chronic kidney disease. The patient is a [employer]ism. Does not accept blood transfusion. We will continue with erythropoiesis stimulating agent. 3. Hypertension, improved. PLAN: The patient can be discharged from the renal standpoint. The patient is hemodynamically stable and able to ambulate. Further management to be dependent on the clinical course. Job ID: [id number]
--- NOTE | 2018-10-14 19:29 | SS ---
DATE OF ADMISSION: 10/13/2018 DATE OF DISCHARGE: 10/14/2018 CHIEF COMPLAINT ON ADMISSION: Chest pain and shortness of breath. DISCHARGE DIAGNOSES: 1. Shortness of breath and chest pain secondary to volume overload in the setting of no access to regularly scheduled dialysis sessions. 2. End-stage renal disease, on dialysis, last dialysis session 1 week ago. 3. Uremia, hyperkalemia, and metabolic acidosis secondary to above, resolved. 4. Anemia of chronic disease, hemoglobin 7.0, stable from previous visits, the patient refuses blood products. 5. Chronic indeterminate troponin in the setting of end-stage renal disease and volume overload. 6. Hypertension. 7. Type 2 diabetes mellitus. HOSPITAL COURSE: The patient is a 68-year-old Croatian-speaking only female with past medical history significant for end-stage renal disease with no access to regularly scheduled dialysis, type 2 diabetes mellitus, hypertension, and chronic anemia, who presented to the hospital with a 2 to 3-day history of worsening shortness of breath and some associated chest discomfort. Her granddaughter is at bedside and does provide some of the history as well as serving as an rail car repair carman. The patient's last dialysis session was over a week ago, and her symptoms have been consistent with previous episodes of volume overload. Chest pain is nonexertional and is exacerbated with deep breathing. Workup on arrival included a chest x-ray, which showed findings consistent with volume overload. Lab work significant for a potassium of 5.9, carbon dioxide of 17, and a BUN of 91. Her troponin was indeterminate and is in the same range as it has been on previous visits. The patient's primary audio visual design engineer was consulted from the ER. The patient has undergone emergent dialysis overnight as well as repeat session this morning. Per Dr. Rodriguez, she was given an iron infusion. Repeat lab work revealed resolution of her hyperkalemia and improvement of her BUN from 91 to 52. The patient's presenting symptoms have largely resolved. She denies shortness of breath or chest pain at this time. She denies any nausea or vomiting. PAST MEDICAL HISTORY: As mentioned in the hospital course. REVIEW OF SYSTEMS: A 12-point review of systems negative except as mentioned above. DISCHARGE MEDICATIONS: 1. Amlodipine 5 mg daily. 2. Calcium acetate 667 mg p.o. t.i.d. with meals. 3. Folic acid. 4. Vitamin B complex one tablet daily. 5. Sodium bicarbonate 325 mg tablet, one tablet p.o. b.i.d. 6. Calcitriol 0.25 mcg capsule, one capsule daily. 7. Lasix 40 mg tablet, one tablet p.o. b.i.d. 8. Pantoprazole 40 mg tablet, one tablet daily. DISCHARGE CONDITION: Stable. DISCHARGE DISPOSITION: Home. DISCHARGE INSTRUCTIONS AND FOLLOWUP: The patient will continue fluid restriction as well as her medications as prescribed above. She will return to the hospital with any return of her symptoms. She has been cleared for discharge by Dr. Rodriguez. All questions answered at the bedside. The patient has ambulated without issue today. She will be discharged home in stable condition with instructions to return to the hospital with return of symptoms. Job ID: [id number]
[2018-10-14] MEDS ORDERED: Sodium Bicarbonate Tab 325 MG TAB PO SCH (21:00)
[2018-10-14] MEDS ORDERED: Furosemide 40 MG TAB PO SCH (21:00)
[2018-10-15] MEDS ORDERED: Calcitriol 0.25 MCG CAP PO SCH (09:00)
[2018-10-15] MEDS ORDERED: Folic Acid/Vit B Comp W-C PO SCH (09:00)
[2018-10-15] MEDS ORDERED: Amlodipine 5 MG TAB PO SCH (09:00)
--- NOTE | 2018-10-19 22:50 | EKG ---
Test Reason : Blood Pressure : / mmHG Vent. Rate : 083 BPM Atrial Rate : 083 BPM P-R Int : 170 ms QRS Dur : 076 ms QT Int : 400 ms P-R-T Axes : 050 018 082 degrees QTc Int : 470 ms Normal sinus rhythm Normal ECG Confirmed by ROSA ROSE ([id number]), news videotape editor ZACH PAINTING ([id number]) on 10/19/2018 10:50:17 PM Referred By: Confirmed By:ROSA ROSE
== END 2018-10-14 17:35 | disposition home or self-care (01) ==
LOC: ERS 17:55 → 2SW 21:27
PROVIDERS: ADMIT Family Medicine; ATTEND Family Medicine
DX: E87.70 Fluid overload, unspecified (principal); I12.0 Hypertensive chronic kidney disease with stage 5 chronic kidney disease or end stage renal disease; E11.22 Type 2 diabetes mellitus with diabetic chronic kidney disease; N18.6 End stage renal disease; D63.1 Anemia in chronic kidney disease; E87.5 Hyperkalemia; E87.2 Acidosis; N25.81 Secondary hyperparathyroidism of renal origin; Z99.2 Dependence on renal dialysis; Z88.6 Allergy status to analgesic agent; Z88.0 Allergy status to penicillin; Z79.899 Other long term (current) drug therapy
CPT/HCPCS: 36415; 36416; 71045; 80048; 80053; 82550; 82553; 83690; 84484; 85025; 90935; 93005; 94760; 96365; 96367; 96375; G0257; G0378; J2916; J3490; Q5105

== ENCOUNTER 2018-10-24 00:39 | Inpatient (IN) | payer SELFPAY ==
[2018-10-24 01:19] LABS: #Basophils 0.1 thou/uL (0.0-0.2); #Eosinphils 0.1 thou/uL (0.0-0.7); #Lymphocytes 1.1 thou/uL (1.20-3.40); #Monocytes 0.5 thou/uL (0.11-0.59); #Neutrophils 4.2 thou/uL (1.40-6.50); %Basophils 1.1 % (0.0-1.0); %Lymphocytes 17.8 % (21.0-51.0); %Monocytes 7.6 % (0.0-10.0); %Neutrophils 71.5 % (42.0-75.0); Mean Corpuscular HGB CONC 32.5 g/dL (32.0-36.0); Mean Corpuscular Hemoglobin 30.8 pg (27.0-31.0); Mean Corpuscular Volume 94.8 fL (78.0-98.0); Mean Platelet Volume 8.1 fL (7.4-10.4); Platelet Count 164 thou/uL (130-400); RBC Distribution Width 18.6 % (11.5-14.5); Red Blood Cell (RBC) Count 2.27 mill/uL (4.20-5.40); White Blood Cell (WBC) Count 5.9 thou/uL (4.8-10.8)
[2018-10-24 01:36] LABS: ALT (SGPT) 10 U/L (8-55); AST (SGOT) 17 U/L (5-34); Albumin 3.9 g/dL (3.4-4.8); Alkaline Phosphatase 62 U/L (40-150); Anion Gap 30 mmol/L (10-20); BUN (Urea Nitrogen) 121 mg/dL (9.8-20.1); Bilirubin, Total 0.8 mg/dL (0.2-1.2); CK (CPK) 121 U/L (29-168); Calc. Creatinine Clearance 0 mL/min (70-130); Calcium 8.2 mg/dL (7.8-10.44); Carbon Dioxide 16 mmol/L (23-31); Chloride 93 mmol/L (98-107); Estimated GFR-MDRD 2; Globulin 3.5 g/dL (2.4-3.5); Glucose 102 mg/dL (80-115); Protein, Total 7.4 g/dL (6.0-8.3); Sodium 133 mmol/L (136-145)
[2018-10-24] MEDS ORDERED: Acetaminophen 500 MG TAB ONE (02:26)
[2018-10-24] MEDS ORDERED: Calcium Gluc 4.6 MEQ/10 ML (100 MG/ML) ONE (03:15)
[2018-10-24] MEDS ORDERED: Dextrose 50% Abboject 50 ML SYRINGE ONE (03:15)
[2018-10-24] MEDS ORDERED: Insulin Regular 300 UNITS/3 ML VIAL ONE (03:15)
[2018-10-24] MEDS ORDERED: Albuterol Sulfate 2.5 mg/3 ml Neb ONE (03:28)
[2018-10-24 04:46] LABS: Troponin I 0.072 ng/mL (< 0.028)
[2018-10-24 05:56] VITALS: BMI 21.7
[2018-10-24] MEDS ORDERED: Acetaminophen 325 MG TAB PO PRN ×2 (05:58→11:19)
[2018-10-24] MEDS ORDERED: Ondansetron PF 4 MG/2 ML Vial IVP PRN ×2 (05:58→11:19)
[2018-10-24] MEDS ORDERED: Ondansetron ODT 4 MG TAB SL PRN (05:58)
[2018-10-24 08:02] LABS: Troponin I 0.079 ng/mL (< 0.028)
--- NOTE | 2018-10-24 09:13 | RAD ---
TWO VIEW CHEST: HISTORY: Chest pain. COMPARISON: 10/13/2018. FINDINGS/IMPRESSION: Cardiomegaly with mild vascular engorgement. Bilateral effusions and mild bibasilar atelectasis. Si milar findings were present on 10/13/2018 exam. POS: [facility]
[2018-10-24 10:45] LABS: HBSAg Index 0.23 S/CO (0-0.99); Hep B Surf Ag Non-Reactive S/CO (NonReactive)
[2018-10-24] MEDS ORDERED: Bisacodyl 10 MG SUPP PR PRN (11:19)
[2018-10-24] MEDS ORDERED: Guaifenesin DM 100-10/5 ML UDCUP PO PRN (11:19)
[2018-10-24] MEDS ORDERED: Senokot S 8.6-50 MG TAB PO PRN (11:19)
--- NOTE | 2018-10-24 11:57 | HP ---
REASON FOR ADMISSION: Volume overload, hyperkalemia, metabolic acidosis, noncompliance with hemodialysis. HISTORY OF PRESENTING ILLNESS: The patient gives history of having shortness of breath and could not lay down from last evening. She did not feel good. She is an end-stage renal disease patient and last dialysis was 8 days back. The patient has financial constraints to get regular dialysis. She had some generalized body aches. Currently, she is having some diarrhea due to Kayexalate. No chest pain as such at present. No complaints of fever, cough, or expectoration. PAST MEDICAL AND SURGICAL HISTORY: End-stage renal disease, on hemodialysis, noncompliance due to financial constraints; hypertension; chronic anemia due to renal disease; secondary hyperparathyroidism; and diabetes mellitus, type 2, on diet control. She has had dialysis fistula and access procedures on the right upper extremity. CURRENT MEDICATIONS: 1. Calcium acetate 667 mg p.o. three times daily. 2. Norvasc 5 mg daily. 3. Sodium bicarbonate 650 mg twice daily. 4. Zofran p.r.n. 5. Lasix 40 mg twice daily. 6. Calcitriol 0.25 mcg p.o. daily. 7. Protonix 40 mg daily. PERSONAL HISTORY: Does not abuse alcohol or drugs. No history of smoking. FAMILY HISTORY: She does not know much about her mother. Father at the age of 65 years. He has had history of heart disease. ALLERGIES: ALLERGIC TO ASPIRIN AND PENICILLIN. CODE STATUS: Full. REVIEW OF SYSTEMS: CONSTITUTIONAL: Negative for weight loss or gain, ability to conduct usual activities. SKIN: Negative for rash, itching. EYES: Negative for double vision, pain. ENT/MOUTH: Negative for nose bleeding, neck stiffness, pain, tenderness. CARDIOVASCULAR: Negative for palpitations, dyspnea on exertion, orthopnea. RESPIRATORY: Negative for shortness of breath, wheezing, cough, hemoptysis, fever or night sweats. GASTROINTESTINAL: Negative for poor appetite, abdominal pain, heartburn, nausea , vomiting, constipation, or diarrhea. GENITOURINARY: Negative for urgency, frequency, dysuria, nocturia. MUSCULOSKELETAL: Negative for pain, swelling. NEUROLOGIC/PSYCHIATRIC: Negative for anxiety, depression. ALLERGY/IMMUNOLOGIC: Negative for skin rash, bleeding tendency. PHYSICAL EXAMINATION: GENERAL: The patient is a 68-year-old female, who is currently not in any acute distress. VITAL SIGNS: Blood pressure 150/78, pulse 84 per minute, respiratory rate 16 per minute, temperature 97.9 degrees Fahrenheit, and saturating 97% on room air. NECK: Supple. There is elevated JVD. HEENT: Eyes, extraocular muscles intact. Pupils reacting to light. Oral cavity, mucous membranes are moist. No exudates or congestion. CARDIOVASCULAR SYSTEM: S1 and S2 heard, regular rhythm. RESPIRATORY: Air entry 1+ bilateral. Scattered rales plus in the infrascapular area. ABDOMEN: Soft. Bowel sounds heard. No tenderness, rigidity, or guarding. EXTREMITIES: No peripheral edema or calf tenderness. VASCULAR SYSTEM: Peripheral pulses 1+ bilateral. No ischemic ulcerations or gangrene. CENTRAL NERVOUS SYSTEM: No gross focal deficits are noted. The patient is alert, awake, and oriented well. PSYCHIATRIC SYSTEM: The patient's mood is euthymic. No hallucinations or delusions. LABORATORY DATA: H and H 7 and 21, platelet count 164, MCV is 94 with white count of 5.9 and 71% neutrophils. BUN 121, creatinine 15.8, serum bicarb 16, potassium 6.0, and sodium 133. BNP 14,305. Troponin I indeterminate, peaking up to 0.07. CK-MB 3.0. Albumin is 3.9. EKG done shows normal sinus rhythm at 81 beats per minute. There is nonspecific ST-T wave changes seen. CLINICAL IMPRESSION AND PLAN: Thr patient will be admitted to telemetry for volume overload with hyperkalemia and severe metabolic acidosis. I have discussed her findings with Dr. Rodriguez and she will have emergent dialysis now. She will also have another session in the morning prior to discharge hopefully. We will closely monitor her potassium. The patient is noncompliant with her dialysis due to financial constraints and no insurance. We will continue her Norvasc, calcitriol, PhosLo, Lasix, Protonix, and sodium bicarbonate as before. The patient needs assistance to ambulate and we will obtain PT evaluations during her stay here. I have discussed her findings with her grandchild in the room and given complete updates. Job ID: [id number] MTDD
[2018-10-24] MEDS: Calcium Acetate 667 MG CAP PO SCH ×2 (17:06→17:15)
[2018-10-24] MEDS: Sodium Bicarbonate Tab 325 MG TAB PO SCH (21:04)
[2018-10-24] MEDS: Furosemide 40 MG TAB PO SCH (21:04)
[2018-10-25 04:13] LABS: #Basophils 0.1 thou/uL (0.0-0.2); #Eosinphils 0.1 thou/uL (0.0-0.7); #Lymphocytes 1.2 thou/uL (1.20-3.40); #Monocytes 0.4 thou/uL (0.11-0.59); #Neutrophils 3.5 thou/uL (1.40-6.50); %Eosinophils 2.6 % (0.0-10.0); %Lymphocytes 22.4 % (21.0-51.0); %Monocytes 7.6 % (0.0-10.0); %Neutrophils 66.4 % (42.0-75.0); Hemoglobin 7.1 g/dL (12.0-16.0); Mean Corpuscular HGB CONC 32.6 g/dL (32.0-36.0); Mean Corpuscular Hemoglobin 31.2 pg (27.0-31.0); Mean Corpuscular Volume 95.6 fL (78.0-98.0); Mean Platelet Volume 7.9 fL (7.4-10.4); Platelet Count 160 thou/uL (130-400); RBC Distribution Width 18.2 % (11.5-14.5); Red Blood Cell (RBC) Count 2.28 mill/uL (4.20-5.40); White Blood Cell (WBC) Count 5.2 thou/uL (4.8-10.8)
[2018-10-25 04:30] LABS: Albumin 3.6 g/dL (3.4-4.8); Anion Gap 24 mmol/L (10-20); BUN (Urea Nitrogen) 85 mg/dL (9.8-20.1); BUN/Creatinine Ratio 7.28; Calc. Creatinine Clearance 4 mL/min (70-130); Calcium 8.5 mg/dL (7.8-10.44); Carbon Dioxide 21 mmol/L (23-31); Chloride 95 mmol/L (98-107); Estimated GFR-MDRD 3; Glucose 81 mg/dL (80-115); Phosphorus 8.2 mg/dL (2.3-4.7); Potassium 3.9 mmol/L (3.5-5.1); Sodium 136 mmol/L (136-145)
[2018-10-25] MEDS ORDERED: Iron, Sodium Ferric Gluconate 250 MG in Sodium Chloride 0.9% 100 ML IVPB SCH (07:45)
[2018-10-25] MEDS ORDERED: EPOETIN ALFA-EPBX (ESRD) 10,000 UNIT/ML VIAL IVP SCH (08:00)
[2018-10-25] MEDS: Calcium Acetate 667 MG CAP PO SCH ×4 (11:31→15:54)
[2018-10-25] MEDS: Amlodipine 5 MG TAB PO SCH ×2 (11:31→13:58)
[2018-10-25] MEDS: Calcitriol 0.25 MCG CAP PO SCH ×2 (11:31→13:58)
[2018-10-25] MEDS: Folic Acid/Vit B Comp W-C PO SCH ×2 (11:32→13:58)
[2018-10-25] MEDS: Enoxaparin Sodium 30 MG/0.3 ML SYRINGE SC SCH (11:32)
[2018-10-25] MEDS: Furosemide 40 MG TAB PO SCH ×3 (11:32→20:08)
[2018-10-25] MEDS: Sodium Bicarbonate Tab 325 MG TAB PO SCH ×2 (11:33→13:59)
[2018-10-25 12:57] LABS: Anion Gap 16 mmol/L (10-20); BUN (Urea Nitrogen) 14 mg/dL (9.8-20.1); Calc. Creatinine Clearance 17 mL/min (70-130); Calcium 9.3 mg/dL (7.8-10.44); Carbon Dioxide 27 mmol/L (23-31); Chloride 99 mmol/L (98-107); Estimated GFR-MDRD 20; Glucose 66 mg/dL (80-115); Potassium 2.5 mmol/L (3.5-5.1); Sodium 139 mmol/L (136-145)
--- NOTE | 2018-10-25 15:08 | PDOC.PN ---
- Subjective Encounter Start Date: 10/25/18 Encounter Start Time: 09:15 Subjective: getting HD, no sob - Objective Resuscitation Status - Order Detail: 10/24/18 11:17 Resuscitation Status Routine Resuscitation Status: FULL: Full Resuscitation MAR Reviewed: Yes Vital Signs & Weight: Vital Signs (12 hours) Temp Pulse Ox 10/25/18 13:11 100 10/25/18 03:44 98.3 F Weight Weight 106 lb 0.677 oz Most Recent Monitor Data Heart Rate from ECG 79 NIBP 153/64 NIBP BP-Mean 93 Respiration from ECG 10 SpO2 99 I&O: 10/24/18 10/25/18 10/26/18 06:59 06:59 06:59 Intake Total 780 340 Output Total 2000 Balance -1220 340 Result Diagrams: 10/25/18 04:01 10/25/18 11:47 Additional Labs: Accuchecks 10/25/18 10/24/18 10/24/18 05:46 20:36 16:13 POC Glucose 85 111 H 88 Phys Exam - Physical Examination HEENT: PERRLA, moist MMs Neck: no JVD, supple Respiratory: no wheezing, no rales Cardiovascular: RRR, no significant murmur Gastrointestinal: soft, no distention, positive bowel sounds Musculoskeletal: no edema, pulses present Neurological: non-focal, moves all 4 limbs Psychiatric: normal affect, A&O x 3 Dx/Plan (1) Volume overload Code(s): E87.70 - FLUID OVERLOAD, UNSPECIFIED Status: Resolved (2) Hypokalemia Code(s): E87.6 - HYPOKALEMIA Status: Acute (3) Anemia Code(s): D64.9 - ANEMIA, UNSPECIFIED Status: Chronic Qualifiers: Anemia type: due to chronic kidney disease Chronic kidney disease stage: on chronic dialysis Qualified Code(s): N18.6 - End stage renal disease; D63.1 - Anemia in chronic kidney disease; Z99.2 - Dependence on renal dialysis (4) Metabolic acidosis Code(s): E87.2 - ACIDOSIS Status: Resolved (5) DM2 (diabetes mellitus, type 2) Status: Chronic Qualifiers: Diabetes mellitus chcf insulin use: without exterminator helper use Comment: diet controlled (6) HTN (hypertension) Code(s): I10 - ESSENTIAL (PRIMARY) HYPERTENSION Status: Chronic Qualifiers: (7) ESRD (end stage renal disease) on dialysis Code(s): N18.6 - END STAGE RENAL DISEASE; Z99.2 - DEPENDENCE ON RENAL DIALYSIS Status: Chronic - Plan had back to back HD -: replace potassium -: dc plan in am -: hemostable -: continue norvasc, lasix, sod bicarb, calcitriol, phoslo * . Review of Systems - Medications/Allergies Allergies/Adverse Reactions: Allergies Allergy/AdvReac Type Severity Reaction Status Date / Time aspirin Allergy Rash Verified 10/04/18 20:05 penicillin G Allergy Verified 10/04/18 20:05 Penicillins Allergy Rash Verified 10/04/18 20:05 Medications: Current Medications Acetaminophen (Tylenol) 650 mg PO Q4H PRN PRN Reason: Headache/Fever/Mild Pain (1-3) Amlodipine Besylate (Norvasc) 5 mg PO DAILY [facility] Last Admin: 10/25/18 13:58 Dose: 5 mg Bisacodyl (Dulcolax) 10 mg IA DAILYPRN PRN PRN Reason: Constipation Calcitriol (Rocaltrol) 0.25 mcg PO DAILY [facility] Last Admin: 10/25/18 13:58 Dose: 0.25 mcg Calcium Acetate (Phoslo) 667 mg PO TID-[facility] Last Admin: 10/25/18 13:56 Dose: 667 mg Enoxaparin Sodium (Lovenox) 30 mg SC 0900 [facility] Last Admin: 10/25/18 11:32 Dose: Not Given Furosemide (Lasix) 40 mg PO BID [facility] Last Admin: 10/25/18 13:58 Dose: Not Given Guaifenesin/Dextromethorphan (Robitussin Dm) 15 ml PO Q4H PRN PRN Reason: Cough Ondansetron HCl (Zofran) 4 mg IVP Q6H PRN PRN Reason: Nausea/Vomiting Pantoprazole Sodium (Protonix) 40 mg PO DAILY [facility] Last Admin: 10/25/18 13:58 Dose: 40 mg Potassium Chloride (K-Dur) 40 meq PO Q6H [facility] Stop: 10/26/18 04:01 Senna/Docusate Sodium (Senokot S) 2 tab PO BID PRN PRN Reason: Constipation Sodium Bicarbonate (Bicarbonate, Sodium) 325 mg PO BID [facility] Last Admin: 10/25/18 13:59 Dose: 325 mg Vitamin B Complex/Vit C/Folic Acid (Nephro-Claudette Tablet) 1 tab PO DAILY [facility] Last Admin: 10/25/18 13:58 Dose: 1 tab
[2018-10-25] MEDS ORDERED: Potassium Chloride 20 MEQ TAB PO SCH (16:00)
[2018-10-25] MEDS ORDERED: Calcium Carbonate 500 MG ChewTAB PO SCH (18:30)
--- NOTE | 2018-10-25 19:05 | PRG ---
DATE OF SERVICE: 10/25/2018 SUBJECTIVE: The patient was seen and examined with no new complaint. Noted with the following vital signs. OBJECTIVE: VITAL SIGNS: Afebrile, temperature 98.2, pulse 89, respiratory rate of 18, and O2 saturations of 98% with blood pressure 165/74. HEENT: Unremarkable. CARDIOVASCULAR SYSTEM: First and second heart sounds were heard. RESPIRATORY SYSTEM: Clear to auscultation. DIGESTIVE SYSTEM: Revealed a benign abdomen with positive bowel sounds. EXTREMITIES: No peripheral edema. SKIN: No new gross rash. LYMPHATICS: No peripheral lymphadenopathy. LABORATORY INVESTIGATION: Showed a potassium of 2.5 and creatinine of 2.43. IMPRESSION: 1. End-stage renal disease, on hemodialysis. 2. Hypokalemia, this is a reflection of dialysis of this morning. 3. Anemia of kidney disease. PLAN: 1. From the renal standpoint, the patient is due to be discharged. 2. Discontinue all potassium supplementation. 3. Discontinue PhosLo as the patient seems not to be tolerating this very well. In place of this, we will start this patient on Tums. 4. Further management will be dependent on the clinical course. 5. Discontinue bicarb supplementation especially now that the patient just had dialysis. This can be continued as an outpatient. 6. The patient to be placed on daily regimen of Veltassa to help to address the hyperkalemia in this patient. Job ID: [id number]
--- NOTE | 2018-10-25 21:43 | CON ---
DATE OF CONSULTATION: CONSULTING PHYSICIAN: Michael Bernal MD REQUESTING PHYSICIAN: Adrian Grant MD REASON FOR CONSULTATION: Need for maintenance dialysis. IMPRESSION: 1. End-stage renal disease, on dialysis. 2. Hyperkalemia. 3. Uremia. PLAN: The patient to be dialyzed. We will modify the dialysis to reflect low blood flow to avoid disequilibrium syndrome. The next day, the patient to undergo dialysis for longer period of time. After that, the patient should be due for discharge. HISTORY OF PRESENT ILLNESS: History is that of a 68-year-old female patient who unfortunately does not have any insurance and could not secure regular outpatient dialysis treatment, presented here with shortness of breath and with significant potassium increase as well as evidence of uremia. As a result of these, decision has been taken to involve Renal in the management of this case. PAST MEDICAL HISTORY: Significant for end-stage renal disease, diabetes mellitus, diabetic nephropathy, hypertension, metabolic acidosis and severe hyperphosphatemia and secondary hyperparathyroidism, anemia of chronic kidney disease. MEDICATIONS: Reviewed as documented on [employer]. ALLERGIES: TO PENICILLINS AND ASPIRIN. FAMILY HISTORY: Not significantly related to present illness. SOCIAL HISTORY: No alcohol, no tobacco, no illicit drug use. The patient is Jehovah's Witnesses, does not accept blood transfusion. REVIEW OF SYSTEMS: As documented in the body of the history. PHYSICAL EXAMINATION: GENERAL: The patient was found to be ill looking, noted with the following vital signs. VITAL SIGNS: Afebrile, temperature 98.6, pulse 99, respiratory rate of 22, O2 saturation 98%. HEENT: Unremarkable. CARDIOVASCULAR: First and second heart sounds were heard. RESPIRATORY: Clear to auscultation. DIGESTIVE: Revealed a benign abdomen. EXTREMITIES: No peripheral edema. SKIN: No new gross rash. LYMPHATICS: No peripheral lymphadenopathy. SUMMARY: A 68-year-old female patient who presented here with uremic symptoms. Thank you for this consultation. We will follow with you. Job ID: [id number]
[2018-10-26] MEDS ORDERED: Calcium Carbonate 500 MG ChewTAB PO SCH (08:00)
[2018-10-26] MEDS: Calcitriol 0.25 MCG CAP PO SCH (08:47)
[2018-10-26] MEDS: Enoxaparin Sodium 30 MG/0.3 ML SYRINGE SC SCH (08:47)
[2018-10-26] MEDS: Amlodipine 5 MG TAB PO SCH (08:47)
[2018-10-26] MEDS: Furosemide 40 MG TAB PO SCH (08:48)
[2018-10-26] MEDS: Folic Acid/Vit B Comp W-C PO SCH (08:48)
[2018-10-26 09:48] VITALS: BP 166/73
[2018-10-26 10:37] VITALS: TEMP 98.2
--- NOTE | 2018-10-26 12:16 | EKG ---
Test Reason : Blood Pressure : / mmHG Vent. Rate : 081 BPM Atrial Rate : 081 BPM P-R Int : 168 ms QRS Dur : 076 ms QT Int : 404 ms P-R-T Axes : 047 008 067 degrees QTc Int : 469 ms Normal sinus rhythm Nonspecific ST abnormality Abnormal ECG Confirmed by GISELLE MCNALLY ([id number]), editor & co founder KATARINA MOY ([id number]) on 10/26/2018 12:15:36 PM Referred By: Confirmed By:GISELLE MCNALLY
--- NOTE | 2018-10-26 17:16 | DIS ---
DATE OF ADMISSION: 10/24/2018 DATE OF DISCHARGE: 10/26/2018 DISCHARGE DISPOSITION: Home. PRIMARY DISCHARGE DIAGNOSES: Volume overload; hyperkalemia secondary to noncompliance with hemodialysis due to financial constraints; end-stage renal disease, on hemodialysis; hypertension; metabolic acidosis secondary to renal issue; diabetes mellitus type 2; and hypertension. PROCEDURES DONE DURING HOSPITALIZATION: Chest x-ray done on the day of admission showed cardiomegaly with pulmonary vascular congestion, bilateral effusions were seen. H and H 7 and 21, platelet count 160, MCV is 95. Discharge BUN and creatinine are 14 and 2.4, serum bicarb is 27 on the day of discharge. BNP was 14,305. Admitting BUN and creatinine were 121 and 15.8, serum bicarb was 16 with potassium of 6.0. HBS antigen was nonreactive. INPATIENT CONSULT: Dr. Rodriguez for Nephrology. DISCHARGE MEDICATIONS: 1. Norvasc 5 mg daily. 2. PhosLo 667 mg p.o. three times daily; if she is intolerant, can take Tums three times daily. 3. Lucy-Claudette one tablet daily. 4. Sodium bicarbonate 325 mg p.o. twice daily. 5. Calcitriol 0.25 mcg p.o. daily. 6. Lasix 40 mg twice daily. 7. Protonix 40 mg daily. 8. Zofran p.r.n. for pain. ALLERGIES: ALLERGIC TO ASPIRIN AND PENICILLIN. DISCHARGE PLAN: The patient to follow up with Dr. Rodriguez as advised. BRIEF COURSE DURING HOSPITALIZATION: The patient initially came to ER with complaints of shortness of breath and severe orthopnea. She has known history of end-stage renal disease, on hemodialysis. She is noncompliant due to financial constraints. The patient was found to be volume overloaded with severe metabolic acidosis and hyperkalemia. She had an emergent hemodialysis done. She has had [id number] hemodialysis done with resolution of hyperkalemia, metabolic acidosis, and volume overload. She was evaluated by Dr. Rodriguez. She has remained hemodynamically stable prior to discharge. She is cleared by Dr. Rodriguez for discharge. The patient was counseled with regard to compliance with hemodialysis and medications. Please note, I have seen and examined the patient on the day of discharge. Job ID: [id number]
== END 2018-10-26 10:55 | disposition home or self-care (01) | DRG 640 ==
LOC: ERS 00:39 → ERHOLD 02:59 → IMCU/EMU 06:14 → 2NO 10-25 09:46
PROVIDERS: ADMIT Family Medicine; ATTEND Family Medicine
DX: E87.5 Hyperkalemia (principal); N18.6 End stage renal disease; I12.0 Hypertensive chronic kidney disease with stage 5 chronic kidney disease or end stage renal disease; N12 Tubulo-interstitial nephritis, not specified as acute or chronic; E87.2 Acidosis; E87.70 Fluid overload, unspecified; E11.22 Type 2 diabetes mellitus with diabetic chronic kidney disease; Z99.2 Dependence on renal dialysis; D63.1 Anemia in chronic kidney disease; E87.6 Hypokalemia; Z91.15 Patient's noncompliance with renal dialysis
CPT/HCPCS: 36415; 36416; 71046; 80053; 80069; 82550; 82553; 83880; 84484; 85025; 87340; 90935; 93005; 94640; 94760; 96374; 96375; G0257; J1650; J1815; J2916; J3490; J7611; Q5105

== ENCOUNTER 2018-11-02 10:55 | Emergency (ER) | payer MEDICAID, SELFPAY ==
--- NOTE | 2018-11-02 12:18 | RAD ---
EXAM: Single view of the chest HISTORY: Shortness of breath and chest tightness COMPARISON: 10/13/2018 FINDINGS: Single view of the chest shows an enlarged but stable cardiomediastinal silhouette. Bibasi lar atelectasis with adjacent pleural effusions is seen. No consolidation or mass are present. The bones are unremarkable. IMPRESSION: Small bilateral pleural effusions with adjacent atelectasis
[2018-11-02 12:23] LABS: #Eosinphils 0.1 thou/uL (0.0-0.7); #Lymphocytes 0.8 thou/uL (1.20-3.40); #Monocytes 0.4 thou/uL (0.11-0.59); #Neutrophils 4.2 thou/uL (1.40-6.50); %Basophils 0.8 % (0.0-1.0); %Eosinophils 1.7 % (0.0-10.0); %Lymphocytes 13.8 % (21.0-51.0); %Monocytes 6.6 % (0.0-10.0); %Neutrophils 77.1 % (42.0-75.0); Hemoglobin 7.6 g/dL (12.0-16.0); Mean Corpuscular HGB CONC 32.3 g/dL (32.0-36.0); Mean Corpuscular Hemoglobin 30.6 pg (27.0-31.0); Mean Corpuscular Volume 94.7 fL (78.0-98.0); Mean Platelet Volume 7.9 fL (7.4-10.4); Platelet Count 190 thou/uL (130-400); RBC Distribution Width 18.7 % (11.5-14.5); Red Blood Cell (RBC) Count 2.48 mill/uL (4.20-5.40); White Blood Cell (WBC) Count 5.5 thou/uL (4.8-10.8)
[2018-11-02 12:44] LABS: ALT (SGPT) 11 U/L (8-55); AST (SGOT) 21 U/L (5-34); Alkaline Phosphatase 66 U/L (40-150); Anion Gap 28 mmol/L (10-20); BUN (Urea Nitrogen) 116 mg/dL (9.8-20.1); Bilirubin, Total 0.8 mg/dL (0.2-1.2); Calc. Creatinine Clearance 0 mL/min (70-130); Calcium 8.6 mg/dL (7.8-10.44); Carbon Dioxide 16 mmol/L (23-31); Chloride 95 mmol/L (98-107); Estimated GFR-MDRD 3; Globulin 3.3 g/dL (2.4-3.5); Glucose 121 mg/dL (80-115); Potassium 5.6 mmol/L (3.5-5.1); Protein, Total 7.3 g/dL (6.0-8.3); Sodium 133 mmol/L (136-145)
[2018-11-02 13:05] LABS: CKMB 4.5 ng/mL (0-6.6)
[2018-11-02] MEDS ORDERED: EPOETIN ALFA-EPBX (ESRD) 10,000 UNIT/ML VIAL IVP SCH (14:45)
[2018-11-02] MEDS ORDERED: Sodium Chloride 0.9% 100 ML IVPB PRN (14:52)
[2018-11-02] MEDS ORDERED: Iron, Sodium Ferric Gluconate 250 MG in Sodium Chloride 0.9% 100 ML IVPB SCH (15:00)
== END 2018-11-02 20:35 | disposition home or self-care (01) ==
LOC: ERS 10:55
DX: I12.0 Hypertensive chronic kidney disease with stage 5 chronic kidney disease or end stage renal disease (principal); N18.6 End stage renal disease; E11.22 Type 2 diabetes mellitus with diabetic chronic kidney disease; D63.1 Anemia in chronic kidney disease; E87.5 Hyperkalemia; E87.2 Acidosis; Z79.899 Other long term (current) drug therapy
CPT/HCPCS: 36415; 71045; 80053; 82553; 84484; 85025; 93005; J2916; J3490; Q5105

== ENCOUNTER 2018-11-11 12:53 | Observation (INO) | payer MEDICAID, SELFPAY ==
[2018-11-11 13:50] VITALS: BMI 21.4
[2018-11-11] MEDS ORDERED: Ondansetron ODT 8 MG TAB PO PRN ×2 (14:29→16:33)
[2018-11-11] MEDS ORDERED: Heparin 10,000 UNITS/1 ML VIAL ONE (15:00)
[2018-11-11] MEDS: Calcium Acetate 667 MG CAP PO SCH (16:25)
[2018-11-11] MEDS ORDERED: IRON SUCROSE COMPLEX 100 MG/5 ML SLOW IVP SCH (16:45)
[2018-11-11] MEDS ORDERED: EPOETIN ALFA-EPBX (ESRD) 4,000 UNIT/ML VIAL IVP SCH (16:45)
[2018-11-11] MEDS ORDERED: Calcium Acetate 667 MG CAP PO SCH (17:00)
[2018-11-11] MEDS ORDERED: Sodium Bicarbonate Tab 325 MG TAB PO SCH ×2 (21:00)
[2018-11-12 05:03] LABS: #Basophils 0.1 thou/uL (0.0-0.2); #Eosinphils 0.1 thou/uL (0.0-0.7); #Lymphocytes 1.2 thou/uL (1.20-3.40); #Monocytes 0.5 thou/uL (0.11-0.59); #Neutrophils 2.7 thou/uL (1.40-6.50); %Basophils 1.3 % (0.0-1.0); %Eosinophils 2.5 % (0.0-10.0); %Lymphocytes 25.9 % (21.0-51.0); %Monocytes 9.9 % (0.0-10.0); %Neutrophils 60.3 % (42.0-75.0); Hemoglobin 8.1 g/dL (12.0-16.0); Mean Corpuscular HGB CONC 33.4 g/dL (32.0-36.0); Mean Corpuscular Hemoglobin 32.5 pg (27.0-31.0); Mean Corpuscular Volume 97.2 fL (78.0-98.0); Mean Platelet Volume 8.5 fL (7.4-10.4); Platelet Count 128 thou/uL (130-400); RBC Distribution Width 18.4 % (11.5-14.5); White Blood Cell (WBC) Count 4.5 thou/uL (4.8-10.8)
[2018-11-12 05:22] LABS: Albumin 3.7 g/dL (3.4-4.8); Anion Gap 22 mmol/L (10-20); BUN (Urea Nitrogen) 83 mg/dL (9.8-20.1); BUN/Creatinine Ratio 7.78; Calc. Creatinine Clearance 4 mL/min (70-130); Calcium 8.9 mg/dL (7.8-10.44); Carbon Dioxide 23 mmol/L (23-31); Chloride 98 mmol/L (98-107); Estimated GFR-MDRD 4; Glucose 85 mg/dL (80-115); Phosphorus 6.7 mg/dL (2.3-4.7); Potassium 4.7 mmol/L (3.5-5.1); Sodium 138 mmol/L (136-145)
--- NOTE | 2018-11-12 08:32 | HP ---
CHIEF COMPLAINT: Nausea, not feeling well, shortness of breath. HISTORY OF PRESENT ILLNESS: This is a 68-year-old female patient who unfortunately does not have a scheduled outpatient dialysis treatment facility, who presented with shortness of breath, poor appetite, nausea with generalized hemodynamic symptoms. PAST MEDICAL HISTORY: Significant for end-stage renal disease, hypertension, secondary hyperparathyroidism, anemia of chronic kidney disease, and diabetes mellitus. MEDICATIONS: Reviewed and as documented on [employer]. ALLERGIES: TO ASPIRIN, PENICILLIN G. FAMILY HISTORY: Not significantly related to present illness. SOCIAL HISTORY: The patient is Anabaptist. No alcohol. No tobacco. No illicit drug use. PHYSICAL EXAMINATION: GENERAL: The patient was noted with the following vital signs. VITAL SIGNS: Afebrile, temperature 97.6, pulse 77, respiratory rate of 18, O2 saturation 97%, blood pressure . HEENT: Unremarkable. CARDIOVASCULAR: First and second heart sounds were heard. RESPIRATORY: Clear to auscultation. DIGESTIVE: Revealed a benign abdomen with positive bowel sounds. EXTREMITIES: No peripheral edema. SKIN: No new gross rash. LYMPHATICS: No peripheral lymphadenopathy. IMPRESSION: 1. End-stage renal disease, on hemodialysis. 2. Anemia of chronic kidney disease. 3. Diabetes mellitus type 2. . PLAN: The patient to be dialyzed today with low blood flow to avoid disequilibrium syndrome. Tomorrow, the patient to be dialyzed and afterwards, . We will plan on discharge the patient after dialysis. Job ID: [id number]
[2018-11-12] MEDS: Calcium Acetate 667 MG CAP PO SCH ×2 (08:40→11:42)
[2018-11-12] MEDS ORDERED: Folic Acid/Vit B Comp W-C PO SCH ×2 (09:00)
[2018-11-12] MEDS ORDERED: Calcitriol 0.25 MCG CAP PO SCH ×2 (09:00)
[2018-11-12] MEDS ORDERED: Amlodipine 5 MG TAB PO SCH ×2 (09:00)
[2018-11-12] MEDS ORDERED: Furosemide 40 MG TAB PO SCH ×2 (09:00)
[2018-11-12] MEDS ORDERED: Iron, Sodium Ferric Gluconate 125 MG in Sodium Chloride 0.9% 100 ML IVPB SCH (12:00)
[2018-11-12 14:08] VITALS: BP 153/78; TEMP 98.3
--- NOTE | 2018-11-12 15:11 | DIS ---
DATE OF ADMISSION: 11/11/2018 DATE OF DISCHARGE: 11/12/2018 For details of the history and physical, refer to dictations and records. SUMMARY: This is a 68-year-old female patient, who unfortunately could not get any scheduled outpatient dialysis, who presented here with uremic symptoms. The patient has been dialyzed twice and is due for discharge today. On examination today, the patient was not to be in any obvious distress, hemodynamically stable with blood pressure 153/78, pulse 74, respiratory rate of 18, O2 saturations 97%, and afebrile. The patient to be discharged to continue with her current home medications. Time spent including [id number] encounter, 32 minutes. Job ID: [id number]
== END 2018-11-12 14:57 | disposition home or self-care (01) ==
LOC: 2SW 13:31
PROVIDERS: ADMIT Internal Medicine Nephrology; ATTEND Internal Medicine Nephrology
DX: I12.0 Hypertensive chronic kidney disease with stage 5 chronic kidney disease or end stage renal disease (principal); E11.22 Type 2 diabetes mellitus with diabetic chronic kidney disease; N18.6 End stage renal disease; D63.1 Anemia in chronic kidney disease; Z88.0 Allergy status to penicillin; Z88.8 Allergy status to other drugs, medicaments and biological substances; Z99.2 Dependence on renal dialysis
CPT/HCPCS: 36415; 80069; 83970; 85025; 90935; 96374; 96375; G0257; G0378; J1644; J1756; J2916; J3490; Q5105

== ENCOUNTER 2018-11-21 08:24 | Observation (INO) | payer MEDICAID, SELFPAY ==
[2018-11-21] MEDS ORDERED: Iron, Sodium Ferric Gluconate 125 MG in Sodium Chloride 0.9% 100 ML IVPB SCH (10:00)
[2018-11-21 10:21] VITALS: BMI 21.8
[2018-11-21 11:07] LABS: #Eosinphils 0.1 thou/uL (0.0-0.7); #Lymphocytes 0.9 thou/uL (1.20-3.40); #Monocytes 0.4 thou/uL (0.11-0.59); #Neutrophils 3.5 thou/uL (1.40-6.50); %Basophils 0.7 % (0.0-1.0); %Eosinophils 2.1 % (0.0-10.0); %Lymphocytes 18.3 % (21.0-51.0); %Monocytes 8.1 % (0.0-10.0); %Neutrophils 70.8 % (42.0-75.0); Hemoglobin 8.8 g/dL (12.0-16.0); Mean Corpuscular HGB CONC 33.7 g/dL (32.0-36.0); Mean Corpuscular Hemoglobin 32.3 pg (27.0-31.0); Mean Corpuscular Volume 95.7 fL (78.0-98.0); Mean Platelet Volume 9.1 fL (7.4-10.4); Platelet Count 118 thou/uL (130-400); RBC Distribution Width 18.4 % (11.5-14.5); Red Blood Cell (RBC) Count 2.73 mill/uL (4.20-5.40)
[2018-11-21 11:26] LABS: Anion Gap 29 mmol/L (10-20); Calc. Creatinine Clearance 3 mL/min (70-130); Calcium 8.2 mg/dL (7.8-10.44); Carbon Dioxide 15 mmol/L (23-31); Chloride 96 mmol/L (98-107); Estimated GFR-MDRD 2; Glucose 172 mg/dL (80-115); Potassium 5.9 mmol/L (3.5-5.1); Sodium 134 mmol/L (136-145)
[2018-11-21 11:37] LABS: BUN (Urea Nitrogen) 117 mg/dL (9.8-20.1)
[2018-11-21] MEDS ORDERED: EPOETIN ALFA-EPBX (ESRD) 10,000 UNIT/ML VIAL SC SCH (14:00)
--- NOTE | 2018-11-21 16:51 | HP ---
CHIEF COMPLAINT: Lethargy, poor appetite, feeling very weak and nausea. HISTORY OF PRESENT ILLNESS: History is that of a 68-year-old female patient with end-stage renal disease, who unfortunately could not get regular outpatient dialysis due to insurance status. The patient presented to the clinic, complaining of the above-mentioned symptoms and laboratory investigation was carried out revealed elevated potassium, BUN, and creatinine. The patient obviously is in the uremic state. Decision was taken to admit this patient for renal replacement therapy (hemodialysis). The patient also did complain of chest tightness and some shortness of breath. Denies any diarrhea. Denies any fever. PAST MEDICAL HISTORY: Significant for end-stage renal disease on dialysis, secondary hyperparathyroidism, diabetes mellitus type 2, hypertension, anemia of chronic kidney disease. MEDICATIONS: Reviewed and as documented on [employer]. ALLERGIES: ASPIRIN AND PENICILLINS. FAMILY HISTORY: Not significantly related to present illness. SOCIAL HISTORY: Denies alcohol, tobacco, or illicit drug use. The patient is a [employer] and does not ask a blood transfusion. REVIEW OF SYSTEMS: As documented in the body of the history. All other systems were reviewed and found not to be significantly related to presenting illness. PHYSICAL EXAMINATION: GENERAL: The patient was found to be sleepy, but arousable, noted with the following vital signs. VITAL SIGNS: Afebrile, temperature 97.5, pulse 71, respiratory rate of 16, O2 saturation of 97% on room air with blood pressure of 170/68. HEENT: Unremarkable. Moist oral mucosa. NECK: Supple. No conjunctival injection or icterus. CARDIOVASCULAR SYSTEM: First and second heart sounds were heard. RESPIRATORY SYSTEM: Clear to auscultation. DIGESTIVE SYSTEM: Revealed a benign abdomen with positive bowel sounds. EXTREMITIES: No peripheral edema. SKIN: No new gross rash. LYMPHATICS: No peripheral lymphadenopathy. IMPRESSION: 1. End-stage renal disease, on hemodialysis. 2. Anemia of chronic kidney disease. 3. Hypertension. 4. Uremia related to problem #1. 5. Hyperkalemia related to problem. PLAN: 1. The patient to be dialyzed today. We will do a gentle dialysis today with a lower blood flow on a short direction to avoid precipitating disequilibrium syndrome. Tomorrow, the patient to undergo full dialysis afterwards from the patient likely to be discharged status post dialysis. 2. Iron infusion. 3. Erythropoiesis stimulating agents to address the anemia of chronic kidney disease in this patient. 4. Further management will be dependent on the clinical course. Condition of the patient at the time of this dictation is fair. Job ID: [id number]
[2018-11-22] MEDS ORDERED: Folic Acid/Vit B Comp W-C PO SCH (09:00)
[2018-11-22] MEDS ORDERED: Calcitriol 0.25 MCG CAP PO SCH (09:00)
[2018-11-22] MEDS ORDERED: Amlodipine 5 MG TAB PO SCH (09:00)
[2018-11-22 13:06] VITALS: BP 155/57; TEMP 97.9
[2018-11-22] MEDS ORDERED: Prevnar 13-Val Conj/PF 0.5 ML SYRINGE IM ONE (18:30)
--- NOTE | 2018-11-23 03:32 | DIS ---
DATE OF ADMISSION: 11/21/2018 DATE OF DISCHARGE: 11/22/2018 For details of the history and physical, refer to dictations and records. HOSPITAL COURSE: A 68-year-old female patient with end-stage renal disease, on hemodialysis, who presented here uremic and hyperkalemic. The patient did undergo 2 sessions of dialysis and at this time of dictation is very eager to go home, hemodynamically stable. The patient to be discharged home today to continue with all her home medications as before. Job ID: [id number]
== END 2018-11-22 15:17 | disposition home or self-care (01) ==
LOC: T4-B 09:19
PROVIDERS: ADMIT Internal Medicine Nephrology; ATTEND Internal Medicine Nephrology
DX: I12.0 Hypertensive chronic kidney disease with stage 5 chronic kidney disease or end stage renal disease (principal); E11.22 Type 2 diabetes mellitus with diabetic chronic kidney disease; N18.6 End stage renal disease; D63.1 Anemia in chronic kidney disease; N25.81 Secondary hyperparathyroidism of renal origin; E87.5 Hyperkalemia; R07.9 Chest pain, unspecified; R06.02 Shortness of breath; Z88.0 Allergy status to penicillin; Z88.8 Allergy status to other drugs, medicaments and biological substances; Z99.2 Dependence on renal dialysis
CPT/HCPCS: 36415; 80048; 85025; 90935; 96372; G0257; G0378; J2916; J3490; Q5105

== ENCOUNTER 2018-12-02 17:50 | Observation (INO) | payer MEDICAID, SELFPAY ==
--- NOTE | 2018-12-02 19:22 | RAD ---
EXAM: Chest Two Views 12/02/2018 7:18 PM HISTORY: Shortness of breath COMPARISON: November 02, 2018 FINDINGS: Heart: There is stable moderate cardiomegaly Pulmonary vessels: There is stable moderate pulmonary vascular congestion Costophrenic angles: There are persistent small bilateral pleural effusions, right greater than left Lungs: There is bibasilar atelectasis Pneumothorax: None. Osseous structures:Intact. Additional findings: None. IMPRESSION: Stable findings of mild to moderate CHF
[2018-12-02 19:35] LABS: #Eosinphils 0.1 thou/uL (0.0-0.7); #Monocytes 0.4 thou/uL (0.11-0.59); %Eosinophils 2.5 % (0.0-10.0); %Lymphocytes 22.4 % (21.0-51.0); %Monocytes 9.4 % (0.0-10.0); %Neutrophils 64.6 % (42.0-75.0); Hemoglobin 9.3 g/dL (12.0-16.0); Mean Corpuscular HGB CONC 34.5 g/dL (32.0-36.0); Mean Corpuscular Hemoglobin 33.6 pg (27.0-31.0); Mean Corpuscular Volume 97.6 fL (78.0-98.0); Platelet Count 128 thou/uL (130-400); RBC Distribution Width 17.4 % (11.5-14.5); Red Blood Cell (RBC) Count 2.78 mill/uL (4.20-5.40); White Blood Cell (WBC) Count 4.7 thou/uL (4.8-10.8)
[2018-12-02 19:55] LABS: ALT (SGPT) 23 U/L (8-55); AST (SGOT) 31 U/L (5-34); Albumin 4.3 g/dL (3.4-4.8); Alkaline Phosphatase 80 U/L (40-150); Anion Gap 33 mmol/L (10-20); Bilirubin, Total 0.7 mg/dL (0.2-1.2); Calc. Creatinine Clearance 0 mL/min (70-130); Calcium 8.6 mg/dL (7.8-10.44); Carbon Dioxide 14 mmol/L (23-31); Chloride 96 mmol/L (98-107); Estimated GFR-MDRD 2; Globulin 3.5 g/dL (2.4-3.5); Glucose 113 mg/dL (80-115); Potassium 6.2 mmol/L (3.5-5.1); Protein, Total 7.8 g/dL (6.0-8.3); Sodium 137 mmol/L (136-145)
[2018-12-02] MEDS ORDERED: Ondansetron ODT 4 MG TAB PO PRN (20:14)
[2018-12-02] MEDS ORDERED: Zolpidem Tartrate 5 MG TAB PO PRN (20:14)
[2018-12-02] MEDS ORDERED: Calcium Carbonate 500 MG ChewTAB PO PRN (20:14)
[2018-12-02] MEDS ORDERED: HumaLOG 300 UNITS/3 ML VIAL SC PRN (20:14)
[2018-12-02] MEDS ORDERED: Dextrose 5% in Water 1,000 ML IV PRN (20:14)
[2018-12-02] MEDS ORDERED: Loperamide HCl 2 MG CAP PO PRN (20:14)
[2018-12-02] MEDS ORDERED: Ondansetron PF 4 MG/2 ML Vial IVP PRN (20:14)
[2018-12-02] MEDS ORDERED: Acetaminophen 325 MG TAB PO PRN (20:14)
[2018-12-02] MEDS ORDERED: Insulin Regular 300 UNITS/3 ML VIAL SC PRN (20:14)
[2018-12-02] MEDS ORDERED: Dextrose 50% Abboject 50 ML SYRINGE SLOW IVP PRN (20:14)
[2018-12-02] MEDS ORDERED: Loperamide HCl 2 MG CAP PO SCH (20:14)
[2018-12-02 20:23] LABS: BUN (Urea Nitrogen) 129 mg/dL (9.8-20.1)
[2018-12-02 20:33] LABS: CKMB 4.2 ng/mL (0-6.6)
[2018-12-03 01:30] LABS: HBSAg Index 0.15 S/CO (0-0.99); Hep B Surf Ag Non-Reactive S/CO (NonReactive)
[2018-12-03 02:07] VITALS: BMI 20.5
[2018-12-03 06:07] LABS: Troponin I 0.075 ng/mL (< 0.028)
[2018-12-03 06:11] LABS: Eosinophils 3 % (0-10); Hemoglobin 8.9 g/dL (12.0-16.0); Lymphocytes 24 % (21-51); MDiff Complete? YES; Mean Corpuscular HGB CONC 33.8 g/dL (32.0-36.0); Mean Corpuscular Hemoglobin 32.5 pg (27.0-31.0); Mean Platelet Volume 9.4 fL (7.4-10.4); Monocytes 11 % (0-10); Neutrophil 62 % (42-75); Platelet Count 115 thou/uL (130-400); Platelet Morphology Comment Appears Decreased; RBC Distribution Width 17.3 % (11.5-14.5); Red Blood Cell (RBC) Count 2.73 mill/uL (4.20-5.40); White Blood Cell (WBC) Count 3.6 thou/uL (4.8-10.8)
[2018-12-03 06:12] LABS: Albumin 3.9 g/dL (3.4-4.8); Anion Gap 26 mmol/L (10-20); BUN (Urea Nitrogen) 86 mg/dL (9.8-20.1); BUN/Creatinine Ratio 7.73; Calc. Creatinine Clearance 4 mL/min (70-130); Calcium 8.5 mg/dL (7.8-10.44); Carbon Dioxide 19 mmol/L (23-31); Chloride 96 mmol/L (98-107); Estimated GFR-MDRD 3; Glucose 65 mg/dL (80-115); Potassium 4.7 mmol/L (3.5-5.1); Sodium 136 mmol/L (136-145)
[2018-12-03] MEDS ORDERED: Iron Sucrose Complex 100 MG in Sodium Chloride 0.9% 100 ML IVPB SCH (08:00)
[2018-12-03] MEDS ORDERED: EPOETIN ALFA-EPBX (ESRD) 10,000 UNIT/ML VIAL IVP SCH (08:00)
[2018-12-03 08:31] VITALS: TEMP 98
[2018-12-03] MEDS ORDERED: Calcitriol 0.25 MCG CAP PO SCH (09:00)
[2018-12-03] MEDS ORDERED: Famotidine 20 MG TAB PO SCH (09:00)
[2018-12-03] MEDS ORDERED: Amlodipine 5 MG TAB PO SCH (09:00)
[2018-12-03 15:11] VITALS: BP 179/81
[2018-12-03] MEDS ORDERED: Prevnar 13-Val Conj/PF 0.5 ML SYRINGE IM ONE (21:00)
--- NOTE | 2018-12-04 01:36 | HP ---
CHIEF COMPLAINT: Shortness of breath, chest discomfort, nausea, and vomiting. HISTORY OF PRESENT ILLNESS: History is that of a 68-year-old female patient with end-stage renal disease, who unfortunately could not get any scheduled outpatient dialysis and presented here with shortness of breath, chest discomfort, nausea, and vomiting, noted with potassium of above 6. The need for maintenance dialysis necessitated admission of this patient. The patient is obviously uremic. Past medical history, family history and social history remained the same. For the details, refer to the note less than 2 weeks ago. PHYSICAL EXAMINATION: GENERAL: The patient was found to be ill looking, hemodynamically stable, somewhat hypertensive. HEENT: Unremarkable. CARDIOVASCULAR SYSTEM: First and second heart sounds were heard. RESPIRATORY SYSTEM: Clear to auscultation anteriorly with diminished breath sounds at the bases. DIGESTIVE SYSTEM: Revealed a benign abdomen with positive bowel sounds. EXTREMITIES: Some peripheral edema. SKIN: No new gross rash. LYMPHATICS: No peripheral lymphadenopathy. IMPRESSION: 1. End-stage renal disease. 2. Uremia. 3. Hyperkalemia. 4. Pulmonary congestion. 5. Hypertensive urgency. PLAN: 1. Admit the patient and we will start a short dialysis, more or less modify to avoid precipitating disequilibrium syndrome. 2. Tomorrow, full regular dialysis will be carried out and afterwards the patient remains hemodynamically stable and will be discharged afterwards. 3. The patient is to receive iron infusion as well as erythropoiesis stimulating agents. Job ID: [id number]
--- NOTE | 2018-12-04 03:43 | DIS ---
DATE OF ADMISSION: 12/02/2018 DATE OF DISCHARGE: 12/03/2018 For details of the history and physical, please refer to dictations and records. SUMMARY: This is a 68-year-old female patient who presented here uremic, did undergo 2 sessions of dialysis and feeling okay for discharge. The patient to be discharged today to continue with current home medication. The condition of the patient at the time of discharge was good. Job ID: [id number]
--- NOTE | 2018-12-07 15:01 | EKG ---
Test Reason : Blood Pressure : / mmHG Vent. Rate : 073 BPM Atrial Rate : 073 BPM P-R Int : 164 ms QRS Dur : 078 ms QT Int : 416 ms P-R-T Axes : 046 003 076 degrees QTc Int : 458 ms Normal sinus rhythm Confirmed by GISELLE MCNALLY ([id number]), city editor KATARINA MOY ([id number]) on 12/07/2018 3:00:34 PM Referred By: Confirmed By:GISELLE MCNALLY
== END 2018-12-03 17:17 | disposition home or self-care (01) ==
LOC: ERS 17:50 → 2SW 20:14
PROVIDERS: ADMIT Internal Medicine Nephrology; ATTEND Internal Medicine Nephrology
DX: E87.5 Hyperkalemia (principal); N18.6 End stage renal disease; I16.0 Hypertensive urgency; I50.9 Heart failure, unspecified; R09.89 Other specified symptoms and signs involving the circulatory and respiratory systems; Z99.2 Dependence on renal dialysis; Z88.0 Allergy status to penicillin; Z88.8 Allergy status to other drugs, medicaments and biological substances
CPT/HCPCS: 36415; 36416; 71046; 80069; 82553; 83880; 84484; 85007; 85025; 85027; 87340; 90935; 93005; 94760; 96374; 96375; G0257; G0378; J1756; J3490; Q5105

== ENCOUNTER 2018-12-13 17:52 | Observation (INO) | payer SELFPAY ==
[2018-12-13 18:37] VITALS: BMI 19.9
[2018-12-13] MEDS ORDERED: Iron Sucrose Complex 100 MG in Sodium Chloride 0.9% 100 ML IVPB SCH (22:15)
[2018-12-13] MEDS ORDERED: EPOETIN ALFA-EPBX (ESRD) 4,000 UNIT/ML VIAL IVP SCH (22:15)
[2018-12-14 15:39] VITALS: BP 177/78; TEMP 98.1
--- NOTE | 2018-12-15 12:27 | HP ---
CHIEF COMPLAINT: Shortness of breath, nausea, and chest discomfort. HISTORY OF PRESENT ILLNESS: A 68-year-old female patient, who unfortunately does not have any scheduled outpatient dialysis facility, who presented here with shortness of breath, chest discomfort, nausea, vomiting and diarrhea. Evaluation reveals significant azotemia as well as hyperkalemia where the patient more or less at the point of needing dialysis. Decision was taken to admit this patient to have the patient undergo dialysis. PAST MEDICAL HISTORY: Remains unchanged from the previous hospitalization. SOCIAL HISTORY: The patient is . No alcohol. No tobacco. No illicit drug use. REVIEW OF SYSTEMS: As documented in the body of history, otherwise unremarkable. PHYSICAL EXAMINATION: GENERAL: The patient was found to be very lethargic, noted with the following vital signs. VITAL SIGNS: Afebrile, temperature 97.6, pulse 94, respiratory rate of 18, O2 saturation 100% with blood pressure 177/78 and later went down to 173/77. HEENT: Unremarkable. CARDIOVASCULAR SYSTEM: First and second heart sounds were heard. RESPIRATORY SYSTEM: Clear to auscultation. DIGESTIVE SYSTEM: Revealed a benign abdomen. Positive bowel sounds. EXTREMITIES: No peripheral edema. ASSESSMENT AND PLAN: In summary, 68-year-old female patient with renal disease. Job ID: [id number]
--- NOTE | 2018-12-17 14:56 | DIS ---
DATE OF ADMISSION: 12/13/2018 DATE OF DISCHARGE: 12/14/2018 For details of the history and physical, please refer to dictations and records. HOSPITAL COURSE: A 68-year-old female patient with end-stage renal disease, who unfortunately could not be dialyzed on a regular basis as an outpatient, presented here with shortness of breath, nausea, chest discomfort, diagnosed with uremia, got admitted and received 2 sessions of dialysis with marked improvement in the clinical symptoms. The patient having maintained sustained clinical improvement subsequently discharge on December 14 and continue with home management. DISCHARGE INSTRUCTIONS: 1. Stay compliant with medications. 2. Avoid potential nephrotoxic agents. 3. Renally dose all the medications. Total time spent including [id number] encounter, 31 minutes. Job ID: [id number]
== END 2018-12-14 16:53 | disposition home or self-care (01) ==
LOC: 2SW 17:52
PROVIDERS: ADMIT Internal Medicine Nephrology; ATTEND Internal Medicine Nephrology
DX: E87.5 Hyperkalemia (principal); R79.89 Other specified abnormal findings of blood chemistry; Z88.0 Allergy status to penicillin; Z88.8 Allergy status to other drugs, medicaments and biological substances
CPT/HCPCS: 36416; 90935; G0257; G0378; J1756; J3490; Q5105

== ENCOUNTER 2018-12-25 16:15 | Observation (INO) | payer MEDICAID, SELFPAY ==
[~2018-12-25 16:15] MED LIST changes: -Heparin 1,000 UNITS/ML VIAL ONE; +Heparin 10,000 UNITS/ 10 ML VIAL ONE
[2018-12-25] MEDS ORDERED: Iron Sucrose Complex 100 MG in Sodium Chloride 0.9% 100 ML IVPB SCH (18:00)
[2018-12-25] MEDS ORDERED: EPOETIN ALFA-EPBX (ESRD) 2,000 UNIT/ML VIAL IVP SCH (18:00)
[2018-12-25] MEDS ORDERED: EPOETIN ALFA-EPBX (ESRD) 3,000 UNIT/ML VIAL IVP SCH (18:00)
[2018-12-25 18:39] LABS: #Lymphocytes 0.9 thou/uL (1.20-3.40); #Monocytes 0.5 thou/uL (0.11-0.59); %Basophils 0.5 % (0.0-1.0); %Eosinophils 0.8 % (0.0-10.0); %Lymphocytes 20.9 % (21.0-51.0); %Monocytes 11.1 % (0.0-10.0); %Neutrophils 66.7 % (42.0-75.0); Hemoglobin 9.2 g/dL (12.0-16.0); Mean Corpuscular HGB CONC 34.2 g/dL (32.0-36.0); Mean Corpuscular Hemoglobin 31.9 pg (27.0-31.0); Mean Corpuscular Volume 93.1 fL (78.0-98.0); Mean Platelet Volume 9.4 fL (7.4-10.4); Platelet Count 103 thou/uL (130-400); RBC Distribution Width 16.4 % (11.5-14.5); Red Blood Cell (RBC) Count 2.87 mill/uL (4.20-5.40); White Blood Cell (WBC) Count 4.5 thou/uL (4.8-10.8)
[2018-12-25 21:47] VITALS: BMI 21.1
[2018-12-26] MEDS ORDERED: Amlodipine 5 MG TAB PO SCH ×2 (00:45→09:00)
--- NOTE | 2018-12-26 02:12 | HP ---
CHIEF COMPLAINT: Nausea, chest discomfort, generalized muscle ache, shortness of breath. HISTORY OF PRESENT ILLNESS: This is a 68-year-old female patient with end-stage renal disease, who has not been dialyzed for the past 11 days or so, presented with the above-mentioned complaints. The patient also did give history of dysuria and chills, evaluated with blood work that showed a severely elevated potassium of 6.2 and BUN of 130. The patient noted to be acidotic and profoundly uremic, thus need for admission for renal replacement therapy. PAST MEDICAL HISTORY: Significant for 1. End-stage renal disease, who unfortunately does not have any scheduled outpatient dialysis treatment. 2. Hypertension. 3. Diabetes mellitus, type 2. 4. Secondary hyperparathyroidism. 5. Anemia of chronic kidney disease. MEDICATIONS: Reviewed and as documented on [employer]. ALLERGIES: TO ASPIRIN AND PENICILLIN. FAMILY HISTORY: No family history of kidney disease. SOCIAL HISTORY: No alcohol, no tobacco, no illicit drug use. The patient is a [employer]. Does not accept blood. REVIEW OF SYSTEMS: As documented in the body of the history. All other systems were reviewed and found not to be significantly related to presenting illness. PHYSICAL EXAMINATION: GENERAL: The patient is found to be ill looking, noted with the following vital signs. VITAL SIGNS: Afebrile, temperature 97.7, pulse 73, respiratory rate of 18, O2 saturation 97% with a blood pressure of 160/76. HEENT: Unremarkable. CARDIOVASCULAR: First and second heart sounds were heard. RESPIRATORY: Clear to auscultation. DIGESTIVE: Revealed a benign abdomen with positive bowel sounds. EXTREMITIES: No peripheral edema. SKIN: No new gross rash. LYMPHATICS: No peripheral lymphadenopathy. IMPRESSION: 1. End-stage renal disease. 2. Uremia with profound azotemia. 3. Hyperkalemia. 4. Metabolic acidosis. 5. Hypertension. 6. Diabetes mellitus, type 2. PLAN: 1. The patient to be dialyzed today, but we will do a short run of dialysis with lower blood flow to avoid disequilibrium syndrome. 2. The patient to get a full dialysis tomorrow and if the patient is feeling okay, to be discharged afterward. 3. Urinalysis to evaluate for potential urinary tract infection and treat accordingly. 4. Further management to be dependent on the clinical course. 5. Code status is full. Job ID: [id number]
[2018-12-26 05:48] LABS: HBSAg Index 0.19 S/CO (0-0.99); Hep B Surf Ag Non-Reactive S/CO (NonReactive)
[2018-12-26] MEDS ORDERED: Iron Sucrose Complex 100 MG in Sodium Chloride 0.9% 100 ML IVPB SCH (07:00)
[2018-12-26] MEDS ORDERED: Folic Acid/Vit B Comp W-C PO SCH (09:00)
[2018-12-26] MEDS ORDERED: Calcitriol 0.25 MCG CAP PO SCH (09:00)
[2018-12-26] MEDS ORDERED: EPOETIN ALFA-EPBX (ESRD) 3,000 UNIT/ML VIAL IVP SCH (13:00)
[2018-12-26] MEDS ORDERED: EPOETIN ALFA-EPBX (ESRD) 2,000 UNIT/ML VIAL IVP SCH (13:00)
[2018-12-26 16:05] VITALS: TEMP 98.1
[2018-12-26 17:24] VITALS: BP 124/72
--- NOTE | 2018-12-27 03:09 | DIS ---
DATE OF ADMISSION: 12/25/2018 DATE OF DISCHARGE: 12/26/2018 HOSPITAL COURSE: The patient noted with the following vital signs. VITAL SIGNS: Blood pressure 160/72, pulse 77, respiratory rate 17, O2 saturation 97%, afebrile, temperature 98.4. HEENT: Unremarkable. CARDIOVASCULAR: First and second heart sounds were heard. RESPIRATORY: Clear to auscultation. DIGESTIVE: Revealed a benign abdomen with positive bowel sounds. EXTREMITIES: No peripheral edema. SKIN: No new gross rash. LYMPHATICS: No peripheral lymphadenopathy. IMPRESSION: 1. End-stage renal disease, hemodialysis dependent. 2. Uremia. 3. Diabetes mellitus. 4. Hypertension. PLAN: The patient did undergo dialysis second session today. The patient seems to be doing much better. The patient is to be discharged today to continue with the current home medications. Total time spent including [id number] encounter, 31 minutes. Job ID: [id number]
== END 2018-12-26 17:49 | disposition home or self-care (01) ==
LOC: 2SW 17:17
PROVIDERS: ADMIT Internal Medicine Nephrology; ATTEND Internal Medicine Nephrology
DX: I12.0 Hypertensive chronic kidney disease with stage 5 chronic kidney disease or end stage renal disease (principal); E11.22 Type 2 diabetes mellitus with diabetic chronic kidney disease; N18.6 End stage renal disease; D63.1 Anemia in chronic kidney disease; N25.81 Secondary hyperparathyroidism of renal origin; E87.5 Hyperkalemia; E11.10 Type 2 diabetes mellitus with ketoacidosis without coma; Z79.899 Other long term (current) drug therapy; Z88.0 Allergy status to penicillin; Z88.8 Allergy status to other drugs, medicaments and biological substances; Z99.2 Dependence on renal dialysis
CPT/HCPCS: 36415; 85025; 87340; 90935; 96365; 96375; 96376; G0257; G0378; J1644; J1756; J3490; Q5105

== ENCOUNTER 2019-01-02 12:49 | Observation (INO) | payer SELFPAY ==
[2019-01-02 15:34] VITALS: BMI 22.6
[2019-01-02] MEDS ORDERED: Ondansetron ODT 4 MG TAB PO PRN (15:48)
[2019-01-02] MEDS ORDERED: EPOETIN ALFA-EPBX (ESRD) 10,000 UNIT/ML VIAL IVP SCH (18:30)
[2019-01-02] MEDS: Sodium Bicarbonate Tab 325 MG TAB PO SCH (21:22)
[2019-01-03 07:53] VITALS: TEMP 98.4
[2019-01-03] MEDS: Furosemide 40 MG TAB PO SCH ×2 (08:05→15:58)
[2019-01-03] MEDS: Sodium Bicarbonate Tab 325 MG TAB PO SCH (08:05)
[2019-01-03] MEDS ORDERED: Calcitriol 0.25 MCG CAP PO SCH (09:00)
[2019-01-03] MEDS ORDERED: Folic Acid/Vit B Comp W-C PO SCH (09:00)
[2019-01-03] MEDS ORDERED: Amlodipine 5 MG TAB PO SCH (09:00)
[2019-01-03 15:59] VITALS: BP 157/88
== END 2019-01-03 17:00 | disposition home or self-care (01) ==
LOC: T4-B 13:34
PROVIDERS: ADMIT Internal Medicine Nephrology; ATTEND Internal Medicine Nephrology
DX: N18.6 End stage renal disease (principal); E87.5 Hyperkalemia; Z79.899 Other long term (current) drug therapy; Z88.0 Allergy status to penicillin; Z88.8 Allergy status to other drugs, medicaments and biological substances
CPT/HCPCS: 36416; 90935; G0257; G0378; Q5105

== ENCOUNTER 2019-01-14 10:46 | Observation (INO) | payer SELFPAY ==
[2019-01-14] MEDS ORDERED: Ondansetron ODT 8 MG TAB PO PRN (16:18)
[2019-01-14 16:23] LABS: #Eosinphils 0.1 thou/uL (0.0-0.7); #Lymphocytes 1.1 thou/uL (1.20-3.40); #Monocytes 0.5 thou/uL (0.11-0.59); #Neutrophils 2.7 thou/uL (1.40-6.50); %Eosinophils 1.7 % (0.0-10.0); %Lymphocytes 24.2 % (21.0-51.0); %Monocytes 10.3 % (0.0-10.0); %Neutrophils 62.8 % (42.0-75.0); Hemoglobin 9.8 g/dL (12.0-16.0); Mean Corpuscular HGB CONC 34.6 g/dL (32.0-36.0); Mean Corpuscular Hemoglobin 32.6 pg (27.0-31.0); Mean Corpuscular Volume 94.1 fL (78.0-98.0); Mean Platelet Volume 9.8 fL (7.4-10.4); Platelet Count 110 thou/uL (130-400); RBC Distribution Width 16.5 % (11.5-14.5); White Blood Cell (WBC) Count 4.3 thou/uL (4.8-10.8)
[2019-01-14 18:52] VITALS: BMI 22.6
[2019-01-14] MEDS ORDERED: FLU VACC TS2019-20(65YR UP)/PF 180 MCG/0.5 ML SYRINGE IM ONE (21:00)
[2019-01-14] MEDS ORDERED: Sodium Bicarbonate Tab 325 MG TAB PO SCH (21:00)
[2019-01-14] MEDS ORDERED: Amlodipine 5 MG TAB PO SCH (22:15)
[2019-01-14 22:44] LABS: Bilirubin Negative (Negative); Blood, Urine 1+ (Negative); Clarity Turbid (Clear); Glucose, Urine (Dipstick) 300 mg/dL (Negative); Leukocyte 75 Leu/uL (Negative); Nitrite Negative (Negative); Protein, Urine (Dipstick) Greater than 600 mg/dL (Neg-Trace); Squamous Epithelial 21-50 HPF (0-3); Urobilinogen Normal mg/dL (Less than 2); WBC/HPF 21-50 HPF (0-3)
[2019-01-14 22:51] LABS: Bacteria/HPF 1+ HPF (None Seen)
--- NOTE | 2019-01-15 01:27 | HP ---
CHIEF COMPLAINT: Nausea, vomiting, severe weakness. HISTORY OF PRESENT ILLNESS: History is that of a 68-year-old unfortunate female patient who does not as an outpatient due to insurance issues, presented with progressive weakness, shortness of breath, nausea, and vomiting, evaluated clinically as well as and with features highly suggestive of uremia. The patient is now being admitted for upgraded dialysis treatment. PAST MEDICAL HISTORY: Remains the same. Please refer to the note documented in the recent visit. FAMILY HISTORY: Remains the same. Please refer to the note documented in the recent visit. SOCIAL HISTORY: Remains the same. Please refer to the note documented in the recent visit. REVIEW OF SYSTEMS: As documented in the body of history. All other systems were reviewed and found not to be significantly related to presenting illness. ALLERGIES: ASPIRIN AND PENICILLIN. PHYSICAL EXAMINATION: GENERAL: The patient was found to be ill looking, noted with the following vital signs. VITAL SIGNS: Afebrile, temperature 97.9, pulse 74, respiratory rate of 18, O2 saturations are 95% with a blood pressure of 170/74. HEENT: Unremarkable. CARDIOVASCULAR: First and second sounds were heard. RESPIRATORY: Clear to auscultation. DIGESTIVE: Revealed a benign abdomen. EXTREMITIES: Showed some peripheral edema. SKIN: No new gross rash. LYMPHATICS: No peripheral lymphadenopathy. IMPRESSION: 1. End-stage renal disease, on dialysis. 2. Uremia. 3. Hyperkalemia. 4. Hypertension. PLAN: 1. The patient to be dialyzed for about 2 hours today and then tomorrow upgraded to about 4 hours of treatment. 2. If the patient remains clinically okay after dialysis tomorrow, likely to be discharged status post dialysis. 3. Continue other current management. Code status is full. Job ID: [id number]
[2019-01-15] MEDS ORDERED: EPOETIN ALFA-EPBX (ESRD) 10,000 UNIT/ML VIAL FS SCH (08:30)
[2019-01-15] MEDS ORDERED: Calcitriol 0.25 MCG CAP PO SCH (09:00)
[2019-01-15] MEDS ORDERED: Folic Acid/Vit B Comp W-C PO SCH (09:00)
[2019-01-15] MEDS ORDERED: Amlodipine 5 MG TAB PO SCH (09:00)
[2019-01-15 15:49] VITALS: BP 174/75; TEMP 98.4
--- NOTE | 2019-01-16 10:39 | DIS ---
DATE OF ADMISSION: 01/14/2019 DATE OF DISCHARGE: 01/15/2019 For details of the history and physical, please refer to dictations and records. SUMMARY: This is a 68-year-old female patient who unfortunately does not have any scheduled outpatient dialysis treatment, who presented here with uremic and hyperkalemic, necessitating 2 sessions of hemodialysis. The patient responded well to this treatment and noted to be at this junction hemodynamically stable. Rest of the physical findings unremarkable except elevated blood pressure for which decision has been taken to increase the patient's antihypertensive medications of Norvasc from 5 mg to 10 mg. The patient will be discharged with the same home medication with the exception of amlodipine which has been increased from 5 mg to 10 mg. Total time spent including [id number] encounter and discharge at this patient totalled about 31 minutes. Job ID: [id number]
== END 2019-01-15 16:27 | disposition home or self-care (01) ==
LOC: 3SE 13:56
PROVIDERS: ADMIT Internal Medicine Nephrology; ATTEND Internal Medicine Nephrology
DX: E87.5 Hyperkalemia (principal); I12.0 Hypertensive chronic kidney disease with stage 5 chronic kidney disease or end stage renal disease; N18.6 End stage renal disease; Z88.0 Allergy status to penicillin; Z88.8 Allergy status to other drugs, medicaments and biological substances; Z99.2 Dependence on renal dialysis
CPT/HCPCS: 81003; 81015; 85025; 87086; 90935; G0257; G0378; Q5105

== ENCOUNTER 2019-01-27 15:34 | Observation (INO) | payer MEDICAID, SELFPAY ==
[2019-01-27 18:30] LABS: HBSAg Index 0.38 S/CO (0-0.99); Hep B Surf Ag Non-Reactive S/CO (NonReactive)
[2019-01-27] MEDS ORDERED: Ondansetron ODT 4 MG TAB PO PRN (19:41)
[2019-01-27] MEDS ORDERED: Acetaminophen 325 MG TAB PO PRN (19:41)
[2019-01-27] MEDS ORDERED: Zolpidem Tartrate 5 MG TAB PO PRN (19:41)
[2019-01-27] MEDS ORDERED: Famotidine 20 MG TAB PO SCH (21:00)
[2019-01-27 23:29] VITALS: BMI 24.4
--- NOTE | 2019-01-28 08:19 | HP ---
CHIEF COMPLAINT: Nausea, shortness of breath, and leg swelling. HISTORY OF PRESENT ILLNESS: A 68-year-old female patient with end-stage renal disease, who is unable to get a scheduled dialysis presented with nausea and shortness of breath, dialyzed about 14 days ago. Denies any chest pain. On clinical evaluation, the patient with evidence of profound azotemia, hyperkalemia, potassium of 6, and severe metabolic acidosis. As a result of all these findings, decision has been taken to admit this patient and undergo dialysis. PAST MEDICAL HISTORY: Remains the same. For the details, refer to previous notes. FAMILY HISTORY: Remains the same. For the details, refer to previous notes. SOCIAL HISTORY: Remains the same. For the details, refer to previous notes. REVIEW OF SYSTEMS: As documented in the body of history. All other systems were reviewed and found not to be significantly related to presenting illness. PHYSICAL EXAMINATION: GENERAL: The patient was noted to be ill looking, hemodynamically stable. HEENT: Unremarkable. CARDIOVASCULAR: First and second heart sounds were heard. RESPIRATORY: Clear to auscultation. DIGESTIVE: Revealed benign abdomen. EXTREMITIES: Showed peripheral edema. SKIN: No new gross rash. LYMPHATICS: No peripheral lymphadenopathy. CODE STATUS: Full. Job ID: [id number]
[2019-01-28 08:24] VITALS: TEMP 98.6
[2019-01-28] MEDS ORDERED: EPOETIN ALFA-EPBX (ESRD) 10,000 UNIT/ML VIAL IVP SCH (09:30)
[2019-01-28 15:26] VITALS: BP 162/76
--- NOTE | 2019-01-29 02:44 | DIS ---
DATE OF ADMISSION: 01/27/2019 DATE OF DISCHARGE: 01/28/2019 HOSPITAL COURSE: The patient seems to have done very well, tolerated 2 sessions of dialysis and very eager to go home, will be discharged home today to continue with her home medications. DISCHARGE INSTRUCTIONS: The patient to follow up with me as an outpatient to avoid diet with high potassium or high phosphorus diet. Further management to be dependent on the clinical course. Condition of the patient at the time of discharge is good. Job ID: [id number]
== END 2019-01-28 15:41 | disposition home or self-care (01) ==
LOC: 2SW 15:34 → UNDOADMIN 15:34 → UNDOADMOB 16:34 → SURG A 16:34 → 2SW 16:37
PROVIDERS: ADMIT Internal Medicine Nephrology; ATTEND Internal Medicine Nephrology
DX: E87.5 Hyperkalemia (principal); E87.2 Acidosis; N18.6 End stage renal disease; Z79.899 Other long term (current) drug therapy; Z88.0 Allergy status to penicillin; Z88.8 Allergy status to other drugs, medicaments and biological substances; Z99.2 Dependence on renal dialysis
CPT/HCPCS: 87340; 90935; G0257; G0378

== ENCOUNTER 2019-02-07 13:13 | Observation (INO) | payer MEDICAID, SELFPAY ==
[2019-02-07 14:33] VITALS: BMI 24.2
[2019-02-07] MEDS ORDERED: Acetaminophen 325 MG TAB PO PRN (16:31)
[2019-02-07] MEDS ORDERED: Ondansetron ODT 8 MG TAB PO PRN (16:32)
[2019-02-07] MEDS: Sodium Bicarbonate Tab 325 MG TAB PO SCH (20:51)
[2019-02-08] MEDS ORDERED: Folic Acid/Vit B Comp W-C PO SCH (09:00)
[2019-02-08] MEDS ORDERED: Calcitriol 0.25 MCG CAP PO SCH (09:00)
[2019-02-08] MEDS ORDERED: Amlodipine 10 MG TAB PO SCH (09:00)
[2019-02-08] MEDS ORDERED: EPOETIN ALFA-EPBX (ESRD) 4,000 UNIT/ML VIAL IVP SCH (09:30)
[2019-02-08] MEDS: Sodium Bicarbonate Tab 325 MG TAB PO SCH ×2 (11:49→19:57)
[2019-02-09 08:01] VITALS: BP 173/70; TEMP 98.1
--- NOTE | 2019-02-09 09:57 | PRG ---
DATE OF SERVICE: 02/08/2019 SUBJECTIVE: The patient was seen and examined at dialysis, sleepy, but arousable, noted with the following vital signs. OBJECTIVE: VITAL SIGNS: Temperature 99.3, pulse 69, respiratory rate of 16, O2 saturation of 96% with blood pressure 160/67. HEENT: Unremarkable. CARDIOVASCULAR: First and second heart sounds were heard. RESPIRATORY: Clear to auscultation. DIGESTIVE SYSTEM: Revealed a benign abdomen with positive bowel sounds. EXTREMITIES: No peripheral edema. SKIN: No new gross rash. LYMPHATICS: No peripheral lymphadenopathy. IMPRESSION: 1. End-stage renal disease, on dialysis. 2. Uremia. 3. Hyperkalemia. 4. Metabolic acidosis. PLAN: 1. The patient to undergo full dialysis today and the patient likely to be discharged, status post dialysis. 2. Continue current management. Job ID: [id number]
--- NOTE | 2019-02-09 11:05 | HP ---
CHIEF COMPLAINT: Shortness of breath and nausea. HISTORY OF PRESENT ILLNESS: A 68-year-old female patient with end-stage renal disease, who unfortunately does not have regular outpatient clinic for continued hemodialysis. The patient presented with shortness of breath, leg swelling, nausea and generally not feeling very well. Clinically evaluated and noted with elevated potassium, severe metabolic acidosis. Decision was taken to admit this patient for renal replacement therapy. PAST MEDICAL HISTORY: Significant for end-stage renal disease, hypertension, diabetes mellitus, hyperkalemia. MEDICATIONS: Reviewed and as documented on [facility]. ALLERGIES: ASPIRIN, PENICILLIN. FAMILY HISTORY: Not significantly related to present illness. SOCIAL HISTORY: The patient is a [employer]. No alcohol. No tobacco. No illicit drug use. REVIEW OF SYSTEMS: As documented in the body of the history. All other systems were reviewed and found not to be significantly related to presenting illness. PHYSICAL EXAMINATION: GENERAL: The patient was found to be ill looking. VITAL SIGNS: Afebrile, temperature 98.1, pulse 76, respiratory rate of 16, O2 saturation of 98% with blood pressure of 164/74. HEENT: Unremarkable. CARDIOVASCULAR: First and second heart sounds were heard. RESPIRATORY: Clear to auscultation. DIGESTIVE: Revealed a benign abdomen. EXTREMITIES: Showed 2+ bilateral lower extremity edema. SKIN: No new gross rash. LYMPHATICS: No peripheral lymphadenopathy. IMPRESSION: 1. End-stage renal disease. 2. Uremia. 3. Metabolic acidosis. 4. Hyperkalemia. 5. Hypertension. PLAN: 1. The patient to be dialyzed. We will start with gentle dialysis to avoid precipitating disequilibrium syndrome. If patient continues to tolerate dialysis well, the patient after two sessions of dialysis will likely to be discharged. 2. Continue all home medications with the exception of the Bumex which will be permanently discontinued as patient seems not to be responding to diuretics. 3. Further management to be dependent on the clinical course. 4. Code status is full. Job ID: [id number]
--- NOTE | 2019-02-09 11:15 | DIS ---
DATE OF ADMISSION: 02/07/2019 DATE OF DISCHARGE: 02/09/2019 For the details of the history and physical, refer to dictations and records. SUMMARY: This is a 68-year-old female patient who unfortunately does not have a scheduled outpatient dialysis, presented here uremic, hyperkalemic, hyperacidotic. Did undergo 2 sessions of dialysis, tolerated the procedures very well and now stable for discharge. The patient to be discharged to continue all her home medications with the exception of Bumex. The condition of patient at the time of discharge was good. Job ID: [id number]
== END 2019-02-09 08:14 | disposition home or self-care (01) ==
LOC: 2SW 14:15
PROVIDERS: ADMIT Internal Medicine Nephrology; ATTEND Internal Medicine Nephrology
DX: E87.5 Hyperkalemia (principal); E11.10 Type 2 diabetes mellitus with ketoacidosis without coma; I12.0 Hypertensive chronic kidney disease with stage 5 chronic kidney disease or end stage renal disease; E11.22 Type 2 diabetes mellitus with diabetic chronic kidney disease; N18.6 End stage renal disease; Z79.899 Other long term (current) drug therapy; Z88.0 Allergy status to penicillin; Z88.8 Allergy status to other drugs, medicaments and biological substances; Z99.2 Dependence on renal dialysis
CPT/HCPCS: 36416; 96374; G0378; Q5105

== ENCOUNTER 2019-02-20 11:07 | Observation (INO) | payer MEDICAID, SELFPAY ==
[2019-02-20] MEDS ORDERED: Dextrose 50% Abboject 50 ML SYRINGE SLOW IVP PRN (16:16)
[2019-02-20] MEDS ORDERED: Ondansetron PF 4 MG/2 ML Vial IVP PRN (16:16)
[2019-02-20] MEDS ORDERED: Dextrose 5% in Water 1,000 ML IV PRN (16:16)
[2019-02-20] MEDS ORDERED: Acetaminophen 325 MG TAB PO PRN (16:16)
[2019-02-20] MEDS ORDERED: Ondansetron ODT 4 MG TAB PO PRN (16:16)
[2019-02-20] MEDS ORDERED: Loperamide HCl 2 MG CAP PO PRN ×2 (16:16)
--- NOTE | 2019-02-20 19:01 | HP ---
CHIEF COMPLAINT: Chest discomfort, shortness of breath, poor appetite, and leg swelling. HISTORY OF PRESENT ILLNESS: This is a 68-year-old female patient, who unfortunately does not have outpatient dialysis facility, presented here with the above-mentioned complaints. The patient has now been admitted with uremic symptoms, hyperkalemia, and severe metabolic acidosis. PAST MEDICAL HISTORY: Significant for end-stage renal disease; hypertension; diabetes mellitus, type 2; and hyperparathyroidism. MEDICATIONS: Reviewed and as documented on [employer]. ALLERGIES: 1. PENICILLINS. 2. ASPIRIN. FAMILY HISTORY: Not significantly related to presenting illness. SOCIAL HISTORY: The patient is [employer]. No alcohol. No tobacco. No illicit drug use. REVIEW OF SYSTEMS: As documented in the body of history. All the other systems were reviewed, and not significantly related to presenting illness. PHYSICAL EXAMINATION: GENERAL: The patient was found to be ill-looking, hemodynamically stable. HEENT: Unremarkable. CARDIOVASCULAR: First and second heart sounds were heard. RESPIRATORY: Clear to auscultation. DIGESTIVE: Revealed a benign abdomen with positive bowel sounds. EXTREMITIES: Showed 2+ bilateral lower extremity edema. SKIN: No new gross rash. LYMPHATICS: No peripheral lymphadenopathy. IMPRESSION: 1. End-stage renal disease. 2. Uremia. 3. Hyperkalemia. 4. Metabolic acidosis. 5. Diabetes mellitus, type 2. PLAN: 1. The patient to undergo short dialysis today to avoid disequilibrium syndrome given the significant azotemia in this patient and subsequently full dialysis the next day, and if the patient remains clinically stable, will likely be discharged. 2. Erythropoiesis-stimulating agent. Job ID: [id number]
[2019-02-21 05:30] LABS: #Basophils 0.1 thou/uL (0.0-0.2); #Eosinphils 0.1 thou/uL (0.0-0.7); #Lymphocytes 1.2 thou/uL (1.20-3.40); #Monocytes 0.6 thou/uL (0.11-0.59); #Neutrophils 2.7 thou/uL (1.40-6.50); %Basophils 1.1 % (0.0-1.0); %Eosinophils 1.8 % (0.0-10.0); %Lymphocytes 25.6 % (21.0-51.0); %Monocytes 12.4 % (0.0-10.0); %Neutrophils 59.1 % (42.0-75.0); Mean Corpuscular HGB CONC 32.8 g/dL (32.0-36.0); Mean Corpuscular Hemoglobin 32.2 pg (27.0-31.0); Mean Corpuscular Volume 98.1 fL (78.0-98.0); Mean Platelet Volume 8.3 fL (7.4-10.4); Platelet Count 178 thou/uL (130-400); RBC Distribution Width 16.2 % (11.5-14.5); Red Blood Cell (RBC) Count 3.11 mill/uL (4.20-5.40); White Blood Cell (WBC) Count 4.6 thou/uL (4.8-10.8)
[2019-02-21 06:01] LABS: Albumin 3.7 g/dL (3.4-4.8); Anion Gap 24 mmol/L (10-20); BUN (Urea Nitrogen) 82 mg/dL (9.8-20.1); BUN/Creatinine Ratio 7.37; Calc. Creatinine Clearance 4 mL/min (70-130); Calcium 7.7 mg/dL (7.8-10.44); Carbon Dioxide 20 mmol/L (23-31); Chloride 100 mmol/L (98-107); Estimated GFR-MDRD 3; Glucose 92 mg/dL (80-115); Phosphorus 8.8 mg/dL (2.3-4.7); Potassium 4.5 mmol/L (3.5-5.1); Sodium 139 mmol/L (136-145)
[2019-02-21 08:10] VITALS: TEMP 98.4
[2019-02-21] MEDS ORDERED: Calcitriol 0.25 MCG CAP PO SCH (09:00)
[2019-02-21] MEDS ORDERED: Enoxaparin Sodium 30 MG/0.3 ML SYRINGE SC SCH (09:00)
[2019-02-21] MEDS ORDERED: Folic Acid/Vit B Comp W-C PO SCH (09:00)
[2019-02-21] MEDS ORDERED: Amlodipine 10 MG TAB PO SCH (09:00)
[2019-02-21 13:08] VITALS: BP 174/90
--- NOTE | 2019-02-21 13:43 | DIS ---
DATE OF ADMISSION: 02/20/2019 DATE OF DISCHARGE: 02/21/2019 SUBJECTIVE: The patient was seen and examined on dialysis, seems to be doing okay and noted with the following vital signs. OBJECTIVE: VITAL SIGNS: Hemodynamically stable. Afebrile. Temperature 98.4, pulse 80, blood pressure was 197/81, respiratory rate of 18, blood pressure has gone down to 137/63, O2 saturations are 95%. HEENT: Unremarkable. CARDIOVASCULAR SYSTEM: First and second heart sounds were heard. RESPIRATORY SYSTEM: Clear to auscultation. DIGESTIVE SYSTEM: Revealed a benign abdomen with positive bowel sounds. EXTREMITIES: No peripheral edema. SKIN: No new gross rash. LYMPHATICS: No peripheral lymphadenopathy. IMPRESSION: 1. End-stage renal disease, on dialysis. 2. Uremia. 3. Hyperkalemia. 4. Metabolic acidosis. PLAN: 1. The patient to be discharged today, status post dialysis if the patient maintains stable hemodynamics and clinically doing better. 2. Further management will be dependent on the clinical course, but the patient likely to be discharged home to continue with her home medications. Job ID: [id number]
== END 2019-02-21 13:52 | disposition home or self-care (01) ==
LOC: ONC 16:08
PROVIDERS: ADMIT Internal Medicine Nephrology; ATTEND Internal Medicine Nephrology
DX: E87.5 Hyperkalemia (principal); E87.2 Acidosis; I12.0 Hypertensive chronic kidney disease with stage 5 chronic kidney disease or end stage renal disease; E11.22 Type 2 diabetes mellitus with diabetic chronic kidney disease; N18.6 End stage renal disease; E21.3 Hyperparathyroidism, unspecified; Z88.0 Allergy status to penicillin; Z88.8 Allergy status to other drugs, medicaments and biological substances
CPT/HCPCS: 36415; 36416; 80069; 85025; 96372; G0378; J1650

== ENCOUNTER 2019-03-03 16:55 | Observation (INO) | payer MEDICAID, SELFPAY ==
[2019-03-03] MEDS ORDERED: EPOETIN ALFA-EPBX (ESRD) 10,000 UNIT/ML VIAL IVP SCH (17:30)
[2019-03-03] MEDS ORDERED: Zolpidem Tartrate 5 MG TAB PO PRN (18:49)
[2019-03-03] MEDS ORDERED: Acetaminophen 325 MG TAB PO PRN (18:49)
[2019-03-03] MEDS ORDERED: Ondansetron PF 4 MG/2 ML Vial IVP PRN (18:49)
[2019-03-03] MEDS ORDERED: Ondansetron ODT 4 MG TAB PO PRN (18:49)
[2019-03-03] MEDS ORDERED: Loperamide HCl 2 MG CAP PO PRN ×2 (18:49)
--- NOTE | 2019-03-03 19:20 | HP ---
CHIEF COMPLAINT: Shortness of breath, facial and leg swelling, and poor appetite. HISTORY OF PRESENT ILLNESS: This is a 68-year-old female patient, who unfortunately could not get schedule outpatient dialysis due to insurance issues, presented with the above-mentioned complaints. Laboratory investigation done, reviewed. Potassium elevated at 6.1 with clear-cut evidence of profound azotemia, metabolic acidosis, decision now been taken to semi-emergently dialyze this patient for shock treatments. PAST MEDICAL HISTORY: Remains the same. Please for the details, refer to the recent notes. FAMILY HISTORY: Remains the same. Please for the details, refer to the recent notes. SOCIAL HISTORY: Remains the same. Please for the details, refer to the recent notes. REVIEW OF SYSTEMS: As documented in the body of the history. All the other systems were reviewed and found not to be significantly related to present illness. PHYSICAL EXAMINATION: GENERAL: The patient was found to be ill looking with facial puffiness noted with the following vital signs. VITAL SIGNS: Blood pressure 139/75, afebrile, temperature 97.3, pulse is 90, respiratory rate of 14, and O2 saturations of 98%. HEENT: Unremarkable. CARDIOVASCULAR SYSTEM: First and second heart sounds were heard. RESPIRATORY SYSTEM: Clear to auscultation. DIGESTIVE SYSTEM: Revealed a benign abdomen. EXTREMITIES: Showed 2+ bilateral lower extremity edema. LYMPHATICS: No peripheral lymphadenopathy. IMPRESSION: 1. End-stage renal disease. 2. Uremia with profound azotemia. 3. Hyperkalemia. 4. Metabolic acidosis. 5. Hypervolemia. PLAN: 1. Dialyze this patient for about 2-1/2 hours with a lower blood flow to avoid precipitating disequilibrium syndrome. Tomorrow full dialysis with ultrafiltration as tolerated by hemodynamics. Hopefully, if the patient tolerated the current treatment well, likely to be discharged after dialysis tomorrow. 2. Further management to be dependent on the clinical course. Job ID: [id number]
[2019-03-03 20:14] LABS: Hemoglobin 9.9 g/dL (12.0-16.0); Mean Corpuscular Hemoglobin 32.8 pg (27.0-31.0); Mean Platelet Volume 8.4 fL (7.4-10.4); Platelet Count 180 thou/uL (130-400); Red Blood Cell (RBC) Count 3.03 mill/uL (4.20-5.40); White Blood Cell (WBC) Count 5.5 thou/uL (4.8-10.8)
[2019-03-03 20:51] LABS: Eosinophils 2 % (0-10); Lymphocytes 18 % (21-51); MDiff Complete? YES; Monocytes 4 % (0-10); Neutrophil 76 % (42-75); Platelet Morphology Comment Appears Adequate
[2019-03-03] MEDS ORDERED: Famotidine 20 MG TAB PO SCH (21:00)
[2019-03-03 23:00] LABS: HBSAg Index 0.16 S/CO (0-0.99); Hep B Surf Ag Non-Reactive S/CO (NonReactive)
[2019-03-04] MEDS ORDERED: Prevnar 13-Val Conj/PF 0.5 ML SYRINGE IM ONE (09:00)
[2019-03-04] MEDS ORDERED: Calcitriol 0.25 MCG CAP PO SCH (09:00)
[2019-03-04] MEDS ORDERED: FLU VACC TS2019-20(65YR UP)/PF 180 MCG/0.5 ML SYRINGE IM ONE (09:00)
[2019-03-04] MEDS ORDERED: Folic Acid/Vit B Comp W-C PO SCH (09:00)
[2019-03-04] MEDS ORDERED: Enoxaparin Sodium 30 MG/0.3 ML SYRINGE SC SCH (09:00)
[2019-03-04] MEDS ORDERED: Amlodipine 10 MG TAB PO SCH (09:00)
[2019-03-04 14:29] VITALS: TEMP 98.3
[2019-03-04 17:09] VITALS: BP 161/70
--- NOTE | 2019-03-05 09:52 | DIS ---
DATE OF ADMISSION: 03/03/2019 DATE OF DISCHARGE: 03/04/2019 For details of the history and physical, please refer to dictations and records. SUMMARY: This is a 68-year-old unfortunate female patient who cannot secure outpatient dialysis facility due to insurance reasons, who presented here uremic, hyperkalemic, and metabolically acidotic. The patient required two sessions of dialysis with the first session being a modified low intensity short duration dialysis to avoid disequilibrium syndrome. The patient has tolerated dialysis and after dialysis today, the patient continues to feed, will likely to be discharged today to continue with her home medications. PHYSICAL EXAMINATION: Today at dialysis, the patient noted to be hemodynamically stable, afebrile, tolerating treatment very well. HEENT: Unremarkable. CARDIOVASCULAR SYSTEM: First and second heart sounds were heard. RESPIRATORY SYSTEM: Clear to auscultation. DIGESTIVE SYSTEM: Revealed a benign abdomen with positive bowel sounds. DISCHARGE INSTRUCTIONS: 1. The patient to stay compliant with the medications. In addition to our current medication, the patient has been given prescription to start diuretics to see fluid overload. 2. Further management will be dependent on the clinical course. Total time spent including [id number]-[id number] encounter 31 minutes. Job ID: [id number]
== END 2019-03-04 17:16 | disposition home or self-care (01) ==
LOC: T4-A 16:55
PROVIDERS: ADMIT Internal Medicine Nephrology; ATTEND Internal Medicine Nephrology
DX: E87.70 Fluid overload, unspecified (principal); E87.2 Acidosis; E87.5 Hyperkalemia; N18.6 End stage renal disease; Z79.899 Other long term (current) drug therapy; Z88.0 Allergy status to penicillin; Z88.6 Allergy status to analgesic agent; Z99.2 Dependence on renal dialysis
CPT/HCPCS: 36416; 83970; 85007; 85027; 87340; 90935; G0257; G0378; Q5105

== ENCOUNTER 2019-08-13 11:39 | Observation (INO) | payer MEDICAID, SELFPAY ==
[~2019-08-13 11:39] MED LIST changes: -Heparin 10,000 UNITS/ 10 ML VIAL ONE; +Iopamidol-370 76% 500 ML 1 ML ONE
[2019-08-13 12:40] LABS: #Eosinphils 0.2 thou/uL (0.0-0.7); #Lymphocytes 1.2 thou/uL (1.20-3.40); #Monocytes 0.5 thou/uL (0.11-0.59); #Neutrophils 3.6 thou/uL (1.40-6.50); %Basophils 0.7 % (0.0-1.0); %Eosinophils 2.8 % (0.0-10.0); %Lymphocytes 21.2 % (21.0-51.0); %Monocytes 8.3 % (0.0-10.0); Hemoglobin 11.9 g/dL (12.0-16.0); Mean Corpuscular Hemoglobin 31.9 pg (27.0-31.0); Mean Corpuscular Volume 99.6 fL (78.0-98.0); Mean Platelet Volume 7.3 fL (7.4-10.4); Platelet Count 252 thou/uL (130-400); RBC Distribution Width 15.5 % (11.5-14.5); Red Blood Cell (RBC) Count 3.75 mill/uL (4.20-5.40); White Blood Cell (WBC) Count 5.4 thou/uL (4.8-10.8)
[2019-08-13] MEDS ORDERED: Ondansetron PF 4 MG/2 ML Vial ONE (12:45)
[2019-08-13 12:59] LABS: Magnesium 2.5 mg/dL (1.6-2.6); Phosphorus 4.9 mg/dL (2.3-4.7)
[2019-08-13 13:03] LABS: ALT (SGPT) 11 U/L (8-55); AST (SGOT) 18 U/L (5-34); Albumin 3.9 g/dL (3.4-4.8); Alkaline Phosphatase 77 U/L (40-110); Anion Gap 24 mmol/L (10-20); BUN (Urea Nitrogen) 61 mg/dL (9.8-20.1); Bilirubin, Total 0.6 mg/dL (0.2-1.2); Calc. Creatinine Clearance 0 mL/min (70-130); Calcium 8.8 mg/dL (7.8-10.44); Carbon Dioxide 25 mmol/L (23-31); Chloride 93 mmol/L (98-107); Estimated GFR-MDRD 6; Globulin 3.7 g/dL (2.4-3.5); Glucose 96 mg/dL (80-115); Lipase 36 U/L (8-78); Potassium 4.7 mmol/L (3.5-5.1); Protein, Total 7.6 g/dL (6.0-8.3); Sodium 137 mmol/L (136-145)
--- NOTE | 2019-08-13 13:03 | ULT ---
Exam: Right upper quadrant ultrasound: HISTORY: Right upper quadrant abdominal pain for 2 weeks. Nausea. COMPARISON: None FINDINGS: Liver: Echogenic focus seen right hepatic lobe likely due to a hepatic granuloma. The liver is small in size, but a peripheral nodular contour is not seen to suggest cirrhosis. No focal hepatic lesion is appreciated. Gallbladder: Gallbladder wall is mildly thickened measuring 0.4 cm. No gallbladder calculus is seen. Common bile duct: The common duct is normal in caliber measuring 0.4 cm in diameter. Pancreas: Mostly obscured by bowel gas and not well evaluated on this exam. Right kidney: Right kidney is small in size measuring 6 cm in length. Right kidney also appears only increased in echogenicity without significant renal cortical thinning. Findings could be on the basis of chronic medical renal disease. No hydronephrosis is present. IVC: The visualized IVC demonstrates a normal sonographic appearance. A moderate to large amount of intraperitoneal free fluid is seen in the abdomen. IMPRESSION: 1. Moderate to large amount of ascites. 2. Small echogenic right kidney which could be attributable to chronic medical renal disease. 3. Gallbladder wall thickening which could be related to acalculus cholecystitis in the correct clini amber scenario, hyperproteinemia, secondary to liver disease versus other etiologies. This is an overall nonspecific finding. 4. Small size of the liver. No focal hepatic lesion is visualized. Liver function tests are suggested .
[2019-08-13 13:32] LABS: CKMB 5.2 ng/mL (0-6.6)
--- NOTE | 2019-08-13 13:56 | CT ---
CT OF THE ABDOMEN AND PELVIS WITH IV CONTRAST: 08/13/19 INDICATION: History of abdominal pain. COMPARISON: CT abdomen and pelvis without contrast dated 06/25/18. FINDINGS: There is bibasilar atelectasis. There is a prominent amount of ascites that has developed since the p rior exam. Calcified granuloma of the right hepatic lobe is similar appearing. The pancreas, adrenal glands and spleen appear within normal limits. The kidneys remain atrophic. Small bowel is of normal caliber. There is a mild amount of retained stool within the colon. There is calcification seen invol ving the uterus. The bladder is largely decompressed. There is diffuse anasarca. There is diffuse ost eopenia. There is scattered degenerative and osteoarthritic change. IMPRESSION: 1. Interval development of prominent amount of ascites. 2. Bibasilar atelectasis. 3. Atrophic kidneys. 4. Mild anasarca. POS: [facility]
[2019-08-13 15:19] LABS: INR-International Normal Ratio 1.1; PTT 29.7 SEC (22.9-36.1); Prothrombin Time 13.9 SEC (12.0-14.7)
[2019-08-13] MEDS ORDERED: Senokot S 8.6-50 MG TAB PO PRN (15:47)
[2019-08-13] MEDS ORDERED: Ondansetron PF 4 MG/2 ML Vial IVP PRN (15:47)
[2019-08-13] MEDS ORDERED: Bisacodyl 10 MG SUPP PR PRN (15:47)
[2019-08-13] MEDS ORDERED: Guaifenesin DM 100-10/5 ML UDCUP PO PRN (15:47)
[2019-08-13] MEDS ORDERED: Acetaminophen 325 MG TAB PO PRN (15:47)
[2019-08-13] MEDS ORDERED: cefTRIAXone\\ROCEPHIN 1 GM in Sodium Chloride 0.9% 100 ML IVPB SCH (16:00)
--- NOTE | 2019-08-13 17:04 | HP ---
REASON FOR ADMISSION: New onset ascites with abdominal pain. HISTORY OF PRESENTING ILLNESS: The patient gives history of having progressive fluid buildup in her abdomen. She also developed mild discomfort, which has been progressively getting worse from last 15 days. This got worse yesterday and this morning. Finally, she made it to emergency room. The patient gets hemodialysis on Mondays and Fridays due to financial constraints. She also had 2 episodes of watery diarrhea on Sunday and one episode yesterday. No blood in the stool. No prior colonoscopy. No history of weight loss. No history of hepatitis in the past. She does not abuse alcohol nor as she used alcohol in the past. No drug use per patient. No history of heart failure as far as she knows. She has not been exposed to coronavirus. No complaints of cough or expectoration. No chest pain or palpitation. No fever. PAST MEDICAL AND SURGICAL HISTORY: End-stage renal disease on hemodialysis on Mondays and Fridays, chronic anemia due to renal disease, hypertension, dialysis access procedures in right upper extremity, and hypertension. CURRENT MEDICATIONS: The patient is on; 1. Norvasc 10 mg p.o. daily. 2. Calcitriol 0.25 mcg p.o. daily. 3. Bumex 2 mg twice daily. 4. Protonix 40 mg p.o. daily. 5. Lucy Claudette one tablet daily. 6. Tylenol p.r.n. ALLERGIES: TO ASPIRIN AND PENICILLIN. PERSONAL HISTORY: Does not abuse alcohol or drugs. No history of smoking. FAMILY HISTORY: She does not know much about her biological mom. Father of coronary artery disease, he was around 64 years. Code status is full. Power of district attorney is her son, she lives with him. She normally ambulates with a cane inside the house when she goes out. Her witjzkmo-wg-kwn supports her to ambulate. REVIEW OF SYSTEMS: CONSTITUTIONAL: Negative for weight loss or gain, ability to conduct usual activities. SKIN: Negative for rash, itching. EYES: Negative for double vision, pain. ENT/MOUTH: Negative for nose bleeding, neck stiffness, pain, tenderness. CARDIOVASCULAR: Negative for palpitations, dyspnea on exertion, orthopnea. RESPIRATORY: Negative for shortness of breath, wheezing, cough, hemoptysis, fever or night sweats. GASTROINTESTINAL: Negative for poor appetite, abdominal pain, heartburn, nausea , vomiting, constipation, or diarrhea. GENITOURINARY: Negative for urgency, frequency, dysuria, nocturia. MUSCULOSKELETAL: Negative for pain, swelling. NEUROLOGIC/PSYCHIATRIC: Negative for anxiety, depression. ALLERGY/IMMUNOLOGIC: Negative for skin rash, bleeding tendency. PHYSICAL EXAMINATION: GENERAL: The patient is a 69-year-old female, who is currently not in any acute distress. VITAL SIGNS: Blood pressure 200/74 on arrival, pulse 68 per minute, respiratory rate 18 per minute, temperature 98.1 degrees Fahrenheit, and saturating 100% on room air. NECK: Supple. No elevated JVD. HEENT: Eyes, extraocular muscles intact. Pupils reacting to light. Oral cavity and mucous membranes are moist. No exudates or congestion. CARDIOVASCULAR SYSTEM: S1 and S2 heard. Regular rhythm. RESPIRATORY SYSTEM: Air entry 1+ bilateral. No rales or rhonchi. ABDOMEN: Mildly distended. There is a janette ascites with fluid thrill. It is not very tense. Bowel sounds are heard no rigidity or guarding. EXTREMITIES: No peripheral edema or calf tenderness. VASCULAR SYSTEM: Peripheral pulses 1+ bilateral. No ischemic ulcerations or gangrene. CENTRAL NERVOUS SYSTEM: No gross focal deficits noted. The patient is alert, awake, and oriented well. PHYCHIATRIC SYSTEM: The patient's mood is euthymic. No hallucinations or delusions. LABORATORY DATA: EKG done shows normal sinus rhythm at 66 beats per minute. There are signs of mild LVH. Corrected QT is 442 milliseconds, QRS duration 78 milliseconds, TR interval is [address] of the abdomen and pelvis with IV contrast shows prominent amount of ascites. There is atrophy kidneys, mild anasarca. There is a calcified granuloma in right hepatic lobe, also diffuse anasarca. Right upper quadrant ultrasound done showed [id number]-[id number]-[id number] amount of ascites. Liver is small in size. No hepatic lesion is seen. Gallbladder wall mildly thickened. No gallbladder calculus is seen. Common duct is 0.4 cm. Moderate to large amount of intraperitoneal free fluid is seen in the abdomen. White count of 5.4, H and H 11 and 37, platelet count 252, and MCV is 99 with 67 % neutrophils. PT/INR and PTT within normal limits. BUN 61, creatinine 6.7, serum bicarb 25, serum glucose 96, phosphorus 4.9. Liver enzymes within normal limits troponin I 0.03. Albumin 3.9 and lipase is 36. CLINICAL IMPRESSION AND PLAN: The patient will be under observation on medical floor for new onset ascites with abdominal discomfort. This has been ongoing for last 2 weeks. The patient gets dialyzed only two times a week and it is unclear if ascites is related to inadequate volume removal. She has had a prior stress test done which showed normal ejection fraction. Again, we will obtain another echo, to see for LV function and diastolic dysfunction. Ultrasound-guided paracentesis will be obtained with cytology, Gram stain and cultures. The patient has never had colonoscopy in her life. We will continue her Norvasc. We will also add hydralazine to current regimen. Further medications for hypertension will be added based on the response during her brief stay here. We will obtain GI consultation with Dr. Saavedra. Code status was discussed with her and she is a full code. Job ID: [id number] MTDD
[2019-08-13 17:40] LABS: HBSAg Index 0.16 S/CO (0-0.99); Hep B Surf Ag Non-Reactive S/CO (NonReactive)
[2019-08-13 17:41] LABS: Hep C IgG Ab Non-Reactive (NonReactive); Hep C Index 0.34 S/CO (0-0.79)
[2019-08-13 17:42] LABS: Hep A IgM AB Non-Reactive (NonReactive)
[2019-08-13 17:44] LABS: Hep A IgM S/CO 0.22 S/CO (0-0.79); Hepatitis B Core IgM Abs Non-Reactive (NonReactive)
[2019-08-13 17:45] LABS: HBCM Index 0.05 S/CO (0-0.79)
[2019-08-13 18:03] VITALS: BMI 19.4
[2019-08-13] MEDS: hydrALAZINE 25 MG TAB PO SCH (20:21)
[2019-08-14 05:38] LABS: #Basophils 0.1 thou/uL (0.0-0.2); #Eosinphils 0.2 thou/uL (0.0-0.7); #Lymphocytes 1.2 thou/uL (1.20-3.40); #Monocytes 0.4 thou/uL (0.11-0.59); #Neutrophils 3.2 thou/uL (1.40-6.50); %Eosinophils 3.7 % (0.0-10.0); %Lymphocytes 24.6 % (21.0-51.0); %Monocytes 7.4 % (0.0-10.0); %Neutrophils 63.3 % (42.0-75.0); Hemoglobin 11.1 g/dL (12.0-16.0); Mean Corpuscular HGB CONC 32.1 g/dL (32.0-36.0); Mean Corpuscular Hemoglobin 31.9 pg (27.0-31.0); Mean Corpuscular Volume 99.2 fL (78.0-98.0); Mean Platelet Volume 7.5 fL (7.4-10.4); Platelet Count 249 thou/uL (130-400); RBC Distribution Width 15.5 % (11.5-14.5); Red Blood Cell (RBC) Count 3.47 mill/uL (4.20-5.40)
[2019-08-14 06:29] LABS: Albumin 3.2 g/dL (3.4-4.8); Anion Gap 22 mmol/L (10-20); BUN (Urea Nitrogen) 72 mg/dL (9.8-20.1); BUN/Creatinine Ratio 9.77; Calc. Creatinine Clearance 5 mL/min (70-130); Calcium 8.3 mg/dL (7.8-10.44); Carbon Dioxide 23 mmol/L (23-31); Chloride 94 mmol/L (98-107); Estimated GFR-MDRD 5; Glucose 88 mg/dL (80-115); Phosphorus 6.2 mg/dL (2.3-4.7); Potassium 4.8 mmol/L (3.5-5.1); Sodium 134 mmol/L (136-145)
[2019-08-14] MEDS: Amlodipine 10 MG TAB PO SCH (08:25)
[2019-08-14] MEDS: Enoxaparin Sodium 30 MG/0.3 ML SYRINGE SC SCH (08:26)
[2019-08-14] MEDS: Calcitriol 0.25 MCG CAP PO SCH (08:26)
[2019-08-14] MEDS: hydrALAZINE 25 MG TAB PO SCH ×3 (08:26→20:08)
[2019-08-14] MEDS ORDERED: Lidocaine 1% PF 5 ML VIAL ONE (09:03)
[2019-08-14] MEDS ORDERED: Sodium Bicarbonate 2.5 MEQ/5 ML VIAL ONE (09:03)
--- NOTE | 2019-08-14 09:56 | ULT ---
Exam: Ultrasound guided paracentesis HISTORY: Ascites COMPARISON: None FINDINGS: Successful ultrasound-guided paracentesis. Total of 4800 mL of mahesh color ascites was aspi rated. TECHNIQUE: Consent obtained reformatory ultrasound-guided paracentesis. Right lower quadrant was deem ed appropriate. Skin was prepped and draped in a sterile fashion. 1% lidocaine, buffered with sodium bicarbonate was used for local anesthesia. Under ultrasound guidance, a 5 Cymraes 7 cm Yueh cat heter is advanced in the peritoneal space. A total of 4800 mL of mahesh color ascites was aspirated. No immediate or postprocedural complications IMPRESSION: Successful ultrasound-guided paracentesis.
[2019-08-14 11:39] LABS: BF Color Yellow; Body Fluid Source Ascites Body Fluid; Clarity Hazy (Clear); RBC Count-Automated (BF) 61 /cumm; Tube # EDTA; WBC/Nucleated-Auto (BF) 154 uL
[2019-08-14 12:21] LABS: BF Segmented Neutrophils 1 %; Cell Count Non Hematic 83 %; Lymphocytes 16 %
--- NOTE | 2019-08-14 12:36 | PDOC.HOSPP ---
- Subjective Encounter Date: 08/14/19 Encounter Time: 10:40 Subjective: has paracentesis done this am no nausea or sob or dizziness - Objective Vital Signs & Weight: Vital Signs (12 hours) Temp Pulse Resp BP BP Pulse Ox 08/14/19 12:00 98 F 60 19 119/82 99 08/14/19 08:26 70 184/67 H 08/14/19 08:25 70 184/67 H 08/14/19 08:00 100 08/14/19 07:50 98 F 70 16 184/67 H 100 08/14/19 04:48 97.7 F 69 18 128/50 L 99 08/14/19 00:42 98.1 F 71 18 131/60 100 Weight Weight 106 lb 4.205 oz Result Diagrams: 08/14/19 05:24 08/14/19 05:24 Hospitalist ROS - Medication Medications: Active Medications Generic Name Dose Route Start Last Admin Trade Name Freq PRN Reason Stop Dose Admin Acetaminophen 650 mg 08/13/19 15:47 08/13/19 20:21 Tylenol PO 650 mg Q4H PRN Administration Headache/Fever/Mild Pain (1-3) Amlodipine Besylate 10 mg 08/14/19 09:00 08/14/19 08:25 Norvasc PO 10 mg DAILY WES Administration Calcitriol 0.25 mcg 08/14/19 09:00 08/14/19 08:26 Rocaltrol PO 0.25 mcg DAILY WES Administration Enoxaparin Sodium 30 mg 08/14/19 09:00 08/14/19 08:26 Lovenox SC Not Given 0900 [facility] Hydralazine HCl 25 mg 08/13/19 21:00 08/14/19 08:26 Apresoline PO 25 mg TID WES Administration Ceftriaxone Sodium 1 gm/ 100 mls @ 200 mls/hr 08/13/19 16:00 08/13/19 18:10 Sodium Chloride IVPB 100 mls Q24HR WES Administration Pantoprazole Sodium 40 mg 08/14/19 09:00 08/14/19 08:25 Protonix PO 40 mg DAILY WES Administration - Exam General Appearance: awake alert Eye: PERRL, anicteric sclera ENT: no oropharyngeal lesions, moist mucosa Neck: supple, no JVD Heart: RRR, no murmur Respiratory: no wheezes, no rales Gastrointestinal: soft, non-distended, normal bowel sounds, no guarding, no rigidity Extremities: no cyanosis, no edema Neurological: cranial nerve grossly intact, no focal deficits Psychiatric: A&O x 3 Hosp A/P (1) Ascites Code(s): R18.8 - OTHER ASCITES Status: Acute (2) Anemia in CKD (chronic kidney disease) Code(s): N18.9 - CHRONIC KIDNEY DISEASE, UNSPECIFIED; D63.1 - ANEMIA IN CHRONIC KIDNEY DISEASE Status: Chronic Qualifiers: Chronic kidney disease stage: on chronic dialysis Qualified Code(s): N18.6 - End stage renal disease; D63.1 - Anemia in chronic kidney disease; Z99.2 - Dependence on renal dialysis (3) ESRD (end stage renal disease) on dialysis Code(s): N18.6 - END STAGE RENAL DISEASE; Z99.2 - DEPENDENCE ON RENAL DIALYSIS Status: Chronic (4) HTN (hypertension) Code(s): I10 - ESSENTIAL (PRIMARY) HYPERTENSION Status: Chronic Qualifiers: - Plan new onset ascites, await work up for HD in am prior to dc, had contrast with CT yesterday, d/w had 4 lts of paracentesis today, sbp stable now GI opinion hemostable continue norvasc, hydralazine, protonix, calcitriol. DC ceftriaxone (no signs of sbp on fluid analysis, gm stain is -ve as well)
--- NOTE | 2019-08-14 16:49 | CON ---
DATE OF CONSULTATION: 08/14/2019 REASON FOR CONSULTATION: New-onset ascites, right upper quadrant abdominal pain. CONSULTING PROVIDER: Adrian Grant MD HISTORY OF PRESENT ILLNESS: The patient is a 69-year-old female with past medical history of end-stage renal disease, on hemodialysis; anemia of renal disease; and hypertension, presenting with complaints of increased right upper quadrant abdominal pain and abdominal distention. The patient is presenting with progressively worsening abdominal pain and increased abdominal distention that has been occurring over the last 2 weeks. She initially began having increased right upper quadrant abdominal pain, characterized as a hard type sensation, radiating to her right mid back, it has been intermittent, and reaching a severity of 7/10. This pain is worse with increased physical activity, pressure to that right side of the abdomen/rib cage, better only with time. She also endorsed increased abdominal distention over the same time period with no clear etiology. She does receive hemodialysis, but received in only 2 days per week. With these worsening symptoms, it prompted her to go to [facility] ER for further evaluation. While in the ER, she was noted to have a moderately distended abdomen with the presence of ascites and subsequently underwent paracentesis earlier today. She also endorses increased nausea, dysphagia to semi-solid foods, as well as increased weight gain. She denies any vomiting, fevers, chills, hematemesis, melena, hematochezia, odynophagia, shortness of breath, chest pain, or palpitations. REVIEW OF SYSTEMS: A 10-category review of systems was obtained with all responses negative except for the pertinent positives as listed in HPI. PAST MEDICAL HISTORY: As per HPI. PAST SURGICAL HISTORY: AV fistula placement in the right upper extremity. FAMILY HISTORY: Denies any GI malignancies. SOCIAL HISTORY: Denies any tobacco, alcohol, or illicit drug use. OUTPATIENT MEDICATIONS: Reviewed. ALLERGIES: ASPIRIN AND PENICILLIN. PHYSICAL EXAMINATION: VITAL SIGNS: Temperature 98, pulse 60, blood pressure 119/82, respiratory rate 19, and saturating 99% on room air. GENERAL: The patient was sitting in a chair at bedside, in no acute distress. Alert and oriented x4. Hungarian-speaking only. HEENT: Normocephalic and atraumatic. Neck is supple. No JVD or scleral icterus noted. CARDIOVASCULAR: Regular rate and rhythm with no discernable murmurs, gallops, or rubs. RESPIRATORY: Clear to auscultation bilaterally with no discernable wheezes or rales. ABDOMEN: Normoactive bowel sounds. Soft. Mild abdominal distention. Mild tenderness to palpation in the right upper quadrant and the right lower ribs. EXTREMITIES: No cyanosis, clubbing, or edema. LABORATORY DATA: CBC with a white blood cell count of 5, hemoglobin 11.1, hematocrit 34.4, and platelets 249. INR 1.1. Chemistry with a sodium of 134, potassium 4.8, chloride 94, CO2 of 23, BUN 72, creatinine 7.37, and glucose 88. AST 18, ALT 11, alkaline phosphatase 77, total bilirubin 0.6, and albumin 3.2. AFP less than 2. CEA 3.27. BNP 710.3. Microbiology with acute hepatitis panel negative for hepatitis A, B, or C. Paracentesis studies showed a white blood cell count of 154 (1% PMNs), total protein of 5.5, and LDH of 127. IMAGING DATA: CT of the abdomen and pelvis was obtained on 08/13/2019, which showed a prominent amount of ascites that has developed since the prior exam. There was calcified granuloma within the right hepatic lobe, which was stable in appearance. Bibasilar atelectasis was also noted. Diffuse anasarca and diffuse osteopenia were also noted during this exam, but otherwise did not show any other intra- abdominal abnormalities. Right upper quadrant ultrasound was obtained on 08/13/2019, which showed an echogenic focus in the right hepatic lobe, likely due to a hepatic granuloma. The liver was noted to be small in size, but did not exhibit cirrhotic morphology. The common bile duct measured approximately 4 mm in diameter; however, there was a kpqelmcq-pi-laeqz amount of ascites noted during this examination as well. Paracentesis was performed on 08/14/2019, which removed approximately 4.8 L of mahesh-colored fluid. ASSESSMENT AND PLAN: The patient is a 69-year-old female with past medical history of end-stage renal disease, on hemodialysis; anemia of renal disease; and hypertension, presenting with increased abdominal distention, elevated BNP, and ascites. Fluid analysis consistent with congestive heart failure. New-onset ascites/cardiac etiology of ascites: The patient is presenting with approximately 2-week history of increased right upper quadrant abdominal pain and increasing abdominal distention, that subsequently worsened during that same time. It prompted her evaluation at [facility]. On initial evaluation, imaging was consistent with a scjoschl-zb-kcwlt amount of ascites, but there was no subjective evidence of cirrhotic morphology nor was there any elevation in her liver function tests or synthetic function. She underwent paracentesis on 08/14/2019, which showed no evidence of spontaneous bacterial peritonitis; however, she did have a significantly elevated total protein in her ascitic fluid, consistent with congestive heart failure. The fluid albumin is still pending at this time, but both a liver or renal etiology would have a total ascitic protein of less than 2.5, making these much less likely at this time. RECOMMENDATIONS: 1. Would place the patient on a low-sodium diet to prevent further accumulation of ascitic fluid. 2. Would consult Cardiology service with a probable echocardiogram for further evaluation of cardiac function given the high likelihood of cardiac ascites. 3. Would defer diuretic management to the Cardiology Service. 4. With no evidence of SBP, antibiotic administration is not indicated at this time. We will continue to follow peripherally given the lack of hepatic findings leading toward the diagnosis of ascites. Please call with any questions. Job ID: [id number] MTDD
--- NOTE | 2019-08-14 16:53 | PRG ---
DATE OF SERVICE: 08/14/2019 SUBJECTIVE: The patient is seen and examined today and seems to not have any new complaint. Noted with the following vital signs. OBJECTIVE: VITAL SIGNS: Afebrile, temperature 98, pulse , respiratory rate of 16, blood pressure 119/82, O2 saturations 100%. HEENT: Unremarkable. CARDIOVASCULAR: First and second heart sounds were heard. RESPIRATORY: Clear to auscultation. DIGESTIVE: Revealed a benign abdomen. Positive bowel sounds. EXTREMITIES: No peripheral edema. SKIN: No new gross rash. LYMPHATICS: No peripheral lymphadenopathy. ABDOMEN: Revealed distended abdomen. IMPRESSION: 1. End-stage renal disease, on dialysis. 2. Gross ascites . PLAN: 1. The patient is likely to undergo large volume paracentesis today both therapeutic and diagnostic. 2. We will allow this patient to rest after this large volume paracentesis and plan for dialysis tomorrow. From the renal standpoint after dialysis tomorrow, the patient should able to be discharged home. Job ID: [id number]
--- NOTE | 2019-08-14 17:19 | CON ---
DATE OF CONSULTATION: 08/13/2019 CONSULTING PHYSICIAN: Michael Bernal MD REQUESTING PHYSICIAN: Adrian Grant MD REASON FOR CONSULTATION: Need for maintenance dialysis. IMPRESSION: 1. End-stage renal disease, on hemodialysis. 2. Gross ascites . 3. Diabetes mellitus. PLAN: There is no emergent indication for renal replacement therapy. The patient to be dialyzed after paracentesis most likely on Sunday. HISTORY OF PRESENT ILLNESS: This is a 69-year-old female patient, who is on hemodialysis due to end-stage renal disease on Sunday and Sunday basis. The patient subsequently has been experiencing worsening abdominal discomfort and distention. Imaging studies in the ER revealed gross ascites, need for paracentesis, is necessitating admission of this patient. PAST MEDICAL HISTORY: Significant for hypertension, diabetes mellitus, end-stage renal disease, anemia of chronic disease. MEDICATIONS: Reviewed as documented on [employer]. ALLERGIES: ASPIRIN AND PENICILLIN. FAMILY HISTORY: No family history of kidney disease. SOCIAL HISTORY: The patient is [employer]. No alcohol, no tobacco, no illicit drug use. REVIEW OF SYSTEMS: As documented in the body of the history. All other systems were reviewed and found not to be significantly related to present illness. PHYSICAL EXAMINATION: GENERAL: Found to be in some physical discomfort from the abdominal distention, otherwise hemodynamically stable. HEENT: Unremarkable. CARDIOVASCULAR: First and second heart sounds were heard. RESPIRATORY: Clear to auscultation. DIGESTIVE: Revealed distended abdomen with positive bowel sounds. EXTREMITIES: No peripheral edema. SKIN: No new gross rash. LYMPHATICS: No peripheral lymphadenopathy. SUMMARY: A 69-year-old female patient with end-stage renal disease, hemodialysis dependent, who presented here with worsening ascites, may be needing paracentesis. Thank you for this consultation. We will follow with you. Job ID: [id number]
[2019-08-15 07:40] VITALS: BP 151/57; TEMP 97.4
--- NOTE | 2019-08-15 13:35 | DIS ---
DATE OF ADMISSION: 08/13/2019 DATE OF DISCHARGE: 08/15/2019 DISCHARGE DISPOSITION: To home. PRIMARY DISCHARGE DIAGNOSES: New-onset ascites, likely secondary to cardiac source, status post paracentesis with removal of 4 L; end-stage renal disease, on hemodialysis; chronic anemia due to kidney disease; hypertension. PROCEDURES DONE DURING HOSPITALIZATION: Echo with 2D Doppler done showed EF of 55% to 60%. There was diastolic dysfunction, moderate mitral regurgitation, moderate aortic regurgitation. Cytology of ascitic fluid shows no malignant cells. CT of the abdomen and pelvis with IV contrast done showed prominent amount of ascites, atrophic kidneys, mild anasarca, calcified granuloma of right hepatic lobe. Pancreas and adrenal glands appeared within normal limits. Right upper quadrant ultrasound done showed [id number] amount of ascites, small echogenic right kidney, gallbladder wall thickening, small size of liver, but no focal hepatic lesion was seen. Common bile duct measured 0.4 cm. There was no nodular contour to suggest cirrhosis. Ascitic fluid culture was negative. H and H of 11 and 34, platelet count 249, MCV 99, and white count of 5. PT/INR 13.9 and 1.1, PTT 29. BUN 72 and creatinine 7.3. BNP 710. AFP tumor marker less than 2.0. Carcinoembryonic antigen 3.27. Serum albumin 3.9. Serum total protein is 7.6. Ascitic fluid showed 154 wbc's, 61 rbc's, 1% segments. Ascitic fluid LDH was 127. Ascitic fluid total protein was 5.5. Acute hepatitis panel is nonreactive. INPATIENT CONSULT: Dr. Favio Cortés for Gastroenterology and Dr. Rodriguez for Nephrology. DISCHARGE PLAN: The patient will follow up with Dr. Rodriguez in 1 week. BRIEF COURSE DURING HOSPITALIZATION: The patient initially came to ER with complaints of progressive distention of her abdomen and abdominal pain. This started out from last 2 weeks per the patient. She has been getting dialysis 2 times a week due to financial constraints and is self-pay. In view of this history, the patient was placed under observation. She has had CT abdomen and right upper quadrant ultrasound done, which confirmed a large amount of ascites. Intervention Radiology did ultrasound-guided paracentesis with removal of 4.8 L of mahesh-colored fluid. The fluid cytology did not reveal any malignancy. The differential did not show signs of spontaneous bacterial peritonitis. Her Gram stain and cultures on the ascitic fluid were negative. Based on the chemistry of the ascitic fluid, this is thought to be due to cardiac source. Her echo showed normal ejection fraction with diastolic dysfunction and moderate aortic and mitral regurgitation. The patient might see Dr. Cadena prior to discharge. If not, she has to make an appointment to see a social media executive of her choice in the outpatient setting. She is otherwise hemodynamically stable. She is ambulating in the room. She will be discharged after hemodialysis today. Further workup for her ascites to be continued in the outpatient setting by Dr. Rodriguez's advice. Please note, I have seen and examined the patient on the day of discharge. Job ID: [id number]
[2019-08-15] MEDS: hydrALAZINE 25 MG TAB PO SCH ×2 (14:06→14:10)
[2019-08-15] MEDS: Amlodipine 10 MG TAB PO SCH (14:10)
[2019-08-15] MEDS: Calcitriol 0.25 MCG CAP PO SCH (14:10)
[2019-08-15] MEDS: Enoxaparin Sodium 30 MG/0.3 ML SYRINGE SC SCH (14:10)
--- NOTE | 2019-08-15 20:37 | CON ---
DATE OF CONSULTATION: 08/15/2019 REASON FOR CONSULTATION: Ascites. HISTORY OF PRESENT ILLNESS: Ms. Salazar is a pleasant 69-year-old female, who comes to the hospital for abdominal pain and ascites. She has end-stage renal disease and is on hemodialysis twice a week, just Mondays and Fridays. She was admitted for new onset abdominal discomfort. She was found to have massive ascites, which she had to have a paracentesis for. The fluid seemed to be more heart failure fluid than anything else, so Cardiology has been consulted for this. On my evaluation, Ms. Salazar is just finishing her dialysis in the dialysis unit. She is denying anymore abdominal pain. No chest pain, tightness, or pressure. Her breathing is at baseline. PAST MEDICAL HISTORY: 1. End-stage renal disease, on hemodialysis, Mondays and Fridays, only 2 days a week. 2. Chronic anemia secondary to renal disease. 3. Hypertension. SURGICAL HISTORY: Dialysis access in the right upper extremity. OUTPATIENT MEDICATIONS: Include; 1. Norvasc 10 mg a day. 2. Calcitriol. 3. Bumex. 4. Protonix. 5. Lucy Claudette. 6. Tylenol p.r.n. ALLERGIES: ASPIRIN AND PENICILLIN. SOCIAL HISTORY: No alcohol, tobacco, or drugs. FAMILY HISTORY: Father of coronary artery disease at age 64. REVIEW OF SYSTEMS: A 12-point review of systems was done and was all negative unless stated in history of present illness. PHYSICAL EXAMINATION: VITAL SIGNS: Temperature 97.4, pulse 79, respiratory rate 16, saturating 100% on room air, blood pressure 151/77. GENERAL: Awake, alert, oriented x3, in no distress. HEENT: Normocephalic and atraumatic. NECK: Supple. LUNGS: Clear. CARDIOVASCULAR: S1 and S2. No S3 or S4. No murmurs. ABDOMEN: Soft. Positive bowel sounds. EXTREMITIES: No edema. SKIN: Warm and dry. LABORATORY DATA: Laboratory work was reviewed. CBC with a white count of 5, hemoglobin 11.9, hematocrit 37, platelet count of 252. Coags were normal. Chemistries were unremarkable except for elevated BUN and creatinine, gap of 22, sodium of 134, potassium is 4.8. Troponin was 0.036, indeterminate range and BNP was only 710. Albumin was 3.2. Echocardiogram was reviewed, which showed a normal EF at 55% to 60%, grade 1 diastolic dysfunction, moderate mitral regurgitation and moderate aortic regurgitation and mild TR. ASSESSMENT: 1. Anasarca. 2. Significant ascites . 3. Transudative fluid on her ascites. 4. Moderate mitral regurgitation and moderate aortic regurgitation. PLAN: 1. Unlikely that her ascites is solely related to cardiac issues. More than likely, she has larger component of inadequate dialysis or poor fluid management from either her part or inability to pull too much fluid in dialysis as she is only having 2 sessions a week. The amount of regurgitation that her aortic valve and her mitral valve have should not be causing cardiac cirrhosis. If this is the case, the treatment for this at this point would be improving fluid management with dialysis, which would be her only choice. At this point, I would recommend continued dialysis, trying to keep her as dry as possible. 2. She is not having any ischemic symptoms; however, if she had had an ischemic event, this would have made her MR worse transiently and make her develop ascites. We will screen for ischemia as an outpatient. We will ask that she come back to see us in the office in about 2-4 weeks and we will evaluate for ischemia at that point. 3. Thank you for letting us to participate in the care of your patient. 4. From the cardiac perspective, she may be discharged home. Job ID: [id number]
--- NOTE | 2019-08-19 07:21 | CON ---
DATE OF CONSULTATION: CONSULTING PHYSICIAN: Michael Bernal MD REQUESTING PHYSICIANS: with the ER and Dr. Grant with hospitalist program. REASON FOR CONSULTATION: Need for maintenance hemodialysis and end-stage renal disease. IMPRESSION: End-stage renal disease on hemodialysis and the patient is here today and is being admitted because of . PAST MEDICAL HISTORY: Significant for end-stage renal disease on hemodialysis chronic kidney disease . MEDICATIONS: Reviewed as documented on [employer]. FAMILY HISTORY: No family history . SOCIAL HISTORY: No alcohol. No tobacco. No illicit drug use. REVIEW OF SYSTEMS: Job ID: [id number]
== END 2019-08-15 15:50 | disposition home or self-care (01) ==
LOC: ERS 11:39 → T4-B 15:03
PROVIDERS: ADMIT Internal Medicine; ATTEND Internal Medicine
DX: R18.8 Other ascites (principal); I12.0 Hypertensive chronic kidney disease with stage 5 chronic kidney disease or end stage renal disease; N18.6 End stage renal disease; D63.1 Anemia in chronic kidney disease; N26.1 Atrophy of kidney (terminal); I08.0 Rheumatic disorders of both mitral and aortic valves; Z88.0 Allergy status to penicillin; Z88.6 Allergy status to analgesic agent; Z99.2 Dependence on renal dialysis
CPT/HCPCS: 36415; 49083; 74177; 76705; 80053; 80069; 80074; 82042; 82105; 82378; 82553; 83615; 83690; 83735; 83880; 84100; 84157; 84484; 85025; 85060; 85610; 85730; 87070; 87205; 88112; 88305; 89051; 90935; 93005; 93306; 96372; 96374; 96375; G0257; G0378; J0500; J0696; J2001; J2405; J3490; Q9967

== ENCOUNTER 2019-09-23 18:50 | Emergency (ER) | payer MEDICAID, SELFPAY ==
[2019-09-23 21:01] LABS: #Eosinphils 0.1 thou/uL (0.0-0.7); #Lymphocytes 1.3 thou/uL (1.20-3.40); #Monocytes 0.5 thou/uL (0.11-0.59); #Neutrophils 4.5 thou/uL (1.40-6.50); %Basophils 0.8 % (0.0-1.0); %Eosinophils 1.9 % (0.0-10.0); %Lymphocytes 20.3 % (21.0-51.0); %Neutrophils 68.9 % (42.0-75.0); Hemoglobin 12.5 g/dL (12.0-16.0); Mean Corpuscular HGB CONC 31.9 g/dL (32.0-36.0); Mean Corpuscular Hemoglobin 32.6 pg (27.0-31.0); Mean Platelet Volume 6.4 fL (7.4-10.4); Platelet Count 252 thou/uL (130-400); RBC Distribution Width 14.6 % (11.5-14.5); Red Blood Cell (RBC) Count 3.84 mill/uL (4.20-5.40); White Blood Cell (WBC) Count 6.6 thou/uL (4.8-10.8)
[2019-09-23 21:21] LABS: ALT (SGPT) 11 U/L (8-55); AST (SGOT) 21 U/L (5-34); Albumin 3.6 g/dL (3.4-4.8); Alkaline Phosphatase 123 U/L (40-110); Anion Gap 19 mmol/L (10-20); BUN (Urea Nitrogen) 54 mg/dL (9.8-20.1); Bilirubin, Total 0.5 mg/dL (0.2-1.2); Calc. Creatinine Clearance 0 mL/min (70-130); Calcium 9.3 mg/dL (7.8-10.44); Carbon Dioxide 27 mmol/L (23-31); Chloride 95 mmol/L (98-107); Estimated GFR-MDRD 8; Globulin 4.1 g/dL (2.4-3.5); Glucose 121 mg/dL (80-115); Lipase 58 U/L (8-78); Potassium 4.6 mmol/L (3.5-5.1); Protein, Total 7.7 g/dL (6.0-8.3); Sodium 136 mmol/L (136-145)
[2019-09-24 01:22] LABS: RBC Count-Automated (BF) 2686 /cu.mm; WBC/Nucleated-Auto (BF) 73 uL
[2019-09-24 01:28] LABS: BF Color Yellow; Body Fluid Source Ascites Body Fluid; Clarity Hazy (Clear); Tube # 1
[2019-09-24 01:31] LABS: BF Segmented Neutrophils 1 %; Cell Count Non Hematic 69 %; Lymphocytes 30 %
== END 2019-09-24 01:45 | disposition home or self-care (01) ==
LOC: ERS 18:50
DX: R18.8 Other ascites (principal); E11.22 Type 2 diabetes mellitus with diabetic chronic kidney disease; I12.0 Hypertensive chronic kidney disease with stage 5 chronic kidney disease or end stage renal disease; N18.6 End stage renal disease
CPT/HCPCS: 36415; 80053; 83690; 85025; 85060; 89051; 99284

== ENCOUNTER 2019-10-29 10:13 | Emergency (ER) | payer MEDICAID, SELFPAY ==
[2019-10-29 10:52] LABS: #Eosinphils 0.2 thou/uL (0.0-0.7); #Lymphocytes 1.1 thou/uL (1.20-3.40); #Monocytes 0.2 thou/uL (0.11-0.59); #Neutrophils 4.2 thou/uL (1.40-6.50); %Basophils 0.4 % (0.0-1.0); %Eosinophils 3.8 % (0.0-10.0); %Lymphocytes 18.5 % (21.0-51.0); %Monocytes 4.2 % (0.0-10.0); %Neutrophils 73.3 % (42.0-75.0); Hemoglobin 12.9 g/dL (12.0-16.0); Mean Corpuscular HGB CONC 32.9 g/dL (32.0-36.0); Mean Corpuscular Hemoglobin 33.7 pg (27.0-31.0); Mean Platelet Volume 6.5 fL (7.4-10.4); Platelet Count 319 thou/uL (130-400); RBC Distribution Width 13.1 % (11.5-14.5); Red Blood Cell (RBC) Count 3.84 mill/uL (4.20-5.40); White Blood Cell (WBC) Count 5.8 thou/uL (4.8-10.8)
[2019-10-29 11:01] LABS: PTT 29.6 sec (22.9-36.1); Prothrombin Time 13.1 sec (12.0-14.7)
[2019-10-29 11:14] LABS: ALT (SGPT) Less than 7 U/L (8-55); AST (SGOT) 16 U/L (5-34); Albumin 3.8 g/dL (3.4-4.8); Alkaline Phosphatase 94 U/L (40-110); Anion Gap 18 mmol/L (10-20); BUN (Urea Nitrogen) 64 mg/dL (9.8-20.1); Bilirubin, Total 0.6 mg/dL (0.2-1.2); Calc. Creatinine Clearance 0 mL/min (70-130); Calcium 10.2 mg/dL (7.8-10.44); Carbon Dioxide 30 mmol/L (23-31); Chloride 93 mmol/L (98-107); Estimated GFR-MDRD 6; Globulin 4.7 g/dL (2.4-3.5); Glucose 135 mg/dL (80-115); Magnesium 2.7 mg/dL (1.6-2.6); Potassium 5.2 mmol/L (3.5-5.1); Protein, Total 8.5 g/dL (6.0-8.3); Sodium 136 mmol/L (136-145)
[2019-10-29 11:17] LABS: Phosphorus 1.7 mg/dL (2.3-4.7)
== END 2019-10-29 13:19 | disposition home or self-care (01) ==
LOC: ERS 10:13
DX: R18.8 Other ascites (principal); I12.0 Hypertensive chronic kidney disease with stage 5 chronic kidney disease or end stage renal disease; E11.22 Type 2 diabetes mellitus with diabetic chronic kidney disease; N18.6 End stage renal disease; D63.1 Anemia in chronic kidney disease
CPT/HCPCS: 80053; 83735; 84100; 85025; 85610; 85730; 99284

== ENCOUNTER 2019-11-04 09:34 | Day surgery (SDC) | payer MEDICAID, SELFPAY ==
[2019-11-03 13:52] VITALS: BMI 19.8
[2019-11-04] MEDS ORDERED: Lidocaine 1% PF 5 ML VIAL ONE (09:51)
[2019-11-04] MEDS ORDERED: Sodium Bicarbonate 2.5 MEQ/5 ML VIAL ONE (09:51)
--- NOTE | 2019-11-04 10:47 | ULT ---
ULTRASOUND-GUIDED PARACENTESIS THERAPEUTIC: DATE: 11/04/2019 HISTORY: 69-year-old female with symptomatic ascites: Abdominal distention TECHNIQUE: Signed informed consent obtained. A four-quadrant survey of abdomen performed. Site selected for puncture: right lateral abdomen. Overlying skin prepared and draped in usual sterile fashion. 25-gauge needle used to apply buffered lidocaine superficially and deeply. 5 Upper Sor[place] Yueh catheter with stylette advanced into the pocket of free intraperitoneal fluid. After drainage, the Yueh catheter was removed. Patient tolerated the procedure well. No complications. FINDINGS: Volume of ascites prior to procedure:large. Volume of ascites fluid in the drainage pocket after drainage:small. Volume of ascites fluid drained:7000 mL Appearance of ascites fluid:nonhemorrhagic, straw-colored. IMPRESSION: Successful therapeutic paracentesis, with drainage of 7 L of ascites fluid.
== END 2019-11-04 10:50 | disposition home or self-care (01) ==
LOC: ULT 09:34
PROVIDERS: ATTEND Internal Medicine Gastroenterology
PROC: 0W9G3ZZ Drainage of Peritoneal Cavity, Percutaneous Approach (ICD-10-PCS; principal; 2019-11-04)
PROC: BW40ZZZ Ultrasonography of Abdomen (ICD-10-PCS; principal; 2019-11-04)
DX: R18.8 Other ascites (principal); I12.0 Hypertensive chronic kidney disease with stage 5 chronic kidney disease or end stage renal disease; E11.22 Type 2 diabetes mellitus with diabetic chronic kidney disease; N18.6 End stage renal disease; Z88.0 Allergy status to penicillin; Z88.6 Allergy status to analgesic agent
CPT/HCPCS: 49083

== ENCOUNTER 2019-12-29 09:56 | Day surgery (SDC) | payer SELFPAY ==
[2019-12-29] MEDS ORDERED: Lidocaine 1% PF 5 ML VIAL ONE (10:04)
[2019-12-29] MEDS ORDERED: Sodium Bicarbonate 2.5 MEQ/5 ML VIAL ONE (10:04)
--- NOTE | 2019-12-29 11:52 | ULT ---
Ultrasound-guided paracentesis: HISTORY: Recurrent ascites. FINDINGS: Informed consent obtained prior to the procedure. Preprocedural imaging demonstrated intrap eritoneal free fluid. An area was marked in the mid axillary line right mid abdomen, and then meticulously prepped and drap ed in normal sterile fashion and anesthetized with 1% buffered lidocaine. With direct sonographic guidance, a 19-gauge needle and 5 [place] Yueh catheter were advanced into the abdomen. After the return of fluid, the catheter was advanced, and the needle was removed. Approximately 3.6 L of clear dark straw-colored fluid was aspirated. The introducer sheath was remov ed, and hemostasis was achieved with direct pressure. A dry sterile dressing was placed. The patient tolerated the procedure well and without immediate complication. IMPRESSION: Technically successful ultrasound-guided paracentesis.
[2019-12-29 12:45] VITALS: BMI 19.8
[2019-12-29 12:51] VITALS: BP 193/66; TEMP 98.1
== END 2019-12-29 11:30 | disposition home or self-care (01) ==
LOC: ULT 09:56
PROVIDERS: ATTEND Internal Medicine Gastroenterology
DX: R18.8 Other ascites (principal); I12.0 Hypertensive chronic kidney disease with stage 5 chronic kidney disease or end stage renal disease; E11.22 Type 2 diabetes mellitus with diabetic chronic kidney disease; N18.6 End stage renal disease; Z79.899 Other long term (current) drug therapy; Z88.0 Allergy status to penicillin; Z88.6 Allergy status to analgesic agent
CPT/HCPCS: 49083

== ENCOUNTER → 2020-01-26 | Day surgery (SDC) | payer SELFPAY ==
[2020-01-23 12:54] VITALS: BMI 19.8
[~2020-01-26] MED LIST changes: +FLU VACC QS2020-21(65YR UP)/PF 240 MCG/0.7 ML SYRINGE IM ONE; -Iopamidol-370 76% 500 ML 1 ML ONE
[2020-01-26 10:47] LABS: #Eosinphils 0.5 thou/uL (0.0-0.7); #Lymphocytes 1.5 thou/uL (1.20-3.40); #Monocytes 0.3 thou/uL (0.11-0.59); #Neutrophils 3.5 thou/uL (1.40-6.50); %Basophils 0.6 % (0.0-1.0); %Eosinophils 8.2 % (0.0-10.0); %Lymphocytes 25.5 % (21.0-51.0); %Monocytes 5.8 % (0.0-10.0); %Neutrophils 59.9 % (42.0-75.0); Hemoglobin 11.5 g/dL (12.0-16.0); Mean Corpuscular HGB CONC 34.4 g/dL (32.0-36.0); Mean Corpuscular Volume 95.9 fL (78.0-98.0); Mean Platelet Volume 7.2 fL (7.4-10.4); Platelet Count 202 thou/uL (130-400); RBC Distribution Width 14.4 % (11.5-14.5); Red Blood Cell (RBC) Count 3.47 mill/uL (4.20-5.40); White Blood Cell (WBC) Count 5.8 thou/uL (4.8-10.8)
[2020-01-26 10:53] LABS: INR-International Normal Ratio 1.1
--- NOTE | 2020-01-26 11:21 | ULT ---
Sonogram abdomen limited HISTORY: Recurrent ascites. FINDINGS: Exam was originally scheduled as a sonographic guided paracentesis. Sonographic survey showed only very small amount of fluid within the abdomen. Of insufficient quantit y for paracentesis. IMPRESSION : Minimal ascites. Paracentesis not performed.
[2020-01-26 13:22] VITALS: BP 132/84; TEMP 98.2
== END ==
LOC: ULT 10:28
PROVIDERS: ATTEND Internal Medicine Gastroenterology
DX: R18.8 Other ascites (principal); I12.0 Hypertensive chronic kidney disease with stage 5 chronic kidney disease or end stage renal disease; N18.6 End stage renal disease; D63.1 Anemia in chronic kidney disease; Z79.899 Other long term (current) drug therapy; Z88.0 Allergy status to penicillin; Z88.6 Allergy status to analgesic agent; Z99.2 Dependence on renal dialysis
CPT/HCPCS: 36415; 76705; 85025; 85610